=== PATIENT | female | born 1955 | race Caucasian/White ===

== ENCOUNTER 2019-12-23 07:42 | Emergency (ER) | payer OTHER, SELFPAY ==
[2019-12-23 07:43] VITALS: BP 146/92; PULSE 81; RESP 15; TEMP 36.8; O2SAT 98; BMI 31.2
--- NOTE | 2019-12-23 07:43 | EKG12_ITS ---
Test Reason : SYNCOPE Blood Pressure : / mmHG Vent. Rate : 085 BPM Atrial Rate : 085 BPM P-R Int : 128 ms QRS Dur : 092 ms QT Int : 376 ms P-R-T Axes : 046 054 023 degrees QTc Int : 447 ms Normal sinus rhythm Nonspecific ST abnormality Abnormal ECG Confirmed by IBAN QUACH, LOVE ([id number]), science editor RICK MATOS ([id number]) on 12/28/2019 11:57:35 AM Referred By: ELYSSA Confirmed By:LOVE FERRERA MD
[2019-12-23 08:02] LABS: Absolute Lymphocyte Count 1.47 X10^3/uL (0.83-4.51); Absolute Neutrophil Count 1.3 X10^3/uL (2.0-7.7); Basophil# 0.01 X10^3/uL; Basophil% 0.3 % (0-1); Hematocrit 41.7 % (37-47); Hemoglobin 13.5 g/dL (12.0-15.0); Lymphocyte # 1.47 X10^3/ul (4.0); Lymphocyte % 45.4 % (19-41); Mean Corp Hgb Conc 32.4 g/dL (32-36); Mean Corpuscular Hgb 30.7 pg (27.0-32.0); Mean Corpuscular Volume 94.8 fL (81-99); Monocyte# 0.42 X10^3/uL; NRBC Flagged by Analyzer 0 % (0-5); Neutrophil # 1.33 X10^3/uL (2.7-7.7); Platelet Count 176 K/mm3 (150-450); RBC Distribution Width CV 12.4 % (11.6-14.6); RBC Distribution Width SD 43.3 fl (35.1-43.9); White Blood Count 3.2 K/mm3 (4.4-11.0)
--- NOTE | 2019-12-23 08:02 | ED.VISSUMM ---
- ER Visit Summary Date of Service: 12/23/19 Chief Complaint: Syncopal event History of Present Illness: The patient is a 64 F history of reflux, thyroid disease, hypercholesterolemia and prior dysrhythmia. Patient now states she is prediabetic. States this morning she felt lightheaded felt like she might pass out sat down and had a brief syncopal event. Said she was unconscious but only lasted seconds. Other than feeling lightheaded and feeling it coming on she had no other symptoms. She denies any nausea, vomiting or diarrhea. No melena. No fever no chills. No chest pain or shortness of breath. No cough. No abdominal pain. No dysuria. States when she was younger she had episodes where she passed out before. No known cardiac history. No recent exertional chest pain or exertional shortness of breath. She denies any falls or injuries that when she felt it was coming on she sat down on the step. Physical Examination: Older female no acute distress vital signs stable and afebrile. Initial blood pressure 146/92. Pulse ox 90% on room air no signs of hypoxia. H EENT exam normal. Pupils round reactive light. No facial droop. Normal speech. Moist mucous membranes. No signs of trauma. Neck nontender. No lymphadenopathy. Lungs with auscultation bilaterally. Heart regular rate and rhythm no murmur rate about 85. Chest were nontender. Abdomen soft nontender normal bowel sounds no peritoneal signs. Extremities moves all 4. Calves are nontender without edema or cords. 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 Dorsi plantarflexion intact. Equal symmetrical radial pulses. Back nontender. Skin no rashes. Neurologically she is awake and alert. Answers questions and follows commands. Has normal motor strength, sensation and movement of both upper and lower extremities. There is no ataxia. NIH score is 0. Fingertip to nose is within normal limits. Test Results: EKG shows a normal sinus rhythm rate of 85 with no acute signs of NE or ischemia. No change from July 2012. Chest x-ray portable 1 view read both by the radiologist and myself shows no acute abnormality. Normal cardiac silhouette and normal lung johnson. CBC shows a white count 3.2 hemoglobin 13 no bands. Chemistries normal glucose 123 normal gap and creatinine. Troponin normal. Orthostatic vital signs were negative. Covid was sent out and will be reported next several days per the state. Patient was ambulated and did well. No signs of ataxia. Orthostatic vital signs were negative. Multiple repeat exams patient is doing well. I just spoke to her and her daughter at 9:33 AM. They are both comfortable with her being discharged home. Repeat exam is normal. 3 different neurologic exams were all normal with NIH scores of 0 each time. Emergency Department Course and Treatment: Patient had a brief syncopal event with no presyncope symptoms other than being lightheaded. She is completely normal exam currently. Along with a normal neurologic exam. She will undergo cardiac work-up and orthostatic vital signs. Treatment Plan: Follow-up with your doctor. Return if feeling worse. Disposition: Discharge Impression: Acute syncope uncertain etiology History of reflux, thyroid disease and dysrhythmia. This note was generated with [employer] dictation software. It may contain incorrect words, spelling, and punctuation that were not noted in review of the chart prior to signing ED Disposition - Plan for ED Patient: Referrals: Freddie Corley MD [STAFF PHYSICIAN] -
[2019-12-23 08:07] VITALS: BP 130/85; BP 136/66; BP 146/74; PULSE 85; PULSE 86; PULSE 95
[2019-12-23 08:19] LABS: Anion Gap 6 (5-15); BUN 11 mg/dL (7-18); BUN/Creat Ratio 12.9 RATIO (10-20); Calcium,Total 9.1 mg/dL (8.5-10.1); Chloride 103 mmol/L (98-107); Creatinine, Serum 0.85 mg/dL (0.55-1.02); EST Glomerular Filtration Rate 71 mL/min (>60); Est Glom Filt Rate - Afr Amer 86 mL/min (>60); Estimated Creatinine Clearance 56.98 ml/min; Glucose 123 mg/dL (74-106); Potassium 3.8 mmol/L (3.5-5.1); Sodium Level 138 mmol/L (136-145)
--- NOTE | 2019-12-23 08:45 | RAD_ITS ---
STUDY: X-RAY CHEST REASON FOR EXAM: Female, 64 years old. SYNCOPE, SINUS MADRIGAL, CONGESTION, LOSS OF TASTE/SMELL TECHNIQUE: Single AP portable view of the chest. COMPARISON: None. FINDINGS: EKG electrodes are seen. The lungs are clear and expanded. There is no demonstrated pleural abnormality. Normal size heart. Normal mediastinum and go. Normal visualized pulmonary arteries. There is atherosclerotic tortuosity of the aortic arch and descending thoracic aorta. Normal visualized thoracic spine. Normal visualized ribs, clavicles, and shoulders. There is no demonstrated abnormality of the visualized soft tissue structures of the upper abdomen. RAD/Chest 1 View (Portable) IMPRESSION: Unremarkable examination. Electronically Signed: Migel Casper, at 9:09 EDT , Service support ,
--- NOTE | 2019-12-23 09:35 | ED.DEP ---
ED Disposition - Plan for ED Patient: Disposition: Home or Assisted Living Instructions: ED Fainting Uncertain Cause Referrals: Artis Jacobson MD [Primary Care Provider] - 3-5 Days Additional Instructions: Plenty of fluids and rest. Continue your current medications. All your labs and exams today were normal. Your EKG and chest x-ray were both unremarkable also. Follow-up with your primary care physician. Return to the emergency department if you are feeling worse or if you pass out again.
[2019-12-23 10:20] VITALS: BP 130/87; PULSE 78; RESP 14; O2SAT 98
== END 2019-12-23 10:33 | disposition home or self-care (01) ==
PROVIDERS: Emergency Provider Emergency Medicine; PCP Family Medicine
DX: U07.1 COVID-19 (principal); R55 Syncope and collapse; K21.9 Gastro-esophageal reflux disease without esophagitis; E07.9 Disorder of thyroid, unspecified; E78.00 Pure hypercholesterolemia, unspecified; I49.9 Cardiac arrhythmia, unspecified
CPT/HCPCS: 71045; 80048; 84484; 85025; 87635; 93005; 99285; A4216; U0003

== ENCOUNTER 2023-01-13 09:41 | Emergency (ER) | payer OTHER, SELFPAY ==
[2023-01-13 09:41] VITALS: BP 160/77; PULSE 69; RESP 16; TEMP 36.3; O2SAT 99; BMI 30.6
--- NOTE | 2023-01-13 10:11 | EX.ED.DYSGE1 ---
HPI History of Present Illness Chief Complaint: Abd Pain Informant: patient Onset/Context/Timing Onset: Days (5 days) Narrative Narrative: Patient presents secondary to epigastric abdominal pain over the past 5 days. She states on the day of onset she was dragging some leaves with her granddaughter laying on the pile into the singh several times. She noted a pulling sensation in her epigastric region. She continues to have pain in this area with tightening of her muscles or movement. She denies nausea, vomiting, food sensitivity. She had no fever or chills. She states she had a problem with this years ago and was told that she had a hiatal hernia. She has no reflux or early satiety. [facility] Medical History (Updated 01/13/23 @ 10:[address] Ramandeep Brandon MD) HTN (hypertension) Hyperthyroidism Home Medications Folic Acid 1 mg BID 01/04/13 [History Last Taken Unknown] Levothyroxine 100 mg DAILY 01/04/13 [History Last Taken Unknown] Prevacid 40 mg DAILY 01/04/13 [History Last Taken Unknown] Tenormin 25 mg BID 01/04/13 [History Last Taken Unknown] dicyclomine 20 mg tablet (Bentyl) 20 mg PO 4X/DAY PRN Cramp #20 tabs 01/04/13 [Rx Last Taken Unknown] tramadol 50 mg tablet 50 mg PO Q6H PRN pain #20 tabs 01/13/23 [Rx Last Taken Unknown] Allergy/AdvReac Type Severity Reaction Status Date / Time atorvastatin calcium AdvReac Other Verified 01/13/23 09:41 [From Lipitor] Surgical History (Updated 01/13/23 @ 10:[address] Ramandeep Brandon MD) History of Social History Smoking Status: Never smoker ROS ROS ED Constitutional Constitutional ED: Denies chills or fever(s) ENT ENT ED: Denies rhinorrhea or sore throat Cardiovascular Cardiovascular: Denies chest pain or palpitations Respiratory/Chest Respiratory/Chest: Denies cough or dyspnea Gastrointestinal Gastrointestinal: Reports abdominal pain; Denies diarrhea, nausea or vomiting Genitourinary Genitourinary ED: Denies dysuria Musculoskeletal Musculoskeletal: Denies back pain or extremity pain Integumentary Denies Abrasions or rash Neurologic Neurologic: Denies headache(s) or weakness Psychiatric Psychiatric: Denies anxiety or depression Allergic/Immunologic Allergic/Immunologic ED: Denies lip swelling or urticaria EXAM Physical Exam Const Vital Signs: 01/13/23 09:41 Temperature 97.4 F L Temperature Source Temporal Pulse Rate 69 Respiratory Rate 16 Blood Pressure 160/77 H Blood Pressure Mean 104 Pulse Ox 99 Oxygen Delivery Method Room Air Positive well nourished and well developed General Appearance ED: well developed HEENT Reports moist mucous membranes Eyes EOMs intact bilaterally Chest Wall inspection of chest normal and palpation of chest normal Resp normal respiratory effort and clear to auscultation bilaterally Cardio regular rate and regular rhythm GI GI Narrative: Abdomen soft with focal reproducible tenderness in the epigastrium. No palpable masses are noted. Extremity normal to inspection Neuro oriented x3 and no sensory deficits noted Motor Exam: strength 5/5 throughout Skin no rashes or lesions noted MDM MDM MDM Narrative Medical decision making narrative: Patient was advised that her story and physical exam findings are consistent with a muscle wall injury. I do not feel any masses protruding through the hernia site at this time. We discussed obtaining a CT scan to ensure no other acute abnormalities, however patient is comfortable with analgesics at this time and will follow-up. She is given return instructions and is comfortable with this plan. Discharge Plan Triage Chief Complaint: Abd Pain ED Provider: Ramandeep Brandon Dx/Rx/DC Orders Clinical Impression: Abdominal wall strain Instructions: ED Muscle Strain, Abdomen Prescriptions: New tramadol 50 mg tablet 50 mg PO Q6H PRN (Reason: pain) Qty: 20 0RF No Action Folic Acid 1 mg BID Levothyroxine 100 mg DAILY Prevacid 40 mg DAILY Tenormin 25 mg BID dicyclomine [Bentyl] 20 MG tablet 20 mg PO 4X/DAY PRN (Reason: Cramp) Qty: 20 0RF Primary Care Provider: Artis Jacobson Referrals: Artis Jacobson MD [Primary Care Provider] - 1-2 Weeks Disposition Disposition: Home, Self Care
== END 2023-01-13 10:51 | disposition home or self-care (01) ==
LOC: ED 10:31
PROVIDERS: Emergency Provider Emergency Medicine; PCP Family Medicine; Visit Provider Emergency Medicine
DX: S39.011A Strain of muscle, fascia and tendon of abdomen, initial encounter (principal); X58.XXXA Exposure to other specified factors, initial encounter
CPT/HCPCS: 99282

== ENCOUNTER → 2024-11-10 | Outpatient (CLI) | payer OTHER, SELFPAY ==
--- OUTSIDE RECORDS SUMMARY | 2024-11-10 05:59 | XMS RPT_ITS | CCD ---
Author Organization [facility] Care Team Providers Care Glaciologist Name Role Phone Sharri Jacobson MD Primary Care Provider Sharri Jacobson MD Primary Care Provider Marcio Vincent Unavailable Sharri Jacobson MD Primary Care Provider Marcio Vincent Unavailable Artis Jacobson Primary Care Unavailable Ramandeep Brandon Attending Unavailable Sharri Jacobson MD Primary Care Provider Podlogar WINK CUTTER OPERATOR.Yarelis VORA Unavailable Knoble WINK CUTTER OPERATOR.Kathy VORA Unavailable Knoble WINK CUTTER OPERATOR.Kathy VORA Unavailable [place]le WINK CUTTER OPERATOR.BUCKLE ATTACHERKathy Unavailable [place]le WINK CUTTER OPERATOR.Kathy VORA Unavailable YARELIS CARLOS Referring Unavailable SHARRI JACOBSON Primary Care Unavailab le PODLOGYARELIS RODRIGUEZ Attending Unavailable SHARRI JACOBSON Primary Care Unavailab le SHARRI JACOBSON Referring Unavailab le SHARRI JACOBSON Primary Care Unavailab le SHARRI JACOBSON Primary Care Unavailab le MALACIH POOL Referring Unavailable MALACHI POOL Attending Unavailable SHARRI JACOBSON Referring Unavailab le SHARRI JACOBSON Primary Care Unavailab le SHARRI JACOBSON Attending Unavailab SHARRI Bradford Primary Care Unavailab le SHARRI JACOBSON Primary Care Unavailab le PODLOGYARELIS RODRIGUEZ Referring Unavailable SHARRI JACOBSON Primary Care Unavailab le PODLOGARYARELIS Referring Unavailable Allergies Allergy Classification Reported Allergen(s) Allergy Type Date of Onset Reaction(s) Facility HMG-CoA Reductase Inhibitors (statins) (1 source) atorvastatin Drug Allergy 02-02-2005 [facility] Work Phone: (20 sources) atorvastatin; Translations: [ATORVASTATIN CALCIUM] Drug Allergy 02-02-2005 [facility] Work Phone: (1 source) atorvastatin Drug Allergy 01-13-2023 [facility] Medications Current Medications Medication Drug Class(es) Dates Sig (Normalized) Sig (Original) atenolol 100 mg oral tablet (20 sources) beta-Adrenergic Sandie Start: 02-20-2023 End: 01-30-2025 take 1 tablet by mouth once daily atenolol (TENORMIN) 100 mg tablet Indications: Paroxysmal supraventricular tachycardia (HCC) , Essential hypertension Take 1 tablet by mouth once daily. 90 tablet 1 08/03/2024 01/30/2025 Active Start: 02-22-2022 End: 02-09-2023 take 1 tablet by mouth once daily atenolol (TENORMIN) 100 mg tablet Indications: Essential hypertension Take 1 tablet by mouth once daily. 90 tablet 1 08/13/2022 02/09/2023 Active Start: 02-14-2021 End: 02-03-2022 take 1 tablet by mouth once daily atenolol (TENORMIN) 100 mg tablet Indications: Essential hypertension Take 1 tablet by mouth once daily. 90 tablet 1 08/07/2021 02/03/2022 Active Start: 01-04-2013 Tenormin Activ e 25 MG TWICE A DAY January 03, 2013 11:00pm Comment on above: Take 1 tablet by michael once daily. benzonatate 100 mg oral capsule (1 source) Non-narcotic Antitussive Start: 4 End: 4 take 1 capsule by mouth three times daily as needed benzonatate (TESSALON PERLES) 100 mg capsule Indications: Respiratory infection Take 1 capsule by mouth three times a day as needed for up to 7 days. 21 capsule 0 10/04/2023 10/11/2023 Active Blood Pressure Monitor (BLOOD PRESSURE KIT) (20 sources) Start: 1 Blood Pressure Monitor (BLOOD PRESSURE KIT) 1 Each once daily as needed. 1 Kit 12/14/2020 Active Start: 12-14-2020 Blood Pressure Monitor (BLOOD PRESSURE KIT) 1 Each once daily as needed. 1 Kit 0 12/14/2020 Active Comment on above: 1 Each once daily as needed. cholecalciferol 0.025 mg oral capsule (20 sources) Vitamin D Start: take 1 capsule by mouth once daily Cholecalciferol, Vitamin D3, 1,000 unit Cap Take 1 capsule by mouth once daily. 1 capsule 0 2011 Active Comment on above: Take 1 capsule by [facility] once daily. dicyclomine hydrochloride 20 mg oral tablet (1 source) Anticholinergic Start: take 1 tablet by mouth four times daily Dicyclomine (Bentyl) 20 MG tablet Active 20 MG PO 4 TIMES DAILY January 04, 2013 11:18am doxycycline hyclate 100 mg oral tablet (1 source) Tetracycline-class Drug Start: End: take 1 tablet by mouth twice daily doxycycline (VIBRA-TABS) 100 mg tablet Indications: Respiratory infection Take 1 tablet by mouth two times a day for 10 days. 20 tablet 0 10/04/2023 10/14/2023 Active Folic Acid (1 source) Start: Folic Acid Active 1 MG TWICE A DAY January 03, 2013 11:00pm SARAH MI ORAL (20 sources) take 1 tablet by mouth once daily SARAH MI ORAL Take 1 tablet by mouth once daily. Active take 1 tablet by mouth once apolonia y SARAH MI ORAL Take 1 tablet by mouth once daily. 0 Active SARAH MI ORAL Take by mouth three times daily. 0 Active Comment on above: Take by mouth three times daily. Take 1 tablet by [facility] once daily. lansoprazole (1 source) Proton Pump Inhibitor Start: 01-05-20 Prevacid Active 40 MG DAILY January 03, 2013 11:00pm levothyroxine sodium 0.112 mg oral tablet (20 sources) l-Thyroxine Start: 10-21-19 End: 01-31-20 take 1 tablet by mouth once daily before breakfast levothyroxine (SYNTHROID) 112 mcg tablet Indications: Paroxysmal supraventricular tachycardia (HCC) , Prediabetes , Mixed hyperlipidemia , Acquired hypothyroidism , Obesity (BMI 30-39.9) Take 1 tablet by mouth daily before breakfast. Take on empty stomach. 90 tablet 1 08/03/2024 01/30/2025 Active Start: 01-14-2023 End: 10-21-2023 levothyroxine (SYNTHROID) 11 2 mcg tablet Indications: Prediabetes , Mixed hyperlipidemia , Acquired hypothyroidism , Obesity (BMI 30-39.9) , Paroxysmal supraventricular tachycardia (HCC) Take 1/2 tab on Saturday, and 1 tab other days. Take on empty stomach. 180 tablet 1 01/14/2023 10/21/2023 Discontinued Start: 01-03-2022 levothyroxine (SYNTHROID) 112 mcg tablet Indications: Prediabetes , Mixed hyperlipidemia , Acquired hypothyroidism , Obesity (BMI 30-39.9) , Paroxysmal supraventricular tachycardia Take 1/2 tab on Saturday, and 1 tab other days. Take on empty stomach. 60 tablet 5 01/03/2022 Active Start: 10-10-2021 levothyroxine (SYNTHROID) 112 mcg tablet Indications: Prediabetes , Mixed hyperlipidemia , Acquired hypothyroidism , Obesity (BMI 30-39.9) , Paroxysmal supraventricular tachycardia (HCC) Take 1/2 tab on Saturday, and 1 tab other days. Take on empty stomach. 30 tablet 2 10/10/2021 Active Start: 02-14-2021 End: 10-10-2021 levothyroxine (SYNTHROID) 10 0 mcg tablet Indications: Mixed hyperlipidemia , Acquired hypothyroidism , Prediabetes , Obesity (BMI 30-39.9) , Paroxysmal supraventricular tachycardia (HCC) Take 1/2 tab on Saturday, and 1 tab other days. Take on empty stomach. 85 tablet 1 08/07/2021 10/10/2021 Discontinued Start: 01-04-2013 Levothyroxine Active 100 MG DAILY January 03, 2013 11:00pm Comment on above: Take 1/2 tab on , and 1 tab other days. Take on empty stomach. metFORMIN hydrochloride 500 mg oral tablet (20 sources) Biguanide Start: 4 End: 5 take 2 tablets by mouth once daily at breakfast metFORMIN (GLUCOPHAGE) 500 mg tablet Indications: Prediabetes Take 2 tablets by mouth daily with breakfast. . 180 tablet 1 08/03/2024 01/30/2025 Active Start: 02-22-2022 End: 08-13-2022 take 1 tablet by mouth twice daily at mealtime metFORMIN (GLUCOPHAGE) 500 mg tablet Indications: Mixed hyperlipidemia , Acquired hypothyroidism , Prediabetes , Obesity (BMI 30-39.9) , Paroxysmal supraventricular tachycardia Take 1 tablet by mouth twice daily with meals. . 180 tablet 1 08/13/2022 Active Start: 02-14-2021 End: 08-07-2021 take 1 tablet by mouth twice daily at mealtime metFORMIN (GLUCOPHAGE) 500 mg tablet Indications: Mixed hyperlipidemia , Acquired hypothyroidism , Prediabetes , Obesity (BMI 30-39.9) , Paroxysmal supraventricular tachycardia (HCC) Take 1 tablet by mouth twice daily with meals. . 180 tablet 1 08/07/2021 Active Comment on above: Take 1 tablet by michael twice daily with meals. . Take 2 tablets by mo ut daily with breakfast. . MULTIVITAMIN TAB (20 sources) Start: 6 MULTIVITAMIN TAB Take one(1) tablet daily. 0 09/14/2005 Active Comment on above: Take one(1) tablet d aily. Murray-3 Fatty Acids 500 mg cap (20 sources) Start: 6 take 1 capsule by mouth once daily Murray-3 Fatty Acids 500 mg cap Take 1 capsule by mouth once daily. 0 09/08/2015 Active Comment on above: Take 1 capsule by mo ut once daily. potassium gluconate 2.5 meq oral tablet (20 sources) Potassium 99 mg tab Take by mouth once daily. Active Comment on above: Take by mouth once d aily. pravastatin sodium 40 mg oral tablet (20 sources) HMG-CoA Reductase Inhibitor Start: End: take 1 tablet by mouth once daily pravastatin (PRAVACHOL) 40 mg tablet Indications: Mixed hyperlipidemia Take 1 tablet by mouth once daily. 90 tablet 1 08/03/2024 01/30/2025 Active Start: 02-22-2022 End: 09-28-2022 take 1 tablet by mouth once daily pravastatin (PRAVACHOL) 40 mg tablet Indications: Mixed hyperlipidemia , Acquired hypothyroidism , Prediabetes , Obesity (BMI 30-39.9) , Paroxysmal supraventricular tachycardia Take 1 tablet by mouth once daily. 90 tablet 1 09/28/2022 Active Start: 02-14-2021 End: 08-07-2021 take 1 tablet by mouth once daily pravastatin (PRAVACHOL) 40 mg tablet Indications: Mixed hyperlipidemia , Acquired hypothyroidism , Prediabetes , Obesity (BMI 30-39.9) , Paroxysmal supraventricular tachycardia (HCC) Take 1 tablet by mouth once daily. 90 tablet 1 08/07/2021 Active Comment on above: Take 1 tablet by michael th once daily. traMADol hydrochloride 50 mg oral tablet (1 source) Opioid Agonist Start: 01-14-20 take 50 mg by mouth every six hours Tramadol Active 50 MG PO EVERY 6 HOURS January 13, 2023 12:00am triamcinolone acetonide 1 mg/ml topical cream (1 source) Corticosteroid Start: 08-08-19 End: 08-22-19 triamcinolone acetonide (KENALOG) 0.1 % cream Indications: Dermatitis Apply 1 application to affected area twice daily for 14 days. Apply sparingly to area for rash/itching. 45 g 0 08/07/2021 08/21/2021 Active Comment on above: Apply 1 application to affected area twice daily for 14 days. Apply sparingly to area for rash/itching. vitamin b12 0.5 mg oral tablet (20 sources) Vitamin B12 Start: 06-14-19 07 CYANOCOBALAMIN 500 MCG TAB Take one(1) tablet daily. 0 06/13/2006 Active Comment on above: Take one(1) tablet d aily. vitamin b6 100 mg oral tablet (20 sources) Start: 06-14-19 07 VITAMIN B-6 100 MG TAB Take one(1) tablet daily. 0 06/13/2006 Active Comment on above: Take one(1) tablet d aily. Completed/Discontinued Medications Medication Drug Class(es) Dates Sig (Normalized) Sig (Original) aspirin 81 mg delayed release oral tablet (18 sources) Platelet Aggregation Inhibitor, Nonsteroidal Anti-inflammatory Drug Start: 09-08-2015 take 1 tablet by mouth once daily aspirin, enteric coated (ASPIRIN, ENTERIC COATED) 81 mg EC tablet Take 1 tablet by mouth once daily. 0 09/08/2015 Active Comment on above: Take 1 tablet by michael th once daily. lisinopril 5 mg oral tablet (20 sources) Angiotensin Converting Enzyme Inhibitor Start: 03-25-2023 End: 08-13-2024 take 1 tablet by mouth once daily lisinopril (ZESTRIL) 5 mg tablet Indications: Essential hypertension Take 1 tablet by mouth once daily. 90 tablet 1 02/15/2024 04/20/2024 Discontinued (Discontinued by Patient) Comment on above: Take 1 tablet by michael once daily. loratadine 10 mg oral tablet (19 sources) End: 10-19-2024 take 1 tablet by mouth once daily loratadine (CLARITIN) 10 mg tablet Take 10 mg by mouth once daily. 10/19/2024 Discontinued (Course of therapy completed) meloxicam 15 mg oral tablet (5 sources) Nonsteroidal Anti-inflammatory Drug Start: 08-09-2023 End: 10-08-2023 take 1 tablet by mouth once daily meloxicam (MOBIC) 15 mg tablet Take 1 tablet by mouth once daily. 30 tablet 1 08/09/2023 10/08/2023 montelukast 10 mg oral tablet (16 sources) Leukotriene Receptor Antagonist Start: 10-18-2023 End: 01-30-2025 take 1 tablet by mouth once daily at bedtime montelukast (SINGULAIR) 10 mg tablet Take 1 tablet by mouth daily at bedtime. 90 tablet 1 08/03/2024 10/19/2024 Discontinued (Course of therapy completed) Murray-3 Fatty Acids (FISH OIL) 500 mg cap (1 source) Start: 09-08-2015 take 1 capsule by mouth once daily Murray-3 Fatty Acids (FISH OIL) 500 mg cap Take 1 capsule by mouth once daily. 0 09/08/2015 Active Comment on above: Take 1 capsule by mo [facility] once daily. Problems Active Problems Problem Classification Problem Date Documented Da te Episodic/Chronic Allergic reactions (2 sources) Inflammatory dermatosis; Translations: [Dermatitis, unspecified] Episodic Cardiac dysrhythmias (20 sources) Paroxysmal supraventricular tachycardia; Translations: [Supraventricular tachycardia] Onset: 3 Chronic Complications of surgical procedures or medical care (20 sources) Postablative hypothyroidism; Translations: [Postprocedural hypothyroidism] Onset: 6 12-25-2005 Chronic Disorders of lipid metabolism (20 sources) Mixed hyperlipidemia; Translations: [Mixed hyperlipidemia] Onset: 1 Chronic Esophageal disorders (20 sources) Gastroesophageal reflux disease without esophagitis; Translations: [Gastro-esophageal reflux disease without esophagitis] 04-19-2023 Chronic Essential hypertension (20 sources) Essential hypertension; Translations: [Essential (primary) hypertension] Onset: Chronic Gastrointestinal hemorrhage (1 source) Hematochezia; Translations: [Melena] 01-04-2013 Episodic Immunizations and screening for infectious disease (2 sources) Encounter for immunization; Translations: [Other specified vaccinations against streptococcus pneumoniae [pneumococcus]] Episodic Joint disorders and dislocations; trauma-related (1 source) Loose body in left knee joint; Translations: [Loose body in knee, left knee] 08-09-2023 Chronic Osteoarthritis (3 sources) Osteoarthritis of left knee joint; Translations: [Unilateral primary osteoarthritis, left knee] Onset: 5 08-09-2023 Chronic Other ear and sense organ disorders (1 source) Impacted cerumen of bilateral ears; Translations: [Impacted cerumen, bilateral] 10-18-2023 Episodic Other eye disorders (10 sources) Keratoconus, stable, bilateral; Translations: [Keratoconus, stable condition] Episodic Other eye disorders (6 sources) Disorder of lacrimal gland; Translations: [Dry eye syndrome of bilateral lacrimal glands] Episodic Other gastrointestinal disorders (1 source) Diarrhea; Translations: [Diarrhea, unspecified] 01-04-2013 Episodic Other lower respiratory disease (1 source) Dry cough; Translations: [Dry cough] 04-19-2023 Episodic Other lower respiratory disease (2 sources) Cough; Translations: [Acute cough] 10-04-2023 Episodic Other lower respiratory disease (1 source) Respiratory tract infection; Translations: [Other specified respiratory disorders] 10-04-2023 Episodic Other lower respiratory disease (1 source) Persistent cough; Translations: [Persistent cough for 3 weeks or longer] 10-18-2023 Episodic Other non-traumatic joint disorders (3 sources) Pain in left knee; Translations: [Pain in joint, lower leg] 06-21-2023 Episodic Other nutritional; endocrine; and metabolic disorders (20 sources) Body mass index 30+ - obesity; Translations: [Obesity, unspecified] Chronic Other nutritional; endocrine; and metabolic disorders (20 sources) Obese class I; Translations: [Obesity, unspecified] Onset: 4 10-18-2023 Chronic Other upper respiratory disease (1 source) Allergic rhinitis; Translations: [Allergic rhinitis, unspecified] 04-19-2023 Chronic Other upper respiratory disease (1 source) Nasal congestion; Translations: [Nasal congestion] 10-18-2023 Episodic Otitis media and related conditions (1 source) Disorder of left Eustachian tube; Translations: [Unspecified Eustachian tube disorder, left ear] 04-20-2024 Episodic Sprains and strains (1 source) Injury of abdominal wall; Translations: [Strain of muscle, fascia and tendon of abdomen, initial encounter] 01-13-2023 Episodic Thyroid disorders (20 sources) Acquired hypothyroidism; Translations: [Hypothyroidism, unspecified] Onset: 0 Resolved: 7 Chronic Unclassified (20 sources) Reflux; Translations: [Reflux] 03-10-2013 Unclassified (1 source) Obesity, Class I, BMI 30-34.9; Translations: [Obesity, Class I, BMI 30-34.9] Onset: 4 Varicose veins of lower extremity (8 sources) Venous varices; Translations: [Asymptomatic varicose veins of unspecified lower extremity] Onset: 5 10-19-2024 Episodic Past or Other Problems Problem Classification Problem Date Documented Da te Episodic/Chronic Abdominal pain (20 sources) Epigastric pain; Translations: [Epigastric pain] Onset: 06-14-2006 Resolved: 12-14-2016 01-13-2023 Episodic Cardiac dysrhythmias (20 sources) Palpitations; Translations: [Palpitations] Onset: 07-07-2012 07-07-2012 Episodic Diabetes mellitus without complication (20 sources) Prediabetes; Translations: [Prediabetes] Onset: 12-14-2016 Resolved: 12-14-2016 Episodic Menstrual disorders (20 sources) Excessive and frequent menstruation; Translations: [Excessive and frequent menstruation with regular cycle] Onset: 07-11-2005 Resolved: 12-14-2016 12-14-2016 Chronic Other eye disorders (20 sources) Keratoconus; Translations: [Keratoconus, unspecified, unspecified eye] Onset: 02-07-2015 02-07-2015 Episodic Other female genital disorders (20 sources) Hypertrophy of uterus; Translations: [Hypertrophy of uterus] Onset: 07-11-2005 07-11-2005 Episodic Other screening for suspected conditions (not mental disorders or infectious disease) (9 sources) Other specified abnormal findings of blood chemistry; Translations: [Other abnormal blood chemistry] Onset: 07-13-2024 Episodic Unclassified (1 source) Patient encounter status 04-20-2024 Results Test Name Value Interpretation Reference Range Facility CBC W Auto Differential pane l (Bld)on 10-19-2024 Basophils (Bld) [#/Vol] 0.04 10*3/uL [facility] Basophils/100 WBC (Bld) 0.6 % [facility] Differential cell count method Nom (Bld) Auto [facility] Eosinophils (Bld) [#/Vol] 0.16 10*3/uL [facility] Eosinophils/100 WBC (Bld) 2.6 % [facility] Erythrocyte distribution width (RBC) [Ratio] 12.7 % 11.5 - 15.0 % [facility] Hematocrit (Bld) [Volume fraction] 42.0 % 36.0 - 46.0 % [facility] Hemoglobin (Bld) [Mass/Vol] 13.8 g/dL 11.5 - 15.5 g/dL [facility] Immature granulocytes (Bld) [#/Vol] [facility] Immature granulocytes/100 WBC (Bld) 0.2 % [facility] Lymphocytes (Bld) [#/Vol] 2.30 10*3/uL [facility] Lymphocytes/100 WBC (Bld) 36.9 % [facility] MCH (RBC) [Entitic mass] 31.3 pg 26.0 - 34.0 pg [facility] MCHC (RBC) [Mass/Vol] 32.9 g/dL 30.5 - 36.0 g/dL [facility] MCV (RBC) [Entitic vol] 95.2 fL 80.0 - 100.0 fL [facility] Monocytes (Bld) [#/Vol] 0.53 10*3/uL [facility] Monocytes/100 WBC (Bld) 8.5 % [facility] Neutrophils (Bld) [#/Vol] 3.19 10*3/uL [facility] Neutrophils/100 WBC (Bld) 51.2 % [facility] Nucleated RBC (Bld) [#/Vol] [facility] Nucleated RBC/100 WBC (Bld) [Ratio] 0.0 % /100 WBC [facility] Platelet mean volume (Bld) [Entitic vol] 11.0 fL 9.0 - 12.7 fL [facility] Platelets (Bld) [#/Vol] 264 10*3/uL [facility] RBC (Bld) [#/Vol] 4.41 10*6/uL 3.90 - 5.2 0 m/uL [facility] WBC (Bld) [#/Vol] 6.23 10*3/uL [facility] Basophils (Bld) [#/Vol] 0.04 10*3/uL Normal <0.11 [facility] Comment on above: Order Comment: Speci men Type: BLOOD SPECIMENOrdering Facility: [facility] Address: [address] [place] [address] Performed By: #### 5 7021-8 ####[facility] [id number] [place] [address] [place] Basophils/100 WBC (Bld) 0.6 % Normal [facility] Comment on above: Order Comment: Speci men Type: BLOOD SPECIMENOrdering Facility: [facility] Address: [address] [place] [address] Performed By: #### 5 7021-8 ####[facility] [id number] [place] [address] [place] Differential cell count method Nom (Bld) Auto Normal [facility] Comment on above: Order Comment: Speci men Type: BLOOD SPECIMENOrdering Facility: [facility] Address: [address] [place] [address] Performed By: #### 5 7021-8 ####[facility] [id number] [place] [address] [place] Eosinophils (Bld) [#/Vol] 0.16 10*3/uL Normal <0.46 [facility] Comment on above: Order Comment: Speci men Type: BLOOD SPECIMENOrdering Facility: [facility] Address: [address] [place] [address] Performed By: #### 5 7021-8 ####[facility] [id number] [address], [place] [address] [place] Eosinophils/100 WBC (Bld) 2.6 % Normal [facility] Comment on above: Order Comment: Speci men Type: BLOOD SPECIMENOrdering Facility: [facility] Address: [address] [place] [address] Performed By: #### 5 7021-8 ####[facility] [id number] [address], [place] [address] [place] Erythrocyte distribution width (RBC) [Ratio] 12.7 % Normal 11.5-15.0 [facility] Comment on above: Order Comment: Speci men Type: BLOOD SPECIMENOrdering Facility: [facility] Address: [address] [place] [address] Performed By: #### 5 7021-8 ####[facility] [id number] [address], [place] [address] [place] Hematocrit (Bld) [Volume fraction] 42.0 % Normal 36.0-46.0 [facility] Comment on above: Order Comment: Speci men Type: BLOOD SPECIMENOrdering Facility: [facility] Address: [address] [place] [address] Performed By: #### 5 7021-8 ####[facility] [id number] [address], [facility] [place] Hemoglobin (Bld) [Mass/Vol] 13.8 g/dL Normal 11.5-15.5 [facility] Comment on above: Order Comment: Speci men Type: BLOOD SPECIMENOrdering Facility: [facility] Address: [address] [place] [address] Performed By: #### 5 7021-8 ####[facility] [id number] [address], [facility] [place] Immature granulocytes (Bld) [#/Vol] 10*3/uL Normal <0.10 [facility] Comment on above: Order Comment: Speci men Type: BLOOD SPECIMENOrdering Facility: [facility] Address: [address] [place] [address] Performed By: #### 5 7021-8 ####[facility] [id number] [place] [address] [place] Immature granulocytes/100 WBC (Bld) 0.2 % Normal [facility] Comment on above: Order Comment: Speci men Type: BLOOD SPECIMENOrdering Facility: [facility] Address: [address] [place] [address] Performed By: #### 5 7021-8 ####[facility] [id number] [place] [address] [place] Lymphocytes (Bld) [#/Vol] 2.30 10*3/uL Normal 1.00-4.00 [facility] Comment on above: Order Comment: Speci men Type: BLOOD SPECIMENOrdering Facility: [facility] Address: [address] [place] [address] Performed By: #### 5 7021-8 ####[facility] [id number] [place] [address] [place] Lymphocytes/100 WBC (Bld) 36.9 % Normal [facility] Comment on above: Order Comment: Speci men Type: BLOOD SPECIMENOrdering Facility: [facility] Address: [address] [place] [address] Performed By: #### 5 7021-8 ####[facility] [id number] [place] [id number] [place] MCH (RBC) [Entitic mass] 31.3 pg Normal 26.0-34.0 [facility] Comment on above: Order Comment: Speci men Type: BLOOD SPECIMENOrdering Facility: [facility] Address: [address] [place] [address] Performed By: #### 5 7021-8 ####[facility] [id number] [place] [address] [place] MCHC (RBC) [Mass/Vol] 32.9 g/dL Normal 30.5-36.0 [facility] Comment on above: Order Comment: Speci men Type: BLOOD SPECIMENOrdering Facility: [facility] Address: [address] [place] [address] Performed By: #### 5 7021-8 ####[facility] [id number] [place] [address] [place] MCV (RBC) [Entitic vol] 95.2 fL Normal 80.0-100.0 [facility] Comment on above: Order Comment: Speci men Type: BLOOD SPECIMENOrdering Facility: [facility] Address: [address] [place] [address] Performed By: #### 5 7021-8 ####[facility] [id number] [place] [address] [place] Monocytes (Bld) [#/Vol] 0.53 10*3/uL Normal <0.87 [facility] Comment on above: Order Comment: Speci men Type: BLOOD SPECIMENOrdering Facility: [facility] Address: [address] [place] [address] Performed By: #### 5 7021-8 ####[facility] [id number] [place] [address] [place] Monocytes/100 WBC (Bld) 8.5 % Normal [facility] Comment on above: Order Comment: Speci men Type: BLOOD SPECIMENOrdering Facility: [facility] Address: [address] [place] [address] Performed By: #### 5 7021-8 ####[facility] [id number] [place] [address] [place] Neutrophils (Bld) [#/Vol] 3.19 10*3/uL Normal 1.45-7.50 [facility] Comment on above: Order Comment: Speci men Type: BLOOD SPECIMENOrdering Facility: [facility] Address: [address] [address] Performed By: #### 5 7021-8 ####[facility] [id number] [place] [address] [place] Neutrophils/100 WBC (Bld) 51.2 % Normal [facility] Comment on above: Order Comment: Speci men Type: BLOOD SPECIMENOrdering Facility: [facility] Address: [address] [place] [address] Performed By: #### 5 7021-8 ####[facility] [id number] [place] [address] [place] Nucleated RBC (Bld) [#/Vol] 10*3/uL Normal <0.01 [facility] Comment on above: Order Comment: Speci men Type: BLOOD SPECIMENOrdering Facility: [facility] Address: [address] [place] [address] Performed By: #### 5 7021-8 ####[facility] [id number] [place] [address] [place] Nucleated RBC/100 WBC (Bld) [Ratio] 0.0 /100 WBC Normal [facility] Comment on above: Order Comment: Speci men Type: BLOOD SPECIMENOrdering Facility: [facility] Address: [address] [address] Performed By: #### 5 7021-8 ####[facility] [id number] [place] [address] [place] Platelet mean volume (Bld) [Entitic vol] 11.0 fL Normal 9.0-12.7 [facility] Comment on above: Order Comment: Speci men Type: BLOOD SPECIMENOrdering Facility: [facility] Address: [address] [address] Performed By: #### 5 7021-8 ####[facility] [id number] [place] [address] [place] Platelets (Bld) [#/Vol] 264 10*3/uL Normal 150-400 [facility] Comment on above: Order Comment: Speci men Type: BLOOD SPECIMENOrdering Facility: [facility] Address: [address] [address] Performed By: #### 5 7021-8 ####[facility] [id number] [place] [address] [place] RBC (Bld) [#/Vol] 4.41 10*6/uL Normal 3.90-5.20 [facility] Comment on above: Order Comment: Speci men Type: BLOOD SPECIMENOrdering Facility: [facility] Address: [address] [address] Performed By: #### 5 7021-8 ####[facility] [id number] [place] [address] [place] WBC (Bld) [#/Vol] 6.23 10*3/uL Normal 3.70-11.00 [facility] Comment on above: Order Comment: Speci men Type: BLOOD SPECIMENOrdering Facility: [facility] Address: [address] [address] Performed By: #### 5 7021-8 ####[facility] [id number] [address] [place] CNOVon 10-19-2024 CNOV Office Visit (FAMPWS ) ELINA GRACE ([id number]) 1955 F Date Time Provider Department 10/19/24 8:40 AM SHARRI JACOBSON During your visit today, we recorded the following information about you: Pulse Blood pressure Weight Height 63/minute 128/76 81.6 kg 1.605 m Sharri Jacobson MD 10/19/2024 9:31 AM Signed Chief Complaint Patient presents with: 6 Month Exam Recording using [email or web address] software for draft documentation of the visit was discussed with the patient/authorized call center support representative; all questions welcomed and answered. Patient/authorized call center support representative agreed to proceed HPI Elina Grace is a 69 year old female who presents here today for annual physical. Has forms to be completed today. Left Knee Pain: - Severe arthritis and bone on bone changes in the left knee. - Under care of Dr. Mims at [facility]. - Received two cortisone injections with adverse reactions: facial erythema, sensation of heat, and palpitations. - Considering surgical intervention. Varicose Vein Pain: - Reports pain in varicose veins, particularly in the lower legs. - Pain described as going way down in the legs. - Has had visible veins in the legs since youth. Hypothyroidism: - Managed with Synthroid. - Occasional hot flashes relieved by drinking water. - Denies constipation, diarrhea, or other skin changes. HTN: - Managed with atenolol. - Denies chest pain, dyspnea, or palpitations. Hyperlipidemia: - Managed with pravastatin. - Previous intolerance to Lipitor. Diet: - Consumes a diet high in vegetables, including green beans. - Avoids starchy beans. Recent Procedures: - Cyst removed from the left cheek in August; benign. - Recent cryotherapy for a skin lesion, resulting in a blister. Immunizations: - Up to date on shingles and pneumonia vaccines. - Missed flu and COVID vaccines last year due to illness. Past medical history, appointments, medications, allergies reviewed. Previous Medical History PAST MEDICAL HISTORY Diagnosis Date Arthritis of left knee severe, Dr. Chin Asymptomatic varicose veins Essential hypertension Obesity (BMI 30-39.9) Other and unspecified hyperlipidemia 2002 Paroxysmal supraventricular tachycardia (HCC) 2002 Supraventricular tachycardia Postablative hypothyroidism Prediabetes Reflux Spider veins of both lower extremities 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 thyrotoxic crisis or storm Previous Surgical History PAST SURGICAL HISTORY Procedure Laterality Date DELIVERY ONLY 03/04/1984 , low cervical DELIVERY ONLY 03/04/1987 , low cervical DELIVERY ONLY 03/04/1991 , low cervical COLONOSCOPY FLX DX W/COLLJ SPEC WHEN PFRMD 01/15/2013 Colonoscopy ESOPHAGOGASTRODUODENOS COPY TRANSORAL DIAGNOSTIC 03/30/2013 EGD LIG/TRNSXJ FLP TUBE ABDL/VAG APPR UNI/BI 03/04/1991 Tubal ligation with last c section PAST SURGICAL HISTORY OF 08/2022 Ingrown toenail removal-Dr. Tolbert in [place] PAST SURGICAL HISTORY OF 08/2024 cyst removal from left cheek-[facility] [place] Family History FAMILY HISTORY Problem Relation Age of Onset Heart Mother bypass surgery x 4 with valve replacement other (renal failure) Father Diabetes Sister on insulin Patient Allergies ALLERGIES Allergen Reactions Lipitor [Atorvastat* vertigo Current Medications Current Outpatient Medications on File Prior to Visit Medication Sig levothyroxine (SYNTHROID) 112 mcg tablet Take 1 tablet by mouth daily before breakfast. Take on empty stomach. atenolol (TENORMIN) 100 mg tablet Take 1 tablet by mouth once daily. pravastatin (PRAVACHOL) 40 mg tablet Take 1 tablet by mouth once daily. metFORMIN (GLUCOPHAGE) 500 mg tablet Take 2 tablets by mouth daily with breakfast. . Blood Pressure Monitor (BLOOD PRESSURE KIT) 1 Each once daily as needed. Murray-3 Fatty Acids 500 mg cap Take 1 capsule by mouth once daily. SARAH MI ORAL Take 1 tablet by mouth once daily. Potassium 99 mg tab Take by mouth once daily. Cholecalciferol, Vitamin D3, 1,000 unit Cap Take 1 capsule by mouth once daily. VITAMIN B-6 100 MG TAB Take one(1) tablet daily. CYANOCOBALAMIN 500 MCG TAB Take one(1) tablet daily. MULTIVITAMIN TAB Take one(1) tablet daily. montelukast (SINGULAIR) 10 mg tablet Take 1 tablet by mouth daily at bedtime. (Patient not taking: Reported on 10/19/2024) loratadine (CLARITIN) 10 mg tablet Take 10 mg by mouth once daily. (Patient not taking: Reported on 10/19/2024) No current facility-administered medications on file prior to visit. Social History SOCIAL HISTORY[1] Review of Symptoms REVIEW OF SYSTEMS GENERAL: No weight loss, malaise or fevers HEENT: Negative for frequent or significant headaches, No changes in hearing or vision, no nose bleeds or other nasal problem (more content not included)... Normal [facility] Comprehensive metabolic 2000 panelon 10-19-2024 Albumin [Mass/Vol] 4.6 g/dL Normal 3.9-4.9 [facility] Comment on above: Order Comment: Speci men Type: BLOOD SPECIMENOrdering Facility: [facility] Address: [address] [address] Performed By: #### 3 016-3, 38071-4, LIPNF ####[facility] [id number] [place] [address] [place] ALP [Catalytic activity/Vol] 60 U/L Normal 34-123 [facility] Comment on above: Order Comment: Speci men Type: BLOOD SPECIMENOrdering Facility: [facility] Address: [address] [place] [address] Performed By: #### 3 016-3, 39812-6, LIPNF ####[facility] [id number] [place] [address] [place] ALT [Catalytic activity/Vol] 21 U/L Normal 7-38 [facility] Comment on above: Order Comment: Speci men Type: BLOOD SPECIMENOrdering Facility: [facility] Address: [address] [address] Performed By: #### 3 016-3, 94129-3, LIPNF ####[facility] [id number] [place] [address] [place] Anion gap [Moles/Vol] 13 mmol/L Normal 8-15 [facility] Comment on above: Order Comment: Speci men Type: BLOOD SPECIMENOrdering Facility: [facility] Address: [address] [address] Performed By: #### 3 016-3, , LIPNF ####[facility] [id number] [place] [address] [place] AST [Catalytic activity/Vol] 24 U/L Normal 13-35 [facility] Comment on above: Order Comment: Speci men Type: BLOOD SPECIMENOrdering Facility: [facility] Address: [address] [address] Performed By: #### 3 016-3, , LIPNF ####[facility] [id number] [place] [address] [place] Bilirubin [Mass/Vol] 0.4 mg/dL Normal 0.2-1.3 [facility] Comment on above: Order Comment: Speci men Type: BLOOD SPECIMENOrdering Facility: [facility] Address: [address] [address] Performed By: #### 3 016-3, , LIPNF ####[facility] [id number] [place] [address] [place] Calcium [Mass/Vol] 10.1 mg/dL Normal 8.5-10.2 [facility] Comment on above: Order Comment: Speci men Type: BLOOD SPECIMENOrdering Facility: [facility] Address: [address] [address] Performed By: #### 3 016-3, , LIPNF ####[facility] [id number] [place] [id number] [place] Chloride [Moles/Vol] 101 mmol/L Normal 98-107 [facility] Comment on above: Order Comment: Speci men Type: BLOOD SPECIMENOrdering Facility: [facility] Address: [address] [address] Performed By: #### 3 016-3, , LIPNF ####[facility] [id number] [place] [address] [place] CO2 [Moles/Vol] 26 mmol/L Normal 22-30 [facility] Comment on above: Order Comment: Speci men Type: BLOOD SPECIMENOrdering Facility: [facility] Address: [address] [place] [address] Performed By: #### 3 016-3, 24748-9, LIPNF ####[facility] [id number] [place] [address] [place] Creatinine [Mass/Vol] 0.71 mg/dL Normal 0.58-0.96 [facility] Comment on above: Order Comment: Speci men Type: BLOOD SPECIMENOrdering Facility: [facility] Address: [address] [place] [address] Performed By: #### 3 016-3, 58759-5, LIPNF ####[facility] [id number] [place] [address] [place] eGFRcr SerPlBld CKD-EPI 2020 92 mL/min/1.73m??? Normal >=60 [facility] Comment on above: Order Comment: Speci men Type: BLOOD SPECIMENOrdering Facility: [facility] Address: [address] [place] [address] Result Comment: Leticia mated Glomerular Filtration Rate (eGFR) is calculated using the 2020 CKD-EPI creatinine equation. This equation utilizes serum creatinine, sex, and age as parameters. The creatinine assay has traceable calibration to isotope dilution-mass spectrometry. Refer to KDIGO guidelines for clinical interpretation. In patients with unstable renal function, e.g. those with acute kidney injury, the eGFR may not accurately reflect actual GFR. Performed By: #### 3 016-3, 99005-1, LIPNF ####[facility] [id number] [place] [id number] [place] Glucose [Mass/Vol] 103 mg/dL High 74-99 [facility] Comment on above: Order Comment: Speci men Type: BLOOD SPECIMENOrdering Facility: [facility] Address: [address] [place] [address] Result Comment: The [place] Diabetes Association (ADA) provides guidance for cutoff values for fasting glucose and random glucose. The ADA defines fasting as no caloric intake for at least 8 hours. Fasting plasma glucose results between 100 to 125 mg/dL indicate increased risk for diabetes (prediabetes). Fasting plasma glucose results greater than or equal to 126 mg/dL meet the criteria for diagnosis of diabetes. In the absence of unequivocal hyperglycemia, results should be confirmed by repeat testing. In a patient with classic symptoms of hyperglycemia or hyperglycemic crisis, random plasma glucose results greater than or equal to 200 mg/dL meet the criteria for diagnosis of diabetes. Reference: Standards of Medical Care in Diabetes 2016, [place] Diabetes Association. Diabetes Care. 2016.39(Suppl 1). Performed By: #### 3 016-3, 71116-3, LIPNF ####[facility] [id number] [place] [address] [place] Potassium [Moles/Vol] 4.6 mmol/L Normal 3.7-5.1 [facility] Comment on above: Order Comment: Liliana almodovar Type: BLOOD SPECIMENOrdering Facility: [facility] Address: [address] [place] [address] Performed By: #### 3 016-3, 02945-6, LIPNF ####[facility] [id number] [place] [address] [place] Protein [Mass/Vol] 7.5 g/dL Normal 6.3-8.0 [facility] Comment on above: Order Comment: Liliana almodovar Type: BLOOD SPECIMENOrdering Facility: [facility] Address: [address] [place], [place] [address] Performed By: #### 3 016-3, 63879-6, LIPNF ####[facility] [id number] [place] [id number] [place] Sodium [Moles/Vol] 140 mmol/L Normal 136-144 [facility] Comment on above: Order Comment: Liliana almodovar Type: BLOOD SPECIMENOrdering Facility: [facility] Address: [address] [place] [address] Performed By: #### 3 016-3, 63095-5, LIPNF ####[facility] [id number] [place] [address] [place] Urea nitrogen [Mass/Vol] 14 mg/dL Normal 7-21 [facility] Comment on above: Order Comment: Liliana men Type: BLOOD SPECIMENOrdering Facility: [facility] Address: [address] [place] [address] Performed By: #### 3 016-3, 36991-0, LIPNF ####[facility] [id number] [address] [place] HbA1c (Bld)on 10-19-2024 Average glucose Estimated from glycated hemoglobin (Bld) [Mass/Vol] 123 mg/dL [facility] Comment on above: eAG: (Estimated aver age glucose) is a calculated value from HgbA1c and is call center support representative of the average blood glucose level in the last 2-3 month period. HbA1c (Bld) [Mass fraction] 5.9 % High 4.3 - 5.6 % [facility] Comment on above: [place] Diabetes As sociation guidelines indicate that patients with HgbA1c in the range 5.7-6.4% are at increased risk for development of diabetes, and intervention by lifestyle modification may be beneficial. HgbA1c greater or equal to 6.5% is considered diagnostic of diabetes. Interpretation and review of laboratory results Abnormal [facility] Average glucose Estimated from glycated hemoglobin (Bld) [Mass/Vol] 123 mg/dL Normal [facility] Comment on above: Order Comment: Liliana almodovar Type: BLOOD SPECIMENOrdering Facility: [facility] Address: [address] [place] [address] Result Comment: eAG: (Estimated average glucose) is a calculated value from HgbA1c and is call center support representative of the average blood glucose level in the last 2-3 month period. Performed By: #### 5 5454-3 ####[facility] [id number] [place] [id number] [place] HbA1c (Bld) [Mass fraction] 5.9 % High 4.3-5.6 [facility] Comment on above: Order Comment: Liliana scooby Type: BLOOD SPECIMENOrdering Facility: [facility] Address: [address] [place] [address] Result Comment: [place] Diabetes Association guidelines indicate that patients with HgbA1c in the range 5.7-6.4% are at increased risk for development of diabetes, and intervention by lifestyle modification may be beneficial. HgbA1c greater or equal to 6.5% is considered diagnostic of diabetes. Performed By: #### 5 5454-3 ####[facility] [id number] [address] [place] LIPID PANEL, NONFASTINGon Cholesterol [Mass/Vol] 186 mg/dL Normal <200 [facility] Comment on above: Order Comment: Liliana almodovar Type: BLOOD SPECIMENOrdering Facility: [facility] Address: [address] [place] [address] Result Comment: <200 mg/dL, Desirable 200-239 mg/dL, Borderline high >239 mg/dL, High Performed By: #### 3 016-3, 06050-5, LIPNF ####[facility] [id number] [place] [id number] [facility] [place] HDL CHOLESTEROL, NF 67 mg/dL Normal >39 [facility] Comment on above: Order Comment: Liliana scooby Type: BLOOD SPECIMENOrdering Facility: [facility] Address: [address] [place] [address] Result Comment: 40-5 9 mg/dL, Acceptable >59 mg/dL, High: Negative risk factor for coronary heart disease <40 mg/dL, Low: Positive risk factor for coronary heart disease Performed By: #### 3 016-3, 93621-2, LIPNF ####[facility] [id number] [place] [address] [address] LDL CHOLESTEROL CALCULATED, NF 101 mg/dL High <100 [facility] Comment on above: Order Comment: Liliana scooby Type: BLOOD SPECIMENOrdering Facility: [facility] Address: [address] [address] Result Comment: <100 mg/dL, Optimal 100-129 mg/dL, Near optimal/above optimal 130-159 mg/dL, Borderline high 160-189 mg/dL, High >189 mg/dL, Very high Secondary prevention optimal LDL Cholesterol levels are recommended to be <70 mg/dL LDL cholesterol is calculated using the Castrejon-NIH equation. Performed By: #### 3 016-3, 10797-0, LIPNF ####[facility] [id number] [address] LDL/HDL RATIO, NF 1.51 mg/dL Normal <2.54 [facility] Comment on above: Order Comment: Liliana almodovar Type: BLOOD SPECIMENOrdering Facility: [facility] Address: [address] [place] [address] Result Comment: Refe halima: 1. National Cholesterol Education Program ATP III Guideline At-A-Glance Quick Desk Reference: National Heart, Lung, and Blood [place]. National Institutes of Health. 2001: NIH Publication No. 01-3305. 2. An International Atherosclerosis Society position paper: global recommendations for the management of dyslipidemia: executive summary, Atherosclerosis. 2014: 232(2):410-413. Performed By: #### 3 016-3, 43884-4, LIPNF ####[facility] [id number] [address] OF [facility] NON HDL CHOL, NF 119 mg/dL Normal <130 [facility] Comment on above: Order Comment: Jossiedeng almodovar Type: BLOOD SPECIMENOrdering Facility: [facility] Address: [address] [address] Result Comment: <130 mg/dL, Optimal 130-159 mg/dL, Near optimal/above optimal 160-189 mg/dL, Borderline high 190-219 mg/dL, High >219 mg/dL, Very high Secondary prevention optimal non HDL Cholesterol levels are recommended to be <100 mg/dL Performed By: #### 3 016-3, 60262-1, LIPNF ####[facility] [id number] [place] [address] [place] T CHOL/HDL RATIO NF 2.78 mg/dL Normal <5.10 [facility] Comment on above: Order Comment: Speci men Type: BLOOD SPECIMENOrdering Facility: [facility] Address: [address] [address] Performed By: #### 3 016-3, 99824-0, LIPNF ####[facility] [id number] [place] [address] [place] TRIGLYCERIDES, NF 101 mg/dL Normal <150 [facility] Comment on above: Order Comment: Speci men Type: BLOOD SPECIMENOrdering Facility: [facility] Address: [address] [place] [address] Result Comment: <150 mg/dL, Normal 150-199 mg/dL, Borderline high 200-499 mg/dL, High >499 mg/dL, Very high Performed By: #### 3 016-3, 40510-0, LIPNF ####[facility] [id number] [place] [address] [place] VLDL CHOLESTEROL, NF 16 mg/dL Normal <30 [facility] Comment on above: Order Comment: Speci men Type: BLOOD SPECIMENOrdering Facility: [facility] Address: [address] [address] Performed By: #### 3 016-3, 69179-8, LIPNF ####[facility] [id number] [place] [address] [place] TSH SerPl-aCncon 10-19-2024 TSH Qn 1.540 m[IU]/L Normal 0.270-4.200 [facility] Comment on above: Order Comment: Speci men Type: BLOOD SPECIMENOrdering Facility: [facility] Address: [address] [place] [address] [place] [address] Performed By: #### 3 016-3, 16107-5, LIPNF ####[facility] [id number] [facility] CENTERNegrito CABALLERO [id number] [place] [address] [place] CNCOon 07-14-2024 CNCO Letter Text Normal [facility] PARISH SCREENING W TOMOon 07-13 PARISH SCREENING W LALY * * *Final Report* * * DATE OF EXAM: Jul 13 2024 10:04AM WRW [id number] - PARISH SCREENING W LALY / PROCEDURE REASON: Encounter for screening mammogram for breast cancer * * * * Physician Interpretation * * * * RESULT: [facility] [facility] [address] [place] [address] #[id number] - [facility] [place] HISTORY: 68 year-old patient seen for screening. Patient is asymptomatic in both breasts. Patient states no personal history of breast cancer. The patient has a family history of breast cancer. COMPARISON STUDIES: The present examination has been compared to prior imaging studies dated 11/25/2019 (mammogram), 11/16/2020 (mammogram), 11/21/2021 (mammogram), 12/27/2021 (mammogram) and 07/10/2023 (mammogram). MAMMOGRAM TECHNIQUE: The study was acquired using full field digital technology and interpreted from soft copy. Digital Breast Tomosynthesis (DBT) images were obtained and used to assist in the interpretation of this examination. MAMMOGRAM FINDINGS: There are scattered areas of fibroglandular density. No suspicious masses, calcifications or other abnormalities are seen in either breast. There are no significant interval changes. IMPRESSION: There is no mammographic evidence of malignancy in either breast. Routine screening mammogram is recommended. Annual mammogram will be due in 1 year. BI-RADS Category 1: Negative RISK: Based on the Tyrer-Cuzick (TC) risk assessment model, this patient has a 5.4% lifetime risk of developing breast cancer, meaning they are at average risk for developing breast cancer. However, this is only an estimate based on available history provided on the patient's questionnaire. We encourage all patients to talk with their providers about these results, further recommendations for managing breast health, and appropriate supplemental screening options if the patient has dense breast tissue. Interpreting Radiologist: Angelito Kat M.D. Electronically signed on: 07/14/2024 Cops: TRIP Transcribe Date/Time: Jul 13 2024 9:37A Dictated by: ANGELITO KAT MD This examination was interpreted and the report reviewed and electronically signed by: ANGELITO KAT MD on Jul 14 2024 1:44PM EST [id number] Normal [facility] metabolic 2000 panelon 04-23-2024 Albumin [Mass/Vol] 4.4 g/dL 3.9 - 4.9 g/dL [facility] ALP [Catalytic activity/Vol] 59 U/L 34 - 123 U/L [facility] ALT [Catalytic activity/Vol] 22 U/L 7 - 38 U/L [facility] Anion gap [Moles/Vol] 10 mmol/L 8 - 15 mmol/L [facility] AST [Catalytic activity/Vol] 22 U/L 13 - 35 U/L [facility] Bilirubin [Mass/Vol] 0.3 mg/dL 0.2 - 1 .3 mg/dL [facility] Calcium [Mass/Vol] 9.9 mg/dL 8.5 - 10. 2 mg/dL [facility] Chloride [Moles/Vol] 102 mmol/L 98 - 10 7 mmol/L [facility] CO2 [Moles/Vol] 28 mmol/L 22 - 30 mmol/L [facility] Creatinine [Mass/Vol] 0.73 mg/dL 0.58 - 0.96 mg/dL [facility] GFR/1.73 sq M.predicted among non-blacks MDRD (S/P/Bld) [Vol rate/Area] 89 mL/min/{1.73_m2} - PINF [facility] Comment on above: Estimated Glomerular Filtration Rate (eGFR) is calculated using the 2020 CKD-EPI creatinine equation. This equation utilizes serum creatinine, sex, and age as parameters. The creatinine assay has traceable calibration to isotope dilution-mass spectrometry. Refer to KDIGO guidelines for clinical interpretation. In patients with unstable renal function, e.g. those with acute kidney injury, the eGFR may not accurately reflect actual GFR. Glucose [Mass/Vol] 105 mg/dL High 74 - 99 mg/dL [facility] Comment on above: The Citizen [place] Diabete s Association (ADA) provides guidance for cutoff values for fasting glucose and random glucose. The ADA defines fasting as no caloric intake for at least 8 hours. Fasting plasma glucose results between 100 to 125 mg/dL indicate increased risk for diabetes (prediabetes). Fasting plasma glucose results greater than or equal to 126 mg/dL meet the criteria for diagnosis of diabetes. In the absence of unequivocal hyperglycemia, results should be confirmed by repeat testing. In a patient with classic symptoms of hyperglycemia or hyperglycemic crisis, random plasma glucose results greater than or equal to 200 mg/dL meet the criteria for diagnosis of diabetes. Reference: Standards of Medical Care in Diabetes 2016, [place] Diabetes Association. Diabetes Care. 2016.39(Suppl 1). Interpretation and review of laboratory results Abnormal [facility] Potassium [Moles/Vol] 4.3 mmol/L 3.7 - 5.1 mmol/L [facility] Protein [Mass/Vol] 7.2 g/dL 6.3 - 8.0 g/dL [facility] Sodium [Moles/Vol] 140 mmol/L 136 - 144 mmol/L [facility] Urea nitrogen [Mass/Vol] 22 mg/dL High 7 - 21 mg/dL [facility] CNPJeni 04-22-2024 DIONYN Telephone (JOSÉ MIGUEL) ELINA GRACE ([id number]) 1955 F Date Time Provider Department 04/22/24 PODLOGARYARELIS During your visit today, we recorded the following information about you: Jeannette Vo RN 04/22/2024 9:53 AM Signed Patient calls and is asking about lab results. Please review and advise, DAMIEN Leary Stephanie, RN 04/28/2024 3:43 PM Signed See other telephone encounter. Allergies As of Date: 04/22/2024 Noted Allergy Reaction LIPITOR (ATORVASTATIN CALCIUM) 02/02/2005 Comments: vertigo Date Reviewed: 04/20/2024 Reviewed by: Eliot Godoy LPN - Fully Assessed Reason for Visit: Results [95] Prescriptions as of 04/28/2024 - atenolol (TENORMIN) 100 mg tablet Take 1 tablet by mouth once daily. - levothyroxine (SYNTHROID) 112 mcg tablet Take 1 tablet by mouth daily before breakfast. Take on empty stomach. - metFORMIN (GLUCOPHAGE) 500 mg tablet Take 2 tablets by mouth daily with breakfast. . - pravastatin (PRAVACHOL) 40 mg tablet Take 1 tablet by mouth once daily. - montelukast (SINGULAIR) 10 mg tablet Take 1 tablet by mouth daily at bedtime. - loratadine (CLARITIN) 10 mg tablet Take 10 mg by mouth once daily. - Blood Pressure Monitor (BLOOD PRESSURE KIT) 1 Each once daily as needed. - Murray-3 Fatty Acids 500 mg cap Take 1 capsule by mouth once daily. - SARAH MI ORAL Take 1 tablet by mouth once daily. - Potassium 99 mg tab Take by mouth once daily. - Cholecalciferol, Vitamin D3, 1,000 unit Cap Take 1 capsule by mouth once daily. - VITAMIN B-6 100 MG TAB Take one(1) tablet daily. - CYANOCOBALAMIN 500 MCG TAB Take one(1) tablet daily. - MULTIVITAMIN TAB Take one(1) tablet daily. Meds Comments as of 01/12/2013: ASA held per MD Problem List As Of Date 04/22/2024 Noted Resolved TOX DIF GOITER NO CRISIS [E05.00] 11/16/2005 Excessive or frequent menstruation [N92.0] 07/11/2005 12/14/2016 HYPERTROPHY OF UTERUS [N85.2] 07/11/2005 Impaired fasting glucose [R73.01] 12/14/2016 POSTABLAT HYPOTHYR NEC [E89.0] 12/25/2005 Abdominal pain, right lower quadrant [R10.31] 06/14/2006 12/14/2016 Graves' disease [E05.00] 01/18/2010 12/14/2016 Hyperlipidemia [E78.5] 08/04/2010 Hypothyroidism [E03.9] 08/14/2010 Atrial arrhythmia [I49.8] 09/26/2010 Palpitations [R00.2] 07/07/2012 Gastroesophageal reflux disease without esophag* Graves disease [E05.00] 02/28/2014 Keratoconus [H18.609] 02/07/2015 Prediabetes [R73.03] Obesity (BMI 30-39.9) [E66.9] Paroxysmal supraventricular tachycardia (HCC) [*03/04/2002 Essential hypertension [I10] Obesity, Class I, BMI 30-34.9 [E66.811] 10/18/2023 Encounter Status:Closed by JEANNETTE VO on 04/28/24 Normal [facility] Comprehensive metabolic 2000 panelon 04-22-2024 Albumin [Mass/Vol] 4.4 g/dL Normal 3.9-4.9 [facility] Comment on above: Order Comment: Speci men Type: BLOOD SPECIMENOrdering Facility: [facility] Address: [address] [place] [address] Performed By: #### 2 4323-8 ####[facility] [id number] [place] [address] [place] ALP [Catalytic activity/Vol] 59 U/L Normal 34-123 [facility] Comment on above: Order Comment: Speci men Type: BLOOD SPECIMENOrdering Facility: [facility] Address: [address] [place] [address] Performed By: #### 2 4323-8 ####[facility] [id number] [place] [address] [place] ALT [Catalytic activity/Vol] 22 U/L Normal 7-38 [facility] Comment on above: Order Comment: Speci men Type: BLOOD SPECIMENOrdering Facility: [facility] Address: [address] [place] [address] Performed By: #### 2 4323-8 ####[facility] [id number] [place] [address] [place] Anion gap [Moles/Vol] 10 mmol/L Normal 8-15 [facility] Comment on above: Order Comment: Speci men Type: BLOOD SPECIMENOrdering Facility: [facility] Address: [address] [place] [address] Performed By: #### 2 4323-8 ####[facility] [id number] [place] [address] [place] AST [Catalytic activity/Vol] 22 U/L Normal 13-35 [facility] Comment on above: Order Comment: Speci men Type: BLOOD SPECIMENOrdering Facility: [facility] Address: [address] [place] [address] Performed By: #### 2 4323-8 ####[facility] [id number] [place] [address] [place] Bilirubin [Mass/Vol] 0.3 mg/dL Normal 0.2-1.3 [facility] Comment on above: Order Comment: Speci men Type: BLOOD SPECIMENOrdering Facility: [facility] Address: [address] [place] [address] Performed By: #### 2 4323-8 ####[facility] [id number] [place] [address] [place] Calcium [Mass/Vol] 9.9 mg/dL Normal 8.5-10.2 [facility] Comment on above: Order Comment: Speci men Type: BLOOD SPECIMENOrdering Facility: [facility] Address: [address] [place] [address] Performed By: #### 2 4323-8 ####[facility] [id number] [place] [address] [place] Chloride [Moles/Vol] 102 mmol/L Normal 98-107 [facility] Comment on above: Order Comment: Speci men Type: BLOOD SPECIMENOrdering Facility: [facility] Address: [address] [place] [address] Performed By: #### 2 4323-8 ####[facility] [id number] [place] [address] [place] CO2 [Moles/Vol] 28 mmol/L Normal 22-30 [facility] Comment on above: Order Comment: Speci men Type: BLOOD SPECIMENOrdering Facility: [facility] Address: [address] [place] [address] Performed By: #### 2 4323-8 ####[facility] [id number] [place] [address] [place] Creatinine [Mass/Vol] 0.73 mg/dL Normal 0.58-0.96 [facility] Comment on above: Order Comment: Speci men Type: BLOOD SPECIMENOrdering Facility: [facility] Address: [address] [place] [address] Performed By: #### 2 4323-8 ####[facility] [id number] [place] [address] [place] Creatinine and Glomerular filtration rate.predicted panel (S/P/Bld) 89 mL/min/1.73m??? Normal >=60 [facility] Comment on above: Order Comment: Speci men Type: BLOOD SPECIMENOrdering Facility: [facility] Address: [address] [place] [address] Result Comment: Leticia mated Glomerular Filtration Rate (eGFR) is calculated using the 2020 CKD-EPI creatinine equation. This equation utilizes serum creatinine, sex, and age as parameters. The creatinine assay has traceable calibration to isotope dilution-mass spectrometry. Refer to KDIGO guidelines for clinical interpretation. In patients with unstable renal function, e.g. those with acute kidney injury, the eGFR may not accurately reflect actual GFR. Performed By: #### 2 4323-8 ####[facility] [id number] [place] [address] [place] Glucose [Mass/Vol] 105 mg/dL High 74-99 [facility] Comment on above: Order Comment: Speci men Type: BLOOD SPECIMENOrdering Facility: [facility] Address: [address] [place] [address] Result Comment: The Citizen [place] Diabetes Association (ADA) provides guidance for cutoff values for fasting glucose and random glucose. The ADA defines fasting as no caloric intake for at least 8 hours. Fasting plasma glucose results between 100 to 125 mg/dL indicate increased risk for diabetes (prediabetes). Fasting plasma glucose results greater than or equal to 126 mg/dL meet the criteria for diagnosis of diabetes. In the absence of unequivocal hyperglycemia, results should be confirmed by repeat testing. In a patient with classic symptoms of hyperglycemia or hyperglycemic crisis, random plasma glucose results greater than or equal to 200 mg/dL meet the criteria for diagnosis of diabetes. Reference: Standards of Medical Care in Diabetes 2016, [place] Diabetes Association. Diabetes Care. 2016.39(Suppl 1). Performed By: #### 2 4323-8 ####[facility] [id number] [place] [address] [place] Potassium [Moles/Vol] 4.3 mmol/L Normal 3.7-5.1 [facility] Comment on above: Order Comment: Speci men Type: BLOOD SPECIMENOrdering Facility: [facility] Address: [address] [place] [address] Performed By: #### 2 4323-8 ####[facility] [id number] [place] [address] [place] Protein [Mass/Vol] 7.2 g/dL Normal 6.3-8.0 [facility] Comment on above: Order Comment: Speci men Type: BLOOD SPECIMENOrdering Facility: [facility] Address: [address] [id number] Performed By: #### 2 4323-8 ####[facility] [id number] [place] [address] [place] Sodium [Moles/Vol] 140 mmol/L Normal 136-144 [facility] Comment on above: Order Comment: Speci men Type: BLOOD SPECIMENOrdering Facility: [facility] Address: [address] [place] [id number] Performed By: #### 2 4323-8 ####[facility] [id number] [place] [address] [place] Urea nitrogen [Mass/Vol] 22 mg/dL High 7-21 [facility] Comment on above: Order Comment: Speci men Type: BLOOD SPECIMENOrdering Facility: [facility] Address: [address] [place] [address] Performed By: #### 2 4323-8 ####[facility] [id number] [address] OF [facility] CNOVon 04-20-2024 CNOV Office Visit (MANOJWS ) ELINA GRACE ([id number]) 1955 F Date Time Provider Department 04/20/24 9:20 AM YARELIS CARLOS During your visit today, we recorded the following information about you: Pulse Respiration Blood pressure Weight 80/minute 16/minute 138/82 78.8 kg Yarelis Carlos APRN.BUCKLE ATTACHER 04/20/2024 10:00 AM Signed 04/14/2024 Patient presents with: F/U 6 months SUBJECTIVE: This is a 68 year old that is here today for Above Complaints. HTN: Patient is compliant with meds No- stopped Lisinopril in January- patient reports low BP readings at home 98/62 at times Monitors bp at home: Yes. Denies side effects: No. Chest pain: No. Dyspnea: No. Edema: No. Palpitations: Yes at times Syncope: No. Headache: Yes- yesterday Dizziness: No. Cortisone injection last week left knee HYPOTHYROIDISM: taking synthroid as prescribed without side effects. Would like her thyroid checked as she feels it is off. Has lost a little weight due to decreased appetite.Hair thinner she thinks. Has some palpitations at times. Denies cold/heat intolerance. Prediabetes:Checking blood sugar in the morning and it is in the 90 and the 1 teens.Denies visual changes, polyuria or polydipsia HYPERLIPIDEMIA: Patient is taking medications: Yes. Patient is watching diet: Yes. Patient denies myalgias: Yes. Patient denies gi upset: Yes Had flu in March and left ear has had some muffled hearing. Not using any OTC medications PAST MEDICAL HISTORY Diagnosis Date Essential hypertension Obesity (BMI 30-39.9) Other and unspecified hyperlipidemia 2002 Paroxysmal supraventricular tachycardia (HCC) 2002 Supraventricular tachycardia Postablative hypothyroidism Prediabetes Reflux 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 thyrotoxic crisis or storm ALLERGIES Lipitor [Atorvastatin Calcium] MEDICATIONS Current Outpatient Medications Medication Sig atenolol (TENORMIN) 100 mg tablet Take 1 tablet by mouth once daily. levothyroxine (SYNTHROID) 112 mcg tablet Take 1 tablet by mouth daily before breakfast. Take on empty stomach. metFORMIN (GLUCOPHAGE) 500 mg tablet Take 2 tablets by mouth daily with breakfast. . lisinopril (ZESTRIL) 5 mg tablet Take 1 tablet by mouth once daily. pravastatin (PRAVACHOL) 40 mg tablet Take 1 tablet by mouth once daily. montelukast (SINGULAIR) 10 mg tablet Take 1 tablet by mouth daily at bedtime. loratadine (CLARITIN) 10 mg tablet Take 10 mg by mouth once daily. Blood Pressure Monitor (BLOOD PRESSURE KIT) 1 Each once daily as needed. Murray-3 Fatty Acids 500 mg cap Take 1 capsule by mouth once daily. SARAH MI ORAL Take 1 tablet by mouth once daily. Potassium 99 mg tab Take by mouth once daily. Cholecalciferol, Vitamin D3, 1,000 unit Cap Take 1 capsule by mouth once daily. VITAMIN B-6 100 MG TAB Take one(1) tablet daily. CYANOCOBALAMIN 500 MCG TAB Take one(1) tablet daily. MULTIVITAMIN TAB Take one(1) tablet daily. No current facility-administered medications for this visit. Medications and allergies reviewed by this provider. SOCIAL HISTORY Social History Tobacco Use Smoking status: Never Smokeless tobacco: Never Vaping Use Vaping status: Never Used Substance Use Topics Alcohol use: No Drug use: No REVIEW OF SYSTEMS All other reviewed and negative other than HPI. OBJECTIVE: BP 138/82 Pulse 80 Resp 16 Wt 78.8 kg (173 lb 11.6 oz) LMP 05/27/2006 SpO2 95% BMI 30.59 kg/m? . Vital signs reviewed by this provider. APPEARANCE Well appearing, alert, in no acute distress, well-hydrated, well nourished. EYES conjunctiva and sclera normal. Ears: R TM - clear with good landmarks, nl light reflex, L TM - clear with good landmarks, nl light reflex HEART RRR with normal S1 and S2, no murmurs, no gallops, no JVD appreciated LUNG clear to auscultation. No wheezes, rhonchi or rales SKIN Skin color, texture, turgor normal, no suspicious rashes or lesions to exposed skin Latest Ref Rng 12/17/2023 TSH 0.270 - 4.200 mIU/L 1.290 Latest Ref Rng 10/18/2023 10/24/2023 WBC 3.70 - 11.00 k/uL 4.44 RBC 3.90 - 5.20 m/uL 4.10 Hemoglobin 11.5 - 15.5 g/dL 12.8 Hematocrit 36.0 - 46.0 % 40.3 MCV 80.0 - 100.0 fL 98.3 MCH 26.0 - 34.0 pg 31.2 MCHC 30.5 - 36.0 g/dL 31.8 RDW-CV 11.5 - 15.0 % 12.4 Platelet Count 150 - 400 k/uL 219 MPV 9.0 - 12.7 fL 11.3 Neut% % 41.4 Abs Neut (ANC) 1.45 - 7.50 k/uL 1.84 Lymph% % 43.5 Abs Lymph 1.00 - 4.00 k/uL 1.93 Sumner% % 10.4 Abs Sumner <0.87 k/uL 0.46 Eosin% % 3.6 Abs Eosin <0.46 k/uL 0.16 Baso% % 1.1 Abs Baso <0.11 k/uL 0.05 Immature Gran % % 0.0 IMMATURE GRANS (ABS) <0.10 k/uL <0.03 NRBC /100 WBC 0.0 Absolute nRBC <0.01 k/uL <0.01 [employer] Protein, Total 6.3 - 8.0 g/dL 7.0 Albumin 3.9 - 4.9 g/dL 4.4 Calcium 8.5 - 10.2 mg/dL 9.5 Bilirubin, Total 0.2 - 1.3 mg/dL 0.4 Alkaline Phosphatase 34 (more content not included)... Normal [facility] metabolic 2000 panelon 04-20-2024 Albumin [Mass/Vol] 4.6 g/dL Normal 3.9-4.9 [facility] Comment on above: Order Comment: Speci men Type: BLOOD SPECIMENOrdering Facility: [facility] Address: [address] [place] [address] Performed By: #### 2 4323-8, 3015-3 ####[employer] LABORATORYCLIA [id number] [address] STATES OF [facility] ALP [Catalytic activity/Vol] 62 U/L Normal 34-123 [facility] Comment on above: Order Comment: Speci men Type: BLOOD SPECIMENOrdering Facility: [facility] Address: [address] [place] [address] Performed By: #### 2 4323-8, 3015-3 ####[employer] LABORATORYCLIA [id number] [address] [place] ALT With P-5'-P [Catalytic activity/Vol] Normal [facility] Comment on above: Order Comment: Speci men Type: BLOOD SPECIMENOrdering Facility: [facility] Address: [address] [place] [address] Result Comment: Unab le to assay due to interference from hemolysis. Suggest reorder as clinically indicated. Performed By: #### 2 4323-8, 6-3 ####[employer] LABORATORYCLIA [id number] [address] [facility] Anion gap [Moles/Vol] 15 mmol/L Normal 8-15 [facility] Comment on above: Order Comment: Speci men Type: BLOOD SPECIMENOrdering Facility: [facility] Address: [address] [place] [address] Performed By: #### 2 4323-8, 6-3 ####[employer] LABORATORYCLIA [id number] [place] [address] [place] AST With P-5'-P [Catalytic activity/Vol] Normal [facility] Comment on above: Order Comment: Speci men Type: BLOOD SPECIMENOrdering Facility: [facility] Address: [address] [place] [address] Result Comment: Unab le to assay due to interference from hemolysis. Suggest reorder as clinically indicated. Performed By: #### 2 4323-8, 6-3 ####[facility] LABORATORYCLIA [id number] [place] [address] [place] Bilirubin [Mass/Vol] 0.4 mg/dL Normal 0.2-1.3 [facility] Comment on above: Order Comment: Speci men Type: BLOOD SPECIMENOrdering Facility: [facility] Address: [address] [address] Performed By: #### 2 4323-8, 3015-3 ####[facility] LABORATORYCLIA [id number] [place] [address] [place] Calcium [Mass/Vol] 10.4 mg/dL High 8.5-10.2 [facility] Comment on above: Order Comment: Speci men Type: BLOOD SPECIMENOrdering Facility: [facility] Address: [address] [address] Performed By: #### 2 4323-8, 3015-3 ####[facility] LABORATORYCLIA [id number] [place] [address] [place] Chloride [Moles/Vol] 101 mmol/L Normal 98-107 [facility] Comment on above: Order Comment: Speci men Type: BLOOD SPECIMENOrdering Facility: [facility] Address: [address] [address] Performed By: #### 2 4323-8, 6-3 ####[facility] LABORATORYCLIA [id number] [place] [address] [place] CO2 [Moles/Vol] 23 mmol/L Normal 22-30 [facility] Comment on above: Order Comment: Speci men Type: BLOOD SPECIMENOrdering Facility: [facility] Address: [address] [place] [address] Performed By: #### 2 4323-8, 6-3 ####[facility] LABORATORYCLIA [id number] [place] [address] [place] Creatinine [Mass/Vol] 0.69 mg/dL Normal 0.58-0.96 [facility] Comment on above: Order Comment: Speci men Type: BLOOD SPECIMENOrdering Facility: [facility] Address: [address] [place] [address] Performed By: #### 2 4323-8, 3 ####[facility] LABORATORYCLIA [id number] [place] [id number] [place] Creatinine and Glomerular filtration rate.predicted panel (S/P/Bld) 94 mL/min/1.73m??? Normal >=60 [facility] Comment on above: Order Comment: Speci men Type: BLOOD SPECIMENOrdering Facility: [facility] Address: [address] [place] [address] Result Comment: Leticia mated Glomerular Filtration Rate (eGFR) is calculated using the 2020 CKD-EPI creatinine equation. This equation utilizes serum creatinine, sex, and age as parameters. The creatinine assay has traceable calibration to isotope dilution-mass spectrometry. Refer to KDIGO guidelines for clinical interpretation. In patients with unstable renal function, e.g. those with acute kidney injury, the eGFR may not accurately reflect actual GFR. Performed By: #### 2 4323-8, 3015-3 ####[facility] LABORATORYCLIA [id number] [place] [address] [place] Glucose [Mass/Vol] 109 mg/dL High 74-99 [facility] Comment on above: Order Comment: Speci men Type: BLOOD SPECIMENOrdering Facility: [facility] Address: [address] [place] [address] Result Comment: The Citizen [place] Diabetes Association (ADA) provides guidance for cutoff values for fasting glucose and random glucose. The ADA defines fasting as no caloric intake for at least 8 hours. Fasting plasma glucose results between 100 to 125 mg/dL indicate increased risk for diabetes (prediabetes). Fasting plasma glucose results greater than or equal to 126 mg/dL meet the criteria for diagnosis of diabetes. In the absence of unequivocal hyperglycemia, results should be confirmed by repeat testing. In a patient with classic symptoms of hyperglycemia or hyperglycemic crisis, random plasma glucose results greater than or equal to 200 mg/dL meet the criteria for diagnosis of diabetes. Reference: Standards of Medical Care in Diabetes 2016, [place] Diabetes Association. Diabetes Care. 2016.39(Suppl 1). Performed By: #### 2 4323-8, 6-3 ####[facility] LABORATORYCLIA [id number] [place] [address] [place] Potassium [Moles/Vol] Normal [facility] Comment on above: Order Comment: Liliana almodovar Type: BLOOD SPECIMENOrdering Facility: [facility] Address: [address] [place] [address] Result Comment: Unab le to assay due to interference from hemolysis. Suggest reorder as clinically indicated. Performed By: #### 2 4323-8, 3015-3 ####[facility] LABORATORYCLIA [id number] [place] [address] [place] Protein [Mass/Vol] 8.0 g/dL Normal 6.3-8.0 [facility] Comment on above: Order Comment: Liliana almodovar Type: BLOOD SPECIMENOrdering Facility: [facility] Address: [address] [place] [address] Performed By: #### 2 4323-8, 3015-3 ####[facility] LABORATORYCLIA [id number] [place] [address] [place] Sodium [Moles/Vol] 139 mmol/L Normal 136-144 [facility] Comment on above: Order Comment: Liliana almodovar Type: BLOOD SPECIMENOrdering Facility: [facility] Address: [address] [place] [address] Performed By: #### 2 4323-8, 6-3 ####[facility] LABORATORYCLIA [id number] [place] [address] [place] Urea nitrogen [Mass/Vol] 14 mg/dL Normal 7-21 [facility] Comment on above: Order Comment: Liliana almodovar Type: BLOOD SPECIMENOrdering Facility: [facility] Address: [address] [place] [address] Performed By: #### 2 4323-8, 3016-3 ####[facility] LABORATORYCLIA [id number] [address] STATES OF [facility] HbA1c (Bld)on 04-20-2024 Average glucose Estimated from glycated hemoglobin (Bld) [Mass/Vol] 117 mg/dL Normal [facility] Comment on above: Order Comment: Liliana almodovar Type: BLOOD SPECIMENOrdering Facility: [facility] Address: [address] [place] [address] Result Comment: eAG: (Estimated average glucose) is a calculated value from HgbA1c and is call center support representative of the average blood glucose level in the last 2-3 month period. Performed By: #### 5 5454-3 ####[facility] LABCLIA [id number] [address] STATES OF [facility] HbA1c (Bld) [Mass fraction] 5.7 % High 4.3-5.6 [facility] Comment on above: Order Comment: Liliana almodovar Type: BLOOD SPECIMENOrdering Facility: [facility] Address: [address] [place] [place] [address] Result Comment: [place] Diabetes Association guidelines indicate that patients with HgbA1c in the range 5.7-6.4% are at increased risk for development of diabetes, and intervention by lifestyle modification may be beneficial. HgbA1c greater or equal to 6.5% is considered diagnostic of diabetes. Performed By: #### 5 5454-3 ####[facility] LABCLIA [id number] [place] [address] [place] TSH SerPl-aCncon 04-20-2024 TSH Qn 2.020 m[IU]/L Normal 0.270-4.200 [facility] Comment on above: Order Comment: Liliana almodovar Type: BLOOD SPECIMENOrdering Facility: [facility] Address: [address], [place] [address] Performed By: #### 2 4323-8, 3016-3 ####[facility] HOSPITALIA [id number] [place] [id number] [facility] Jama 12-23-2023 CNPN Telephone (FAMPWS) ELINA GRACE ([id number]) 1955 F Date Time Provider Department 12/23/23 [facility] During your visit today, we recorded the following information about you: Iman Ritter LPN 12/23/2023 1:23 PM Signed Patient calling she has appt on Tuesday 12/26 with [facility] for her left knee pain. She is asking for knee xray that was done on 06/21/2023 to be put on disc please. She can strip picker the disc Saturday afternoon. Told her strip picker [facility]. 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 Take on empty stomach. - montelukast (SINGULAIR) 10 mg tablet Take 1 tablet by mouth daily at bedtime. - loratadine (CLARITIN) 10 mg tablet Take 10 mg by mouth once daily. - atenolol (TENORMIN) 100 mg tablet Take 1 tablet by mouth once daily. - lisinopril (ZESTRIL) 5 mg tablet Take 1 tablet by mouth once daily. - metFORMIN (GLUCOPHAGE) 500 mg tablet Take 2 tablets by mouth daily with breakfast. . - pravastatin (PRAVACHOL) 40 mg tablet Take 1 tablet by mouth once daily. - Blood Pressure Monitor (BLOOD PRESSURE KIT) 1 Each once daily as needed. - Murray-3 Fatty Acids 500 mg cap Take 1 capsule by mouth once daily. - SARAH MI ORAL Take 1 tablet by mouth once daily. - Potassium 99 mg tab Take by mouth once daily. - Cholecalciferol, Vitamin D3, 1,000 unit Cap Take 1 capsule by mouth once daily. - VITAMIN B-6 100 MG TAB Take one(1) tablet daily. - CYANOCOBALAMIN 500 MCG TAB Take one(1) tablet daily. - MULTIVITAMIN TAB Take one(1) tablet daily. Meds Comments as of 01/12/2013: ASA held per MD Problem List As Of Date 12/23/2023 Noted Resolved TOX DIF GOITER NO CRISIS [E05.00] 11/16/2005 Excessive or frequent menstruation [N92.0] 07/11/2005 12/14/2016 HYPERTROPHY OF UTERUS [N85.2] 07/11/2005 Impaired fasting glucose [R73.01] 12/14/2016 POSTABLAT HYPOTHYR NEC [E89.0] 12/25/2005 Abdominal pain, right lower quadrant [R10.31] 06/14/2006 12/14/2016 Graves' disease [E05.00] 01/18/2010 12/14/2016 Hyperlipidemia [E78.5] 08/04/2010 Hypothyroidism [E03.9] 08/14/2010 Atrial arrhythmia [I49.8] 09/26/2010 Palpitations [R00.2] 07/07/2012 Gastroesophageal reflux disease without esophag* Graves disease [E05.00] 02/28/2014 Keratoconus [H18.609] 02/07/2015 Prediabetes [R73.03] Obesity (BMI 30-39.9) [E66.9] Paroxysmal supraventricular tachycardia (HCC) [*03/04/2002 Essential hypertension [I10] Obesity, Class I, BMI 30-34.9 [E66.811] 10/18/2023 Encounter Status:Closed by IMAN RITTER on 12/26/23 Normal [facility] TSH SerPl-aCncon 12-17-2023 TSH Qn 1.290 m[IU]/L Normal 0.270-4.200 [facility] Comment on above: Order Comment: Speci men Type: BLOOD SPECIMEN Ordering Facility: [facility] Address: [address] [place] [address] Performed By: #### 3 016-3 #### [facility] CLIA [id number] [address] [place] [address] [id number] [place] [address] Jama 10-30-2023 YRIS Telephone (JOSÉ MIGUEL) ELINA GRACE ([id number]) 1955 F Date Time Provider Department 10/30/23 YARELIS CARLOS During your visit today, we recorded the following information about you: Yarelis Carlos APRN.DIONY 10/30/2023 1:03 PM Signed Cologuard negative. Yarelis Carlos APRN.Eliot Weinstein LPN 10/30/2023 2:03 PM Signed Patient notified. Eliot Godoy LPN Allergies As of Date: 10/30/2023 Noted Allergy Reaction LIPITOR (ATORVASTATIN CALCIUM) 02/02/2005 Comments: vertigo Date Reviewed: 10/21/2023 Reviewed by: Malachi Pool OD - Fully Assessed Reason for Visit: Results [95] Prescriptions as of 10/30/2023 - levothyroxine (SYNTHROID) 112 mcg tablet Take 1 tablet by mouth daily before breakfast. Take on empty stomach. - montelukast (SINGULAIR) 10 mg tablet Take 1 tablet by mouth daily at bedtime. - loratadine (CLARITIN) 10 mg tablet Take 10 mg by mouth once daily. - atenolol (TENORMIN) 100 mg tablet Take 1 tablet by mouth once daily. - lisinopril (ZESTRIL) 5 mg tablet Take 1 tablet by mouth once daily. - metFORMIN (GLUCOPHAGE) 500 mg tablet Take 2 tablets by mouth daily with breakfast. . - pravastatin (PRAVACHOL) 40 mg tablet Take 1 tablet by mouth once daily. - Blood Pressure Monitor (BLOOD PRESSURE KIT) 1 Each once daily as needed. - Murray-3 Fatty Acids 500 mg cap Take 1 capsule by mouth once daily. - SARAH MI ORAL Take 1 tablet by mouth once daily. - Potassium 99 mg tab Take by mouth once daily. - Cholecalciferol, Vitamin D3, 1,000 unit Cap Take 1 capsule by mouth once daily. - VITAMIN B-6 100 MG TAB Take one(1) tablet daily. - CYANOCOBALAMIN 500 MCG TAB Take one(1) tablet daily. - MULTIVITAMIN TAB Take one(1) tablet daily. Meds Comments as of 01/12/2013: ASA held per MD Problem List As Of Date 10/30/2023 Noted Resolved TOX DIF GOITER NO CRISIS [E05.00] 11/16/2005 Excessive or frequent menstruation [N92.0] 07/11/2005 12/14/2016 HYPERTROPHY OF UTERUS [N85.2] 07/11/2005 Impaired fasting glucose [R73.01] 12/14/2016 POSTABLAT HYPOTHYR NEC [E89.0] 12/25/2005 Abdominal pain, right lower quadrant [R10.31] 06/14/2006 12/14/2016 Graves' disease [E05.00] 01/18/2010 12/14/2016 Hyperlipidemia [E78.5] 08/04/2010 Hypothyroidism [E03.9] 08/14/2010 Atrial arrhythmia [I49.8] 09/26/2010 Palpitations [R00.2] 07/07/2012 Gastroesophageal reflux disease without esophag* Graves disease [E05.00] 02/28/2014 Keratoconus [H18.609] 02/07/2015 Prediabetes [R73.03] Obesity (BMI 30-39.9) [E66.9] Paroxysmal supraventricular tachycardia (HCC) [*03/04/2002 Essential hypertension [I10] Obesity, Class I, BMI 30-34.9 [E66.9] 10/18/2023 Encounter Status:Closed by GODOYELIOT on 10/30/23 [facility] 10-28-2023 CNPN Telephone (OPHWOO) ELINA GRACE ([id number]) 1955 F Date Time Provider Department 10/28/23 DANIEL MADRID OPHWOO During your visit today, we recorded the following information about you: Daniel Madrid OA 10/28/2023 12:20 PM Signed LVM for the patient informing her that our office has received her right specialty contact lens. I asked that the patient call our office back to get scheduled for a 30 minute contact lens dispensing appointment with Dr. Pool. Please advise PAO Zafar Ashley 10/28/2023 12:27 PM Signed Patient returned call and scheduled an appointment with Dr. Pool on 11/08/23. Allergies As of Date: 10/28/2023 Noted Allergy Reaction LIPITOR (ATORVASTATIN CALCIUM) 02/02/2005 Comments: vertigo Date Reviewed: 10/21/2023 Reviewed by: Malachi Pool OD - Fully Assessed Prescriptions as of 10/28/2023 - levothyroxine (SYNTHROID) 112 mcg tablet Take 1 tablet by mouth daily before breakfast. Take on empty stomach. - montelukast (SINGULAIR) 10 mg tablet Take 1 tablet by mouth daily at bedtime. - loratadine (CLARITIN) 10 mg tablet Take 10 mg by mouth once daily. - atenolol (TENORMIN) 100 mg tablet Take 1 tablet by mouth once daily. - lisinopril (ZESTRIL) 5 mg tablet Take 1 tablet by mouth once daily. - metFORMIN (GLUCOPHAGE) 500 mg tablet Take 2 tablets by mouth daily with breakfast. . - pravastatin (PRAVACHOL) 40 mg tablet Take 1 tablet by mouth once daily. - Blood Pressure Monitor (BLOOD PRESSURE KIT) 1 Each once daily as needed. - Murray-3 Fatty Acids 500 mg cap Take 1 capsule by mouth once daily. - SARAH MI ORAL Take 1 tablet by mouth once daily. - Potassium 99 mg tab Take by mouth once daily. - Cholecalciferol, Vitamin D3, 1,000 unit Cap Take 1 capsule by mouth once daily. - VITAMIN B-6 100 MG TAB Take one(1) tablet daily. - CYANOCOBALAMIN 500 MCG TAB Take one(1) tablet daily. - MULTIVITAMIN TAB Take one(1) tablet daily. Meds Comments as of 01/12/2013: ASA held per MD Problem List As Of Date 10/28/2023 Noted Resolved TOX DIF GOITER NO CRISIS [E05.00] 11/16/2005 Excessive or frequent menstruation [N92.0] 07/11/2005 12/14/2016 HYPERTROPHY OF UTERUS [N85.2] 07/11/2005 Impaired fasting glucose [R73.01] 12/14/2016 POSTABLAT HYPOTHYR NEC [E89.0] 12/25/2005 Abdominal pain, right lower quadrant [R10.31] 06/14/2006 12/14/2016 Graves' disease [E05.00] 01/18/2010 12/14/2016 Hyperlipidemia [E78.5] 08/04/2010 Hypothyroidism [E03.9] 08/14/2010 Atrial arrhythmia [I49.8] 09/26/2010 Palpitations [R00.2] 07/07/2012 Gastroesophageal reflux disease without esophag* Graves disease [E05.00] 02/28/2014 Keratoconus [H18.609] 02/07/2015 Prediabetes [R73.03] Obesity (BMI 30-39.9) [E66.9] Paroxysmal supraventricular tachycardia (HCC) [*03/04/2002 Essential hypertension [I10] Obesity, Class I, BMI 30-34.9 [E66.9] 10/18/2023 Encounter Status:Closed by DANIEL MADRID on 10/28/23 Normal [facility] CBC W Auto Differential pane l (Bld)on 10-18-2023 Basophils (Bld) [#/Vol] 0.05 10*3/uL NINF [facility] Basophils/100 WBC (Bld) 1.1 % [facility] Differential cell count method Nom (Bld) Auto [facility] Eosinophils (Bld) [#/Vol] 0.16 10*3/uL [facility] Eosinophils/100 WBC (Bld) 3.6 % [facility] Erythrocyte distribution width (RBC) [Ratio] 12.4 % 11.5 - 15.0 % [facility] Hematocrit (Bld) [Volume fraction] 40.3 % 36.0 - 46.0 % [facility] Hemoglobin (Bld) [Mass/Vol] 12.8 g/dL 11.5 - 15.5 g/dL [facility] Immature granulocytes (Bld) [#/Vol] [facility] Immature granulocytes/100 WBC (Bld) 0.0 % [facility] Lymphocytes (Bld) [#/Vol] 1.93 10*3/uL [facility] Lymphocytes/100 WBC (Bld) 43.5 % [facility] MCH (RBC) [Entitic mass] 31.2 pg 26.0 - 34.0 pg [facility] MCHC (RBC) [Mass/Vol] 31.8 g/dL 30.5 - 36.0 g/dL [facility] MCV (RBC) [Entitic vol] 98.3 fL 80.0 - 100.0 fL [facility] Monocytes (Bld) [#/Vol] 0.46 10*3/uL [facility] Monocytes/100 WBC (Bld) 10.4 % [facility] Neutrophils (Bld) [#/Vol] 1.84 10*3/uL [facility] Neutrophils/100 WBC (Bld) 41.4 % [facility] Nucleated RBC (Bld) [#/Vol] [facility] Nucleated RBC/100 WBC (Bld) [Ratio] 0.0 % /100 WBC [facility] Platelet mean volume (Bld) [Entitic vol] 11.3 fL 9.0 - 12.7 fL [facility] Platelets (Bld) [#/Vol] 219 10*3/uL [facility] RBC (Bld) [#/Vol] 4.10 10*6/uL 3.90 - 5.2 0 m/uL [facility] WBC (Bld) [#/Vol] 4.44 10*3/uL [facility] Comprehensive metabolic 2000 panelon 10-18-2023 Albumin [Mass/Vol] 4.4 g/dL 3.9 - 4.9 g/dL Cl [facility] ALP [Catalytic activity/Vol] 61 U/L 34 - 123 U/L [facility] ALT [Catalytic activity/Vol] 23 U/L 7 - 38 U/L [facility] Anion gap [Moles/Vol] 13 mmol/L 8 - 15 mmol/L [facility] AST [Catalytic activity/Vol] 29 U/L 13 - 35 U/L [facility] Bilirubin [Mass/Vol] 0.4 mg/dL 0.2 - 1 .3 mg/dL [facility] Calcium [Mass/Vol] 9.5 mg/dL 8.5 - 10. 2 mg/dL [facility] Chloride [Moles/Vol] 99 mmol/L 98 - 10 7 mmol/L [facility] CO2 [Moles/Vol] 25 mmol/L 22 - 30 mmol/L [facility] Creatinine [Mass/Vol] 0.76 mg/dL 0.58 - 0.96 mg/dL [facility] GFR/1.73 sq M.predicted among non-blacks MDRD (S/P/Bld) [Vol rate/Area] 85 mL/min/{1.73_m2} - PINF [facility] Comment on above: Estimated Glomerular Filtration Rate (eGFR) is calculated using the 2020 CKD-EPI creatinine equation. This equation utilizes serum creatinine, sex, and age as parameters. The creatinine assay has traceable calibration to isotope dilution-mass spectrometry. Refer to KDIGO guidelines for clinical interpretation. In patients with unstable renal function, e.g. those with acute kidney injury, the eGFR may not accurately reflect actual GFR. Glucose [Mass/Vol] 99 mg/dL 74 - 99 mg/dL [facility] Comment on above: The Citizen Of The [place] Diabete s Association (ADA) provides guidance for cutoff values for fasting glucose and random glucose. The ADA defines fasting as no caloric intake for at least 8 hours. Fasting plasma glucose results between 100 to 125 mg/dL indicate increased risk for diabetes (prediabetes). Fasting plasma glucose results greater than or equal to 126 mg/dL meet the criteria for diagnosis of diabetes. In the absence of unequivocal hyperglycemia, results should be confirmed by repeat testing. In a patient with classic symptoms of hyperglycemia or hyperglycemic crisis, random plasma glucose results greater than or equal to 200 mg/dL meet the criteria for diagnosis of diabetes. Reference: Standards of Medical Care in Diabetes 2016, Citizen Of [place] Diabetes Association. Diabetes Care. 2016.39(Suppl 1). Interpretation and review of laboratory results Normal [facility] Potassium [Moles/Vol] 4.8 mmol/L 3.7 - 5.1 mmol/L [facility] Protein [Mass/Vol] 7.0 g/dL 6.3 - 8.0 g/dL Cl [facility] Sodium [Moles/Vol] 137 mmol/L 136 - 144 mmol/L [facility] Urea nitrogen [Mass/Vol] 14 mg/dL 7 - 21 mg/dL [facility] HbA1c (Bld)on 10-18-2023 Average glucose Estimated from glycated hemoglobin (Bld) [Mass/Vol] 123 mg/dL [facility] Comment on above: eAG: (Estimated aver age glucose) is a calculated value from HgbA1c and is call center support representative of the average blood glucose level in the last 2-3 month period. HbA1c (Bld) [Mass fraction] 5.9 % High 4.3 - 5.6 % [facility] Comment on above: Citizen Of [place] Diabetes As sociation guidelines indicate that patients with HgbA1c in the range 5.7-6.4% are at increased risk for development of diabetes, and intervention by lifestyle modification may be beneficial. HgbA1c greater or equal to 6.5% is considered diagnostic of diabetes. Interpretation and review of laboratory results Abnormal [facility] Lipid 1996 panelon 4 Cholesterol [Mass/Vol] 158 mg/dL NINF - 200 mg/dL [facility] Comment on above: <200 mg/dL, Desirabl e 200-239 mg/dL, Borderline high >239 mg/dL, High Cholesterol in HDL [Mass/Vol] 57 mg/dL 39 - PINF mg/dL [facility] Comment on above: 40-59 mg/dL, Accepta ble >59 mg/dL, High: Negative risk factor for coronary heart disease <40 mg/dL, Low: Positive risk factor for coronary heart disease Cholesterol in LDL [Mass/Vol] 82 mg/dL NINF - 100 mg/dL [facility] Comment on above: <100 mg/dL, Optimal 100-129 mg/dL, Near optimal/above optimal 130-159 mg/dL, Borderline high 160-189 mg/dL, High >189 mg/dL, Very high Secondary prevention optimal LDL Cholesterol levels are recommended to be < 70 mg/dL Cholesterol in LDL/Cholesterol in HDL [Mass ratio] 1.44 {ratio} NINF - 2.54 [facility] Comment on above: Reference: 1. National Cholesterol Education Program ATP III Guideline At-A-Glance Quick Desk Reference: National Heart, Lung, and Blood [place]. National Institutes of Health. 2001: NIH Publication No. 01-3305. 2. An International Atherosclerosis Society position paper: global recommendations for the management of dyslipidemia: executive summary, Atherosclerosis. 2014: 232(2):410-413. Cholesterol in VLDL [Mass/Vol] 19 mg/dL NINF - 30 mg/dL [facility] Cholesterol non HDL [Mass/Vol] 101 mg/dL NINF - 130 mg/dL [facility] Comment on above: <130 mg/dL, Optimal 130-159 mg/dL, Near optimal/above optimal 160-189 mg/dL, Borderline high 190-219 mg/dL, High >219 mg/dL, Very high Secondary prevention optimal non HDL Cholesterol levels are recommended to be <100 mg/dL Cholesterol.total/Cho lesterol in HDL [Mass ratio] 2.77 {ratio} NINF - 5.10 [facility] Fasting Time 12 hrs [facility] Triglyceride [Mass/Vol] 96 mg/dL NINF - 150 mg/dL [facility] Comment on above: <150 mg/dL, Normal 150-199 mg/dL, Borderline high 200-499 mg/dL, High >499 mg/dL, Very high No Panel Informationon 10-17 [facility] THYROID STIMULATING HORMONEo n 10-18-2023 TSH Qn 4.300 m[IU]/L High [facility] TSH Qnon 10-18-2023 Interpretation and review of laboratory results Abnormal [facility] XR Chest PA and Lateralon IMPRESSION: No acute radiographic abnormality. Cops: [facility] Transcribe Date/Time: Oct 04 2023 12:16P Dictated by : TRACEY HICKS MD This examination was interpreted and the report reviewed and electronically signed by: TRACEY HICKS MD on Oct 04 2023 12:17PM [facility] DIVISION OF RADIOLOGY * * *Final Report* * * DATE OF EXAM: Oct 04 2023 11:57AM WOX [id number] - XR CHEST 2V FRONTAL/LAT / PROCEDURE REASON: Acute cough * * * * Physician Interpretation * * * * EXAMINATION: CHEST RADIOGRAPH (2 VIEW FRONTAL & LATERAL) CLINICAL HISTORY: Acute cough MQ: XC2_6 EXAM DATE/TIME: 10/04/2023 11:57 AM COMPARISON: No relevant prior studies available. RESULT: Lines, tubes, and devices: None. Lungs and pleura: No consolidation. No lung mass. No pleural effusion. No pneumothorax. Cardiomediastinal silhouette: Normal cardiomediastinal silhouette. Bones and soft tissues: The spine shows degenerative changes. Sclerotic focus seen along the right glenoid. DIVISION OF RADIOLOGY Provider, [facility] - 10/04/2023 * * *Final Report* * * DATE OF EXAM: Oct 04 2023 11:57AM WOX [id number] - XR CHEST 2V FRONTAL/LAT / PROCEDURE REASON: Acute cough * * * * Physician Interpretation * * * * EXAMINATION: CHEST RADIOGRAPH (2 VIEW FRONTAL & LATERAL) CLINICAL HISTORY: Acute cough MQ: XC2_6 EXAM DATE/TIME: 10/04/2023 11:57 AM COMPARISON: No relevant prior studies available. RESULT: Lines, tubes, and devices: None. Lungs and pleura: No consolidation. No lung mass. No pleural effusion. No pneumothorax. Cardiomediastinal silhouette: Normal cardiomediastinal silhouette. Bones and soft tissues: The spine shows degenerative changes. Sclerotic focus seen along the right glenoid. IMPRESSION IMPRESSION: No acute radiographic abnormality. [facility] Transcribe Date/Time: Oct 04 2023 12:16P Dictated by : TRACEY HICKS MD This examination was interpreted and the report reviewed and electronically signed by: TRACEY HICKS MD on Oct 04 2023 12:17PM EST [facility] Radiology Study observation (narrative) [facility] XR Chest PA and LateralOrder ed By: Cc Provider on 10-04-2023 [facility] MG Breast Screeningon 2023 IMPRESSION: NEGATIVE There is no mammographic evidence of malignancy. A 1 year screening mammogram is recommended. Tanya Olivares M.D. pt/penrad:07/10/2023 13:02:29 Gate Clerk(s): RT Jt(R)(M), [facility] letter sent: Normal over 40 Mammogram BI-RADS: 1 Negative Multiple national specialty organizations have released breast cancer screening guidelines for women at average risk for developing breast cancer - guidelines that are based on both evidence and opinion, yet differ on when to start and how often to screen for breast cancer. With representation from Breast Imaging, Internal Medicine, Women's Health, Family Medicine, and Medical/Surgical Oncology, the [facility] has carefully reviewed the data and reached the following consensus: 1) All women should engage in shared decision-making with their providers to decide when to start and how often to screen; 2) All women should have the opportunity to start screening mammography at age 40; 3) For women ages 45-55, we recommend annual screening mammograms; 4) For women ages 55 and over, we support both the transition from an annual to a biennial interval if this aligns more with patient's values and preferences, or continuation with annual screening; 5) All women should discuss with their providers when to stop screening mammograms. Cops: Cecelia Transcribe Date/Time: Jul 10 2023 9:36A Dictated by: TANYA OLIVARES MD This examination was interpreted and the report reviewed and electronically signed by: TANYA OLIVARES MD on Jul 10 2023 1:02PM [facility] DIVISION OF RADIOLOGY * * *Final Report* * * DATE OF EXAM: Jul 10 2023 10:05AM [facility] [id number] - [facility] SCREENING / PROCEDURE REASON: Screening mammogram, encounter for * * * * Physician Interpretation * * * * RESULT: #[id number] - PARISH SCREENING BILATERAL DIGITAL SCREENING MAMMOGRAM WITH CAD: 07/10/2023 HISTORY: Screening Mammogram, Encounter For / Screening Mammogram-Patient reports NO symptoms. /priors available for comparison. RESULT: TECHNIQUE: The study was acquired using full field digital technology and interpreted from soft copy. Current study was also evaluated with a Computer Aided Detection (CAD). Comparison is made to exams dated: 12/27/2021 mammogram, 11/21/2021 mammogram, 11/16/2020 mammogram, 11/13/2019 mammogram - [facility], and 02/20/2018 mammogram - [facility]. There are scattered areas of fibroglandular density. No significant masses, calcifications, or other findings are seen in either breast. There has been no significant interval change. DIVISION OF RADIOLOGY Provider, [facility] - 07/10/2023 * * *Final Report* * * DATE OF EXAM: Jul 10 2023 10:05AM [facility] 0581 - PARISH SCREENING / PROCEDURE REASON: Screening mammogram, encounter for * * * * Physician Interpretation * * * * RESULT: #[id number] - PARISH SCREENING BILATERAL DIGITAL SCREENING MAMMOGRAM WITH CAD: 07/10/2023 HISTORY: Screening Mammogram, Encounter For / Screening Mammogram-Patient reports NO symptoms. /priors available for comparison. RESULT: TECHNIQUE: The study was acquired using full field digital technology and interpreted from soft copy. Current study was also evaluated with a Computer Aided Detection (CAD). Comparison is made to exams dated: 12/27/2021 mammogram, 11/21/2021 mammogram, 11/16/2020 mammogram, 11/13/2019 mammogram - [facility], and 02/20/2018 mammogram - [facility]. There are scattered areas of fibroglandular density. No significant masses, calcifications, or other findings are seen in either breast. There has been no significant interval change. IMPRESSION IMPRESSION: NEGATIVE There is no mammographic evidence of malignancy. A 1 year screening mammogram is recommended. Tanya Olivares M.D. pt/penrad:07/10/2023 13:02:29 Gate Clerk(s): RT Jt(R)(M), [facility] letter sent: Normal over 40 Mammogram BI-RADS: 1 Negative Multiple national specialty organizations have released breast cancer screening guidelines for women at average risk for developing breast cancer - guidelines that are based on both evidence and opinion, yet differ on when to start and how often to screen for breast cancer. With representation from Breast Imaging, Internal Medicine, Women's Health, Family Medicine, and Medical/Surgical Oncology, the [facility] has carefully reviewed the data and reached the following consensus: 1) All women should engage in shared decision-making with their providers to decide when to start and how often to screen; 2) All women should have the opportunity to start screening mammography at age 40; 3) For women ages 45-55, we recommend annual screening mammograms; 4) For women ages 55 and over, we support both the transition from an annual to a biennial interval if this aligns more with patient's values and preferences, or continuation with annual screening; 5) All women should discuss with their providers when to stop screening mammograms. Cops: Cecelia Transcribe Date/Time: Jul 10 2023 9:36A Dictated by: TANYA OLIVARES MD This examination was interpreted and the report reviewed and electronically signed by: TANYA OLIVARES MD on Jul 10 2023 1:02PM EST [facility] Radiology Study observation (narrative) [facility] MG Breast ScreeningOrdered B y: Ccf Provider on 07-10-2023 [facility] XR Knee - left 4 Viewson IMPRESSION: 1. No acute radiographic abnormality of the left knee with osteoarthritis and loose body Cops: AARON Transcribe Date/Time: Jun 25 2023 4:58P Dictated by : GINYN HARMON MD This examination was interpreted and the report reviewed and electronically signed by: GINNY HARMON MD on Jun 25 2023 5:26PM EST DIVISION OF RADIOLOGY * * *Final Report* * * DATE OF EXAM: Jun 21 2023 11:21AM [facility] [id number] - XR KNEE 4V AP/PA BOTH+LAT/SAMINA LT / PROCEDURE REASON: Acute pain of left knee * * * * Physician Interpretation * * * * KNEE RADIOGRAPHS - LEFT HISTORY: Acute pain of left knee TECHNOLOGIST PROVIDED HISTORY (if applicable): Left anterior knee pain with bending x several weeks without injury TECHNIQUE: XR KNEE 4V AP/PA BOTH+LAT/SAMINA LT COMPARISON: None available RESULT: Left knee: There is no acute osseous, articular, or soft tissue abnormality. There is trace joint effusion without soft tissue swelling. Moderate medial and patellofemoral compartment joint space narrowing with tricompartmental marginal osteophytes. Suprapatellar recess loose body DIVISION OF RADIOLOGY Provider, Dee Farnsworth [facility] - 06/25/2023 * * *Final Report* * * DATE OF EXAM: Jun 21 2023 11:21AM [facility] 5202 - XR KNEE 4V AP/PA BOTH+LAT/SAMINA LT / PROCEDURE REASON: Acute pain of left knee * * * * Physician Interpretation * * * * KNEE RADIOGRAPHS - LEFT HISTORY: Acute pain of left knee TECHNOLOGIST PROVIDED HISTORY (if applicable): Left anterior knee pain with bending x several weeks without injury TECHNIQUE: XR KNEE 4V AP/PA BOTH+LAT/SAMINA LT COMPARISON: None available RESULT: Left knee: There is no acute osseous, articular, or soft tissue abnormality. There is trace joint effusion without soft tissue swelling. Moderate medial and patellofemoral compartment joint space narrowing with tricompartmental marginal osteophytes. Suprapatellar recess loose body IMPRESSION IMPRESSION: 1. No acute radiographic abnormality of the left knee with osteoarthritis and loose body Cops: PSCAnny Transcribe Date/Time: Jun 25 2023 4:58P Dictated by : GINNY HARMON MD This examination was interpreted and the report reviewed and electronically signed by: GINNY HARMON MD on Jun 25 2023 5:26PM EST [facility] XR Knee - left 4 ViewsOrdere d By: Ccf Provider on 06-25-2023 [facility] XR Knee - left 4 Viewson Radiology Study observation (narrative) [facility] Emergency Department Summary on 01-13-2023 Emergency Department Summary [facility] Medical Records Department [address] [place] [address] Emergency Department Summary 01/13/23 MR#: [id number] Acct: [id number] Name: ELINA GRACE Rep #: [id number] : [id number] 67 From: Ramandeep Brandon MD PCP: Dr. Artis Jacobsno MD Status:DEP ER Location: ED HPI History of Present Illness Chief Complaint: Abd Pain Informant: patient Onset/Context/Timing Onset: Days (5 days) Narrative Narrative: Patient presents secondary to epigastric abdominal pain over the past 5 days. She states on the day of onset she was dragging some leaves with her granddaughter laying on the pile into the singh several times. She noted a pulling sensation in her epigastric region. She continues to have pain in this area with tightening of her muscles or movement. She denies nausea, vomiting, food sensitivity. She had no fever or chills. She states she had a problem with this years ago and was told that she had a hiatal hernia. She has no reflux or early satiety. [facility] Medical History (Updated 01/13/23 @ 10:[address] Ramandeep Brandon MD) HTN (hypertension) Hyperthyroidism Home Medications Folic Acid 1 mg BID 01/04/13 [History Last Taken Unknown] Levothyroxine 100 mg DAILY 01/04/13 [History Last Taken Unknown] Prevacid 40 mg DAILY 01/04/13 [History Last Taken Unknown] Tenormin 25 mg BID 01/04/13 [History Last Taken Unknown] dicyclomine 20 mg tablet (Bentyl) 20 mg PO 4X/DAY PRN Cramp #20 tabs 01/04/13 [Rx Last Taken Unknown] tramadol 50 mg tablet 50 mg PO Q6H PRN pain #20 tabs 01/13/23 [Rx Last Taken Unknown] Allergy/AdvReac Type Severity Reaction Status Date / Time atorvastatin calcium AdvReac Other Verified 01/13/23 09:41 [From Lipitor] Surgical History (Updated 01/13/23 @ 10:[address] Ramandeep Brandon MD) History of Social History Smoking Status: Never smoker ROS ROS ED Constitutional Constitutional ED: Denies chills or fever(s) ENT ENT ED: Denies rhinorrhea or sore throat Cardiovascular Cardiovascular: Denies chest pain or palpitations Respiratory/Chest Respiratory/Chest: Denies cough or dyspnea Gastrointestinal Gastrointestinal: Reports abdominal pain; Denies diarrhea, nausea or vomiting Genitourinary Genitourinary ED: Denies dysuria Musculoskeletal Musculoskeletal: Denies back pain or extremity pain Integumentary Denies Abrasions or rash Neurologic Neurologic: Denies headache(s) or weakness Psychiatric Psychiatric: Denies anxiety or depression Allergic/Immunologic Allergic/Immunologic ED: Denies lip swelling or urticaria EXAM Physical Exam Const Vital Signs: 01/13/23 09:41 Temperature 97.4 F L Temperature Source Temporal Pulse Rate 69 Respiratory Rate 16 Blood Pressure 160/77 H Blood Pressure Mean 104 Pulse Ox 99 Oxygen Delivery Method Room Air Positive well nourished and well developed General Appearance ED: well developed HEENT Reports moist mucous membranes Eyes EOMs intact bilaterally Chest Wall inspection of chest normal and palpation of chest normal Resp normal respiratory effort and clear to auscultation bilaterally Cardio regular rate and regular rhythm GI GI Narrative: Abdomen soft with focal reproducible tenderness in the epigastrium. No palpable masses are noted. Extremity normal to inspection Neuro oriented x3 and no sensory deficits noted Motor Exam: strength 5/5 throughout Skin no rashes or lesions noted MDM MDM MDM Narrative Medical decision making narrative: Patient was advised that her story and physical exam findings are consistent with a muscle wall injury. I do not feel any masses protruding through the hernia site at this time. We discussed obtaining a CT scan to ensure no other acute abnormalities, however patient is comfortable with analgesics at this time and will follow-up. She is given return instructions and is comfortable with this plan. Discharge Plan Triage Chief Complaint: Abd Pain ED Provider: Ramandeep Brandon Dx/Rx/DC Orders Clinical Impression: Abdominal wall strain Instructions: ED Muscle Strain, Abdomen Prescriptions: New tramadol 50 mg tablet 50 mg PO Q6H PRN (Reason: pain) Qty: 20 0RF No Action Folic Acid 1 mg BID Levothyroxine 100 mg DAILY Prevacid 40 mg DAILY Tenormin 25 mg BID dicyclomine [Bentyl] 20 MG tablet 20 mg PO 4X/DAY PRN (Reason: Cramp) Qty: 20 0RF Primary Care Provider: Artis Jacobson Referrals: Artis Jacobson MD [Primary Care Provider] - 1-2 Weeks Disposition Disposition: Home, Self Care What to do if you have Problems For any increased pain, shortness of breath, bleeding, nausea or vomiting, chest pain, or any unexpected problems, contact your P (more content not included)... Normal [facility] PARISH SCREENINGon 11-21-2021 [facility] Vital Signs Date Time Vital Sign Value Performing Clinician Faci lity 10-19-2024 08:22-0400 Body height 160.5 cm Sharri Jacobson MD Work Phone: [facility] 10-19-2024 08:22-0400 Body mass index (BMI) [Ratio] 31.69 kg/m2 Sharri Jacobson MD Work Phone: [facility] 10-19-2024 08:22-0400 Body weight 81.65 kg Sharri Jacobson MD Work Phone: [facility] 10-19-2024 08:22-0400 Diastolic blood pressure 76 mm[Hg] Sharri Jacobson MD Work Phone: [facility] 10-19-2024 08:22-0400 Heart rate 63 /min Sharri Jacobson MD Work Phone: [facility] 10-19-2024 08:22-0400 SaO2% (BldA) [Mass fraction] 99 % Sharri Jacobson MD Work Phone: [facility] 10-19-2024 08:22-0400 Systolic blood pressure 128 mm[Hg] Sharri Jacobson MD Work Phone: [facility] 04-20-2024 09:11-0500 Body mass index (BMI) [Ratio] 30.59 kg/m2 Yarelis Podlogar WINK CUTTER OPERATOR.BUCKLE ATTACHER Work Phone: [facility] 04-20-2024 09:11-0500 Body weight 78.8 kg Yarelis Podlogar WINK CUTTER OPERATOR.BUCKLE ATTACHER Work Phone: [facility] 04-20-2024 09:11-0500 Diastolic blood pressure 82 mm[Hg] Yarelis Podlogar WINK CUTTER OPERATOR.BUCKLE ATTACHER Work Phone: [facility] 04-20-2024 09:11-0500 Heart rate 80 /min Yarelis Podlogar WINK CUTTER OPERATOR.BUCKLE ATTACHER Work Phone: [facility] 04-20-2024 09:11-0500 Respiratory rate 16 /min Yarelis Podlogar WINK CUTTER OPERATOR.BUCKLE ATTACHER Work Phone: [facility] 04-20-2024 09:11-0500 SaO2% (BldA) [Mass fraction] 95 % Yarelis Podlogar WINK CUTTER OPERATOR.BUCKLE ATTACHER Work Phone: [facility] 04-20-2024 09:11-0500 Systolic blood pressure 138 mm[Hg] Yarelis Podlogar WINK CUTTER OPERATOR.BUCKLE ATTACHER Work Phone: [facility] 10-18-2023 07:45-0400 Body mass index (BMI) [Ratio] 32.84 kg/m2 Sharri Jacobson MD Work Phone: [facility] 10-18-2023 07:45-0400 Body weight 84.6 kg Sharri Jacobson MD Work Phone: [facility] 10-18-2023 07:45-0400 Diastolic blood pressure 72 mm[Hg] Sharri Jacobson MD Work Phone: [facility] 10-18-2023 07:45-0400 Heart rate 60 /min Sharri Jacobson MD Work Phone: [facility] 10-18-2023 07:45-0400 Respiratory rate 16 /min Sharri Jacobson MD Work Phone: [facility] 10-18-2023 07:45-0400 Systolic blood pressure 108 mm[Hg] Sharri Jacobson MD Work Phone: [facility] 10-04-2023 11:34-0400 Body mass index (BMI) [Ratio] 32.61 kg/m2 Carolina Valadez APRN.BUCKLE ATTACHER Work Phone: [facility] 10-04-2023 11:34-0400 Body temperature 97.81 [degF] Carolina Valadez APRN.BUCKLE ATTACHER Work Phone: [facility] 10-04-2023 11:34-0400 Body weight 84 kg Carolina Valadez APRN.BUCKLE ATTACHER Work Phone: [facility] 10-04-2023 11:34-0400 Diastolic blood pressure 86 mm[Hg] Carolina Valadez APRN.BUCKLE ATTACHER Work Phone: [facility] 10-04-2023 11:34-0400 Heart rate 66 /min Carolina Valadez APRN.BUCKLE ATTACHER Work Phone: [facility] 10-04-2023 11:34-0400 Respiratory rate 18 /min Carolina Valadez APRN.BUCKLE ATTACHER Work Phone: [facility] 10-04-2023 11:34-0400 SaO2% (BldA) [Mass fraction] 97 % Carolina Valadez APRN.BUCKLE ATTACHER Work Phone: [facility] 10-04-2023 11:34-0400 Systolic blood pressure 139 mm[Hg] Carolina James WINK CUTTER OPERATOR.BUCKLE ATTACHER Work Phone: [facility] 06-21-2023 10:49-0400 Body weight 83.73 kg Yarelis Podlogar WINK CUTTER OPERATOR.BUCKLE ATTACHER Work Phone: [facility] 06-21-2023 10:49-0400 Diastolic blood pressure 74 mm[Hg] Yarelis Podlogar WINK CUTTER OPERATOR.BUCKLE ATTACHER Work Phone: [facility] 06-21-2023 10:49-0400 Heart rate 61 /min Yarelis Podlogar WINK CUTTER OPERATOR.BUCKLE ATTACHER Work Phone: [facility] 06-21-2023 10:49-0400 Respiratory rate 16 /min Yarelis Podlogar WINK CUTTER OPERATOR.BUCKLE ATTACHER Work Phone: [facility] 06-21-2023 10:49-0400 SaO2% (BldA) [Mass fraction] 96 % Yarelis Podlogar WINK CUTTER OPERATOR.BUCKLE ATTACHER Work Phone: [facility] 06-21-2023 10:49-0400 Systolic blood pressure 116 mm[Hg] Yarelis Podlogar WINK CUTTER OPERATOR.BUCKLE ATTACHER Work Phone: [facility] 04-19-2023 08:22-0500 Body weight 83.28 kg Sharri Jacobson MD Work Phone: [facility] 04-19-2023 08:22-0500 Diastolic blood pressure 70 mm[Hg] Sharri Jacobson MD Work Phone: [facility] 04-19-2023 08:22-0500 Heart rate 62 /min Sharri Jacobson MD Work Phone: [facility] 04-19-2023 08:22-0500 Respiratory rate 16 /min Sharri Jacobson MD Work Phone: [facility] 04-19-2023 08:22-0500 SaO2% (BldA) [Mass fraction] 96 % Sharri Jacobson MD Work Phone: [facility] 04-19-2023 08:22-0500 Systolic blood pressure 114 mm[Hg] Sharri Jacobson MD Work Phone: [facility] 01-13-2023 09:41-0500 Body height 165.1 cm [facility] 01-13-2023 09:41-0500 Body mass index (BMI) [Ratio] 30.6 kg/m2 [facility] 01-13-2023 09:41-0500 Body temperature 97.4 [degF] [facility] 01-13-2023 09:41-0500 Body weight 83.46 kg [facility] 01-13-2023 09:41-0500 Diastolic blood pressure 77 mm[Hg] [facility] 01-13-2023 09:41-0500 Heart rate 69 /min [facility] 01-13-2023 09:41-0500 Respiratory rate 16 /min [facility] 01-13-2023 09:41-0500 SaO2% (BldA) [Mass fraction] 99 % [facility] 01-13-2023 09:41-0500 Systolic blood pressure 160 mm[Hg] [facility] 01-13-2023 09:23-0500 Diastolic blood pressure 88 mm[Hg] Allen Lopes WINK CUTTER OPERATOR.BUCKLE ATTACHER Work Phone: [facility] 01-13-2023 09:23-0500 Systolic blood pressure 156 mm[Hg] Allen Lopes WINK CUTTER OPERATOR.BUCKLE ATTACHER Work Phone: [facility] 01-13-2023 09:18-0500 Body temperature 97.5 [degF] Allen Lopes WINK CUTTER OPERATOR.BUCKLE ATTACHER Work Phone: [facility] 01-13-2023 09:18-0500 Body weight 83.46 kg Allen Lopes WINK CUTTER OPERATOR.BUCKLE ATTACHER Work Phone: [facility] 01-13-2023 09:18-0500 Heart rate 66 /min Allen Lopes WINK CUTTER OPERATOR.BUCKLE ATTACHER Work Phone: [facility] 01-13-2023 09:18-0500 Respiratory rate 16 /min Allen Lopes WINK CUTTER OPERATOR.BUCKLE ATTACHER Work Phone: [facility] 01-13-2023 09:18-0500 SaO2% (BldA) [Mass fraction] 100 % Allen Lopes WINK CUTTER OPERATOR.BUCKLE ATTACHER Work Phone: [facility] 04-13-2022 08:57-0500 Body weight 83.37 kg Yarelis Podlogar WINK CUTTER OPERATOR.BUCKLE ATTACHER Work Phone: [facility] 04-13-2022 08:57-0500 Diastolic blood pressure 78 mm[Hg] Yarelis Podlogar WINK CUTTER OPERATOR.BUCKLE ATTACHER Work Phone: [facility] 04-13-2022 08:57-0500 Heart rate 72 /min Yarelis Podlogar WINK CUTTER OPERATOR.BUCKLE ATTACHER Work Phone: [facility] 04-13-2022 08:57-0500 Respiratory rate 16 /min Yarelis Podlogar WINK CUTTER OPERATOR.BUCKLE ATTACHER Work Phone: [facility] 04-13-2022 08:57-0500 SaO2% (BldA) [Mass fraction] 96 % Yarelis Podlogar WINK CUTTER OPERATOR.BUCKLE ATTACHER Work Phone: [facility] 04-13-2022 08:57-0500 Systolic blood pressure 132 mm[Hg] Yarelis Podlogar WINK CUTTER OPERATOR.BUCKLE ATTACHER Work Phone: [facility] 10-10-2021 14:02-0400 Body weight 84.01 kg Sharri Jacobson MD Work Phone: [facility] 10-10-2021 14:02-0400 Diastolic blood pressure 76 mm[Hg] Sharri Jacobson MD Work Phone: [facility] 10-10-2021 14:02-0400 Heart rate 72 /min Sharri Jacobson MD Work Phone: [facility] 10-10-2021 14:02-0400 Respiratory rate 16 /min Sharri Jacobson MD Work Phone: [facility] 10-10-2021 14:02-0400 SaO2% (BldA) [Mass fraction] 99 % Sharri Jacobson MD Work Phone: [facility] 10-10-2021 14:02-0400 Systolic blood pressure 116 mm[Hg] Sharri Jacobson MD Work Phone: [facility] 08-07-2021 09:59-0400 Body weight 83.64 kg Sharri Jacobson MD Work Phone: [facility] 08-07-2021 09:59-0400 Diastolic blood pressure 78 mm[Hg] Sharri Jacobson MD Work Phone: [facility] 08-07-2021 09:59-0400 Heart rate 72 /min Sharri Jacobson MD Work Phone: [facility] 08-07-2021 09:59-0400 Respiratory rate 16 /min Sharri Jacobson MD Work Phone: [facility] 08-07-2021 09:59-0400 SaO2% (BldA) [Mass fraction] 95 % Sharri Jacobson MD Work Phone: [facility] 08-07-2021 09:59-0400 Systolic blood pressure 128 mm[Hg] Sharri Jacobson MD Work Phone: [facility] Encounters Encounter Date Encounter Type Care Provider Facility Start: 10-20-2024 End: 10-20-2024 Follow-up encounter Sharri Jacobson MD Work Phone: [facility] Comment on above: Results Start: 10-19-2024 End: 10-19-2024 ambulatory SHARRI JACOBSON Facility:[facility] Start: 10-19-2024 End: 10-19-2024 Patient encounter procedure Sharri Jacobson MD Work Phone: [facility] Comment on above: Annual physical exam (Primary Dx); Essential hypertension; Mixed hyperlipidemia; Paroxysmal supraventricular tachycardia (HCC); Acquired hypothyroidism; Prediabetes; Obesity, Class I, BMI 30-34.9; Asymptomatic varicose veins; Spider veins of both lower extremities; Primary osteoarthritis of left knee Start: 10-19-2024 End: 10-19-2024 ambulatory SHARRI JACOBSON Facility:[facility] Start: 08-03-2024 End: 08-03-2024 Refill Sharri Jacobson MD Work Phone: [facility] [place] Comment on above: Refill Request Start: 07-14-2024 End: 09-13-2024 Follow-up encounter Yarelis Carlos APRN.BUCKLE ATTACHER Work Phone: [facility] [place] Start: 07-13-2024 ambulatory SHARRI JACOBSON Facility:[facility] Start: 07-13-2024 End: 07-13-2024 Subsequent hospital visit by physician Screen Mammo [facility] Comment on above: Encounter for screen ing mammogram for breast cancer [Z12.31] Start: 04-23-2024 End: 04-27-2024 Follow-up encounter Sharri Jacobson MD Work Phone: [facility] Start: 04-22-2024 End: 04-22-2024 ambulatory SHARRI JACOBSON Facility:[facility] Start: 04-22-2024 End: 06-22-2024 Follow-up encounter Yarelis Carlos APRN.BUCKLE ATTACHER Work Phone: [facility] [place] Start: 04-22-2024 End: 04-28-2024 Telephone encounter Yarelis Carlos APRN.BUCKLE ATTACHER Work Phone: [facility] [place] Comment on above: Results Start: 04-20-2024 End: 04-20-2024 ambulatory YARELIS GONZALEZLOGIWNOA Facility:[facility] Start: 04-20-2024 End: 04-20-2024 Patient encounter procedure Yarelis Carlos WINK CUTTER OPERATOR.BUCKLE ATTACHER Work Phone: [facility] Comment on above: Essential hypertensi on (Primary Dx); Acquired hypothyroidism; Encounter for screening mammogram for breast cancer; Prediabetes; Eustachian tube disorder, left Start: 02-14-2024 End: 02-15-2024 Refill Sharri Jacobson MD Work Phone: [facility] [place] Comment on above: Refill Request Start: 02-11-2024 End: 02-11-2024 Refill Sharri Jacobson MD Work Phone: [facility] Comment on above: Refill Request Start: 12-23-2023 End: 12-26-2023 Telephone encounter Sharri Jacobson MD Work Phone: [facility] [place] Comment on above: patient request xray to be put on disc Start: 12-17-2023 End: 12-17-2023 ambulatory SHARRI JACOBSON Facility:[facility] Start: 11-05-2023 End: 11-05-2023 ambulatory SHARRI JACOBSON Facility:[facility] Start: 11-05-2023 End: 11-05-2023 Patient encounter procedure Malachi Pool OD Work Phone: Ophthalmology Comment on above: Keratoconus, stable, bilateral (Primary Dx); Dry eye syndrome of bilateral lacrimal glands Start: 10-30-2023 End: 10-30-2023 Telephone encounter Yarelis Carlos APRN.CNP Work Phone: [facility] Comment on above: Results Start: 10-28-2023 End: 10-28-2023 Telephone encounter Daniel CEDENO Ophthalmology Start: 10-21-2023 End: 10-21-2023 Telephone encounter Sharri Jacobson MD Work Phone: [facility] Comment on above: Results Start: 10-21-2023 End: 10-21-2023 Patient encounter procedure Malachi Pool OD Work Phone: Ophthalmology Comment on above: Keratoconus, stable, bilateral (Primary Dx); Dry eye syndrome of bilateral lacrimal glands Start: 10-18-2023 End: 10-18-2023 Patient encounter procedure Sharri Jacobson MD Work Phone: [facility] Comment on above: Annual physical exam (Primary Dx); Persistent cough for 3 weeks or longer; Nasal congestion; Bilateral impacted cerumen; Essential hypertension; Mixed hyperlipidemia; Gastroesophageal reflux disease without esophagitis; Prediabetes; Paroxysmal supraventricular tachycardia (HCC); Acquired hypothyroidism; Screening for colon cancer; Obesity, Class I, BMI 30-34.9 Start: 10-04-2023 End: 10-04-2023 Subsequent hospital visit by physician Xr [facility] Work Phone: Radiology Comment on above: Acute cough [R05.1] Start: 10-04-2023 End: 10-04-2023 Patient encounter procedure Carolina Valadez APRN.BUCKLE ATTACHER Work Phone: [facility] Comment on above: Acute cough (Primary Dx); Respiratory infection Keratoconus, stable, bilateral (Primary Dx); Dry eye syndrome of bilateral lacrimal glands Start: 08-19-2023 Refill Sharri Jacobson MD Work Phone: [facility] Comment on above: Refill Request Start: 08-09-2023 End: 08-09-2023 Patient encounter procedure Blair De Anda PA-C Work Phone: Orthopaedics Comment on above: Primary osteoarthrit is of left knee (Primary Dx); Acute pain of left knee; Loose body in knee, left knee Start: 07-10-2023 Documentation procedure Mammog cherise Coordinator [facility] Start: 07-10-2023 Letter encounter Mammography Coordinator [facility] Start: 07-10-2023 Telephone encounter Artis Jacobson MD Work Phone: [facility] Comment on above: Results Start: 07-10-2023 End: 07-10-2023 Subsequent hospital visit by physician Screen Mammo [facility] Comment on above: Screening mammogram, encounter for [Z12.31] Start: 06-21-2023 ambulatory Sharri Jacobson MD Work Phone: [facility] Comment on above: Left Leg Pain Start: 06-21-2023 End: 06-21-2023 Subsequent hospital visit by physician Xr [facility] Work Phone: Radiology Comment on above: Acute pain of left k nee [M25.562] Start: 06-21-2023 End: 06-21-2023 Patient encounter procedure Yarelis Carlos APRN.BUCKLE ATTACHER Work Phone: [facility] Comment on above: Acute pain of left k nee (Primary Dx) Start: 04-22-2023 Telephone encounter Yarelis Gonzalezshi dayton PONCE.BUCKLE ATTACHER Work Phone: [facility] Start: 04-19-2023 End: 04-19-2023 Patient encounter procedure Sharri Jacobson MD Work Phone: [facility] Comment on above: Dry cough (Primary D x); Allergic rhinitis, unspecified seasonality, unspecified trigger; Prediabetes; Essential hypertension; Mixed hyperlipidemia; Paroxysmal supraventricular tachycardia; Gastroesophageal reflux disease without esophagitis; Acquired hypothyroidism; Encounter for immunization; Obesity (BMI 30-39.9) Start: 01-13-2023 End: 01-13-2023 Emergency department patient visit Artis Jacobson Facility:[facility] Start: 01-13-2023 End: 01-13-2023 Emergency department patient visit [facility] Work Phone: Start: 01-13-2023 End: 01-13-2023 Patient encounter procedure Allen Lopes APRN.BUCKLE ATTACHER Work Phone: [facility] Comment on above: Epigastric abdominal pain (Primary Dx) Start: 10-15-2022 Telephone encounter Artis Jacobson MD Work Phone: [facility] Comment on above: Results Start: 10-01-2022 End: 10-01-2022 Patient encounter procedure Malachi Pool OD Work Phone: Ophthalmology Comment on above: Keratoconus, stable, bilateral (Primary Dx); Dry eye syndrome of bilateral lacrimal glands Start: 09-28-2022 Refill Sharri Jacobson MD Work Phone: [facility] Comment on above: Refill Request Start: 08-31-2022 End: 08-31-2022 Patient encounter procedure Malachi Pool OD Work Phone: Ophthalmology Comment on above: Keratoconus, stable, bilateral (Primary Dx); Dry eye syndrome of bilateral lacrimal glands Start: 08-20-2022 End: 08-20-2022 Patient encounter procedure Malachi Pool OD Work Phone: Ophthalmology Comment on above: Keratoconus, stable, bilateral (Primary Dx); Dry eye syndrome of bilateral lacrimal glands Start: 08-13-2022 Refill Sharri Jacobson MD Work Phone: [facility] Comment on above: Refill Request Start: 04-23-2022 End: 04-23-2022 Patient encounter procedure Malachi Pool OD Work Phone: Ophthalmology Comment on above: Keratoconus, stable, bilateral (Primary Dx) Start: 04-16-2022 Telephone encounter Yarelis burris APRN.BUCKLE ATTACHER Work Phone: [facility] [place] Comment on above: Results Start: 04-13-2022 End: 04-13-2022 Patient encounter procedure Yarelis Carlos APRN.BUCKLE ATTACHER Work Phone: [facility] [place] Comment on above: Prediabetes (Primary Dx); Essential hypertension; Acquired hypothyroidism; Paroxysmal supraventricular tachycardia (HCC); Mixed hyperlipidemia Start: 04-06-2022 End: 04-06-2022 Patient encounter procedure Malachi Pool OD Work Phone: Ophthalmology Comment on above: Keratoconus, stable, bilateral (Primary Dx) Start: 03-16-2022 End: 03-16-2022 Patient encounter procedure Malachi Pool OD Work Phone: Ophthalmology Comment on above: Keratoconus, stable, bilateral (Primary Dx) Start: 01-18-2022 End: 01-18-2022 Patient encounter procedure Malachi Pool OD Work Phone: Ophthalmology Comment on above: Keratoconus, stable, bilateral (Primary Dx) Start: 12-27-2021 Telephone encounter Yarelis burris APRN.BUCKLE ATTACHER Work Phone: [facility] Comment on above: Results Start: 12-11-2021 Telephone encounter Artis Jacobson MD Work Phone: [facility] Comment on above: Results Start: 11-22-2021 Telephone encounter Yarelis burris APRN.BUCKLE ATTACHER Work Phone: [facility] Comment on above: Results Start: 11-21-2021 Documentation procedure Mammog cherise Coordinator [facility] Start: 11-21-2021 Letter encounter Mammography Coordinator [facility] Start: 11-21-2021 End: 11-21-2021 Subsequent hospital visit by physician Screen Mammo [facility] Comment on above: Screening mammogram for breast cancer [Z12.31] Start: 10-10-2021 End: 10-10-2021 Patient encounter procedure Sharri Jacobson MD Work Phone: [facility] Comment on above: Prediabetes (Primary Dx); Dermatitis; Essential hypertension; Mixed hyperlipidemia; Acquired hypothyroidism; Obesity (BMI 30-39.9); Paroxysmal supraventricular tachycardia (HCC); Elevated LFTs; Screening mammogram for breast cancer; Need for pneumococcal vaccine Start: 08-07-2021 End: 08-07-2021 Patient encounter procedure Sharri Jacobson MD Work Phone: [facility] [place] Comment on above: Dermatitis (Primary Dx); Mixed hyperlipidemia; Acquired hypothyroidism; Prediabetes; Obesity (BMI 30-39.9); Paroxysmal supraventricular tachycardia (HCC); Essential hypertension Procedures Date Procedure Procedure Detail Performing Clinician Start: 10-19-2024 Lipid 1996 panel - S yohana or Plasma Sharri Jacobson MD Work Phone: Start: 10-18-2023 Lipid 1996 panel - S yohana or Plasma Sharri Jacobson MD Work Phone: Start: 10-04-2023 Radiologic exam ches t 2 views Carolina Valadez APRN.BUCKLE ATTACHER Work Phone: Start: 07-10-2023 Screening mammograph y bi 2-view breast inc cad Sharri Jacobson MD Work Phone: Start: 06-21-2023 Radiologic exam knee complete 4/more views Yarelis Carlos APRN.BUCKLE ATTACHER Work Phone: Start: 10-12-2022 Lipid 1996 panel - S yohana or Plasma Allen Lopes APRN.BUCKLE ATTACHER Work Phone: Start: 11-21-2021 End: 11-21-2021 Screening mammography bi 2-view breast inc aga Jacobson MD Work Phone: Start: 10-10-2021 Adult depression screening assessment Sharri Jacobson MD Work Phone: Start: 11-16-2020 Mammography Artis Jacobson MD Work Phone: Start: 10-10-2020 Adult depression screening assessment Sharri Jacobson MD Work Phone: Start: 01-15-2013 Colonoscopy Artis Jacobson MD Work Phone: Plan of Treatment Date Care Activity Detail Author Start: 10-19-2029 Lipid panel Lipid Screening [facility] Start: 2029 RSV Vaccine (1 - 1-d ose 75+ series) RSV Vaccine (1 - 1-dose 75+ series) [facility] Start: 10-17-2028 Lipid panel Lipid Screening [facility] Start: 10-20-2027 Diabetes Screening Diabetes [facility] Start: 10-13-2027 Lipid 1996 panel - Serum or Plasma Lipid Screening [facility] Start: 10-13-2027 Lipid panel Lipid Screening [facility] Start: 10-13-2027 LIPID SCREEN LIPID SCREEN [facility] Start: 04-22-2027 Diabetes Screening Diabetes [facility] Start: 10-23-2026 Screening for malign ant neoplasm of colon Cologuard (FIT-DNA) [facility] Start: 10-17-2026 Diabetes Screening Diabetes [facility] Start: 09-30-2026 LIPID SCREEN LIPID SCREEN [facility] Start: 04-19-2026 Diabetes Screening Diabetes [facility] Start: 10-19-2025 Annual PCP Team Transmissions Systems Operator daina Disease Visit Annual PCP Team Chronic Disease Visit [facility] Start: 10-19-2025 Screening for osteoporosis Bone Density Screening [facility] Comment on above: Postponed from 08/06 (Declined at this time) Start: 10-19-2025 Urine microalbumin profile DTaP,Tdap,Td Vaccine (2 - Td or Tdap) [facility] Comment on above: Postponed from 08/10 (Declined at this time) Start: 10-12-2025 DIABETES SCREEN DIABETES SCREEN [facility] Start: 10-12-2025 Diabetes Screening Diabetes Screenin g [facility] Start: 10-01-2025 LIPID SCREEN LIPID SCREEN [facility] Start: 07-13-2025 Screening for malign ant neoplasm of breast Mammogram Screening [facility] Start: 04-21-2025 End: 04-21-2025 Patient encounter procedure 04/21/2025 9:40 AM EST Office Visit [facility] [address] [place] [address] Yarelis Calros APRN.BUCKLE ATTACHER [address] [place] [address] 6 month follow up [facility] Comment on above: 6 month follow up Start: 04-20-2025 Annual PCP Team Transmissions Systems Operator daina Disease Visit Annual PCP Team Chronic Disease Visit [facility] Start: 04-13-2025 DIABETES SCREEN DIABETES SCREEN [facility] Start: 11-06-2024 End: 11-06-2024 Patient encounter procedure 11/06/2024 10:30 AM EDT Office Visit [facility] [address] [place] [address] Malachi Pool, OD [address] [place] [address] contact lens eval Ophthalmology Comment on above: contact lens eval Start: 11-02-2024 Influenza vaccination [facility] Start: 10-19-2024 End: 01-18-2025 Comprehensive metabolic 2000 panel - Serum or Plasma [facility] Work Phone: Comment on above: Expected: 10/19/2024 , Expires: 01/18/2025 Start: 10-19-2024 End: 01-18-2025 LIPID PANEL, NONFASTING [facility] Comment on above: Expected: 10/19/2024 , Expires: 01/18/2025 Start: 10-19-2024 End: 01-18-2025 Thyrotropin [Units/volume] in Serum or Plasma [facility] Comment on above: Expected: 10/19/2024 , Expires: 01/18/2025 Start: 10-19-2024 End: 10-19-2024 Patient encounter procedure 10/19/2024 8:40 AM EDT Office Visit [facility] [address] [place] [address] Sharri Jacobson MD [address] [place] [address] 6 month follow up [facility] Comment on above: 6 month follow up Start: 10-17-2024 Annual PCP Team Transmissions Systems Operator daina Disease Visit Annual PCP Team Chronic Disease Visit [facility] Start: 10-17-2024 Anxiety Screening Anxiety Screening [facility] Comment on above: Postponed from 08/06 (Declined at this time) Start: 10-17-2024 BP Controlled (<130/80) BP Controlle d (<130/80) [facility] Start: 10-17-2024 Covid-19 Vaccine () Covid-19 Vaccine () [facility] Comment on above: Postponed from 11/02 (Declined at this time) Start: 10-17-2024 Screening for osteoporosis Bone Density Screening [facility] Comment on above: Postponed from 08/06 (Declined at this time) Start: 10-17-2024 Urine microalbumin profile DTaP,Tdap,Td Vaccine (2 - Td or Tdap) [facility] Comment on above: Postponed from 08/10 (Declined at this time) Start: 09-30-2024 DIABETES SCREEN DIABETES SCREEN [facility] Start: 08-31-2024 Influenza vaccination Influenza Vacc ine (#1) [facility] Comment on above: Postponed from 11/02 (Declined at this time) Start: 07-13-2024 End: 07-13-2024 Patient encounter procedure 07/13/2024 10:10 AM EDT Appointment Mammogram [address] [place] [address] Encounter for screening mammogram for breast cancer [Z12.31] Mammogram Comment on above: Encounter for screen ing mammogram for breast cancer [Z12.31] Start: 07-09-2024 Screening for malign ant neoplasm of breast Mammogram Screening [facility] Start: 06-20-2024 Annual PCP Team Transmissions Systems Operator daina Disease Visit Annual PCP Team Chronic Disease Visit [facility] Start: 06-20-2024 BP Controlled (<130/80) BP Controlle d (<130/80) [facility] Start: 04-22-2024 End: 07-22-2024 Comprehensive metabolic 2000 panel - Serum or Plasma COMPREHENSIVE METABOLIC PANEL Lab Routine Essential hypertension Expected: 04/22/2024, Expires: 07/22/2024 [facility] Work Phone: Comment on above: Expected: 04/22/2024 , Expires: 07/22/2024 Start: 04-20-2024 End: 07-20-2024 Comprehensive metabolic 2000 panel - Serum or Plasma [facility] Comment on above: Expected: 04/20/2024 , Expires: 07/20/2024 Start: 04-20-2024 End: 07-20-2024 Hemoglobin A1c in Blood [facility] Comment on above: Expected: 04/20/2024 , Expires: 07/20/2024 Start: 04-20-2024 End: 07-20-2024 Thyrotropin [Units/volume] in Serum or Plasma [facility] Work Phone: Comment on above: Expected: 04/20/2024 , Expires: 07/20/2024 Start: 04-20-2024 End: 04-20-2024 Patient encounter procedure 04/20/2024 9:20 AM EST Office Visit [facility] [place] [address] [place] [id number] PodlogarYarelis APRN.BUCKLE ATTACHER [address] [place] [address] 6 month follow up Family [facility] Comment on above: 6 month follow up Start: 04-19-2024 Annual PCP Team Transmissions Systems Operator daina Disease Visit Annual PCP Team Chronic Disease Visit [facility] Start: 04-19-2024 BP Controlled (<130/80) BP Controlle d (<130/80) [facility] Start: 04-19-2024 RSV Vaccine (1 - 1-d ose 60+ series) RSV Vaccine (1 - 1-dose 60+ series) [facility] Comment on above: Postponed from 08/06 (Declined at this time) Start: 04-03-2024 End: 04-03-2024 Patient encounter procedure 04/03/2024 9:30 AM EST Office Visit Orthopaedics [address] [place] [address] Blair De Anda PA-C [address] [address] 6 mo follow up left knee pain Orthopaedics Comment on above: 6 mo follow up left knee pain Start: 04-01-2024 DIABETES SCREEN DIABETES SCREEN [facility] Start: 03-04-2024 Advance Directive Discussion Advance Directive Discussion [facility] Start: 12-21-2023 End: 03-21-2024 Thyrotropin [Units/volume] in Serum or Plasma THYROID STIMULATING HORMONE Lab Routine Acquired hypothyroidism Expected: 12/21/2023, Expires: 03/21/2024 [facility] Work Phone: Comment on above: Expected: 12/21/2023 , Expires: 03/21/2024 Start: 11-05-2023 End: 11-05-2023 Patient encounter procedure 11/05/2023 12:30 PM EDT Office Visit [facility] [address] [place] [id number] Malachi Pool, OD [address] [place] [address] 30 minute contact lens dispensing appointment Ophthalmology Comment on above: 30 minute contact le ns dispensing appointment Start: 11-03-2023 Covid-19 Vaccine ( season) Covid-19 Vaccine ( season) [facility] Start: 11-03-2023 Covid-19 Vaccine ( season) Covid-19 Vaccine ( season) [facility] Start: 11-03-2023 Influenza vaccination [facility] Start: 10-25-2023 Screening for malign ant neoplasm of colon Colorectal Cancer Screening [facility] Start: 10-18-2023 End: 10-18-2023 Patient encounter procedure 10/18/2023 8:00 AM EDT Office Visit [facility] [address] [place] [address] Sharri Jacobson MD [address] [place] [address] annual physical [facility] Comment on above: annual physical Start: 10-13-2023 ANNUAL PCP TEAM CURTAIN ROLLER ASSEMBLER DAINA DISEASE VISIT ANNUAL PCP TEAM CHRONIC DISEASE VISIT [facility] Start: 10-13-2023 BONE DENSITY BONE DENSITY [facility] Comment on above: Postponed from 08/06 (Declined at this time) Start: 10-13-2023 Bone Density Screening Bone Density Screening [facility] Comment on above: Postponed from 08/06 (Declined at this time) Start: 10-13-2023 BP CONTROLLED (<130/80) BP CONTROLLE D (<130/80) [facility] Start: 10-13-2023 COVID-19 VACCINE (#1) COVID-19 VACCI NE (#1) [facility] Comment on above: Postponed from 02/05 (Declined at this time) Start: 10-13-2023 Screening for osteoporosis Bone Density Screening [facility] Comment on above: Postponed from 08/06 (Declined at this time) Start: 10-04-2023 End: 10-04-2023 Patient encounter procedure Ophthalmology Comment on above: 1 year follow up for contact lens eval Start: 09-01-2023 Influenza vaccination Influenza Vacc ine (#1) [facility] Comment on above: Postponed from 11/02 (Declined at this time) Start: 08-11-2023 Urine microalbumin profile [facility] Start: 08-09-2023 End: 08-09-2023 Patient encounter procedure 08/09/2023 10:00 AM EDT Office Visit Orthopaedics [address] [place] [address] Blair De Anda PA-C [address] [address] Acute pain of left knee [M25.562] Orthopaedics Comment on above: Acute pain of left k nee [M25.562] Start: 05-18-2023 Screening for malign ant neoplasm of colon Colorectal Cancer Screening [facility] Comment on above: Postponed from 08/06 (Declined at this time) Start: 04-19-2023 End: 07-19-2023 Comprehensive metabolic 2000 panel - Serum or Plasma [facility] Work Phone: Comment on above: Expected: 04/19/2023 , Expires: 07/19/2023 Start: 04-19-2023 End: 07-19-2023 Hemoglobin A1c in Blood [facility] Work Phone: Comment on above: Expected: 04/19/2023 , Expires: 07/19/2023 Start: 04-13-2023 ANNUAL PCP TEAM CURTAIN ROLLER ASSEMBLER DAINA DISEASE VISIT ANNUAL PCP TEAM CHRONIC DISEASE VISIT [facility] Start: 03-04-2023 Advance Directive Discussion Advance Directive Discussion [facility] Start: 03-04-2023 Behavioral Health Screening Behavioral Health Screening [facility] Start: 03-04-2023 Depression Assessment Depression Ass essment [facility] Start: 01-15-2023 Colonoscopy COLONOSCOPY [facility] Start: 01-15-2023 COLORECTAL CANCER SCREENING COLORECTAL CANCER SCREENING [facility] Start: 01-15-2023 Screening for malign ant neoplasm of colon [facility] Start: 01-13-2023 [facility] Start: 12-07-2022 SHINGRIX VACCINE (2 of 2) SHINGRIX VACCINE (2 of 2) [facility] Start: 11-21-2022 Mammography [facility] Start: 11-21-2022 Screening for malign ant neoplasm of breast Mammogram Screening [facility] Start: 11-02-2022 Covid-19 Vaccine ( season) Covid-19 Vaccine () [facility] Start: 11-02-2022 Influenza vaccination C [facility] Start: 10-10-2022 Adult depression screening assessment DEPRESSION SCREENING [facility] Start: 10-10-2022 ANNUAL PCP TEAM CURTAIN ROLLER ASSEMBLER DAINA DISEASE VISIT ANNUAL PCP TEAM CHRONIC DISEASE VISIT [facility] Start: 10-10-2022 BONE DENSITY BONE DENSITY [facility] Comment on above: Postponed from 08/06 (Declined at this time) Start: 10-10-2022 BP CONTROLLED (<130/80) BP CONTROLLE D (<130/80) [facility] Start: 08-07-2022 ANNUAL PCP TEAM CURTAIN ROLLER ASSEMBLER DAINA DISEASE VISIT ANNUAL PCP TEAM CHRONIC DISEASE VISIT [facility] Start: 08-07-2022 BP CONTROLLED (<130/80) BP CONTROLLE D (<130/80) [facility] Start: 07-14-2022 End: 09-13-2022 Thyrotropin [Units/volume] in Serum or Plasma TSH BLD Lab Routine Acquired hypothyroidism Expected: 07/14/2022, Expires: 09/13/2022 [facility] Work Phone: Comment on above: Expected: 07/14/2022 , Expires: 09/13/2022 Start: 04-13-2022 End: 06-13-2022 Comprehensive metabolic 2000 panel - Serum or Plasma [facility] Work Phone: Comment on above: Expected: 04/13/2022 , Expires: 06/13/2022 Start: 04-13-2022 End: 06-13-2022 Hemoglobin A1c in Blood [facility] Work Phone: Comment on above: Expected: 04/13/2022 , Expires: 06/13/2022 Start: 04-13-2022 End: 06-13-2022 Thyrotropin [Units/volume] in Serum or Plasma [facility] Work Phone: Comment on above: Expected: 04/13/2022 , Expires: 06/13/2022 Start: 03-04-2022 ADVANCE DIRECTIVE DISCUSSION ADVANCE DIRECTIVE DISCUSSION [facility] Start: 03-04-2022 DEPRESSION ASSESSMENT DEPRESSION ASS ESSMENT [facility] Start: 12-10-2021 End: 02-09-2022 Hepatic function 2000 panel - Serum or Plasma HEPATIC FUNCTION PNL Lab Routine Elevated LFTs Expected: 12/10/2021, Expires: 02/09/2022 [facility] Work Phone: Comment on above: Expected: 12/10/2021 , Expires: 02/09/2022 Start: 12-10-2021 End: 02-09-2022 Thyrotropin [Units/volume] in Serum or Plasma TSH BLD Lab Routine Acquired hypothyroidism Expected: 12/10/2021, Expires: 02/09/2022 [facility] Work Phone: Comment on above: Expected: 12/10/2021 , Expires: 02/09/2022 Start: 11-16-2021 Mammography MAMMOGRAM [facility] Start: 11-10-2021 End: 11-09-2022 Screening mammography bi 2-view breast inc cad [facility] Radiology Routine Screening mammogram for breast cancer Expected: 11/10/2021, Expires: 11/09/2022 [facility] Work Phone: Comment on above: Expected: 11/10/2021 , Expires: 11/09/2022 Start: 11-02-2021 Influenza vaccination INFLUENZA (#1) [facility] Start: 10-10-2021 Adult depression screening assessment DEPRESSION SCREENING [facility] Start: 10-10-2021 COVID-19 VACCINE (#1) COVID-19 VACCI NE (#1) [facility] Comment on above: Postponed from 08/06 (Declined at this time) Postponed from 02/05 (Declined at this time) Start: 10-10-2021 SHINGRIX VACCINE (1 of 2) SHINGRIX VACCINE (1 of 2) [facility] Comment on above: Postponed from 08/06 (Declined at this time) Start: 03-04-2021 ADVANCE DIRECTIVE DISCUSSION ADVANCE DIRECTIVE DISCUSSION [facility] Start: 03-04-2021 DEPRESSION ASSESSMENT DEPRESSION ASS ESSMENT [facility] Start: 09-29-2020 PNEUMOCOCCAL: 65+ (2 - PCV) PNEUMOCOCCAL: 65+ (2 - PCV) [facility] Start: 08-07-2019 BONE DENSITY BONE DENSITY [facility] Start: 2014 RSV Vaccine (1 - 1-d ose 60+ series) RSV Vaccine (1 - 1-dose 60+ series) [facility] Start: 2004 SHINGRIX VACCINE (1 of 2) SHINGRIX VACCINE (1 of 2) [facility] Start: 08-07-1999 COLOGUARD (FIT-DNA) COLOGUARD (FIT-D NA) [facility] Start: 08-07-[address] COLONOGRAPHY [facility] Start: 08-07-1999 FECAL OCCULT BLOOD FECAL OCCULT BLOO D [facility] Start: 08-07-1999 Screening for malign ant neoplasm of colon [facility] Start: 08-07-1999 SIGMOIDOSCOPY SIGMOIDOSCOPY [facility] Start: 1972 Anxiety Screening Anxiety Screening [facility] Start: 1972 BP CONTROLLED (<130/80) BP CONTROLLE D (<130/80) [facility] Start: 1972 Depression Screening Depression Scre ening [facility] Start: 02-05-1956 COVID-19 VACCINE (#1) COVID-19 VACCI NE (#1) [facility] COLOGUARD COLOGUARD Lab Ro utine Screening for colon cancer Ordered: 10/18/2023 [facility] Work Phone: Comment on above: Ordered: 10/18/2023 End: 05-20-2025 DBT Breast - bilateral screening [facility] Radiology Routine Encounter for screening mammogram for breast cancer 1 Occurrences starting 04/20/2024 until 05/20/2025 [facility] Comment on above: 1 Occurrences starti ng 04/20/2024 until 05/20/2025 DBT Breast - bilater al screening [facility]CRE[facility] Radiology Routine Encounter for screening mammogram for breast cancer 07/13/2024 10:04 AM EDT [facility] Work Phone: End: 12-22-2022 Diagnostic mammography computer-aided detcj uni [facility] DIAGNOSTIC LT Radiology Routine Abnormal mammogram 1 Occurrences starting 11/22/2021 until 12/22/2022 [facility] Work Phone: Comment on above: 1 Occurrences starti ng 11/22/2021 until 12/22/2022 Patient Education ED Muscle Stra in, Abdomen [facility] Work Phone: Patient referral [facility] Work Phone: End: 12-22-2022 Us breast uni real time with image limited US BREAST LTD LT Radiology Routine Abnormal mammogram 1 Occurrences starting 11/22/2021 until 12/22/2022 [facility] Work Phone: Comment on above: 1 Occurrences starti ng 11/22/2021 until 12/22/2022 End: 07-20-2024 XR Knee - left 4 Views XR KNEE GENERAL 4V AP BOTH/PA BOTH/LAT/MERC LEFT Radiology Routine Acute pain of left knee 1 Occurrences starting 06/21/2023 until 07/20/2024 [facility] Work Phone: Comment on above: 1 Occurrences starti ng 06/21/2023 until 07/20/2024 XR Knee - left 4 Views XR KNEE G ENERAL 4V AP BOTH/PA BOTH/LAT/MERC LEFT Radiology Routine Acute pain of left knee 06/21/2023 11:21 AM EDT [facility] Work Phone: [facility] Immunizations Immunization Date Immunization Notes Care Provider Fa [facility] 04-19-2023 zoster vaccine recombinant Sharri Jacobson MD Work Phone: [facility] 10-12-2022 zoster vaccine recombinant Sharri Jacobson MD Work Phone: [facility] 10-10-2021 pneumococcal Conjuga te, unspecified formulation Sharri Jacobson MD Work Phone: [facility] Work Phone: 10-10-2021 pneumococcal (PCV20) vaccine, 20 valent (PREVNAR 20) Sharri Jacobson MD Work Phone: [facility] 12-14-2020 influenza, high-dose , quadrivalent vaccine (FLUZONE HIGH DOSE QUADRIVALENT) Sharri Jacobson MD Work Phone: [facility] 12-14-2020 influenza virus vaccine, unspecified formulation Allen Lopes APRN.BUCKLE ATTACHER Work Phone: [facility] 09-30-2019 pneumococcal polysaccharide vaccine, 23 valent Sharri Jacobson MD Work Phone: [facility] 08-10-2013 tetanus toxoid, redu sheryl diphtheria toxoid, and acellular pertussis vaccine, adsorbed Sharri Jacobson MD Work Phone: [facility] Payers Date Payer Category Payer Self-pay [id number] 2021 Private Health Insurance [employer] [id number] 2021 Unknown [employer] PPO [id number] 2021-Present [phone] [place] [id number] PPO [id number] 2021 Unknown [id number] 2021 Unknown [id number] Unknown [employer] [id number] Unknown [id number] Social History Date Type Detail Facility Start: [facility]10[facility] Start: 04-12-2021 End: 11-05-2023 Alcohol intake Current non-drinker of alcohol (finding) [facility] Start: 1955 Sex Assigned At Not on file [facility] Start: 07-28-2021 End: 11-21-2021 Exposure to SARS-CoV-2 (event) Not sure [facility] Start: 10-10-2021 Tobacco use and exposure Smokeless tobacco non-user [facility] Start: 07-20-2022 End: 09-13-2022 History of Social function [facility] Work Phone: Start: 07-20-2022 End: 09-13-2022 Tobacco use panel [facility] Work Phone: Start: 02-03-2012 Adult Depression Screening Assessment 0 [facility] Work Phone: Start: 01-13-2023 Tobacco smoking stat [facility] Unknown if ever smoked [facility] Start: 1955 Sex Assigned At Female W [facility] Start: 10-19-2024 Alcoholic beverage intake Lifetime non-drinker (finding) [facility] How often to you hav e a drink containing alcohol? Never [facility] Functional Status Date Assessment Result Facility 10-19-2024 Total score [AUDIT-C] 0 10/20/19 25 9:09 AM Sharri Otero MD [facility] 08-03-2014 Are you deaf, or do you have serious difficulty hearing No 08/03/2014 9:37 AM Nelli Perkins RN No [facility] 08-03-2014 Are you blind, or do you have serious difficulty seeing, even when wearing glasses No 08/03/2014 9:37 AM Nelli Perkins RN No [facility] 08-03-2014 Do you have serious difficulty walking or climbing stairs No 08/03/2014 9:37 AM Nelli Perkins RN No [facility] 08-03-2014 Do you have difficul ty dressing or bathing No 08/03/2014 9:37 AM Nelli Perkins RN No [facility] 08-03-2014 Because of a physica l, mental, or emotional condition, do you have difficulty doing errands alone such as visiting a physician's office or shopping No 08/03/2014 9:37 AM EDT Nelli Logan RN No [facility] Mental Status Date Assessment Result Facility 08-03-2014 Because of a physica l, mental, or emotional condition, do you have serious difficulty concentrating, remembering, or making decisions No 08/03/2014 9:37 AM EDT Nelli Logan RN No [facility] Clinical Notes 01-18-2010 to 10-20-2024 Telephone Encounter - Shanice Blackmon RN - 10/20/2024 3:29 PM EDTTelephone Encounter - Shanice Blackmon RN - 10/20/2024 3:29 PM EDTPatient InstructionsPatient InstructionsPatient Instructions Note Date & Type Note Facility 10-20-2024 Telephone encounter Note Patient calls and notified of results and providers instructions. Patient verbalizes understanding. Shanice Blackmon RN [facility] 10-20-2024 Miscellaneous Notes Patient calls and notified of results and providers instructions. Patient verbalizes understanding. Shanice Blackmon RN Message left for return call. See 's chart for his results as well. Stacy Siegle MA ----- Message from Sharri Jacobson MD sent at 10/20/2024 7:08 AM EDT ----- Normal labs aside from A1c in prediabetic range at 5.9. recommend low carb/cholesterol diet and regular exercise. No changes to regimen otherwise. ----- Message ----- From: Lab, Background User Sent: 10/19/2024 4:48 PM EDT To: Sharri Jacobson MD documented in this encounter [facility] 10-20-2024 Telephone encounter Note Message left for return call. See 's chart for his results as well. Stacy Siegel MA [facility] 10-20-2024 Telephone encounter Note ----- Message from Sharri Jacobson MD sent at 10/20/2024 7:08 AM EDT ----- Normal labs aside from A1c in prediabetic range at 5.9. recommend low carb/cholesterol diet and regular exercise. No changes to regimen otherwise. ----- Message ----- From: Lab, Background User Sent: 10/19/2024 4:48 PM EDT To: Sharri Jacobson MD [facility] 10-19-2024 Instructions Sharri Jacobson MD - 10/19/2024 9:27 AM EDT - Continue your current medications as prescribed: atenolol; vitamin D; vitamin B12; hawthorn mi; levothyroxine (Synthroid); metformin 500 mg (two tablets daily); multivitamin; omega-3; potassium; pravastatin; and vitamin B6. - Discontinue Claritin and Singulair; no further action needed on these. - Complete blood work today, including: Complete blood count Kidney and liver function tests Cholesterol panel A1c (average blood sugar) Thyroid function test - Contact your insurance to verify coverage for a Tdap (tetanus, diphtheria, pertussis) booster. Once you know where it s covered, schedule the shot here or at the pharmacy. - Plan to get your annual flu and COVID-19 vaccines around early to mid-December when they become available. - If you notice any leg swelling: Wear compression stockings Elevate your legs when resting - Continue following a balanced diet with lean proteins, non-starchy vegetables, and controlled carbohydrates. - Aim for regular physical activity to help manage your weight and improve circulation. documented in this encounter [facility] 10-19-2024 Note HNO ID: [id number] Author: SHARRI JACOBSON MD Service: ? Author Type: Physician Type: Progress Notes Filed: 10/19/2024 09:31 Note Text: Chief Complaint Patient presents with: 6 Month Exam Recording using [email or web address] software for draft documentation of the visit was discussed with the patient/authorized call center support representative; all questions welcomed and answered. Patient/authorized call center support representative agreed to proceed HPI Elina Grace is a 69 year old female who presents here today for annual physical. Has forms to be completed today. Left Knee Pain: - Severe arthritis and bone on bone changes in the left knee. - Under care of Dr. Mims at [facility]. - Received two cortisone injections with adverse reactions: facial erythema, sensation of heat, and palpitations. - Considering surgical intervention. Varicose Vein Pain: - Reports pain in varicose veins, particularly in the lower legs. - Pain described as going way down in the legs. - Has had visible veins in the legs since youth. Hypothyroidism: - Managed with Synthroid. - Occasional hot flashes relieved by drinking water. - Denies constipation, diarrhea, or other skin changes. HTN: - Managed with atenolol. - Denies chest pain, dyspnea, or palpitations. Hyperlipidemia: - Managed with pravastatin. - Previous intolerance to Lipitor. Diet: - Consumes a diet high in vegetables, including green beans. - Avoids starchy beans. Recent Procedures: - Cyst removed from the left cheek in August; benign. - Recent cryotherapy for a skin lesion, resulting in a blister. Immunizations: - Up to date on shingles and pneumonia vaccines. - Missed flu and COVID vaccines last year due to illness. Past medical history, appointments, medications, allergies reviewed. Previous Medical History PAST MEDICAL HISTORY Diagnosis Date Arthritis of left knee severe, Dr. Chin Asymptomatic varicose veins Essential hypertension Obesity (BMI 30-39.9) Other and unspecified hyperlipidemia 2002 Paroxysmal supraventricular tachycardia (HCC) 2002 Supraventricular tachycardia Postablative hypothyroidism Prediabetes Reflux Spider veins of both lower extremities 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 thyrotoxic crisis or storm Previous Surgical History PAST SURGICAL HISTORY Procedure Laterality Date DELIVERY ONLY 03/04/1984 , low cervical DELIVERY ONLY 03/04/1987 , low cervical DELIVERY ONLY 03/04/1991 , low cervical COLONOSCOPY FLX DX W/COLLJ SPEC WHEN PFRMD 01/15/2013 Colonoscopy ESOPHAGOGASTRODUODENOSCOPY TRANSORAL DIAGNOSTIC 03/30/2013 EGD LIG/TRNSXJ FLP TUBE ABDL/VAG APPR UNI/BI 03/04/1991 Tubal ligation with last c section PAST SURGICAL HISTORY OF 08/2022 Ingrown toenail removal-Dr. Tolbert in [place] PAST SURGICAL HISTORY OF 08/2024 cyst removal from left cheek-[facility] Family History FAMILY HISTORY Problem Relation Age of Onset Heart Mother bypass surgery x 4 with valve replacement other (renal failure) Father Diabetes Sister on insulin Patient Allergies ALLERGIES Allergen Reactions Lipitor [Atorvastat* vertigo Current Medications Current Outpatient Medications on File Prior to Visit Medication Sig levothyroxine (SYNTHROID) 112 mcg tablet Take 1 tablet by mouth daily before breakfast. Take on empty stomach. atenolol (TENORMIN) 100 mg tablet Take 1 tablet by mouth once daily. pravastatin (PRAVACHOL) 40 mg tablet Take 1 tablet by mouth once daily. metFORMIN (GLUCOPHAGE) 500 mg tablet Take 2 tablets by mouth daily with breakfast. . Blood Pressure Monitor (BLOOD PRESSURE KIT) 1 Each once daily as needed. Murray-3 Fatty Acids 500 mg cap Take 1 capsule by mouth once daily. SARAH MI ORAL Take 1 tablet by mouth once daily. Potassium 99 mg tab Take by mouth once daily. Cholecalciferol, Vitamin D3, 1,000 unit Cap Take 1 capsule by mouth once daily. VITAMIN B-6 100 MG TAB Take one(1) tablet daily. CYANOCOBALAMIN 500 MCG TAB Take one(1) tablet daily. MULTIVITAMIN TAB Take one(1) tablet daily. montelukast (SINGULAIR) 10 mg tablet Take 1 tablet by mouth daily at bedtime. (Patient not taking: Reported on 10/19/2024) loratadine (CLARITIN) 10 mg tablet Take 10 mg by mouth once daily. (Patient not taking: Reported on 10/19/2024) No current facility-administered medications on file prior to visit. Social History SOCIAL HISTORY[1] Review of Symptoms REVIEW OF SYSTEMS GENERAL: No weight loss, malaise or fevers HEENT: Negative for frequent or significant headaches, No changes in hearing or vision, no nose bleeds or other nasal problems NECK: Negative for lumps, goiter, pain and significant neck swelling RESPIRATORY: Negative for cough, hemoptysis, wheezing, COPD, dyspnea or shortness of breath CARDIOVASCULAR: Negative for chest pain, leg swelling, hypertension, CHF or palpitations GI: No na (more content not included)... [facility] 10-19-2024 History of Present illness Narrative Chief Complaint Patient presents with: 6 Month Exam Recording using [email or web address] software for draft documentation of the visit was discussed with the patient/authorized call center support representative; all questions welcomed and answered. Patient/authorized call center support representative agreed to proceed HPI Elina Grace is a 69 year old female who presents here today for annual physical. Has forms to be completed today. Left Knee Pain: - Severe arthritis and bone on bone changes in the left knee. - Under care of Dr. Mims at [facility]. - Received two cortisone injections with adverse reactions: facial erythema, sensation of heat, and palpitations. - Considering surgical intervention. Varicose Vein Pain: - Reports pain in varicose veins, particularly in the lower legs. - Pain described as going way down in the legs. - Has had visible veins in the legs since youth. Hypothyroidism: - Managed with Synthroid. - Occasional hot flashes relieved by drinking water. - Denies constipation, diarrhea, or other skin changes. HTN: - Managed with atenolol. - Denies chest pain, dyspnea, or palpitations. Hyperlipidemia: - Managed with pravastatin. - Previous intolerance to Lipitor. Diet: - Consumes a diet high in vegetables, including green beans. - Avoids starchy beans. Recent Procedures: - Cyst removed from the left cheek in August; benign. - Recent cryotherapy for a skin lesion, resulting in a blister. Immunizations: - Up to date on shingles and pneumonia vaccines. - Missed flu and COVID vaccines last year due to illness. Past medical history, appointments, medications, allergies reviewed. Previous Medical History PAST MEDICAL HISTORY Diagnosis Date Arthritis of left knee severe, Dr. Chin Asymptomatic varicose veins Essential hypertension Obesity (BMI 30-39.9) Other and unspecified hyperlipidemia 2002 Paroxysmal supraventricular tachycardia (HCC) 2003 Supraventricular tachycardia Postablative hypothyroidism Prediabetes Reflux Spider veins of both lower extremities 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 thyrotoxic crisis or storm Previous Surgical History PAST SURGICAL HISTORY Procedure Laterality Date DELIVERY ONLY 03/04/1984 , low cervical DELIVERY ONLY 03/04/1987 , low cervical DELIVERY ONLY 03/04/1991 , low cervical COLONOSCOPY FLX DX W/COLLJ SPEC WHEN PFRMD 01/15/2013 Colonoscopy ESOPHAGOGASTRODUODENOSCOPY TRANSORAL DIAGNOSTIC 03/30/2013 EGD LIG/TRNSXJ FLP TUBE ABDL/VAG APPR UNI/BI 03/04/1991 Tubal ligation with last c section PAST SURGICAL HISTORY OF 08/2022 Ingrown toenail removal-Dr. Tolbert in [place] PAST SURGICAL HISTORY OF 08/2024 cyst removal from left cheek-[facility] [place] Family History FAMILY HISTORY Problem Relation Age of Onset Heart Mother bypass surgery x 4 with valve replacement other (renal failure) Father Diabetes Sister on insulin Patient Allergies ALLERGIES Allergen Reactions Lipitor [Atorvastat* vertigo Current Medications Current Outpatient Medications on File Prior to Visit Medication Sig levothyroxine (SYNTHROID) 112 mcg tablet Take 1 tablet by mouth daily before breakfast. Take on empty stomach. atenolol (TENORMIN) 100 mg tablet Take 1 tablet by mouth once daily. pravastatin (PRAVACHOL) 40 mg tablet Take 1 tablet by mouth once daily. metFORMIN (GLUCOPHAGE) 500 mg tablet Take 2 tablets by mouth daily with breakfast. . Blood Pressure Monitor (BLOOD PRESSURE KIT) 1 Each once daily as needed. Murray-3 Fatty Acids 500 mg cap Take 1 capsule by mouth once daily. SARAH MI ORAL Take 1 tablet by mouth once daily. Potassium 99 mg tab Take by mouth once daily. Cholecalciferol, Vitamin D3, 1,000 unit Cap Take 1 capsule by mouth once daily. VITAMIN B-6 100 MG TAB Take one(1) tablet daily. CYANOCOBALAMIN 500 MCG TAB Take one(1) tablet daily. MULTIVITAMIN TAB Take one(1) tablet daily. montelukast (SINGULAIR) 10 mg tablet Take 1 tablet by mouth daily at bedtime. (Patient not taking: Reported on 10/19/2024) loratadine (CLARITIN) 10 mg tablet Take 10 mg by mouth once daily. (Patient not taking: Reported on 10/19/2024) No current facility-administered medications on file prior to visit. Social History SOCIAL HISTORY[1] Review of Symptoms REVIEW OF SYSTEMS GENERAL: No weight loss, malaise or fevers HEENT: Negative for frequent or significant headaches, No changes in hearing or vision, no nose bleeds or other nasal problems NECK: Negative for lumps, goiter, pain and significant neck swelling RESPIRATORY: Negative for cough, hemoptysis, wheezing, COPD, dyspnea or shortness of breath CARDIOVASCULAR: Negative for chest pain, leg swelling, hypertension, CHF or palpitations GI: No nausea, vomiting, or diarrhea : No history of dysuria, frequency or incontinence TRANSPORTATION DRIVER: Negative for abnormal vaginal bleeding, abnormal vaginal discharge MUSCULOSKELETAL: Negative for joint pain or swelling, back pain or muscle pain SKIN: Negative for lesions, rash, and itching PSYCH: Negative for sleep disturbance, mood disorder and recent psychosocial stressors HEMATOLOGY/LYMPHOLOGY: Negative for prolonged bleeding, bruising easily or swollen nodes ENDOCRINE: See HPI NEURO: No history of headaches, syncope, paralysis, seizures or tremors EXAM: BP 128/76 Pulse 63 Ht 160.5 cm (5' 3.19) Wt 81.6 kg (180 lb) LMP 05/27/2006 SpO2 99% BMI 31.69 kg/m General Appearance: Well appearing, alert, in no acute distress, well-hydrated, well nourished. and Obese. Skin: Skin color, texture, turgor normal, no suspicious rashes or lesions. Head: Normocephalic, no masses, lesions, tenderness or abnormalities. Eyes: Anicteric sclera. Pupils are equally round and reactive to light. Extraocular movements are intact. . Ears: External ears normal, canals clear. Nose/Sinuses: Nares normal, septum midline, mucosa normal, no drainage or sinus tenderness. Oropharynx: Lips, mucosa, and tongue normal, teeth and gums normal, oropharynx normal. Neck: Supple, no adenopathy; thyroid symmetric, normal size, no bruits. Lungs: Lungs clear to auscultation. No wheezing, rhonchi, rales.. Heart: RRR without murmur, gallop, or rubs. No ectopy. Abdomen: Normal abdominal exam, Abdomen soft, non-tender. Bowel sounds normal. No masses, organomegaly. Extremities: No deformities, edema, skin discoloration, clubbing or cyanosis. Good capillary refill. Asymptomatic varicose veins on left behind the knee. Spider veins noted bilaterally. Peripheral Pulses: Normal. Neurologic: Gait normal. Reflexes normal and symmetric. Sensation grossly intact.. Lymph Nodes: No cervical lymphadenopathy and No supraclavicular lymphadenopathy. Health Maintenance List Depression Screening Never done Anxiety Screening Never done Colorectal Cancer Screening due on 10/25/2023 Advance Directive Discussion due on 03/04/2024 DTaP,Tdap,Td Vaccine(2 - Td or Tdap) due on 10/19/2025 Bone Density Screening due on 10/19/2025 Influenza Vaccine(1) due on 11/02/2024 Mammogram Screening due on 07/13/2025 Annual PCP Team Chronic Disease Visit due on 10/19/2025 Diabetes Screening due on 04/22/2027 Lipid Screening due on 10/17/2028 RSV Vaccine(1 - 1-dose 75+ series) due on 2029 Hepatitis C Screening Completed Shingrix Vaccine Completed Pneumococcal Vaccine: 50+ Completed Cervical Cancer Screening Discontinued Data reviewed Latest Ref Rng 10/24/2023 12/17/2023 04/20/2024 04/22/2024 Protein, Total 6.3 - 8.0 g/dL 8.0 7.2 Albumin 3.9 - 4.9 g/dL 4.6 4.4 Calcium 8.5 - 10.2 mg/dL 10.4 (H) 9.9 Bilirubin, Total 0.2 - 1.3 mg/dL 0.4 0.3 Alkaline Phosphatase 34 - 123 U/L 62 59 AST 13 - 35 U/L 22 ALT 7 - 38 U/L 22 Glucose 74 - 99 mg/dL 109 (H) 105 (H) BUN 7 - 21 mg/dL 14 22 (H) Creatinine 0.58 - 0.96 mg/dL 0.69 0.73 Sodium 136 - 144 mmol/L 139 140 Potassium 3.7 - 5.1 mmol/L 4.3 Chloride 98 - 107 mmol/L 101 102 CO2 22 - 30 mmol/L 23 28 Anion Gap 8 - 15 mmol/L 15 10 eGFR >=60 mL/min/1.73m 94 89 Hemoglobin A1C 4.3 - 5.6 % 5.7 (H) Estimated Average Glucose mg/dL 117 Stool DNA Negative Negative TSH 0.270 - 4.200 mIU/L 1.290 2.020 Legend: (H) High 1. Annual physical exam (Z00.00) - No new medical conditions or surgeries since last visit, except for cyst removal on left cheek in August. - No recent hospitalizations, ER visits, or falls. - No new symptoms reported on review of systems. - Blood pressure, pulse, and oxygen saturation within normal limits; BMI 31. - Recommended Tdap booster; advised patient to check insurance coverage and return for nurse visit if covered. - Recommended flu and COVID vaccinations in early to mid-December. - Follow-up in 6 months. 2. Essential hypertension (I10) - Blood pressure well controlled on current medication regimen. - Continue atenolol as prescribed. 3. Mixed hyperlipidemia (E78.2) - Continue pravastatin as prescribed. - Order lipid panel. 4. Paroxysmal supraventricular tachycardia (HCC) (I47.10) - No recent episodes of chest pain, shortness of breath, or palpitations. 5. Acquired hypothyroidism (E03.9) - Occasional hot flashes; no other symptoms reported. - Order TSH. - Continue Synthroid as prescribed. 6. Prediabetes (R73.03) - Last A1c 5.7% six months ago. - Order A1c. - Continue metformin 500 mg, 2 tablets daily. - Advised patient to continue diabetic diet, focusing on lean proteins and non-starchy vegetables. 7. Obesity, Class I, BMI 30-34.9 (E66.811) - BMI 31. - Advised patient to work on healthy diet and exercise to bring weight down. 8. Asymptomatic varicose veins (I83.90) 9. Spider veins of both lower extremities (I83.93) - No swelling or hard areas on exam. - Advised patient to wear compression stockings and elevate legs when resting. - Discussed vascular surgery options if desired in the future. 10. Primary osteoarthritis of left knee (M17.12) - Severe arthritis with bone on bone changes; prior corticosteroid injections resulted in adverse reaction. - Plan for surgery being considered by orthopedics. - Will obtain records from orthopedics to review prior treatments and avoid repeat corticosteroid exposure. Sharri Jacobson MD [1] Social History Tobacco Use Smoking status: Never Smokeless tobacco: Never Vaping Use Vaping status: Never Used Substance Use Topics Alcohol use: Never Drug use: No documented in this encounter [facility] 08-03-2024 Telephone encounter Note Prescription Refill Information The patient has been identified by name and date of : Yes Caregiver verified no other encounters exist for this prescription request: Yes Caregiver confirmed with patient/requestor that no other refills are due, in the near future, with this provider at this time: Yes The last office visit in the department: 04-20-24 Does the patient have a future office visit with this provider/department: Yes Requested Prescriptions Pending Prescriptions Disp Refills levothyroxine (SYNTHROID) 112 mcg tablet 90 tablet 1 Sig: Take 1 tablet by mouth daily before breakfast. Take on empty stomach. atenolol (TENORMIN) 100 mg tablet 90 tablet 1 Sig: Take 1 tablet by mouth once daily. pravastatin (PRAVACHOL) 40 mg tablet 90 tablet 1 Sig: Take 1 tablet by mouth once daily. metFORMIN (GLUCOPHAGE) 500 mg tablet 180 tablet 1 Sig: Take 2 tablets by mouth daily with breakfast. . montelukast (SINGULAIR) 10 mg tablet 90 tablet 1 Sig: Take 1 tablet by mouth daily at bedtime. Ramandeep Del Rosario August 03, 2024 11:25 AM [facility] 08-03-2024 Miscellaneous Notes Prescription Refill Information The patient has been identified by name and date of : Yes Caregiver verified no other encounters exist for this prescription request: Yes Caregiver confirmed with patient/requestor that no other refills are due, in the near future, with this provider at this time: Yes The last office visit in the department: 04-20-24 Does the patient have a future office visit with this provider/department: Yes Requested Prescriptions Pending Prescriptions Disp Refills levothyroxine (SYNTHROID) 112 mcg tablet 90 tablet 1 Sig: Take 1 tablet by mouth daily before breakfast. Take on empty stomach. atenolol (TENORMIN) 100 mg tablet 90 tablet 1 Sig: Take 1 tablet by mouth once daily. pravastatin (PRAVACHOL) 40 mg tablet 90 tablet 1 Sig: Take 1 tablet by mouth once daily. metFORMIN (GLUCOPHAGE) 500 mg tablet 180 tablet 1 Sig: Take 2 tablets by mouth daily with breakfast. . montelukast (SINGULAIR) 10 mg tablet 90 tablet 1 Sig: Take 1 tablet by mouth daily at bedtime. Ramandeep Del Rosario August 03, 2024 11:25 AM documented in this encounter [facility] 07-14-2024 Telephone encounter Note Mammogram shows there is no mammographic evidence of malignancy in either breast. Routine screening mammogram is recommended. Annual mammogram will be due in 1 year. Yarelis Carlos APRN.CNP [facility] 07-14-2024 Miscellaneous Notes Mammogram shows there is no mammographic evidence of malignancy in either breast. Routine screening mammogram is recommended. Annual mammogram will be due in 1 year. Yarelis Carlos APRN.CNP documented in this encounter [facility] 07-13-2024 History of Present illness Narrative Radiology Service Progress Note PATIENT NAME: Elina Grace DATE OF SERVICE: July 13, 2024 TIME: 10:02 AM PATIENT IDENTITY VERIFICATION COMPLETED USING TWO (2) IDENTIFIERS: Name and Date of confirmed by patient verbally. FALL SCREENING: Has the patient had 2 falls in the last year or 1 fall with injury or currently using an Ambulatory Assistive Device (Walker, Cane, Wheelchair, Crutches, etc.)? No PATIENT GENDER DATA: Assigned female at . status: : No status: NO. PATIENT RELEVANT IMPLANT DATA REVIEWED: Not Applicable PATIENT PRESENTS WITH AN IMPLANTABLE OR ATTACHED WAREDRESSER: No RADIOLOGY DEPARTMENT: Mammography PERIPHERAL IV DATA: Not applicable SIGNED BY: Osmel Barrera July 13, 2024 10:02 AM documented in this encounter [facility] 07-13-2024 Note HNO ID: [id number] Author: JOCELYNN MANRIQUEZ Mammo Tech Service: ? Author Type: Technologist Type: Progress Notes Filed: 07/13/2024 10:02 Note Text: Radiology Service Progress Note PATIENT NAME: Elina Grace DATE OF SERVICE: July 13, 2024 TIME: 10:02 AM PATIENT IDENTITY VERIFICATION COMPLETED USING TWO (2) IDENTIFIERS: Name and Date of confirmed by patient verbally. FALL SCREENING: Has the patient had 2 falls in the last year or 1 fall with injury or currently using an Ambulatory Assistive Device (Walker, Cane, Wheelchair, Crutches, etc.)? No PATIENT GENDER DATA: Assigned female at . status: : No status: NO. PATIENT RELEVANT IMPLANT DATA REVIEWED: Not Applicable PATIENT PRESENTS WITH AN IMPLANTABLE OR ATTACHED WAREDRESSER: No RADIOLOGY DEPARTMENT: Mammography PERIPHERAL IV DATA: Not applicable SIGNED BY: Osmel Barrera July 13, 2024 10:02 AM [facility] 04-28-2024 Telephone encounter Note See other telephone encounter. [facility] 04-28-2024 Miscellaneous Notes See other telephone encounter. Patient calls and is asking about lab results. Please review and advise, Jeannette Vo RN documented in this encounter [facility] 04-27-2024 Telephone encounter Note Pt called and notified of results below, verbalized understanding. Irasema Sterling MA [facility] 04-27-2024 Miscellaneous Notes Pt called and notified of results below, verbalized understanding. Iraesma Sterling MA ----- Message from Sharri Jacobson MD sent at 04/23/2024 2:28 PM EST ----- Normal labs. documented in this encounter [facility] 04-27-2024 Telephone encounter Note ----- Message from Sharri Jacobson MD sent at 04/23/2024 2:28 PM EST ----- Normal labs. [facility] 04-22-2024 Telephone encounter Note Order for repeat CMP placed. Yarelis Carlos APRN.CNP [facility] 04-22-2024 Miscellaneous Notes Order for repeat CMP placed. Yarelis Carlos APRN.DIONY A1c down to 5.7% from 5.9%- continue medication, diet and exercise. TSH in normal range- continue current does of synthroid. Looks like her CMP had some hemolysis therefore unable to calculate liver function or he potassium level. I can place order to have repeated- she may complete at her convenience. Yarelis Carlos APRN.DIONY documented in this encounter [facility] 04-22-2024 Telephone encounter Note A1c down to 5.7% from 5.9%- continue medication, diet and exercise. TSH in normal range- continue current does of synthroid. Looks like her CMP had some hemolysis therefore unable to calculate liver function or he potassium level. I can place order to have repeated- she may complete at her convenience. Yarelis Carlos APRN.DIONY [facility] 04-22-2024 Telephone encounter Note Patient calls and is asking about lab results. Please review and advise, Jeannette Vo RN [facility] 04-20-2024 Instructions Yarelis Carlos APRN.DIONY - 04/20/2024 9:39 AM EST Flonase - use one- two sprays to each nares daily, rinse mouth after use documented in this encounter [facility] 04-20-2024 History of Present illness Narrative 04/14/2024 Patient presents with: F/U 6 months SUBJECTIVE: This is a 68 year old that is here today for Above Complaints. HTN: Patient is compliant with meds No- stopped Lisinopril in January- patient reports low BP readings at home 98/62 at times Monitors bp at home: Yes. Denies side effects: No. Chest pain: No. Dyspnea: No. Edema: No. Palpitations: Yes at times Syncope: No. Headache: Yes- yesterday Dizziness: No. Cortisone injection last week left knee HYPOTHYROIDISM: taking synthroid as prescribed without side effects. Would like her thyroid checked as she feels it is off. Has lost a little weight due to decreased appetite.Hair thinner she thinks. Has some palpitations at times. Denies cold/heat intolerance. Prediabetes:Checking blood sugar in the morning and it is in the 90 and the 1 teens.Denies visual changes, polyuria or polydipsia HYPERLIPIDEMIA: Patient is taking medications: Yes. Patient is watching diet: Yes. Patient denies myalgias: Yes. Patient denies gi upset: Yes Had flu in March and left ear has had some muffled hearing. Not using any OTC medications PAST MEDICAL HISTORY Diagnosis Date Essential hypertension Obesity (BMI 30-39.9) Other and unspecified hyperlipidemia 2003 Paroxysmal supraventricular tachycardia (HCC) 2002 Supraventricular tachycardia Postablative hypothyroidism Prediabetes Reflux 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 thyrotoxic crisis or storm ALLERGIES Lipitor [Atorvastatin Calcium] MEDICATIONS Current Outpatient Medications Medication Sig atenolol (TENORMIN) 100 mg tablet Take 1 tablet by mouth once daily. levothyroxine (SYNTHROID) 112 mcg tablet Take 1 tablet by mouth daily before breakfast. Take on empty stomach. metFORMIN (GLUCOPHAGE) 500 mg tablet Take 2 tablets by mouth daily with breakfast. . lisinopril (ZESTRIL) 5 mg tablet Take 1 tablet by mouth once daily. pravastatin (PRAVACHOL) 40 mg tablet Take 1 tablet by mouth once daily. montelukast (SINGULAIR) 10 mg tablet Take 1 tablet by mouth daily at bedtime. loratadine (CLARITIN) 10 mg tablet Take 10 mg by mouth once daily. Blood Pressure Monitor (BLOOD PRESSURE KIT) 1 Each once daily as needed. Murray-3 Fatty Acids 500 mg cap Take 1 capsule by mouth once daily. SARAH MI ORAL Take 1 tablet by mouth once daily. Potassium 99 mg tab Take by mouth once daily. Cholecalciferol, Vitamin D3, 1,000 unit Cap Take 1 capsule by mouth once daily. VITAMIN B-6 100 MG TAB Take one(1) tablet daily. CYANOCOBALAMIN 500 MCG TAB Take one(1) tablet daily. MULTIVITAMIN TAB Take one(1) tablet daily. No current facility-administered medications for this visit. Medications and allergies reviewed by this provider. SOCIAL HISTORY Social History Tobacco Use Smoking status: Never Smokeless tobacco: Never Vaping Use Vaping status: Never Used Substance Use Topics Alcohol use: No Drug use: No REVIEW OF SYSTEMS All other reviewed and negative other than HPI. OBJECTIVE: BP 138/82 Pulse 80 Resp 16 Wt 78.8 kg (173 lb 11.6 oz) LMP 05/27/2006 SpO2 95% BMI 30.59 kg/m . Vital signs reviewed by this provider. APPEARANCE Well appearing, alert, in no acute distress, well-hydrated, well nourished. EYES conjunctiva and sclera normal. Ears: R TM - clear with good landmarks, nl light reflex, L TM - clear with good landmarks, nl light reflex HEART RRR with normal S1 and S2, no murmurs, no gallops, no JVD appreciated LUNG clear to auscultation. No wheezes, rhonchi or rales SKIN Skin color, texture, turgor normal, no suspicious rashes or lesions to exposed skin Latest Ref Rng 12/17/2023 TSH 0.270 - 4.200 mIU/L 1.290 Latest Ref Rng 10/18/2023 10/24/2023 WBC 3.70 - 11.00 k/uL 4.44 RBC 3.90 - 5.20 m/uL 4.10 Hemoglobin 11.5 - 15.5 g/dL 12.8 Hematocrit 36.0 - 46.0 % 40.3 MCV 80.0 - 100.0 fL 98.3 MCH 26.0 - 34.0 pg 31.2 MCHC 30.5 - 36.0 g/dL 31.8 RDW-CV 11.5 - 15.0 % 12.4 Platelet Count 150 - 400 k/uL 219 MPV 9.0 - 12.7 fL 11.3 Neut% % 41.4 Abs Neut (ANC) 1.45 - 7.50 k/uL 1.84 Lymph% % 43.5 Abs Lymph 1.00 - 4.00 k/uL 1.93 Sumner% % 10.4 Abs Sumner <0.87 k/uL 0.46 Eosin% % 3.6 Abs Eosin <0.46 k/uL 0.16 Baso% % 1.1 Abs Baso <0.11 k/uL 0.05 Immature Gran % % 0.0 IMMATURE GRANS (ABS) <0.10 k/uL <0.03 NRBC /100 WBC 0.0 Absolute nRBC <0.01 k/uL <0.01 DTYPE Auto Protein, Total 6.3 - 8.0 g/dL 7.0 Albumin 3.9 - 4.9 g/dL 4.4 Calcium 8.5 - 10.2 mg/dL 9.5 Bilirubin, Total 0.2 - 1.3 mg/dL 0.4 Alkaline Phosphatase 34 - 123 U/L 61 AST 13 - 35 U/L 29 ALT 7 - 38 U/L 23 Glucose 74 - 99 mg/dL 99 BUN 7 - 21 mg/dL 14 Creatinine 0.58 - 0.96 mg/dL 0.76 Sodium 136 - 144 mmol/L 137 Potassium 3.7 - 5.1 mmol/L 4.8 Chloride 98 - 107 mmol/L 99 CO2 22 - 30 mmol/L 25 Anion Gap 8 - 15 mmol/L 13 eGFR >=60 mL/min/1.73m 85 Cholesterol, Total <200 mg/dL 158 Triglyceride <150 mg/dL 96 HDL Cholesterol >39 mg/dL 57 Non HDL Cholesterol <130 mg/dL 101 Fasting Time hrs 12 VLDL Cholesterol <30 mg/dL 19 TC:HDL Ratio <5.10 2.77 LDL Cholesterol <100 mg/dL 82 LDL:HDL Ratio <2.54 1.44 Hemoglobin A1C 4.3 - 5.6 % 5.9 (H) Estimated Average Glucose mg/dL 123 Stool DNA Negative Negative TSH 0.270 - 4.200 mIU/L 4.300 (H) Legend: (H) High Depression Screening Never done BP Controlled (<130/80) Never done Colorectal Cancer Screening due on 10/25/2023 Covid-19 Vaccine( season) Never done Advance Directive Discussion due on 03/04/2024 Mammogram Screening due on 07/09/2024 Influenza Vaccine(1) due on 08/31/2024 DTaP,Tdap,Td Vaccine(2 - Td or Tdap) due on 10/17/2024 Bone Density Screening due on 10/17/2024 Anxiety Screening due on 10/17/2024 Annual PCP Team Chronic Disease Visit due on 04/20/2025 Diabetes Screening due on 10/17/2026 Lipid Screening due on 10/17/2028 RSV Vaccine(1 - 1-dose 75+ series) due on 2029 Hepatitis C Screening Completed Shingrix Vaccine Completed Pneumococcal Vaccine: 50+ Completed Cervical Cancer Screening Discontinued ASSESSMENT/PLAN: 1. Essential hypertension - ICD9: 401.9, ICD10: I10 (primary diagnosis) - Controlled - will remove Lisinopril from med list since she stopped - Recommend home blood pressure monitoring, to bring results to next visit - Encouraged sodium restriction, DASH or Mediterranean diet - Recommend regular aerobic exercise - Discussed need for and benefit of weight loss. BMI 30.59 kg/(m^2) - Follow up in 6 months for hypertension visit - COMPREHENSIVE METABOLIC PANEL 2. Acquired hypothyroidism - ICD9: 244.9, ICD10: E03.9 - Instructed patient on importance of taking on an empty stomach either first thing in the morning or at bedtime. - check TSH today - continue current dose of Synthroid 0.112 mg - Follow up in 6 months - THYROID STIMULATING HORMONE 3. Encounter for screening mammogram for breast cancer - ICD9: V76.12, ICD10: Z12.31 - [facility] SCREENING [facility] 4. Prediabetes - ICD9: 790.29, ICD10: R73.03 - HEMOGLOBIN A1C 5. Eustachian tube disorder, left - ICD9: 381.9, ICD10: H69.92 - discussed using Flonase OTC - follow-up if fails to improve Yarelis Carlos APRN.DIONY Prescription instructions reviewed with patient as applicable. Patient advised if symptoms do not improve or if symptoms worsen sooner, to contact their primary care physician. Potential red flag symptoms discussed with the patient. Reviewed appropriate action plan to take if red flag symptoms occur. Patient agreeable to treatment plan. Medical Decision Making: Problems: Moderate: 2+ stable chronic illnesses Data: Unique test(s) ordered: 3+ Medical Decision Making Level: 4 - Moderate documented in this encounter [facility] 04-20-2024 Note HNO ID: [id number] Author: YARELIS CARLOS APRN.DIONY Service: ? Author Type: Nurse Practitioner Type: Progress Notes Filed: 04/20/2024 10:00 Note Text: 04/14/2024 Patient presents with: F/U 6 months SUBJECTIVE: This is a 68 year old that is here today for Above Complaints. HTN: Patient is compliant with meds No- stopped Lisinopril in January- patient reports low BP readings at home 98/62 at times Monitors bp at home: Yes. Denies side effects: No. Chest pain: No. Dyspnea: No. Edema: No. Palpitations: Yes at times Syncope: No. Headache: Yes- yesterday Dizziness: No. Cortisone injection last week left knee HYPOTHYROIDISM: taking synthroid as prescribed without side effects. Would like her thyroid checked as she feels it is off. Has lost a little weight due to decreased appetite.Hair thinner she thinks. Has some palpitations at times. Denies cold/heat intolerance. Prediabetes:Checking blood sugar in the morning and it is in the 90 and the 1 teens.Denies visual changes, polyuria or polydipsia HYPERLIPIDEMIA: Patient is taking medications: Yes. Patient is watching diet: Yes. Patient denies myalgias: Yes. Patient denies gi upset: Yes Had flu in March and left ear has had some muffled hearing. Not using any OTC medications PAST MEDICAL HISTORY Diagnosis Date Essential hypertension Obesity (BMI 30-39.9) Other and unspecified hyperlipidemia 2002 Paroxysmal supraventricular tachycardia (HCC) 2002 Supraventricular tachycardia Postablative hypothyroidism Prediabetes Reflux 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 thyrotoxic crisis or storm ALLERGIES Lipitor [Atorvastatin Calcium] MEDICATIONS Current Outpatient Medications Medication Sig atenolol (TENORMIN) 100 mg tablet Take 1 tablet by mouth once daily. levothyroxine (SYNTHROID) 112 mcg tablet Take 1 tablet by mouth daily before breakfast. Take on empty stomach. metFORMIN (GLUCOPHAGE) 500 mg tablet Take 2 tablets by mouth daily with breakfast. . lisinopril (ZESTRIL) 5 mg tablet Take 1 tablet by mouth once daily. pravastatin (PRAVACHOL) 40 mg tablet Take 1 tablet by mouth once daily. montelukast (SINGULAIR) 10 mg tablet Take 1 tablet by mouth daily at bedtime. loratadine (CLARITIN) 10 mg tablet Take 10 mg by mouth once daily. Blood Pressure Monitor (BLOOD PRESSURE KIT) 1 Each once daily as needed. Murray-3 Fatty Acids 500 mg cap Take 1 capsule by mouth once daily. SARAH MI ORAL Take 1 tablet by mouth once daily. Potassium 99 mg tab Take by mouth once daily. Cholecalciferol, Vitamin D3, 1,000 unit Cap Take 1 capsule by mouth once daily. VITAMIN B-6 100 MG TAB Take one(1) tablet daily. CYANOCOBALAMIN 500 MCG TAB Take one(1) tablet daily. MULTIVITAMIN TAB Take one(1) tablet daily. No current facility-administered medications for this visit. Medications and allergies reviewed by this provider. SOCIAL HISTORY Social History Tobacco Use Smoking status: Never Smokeless tobacco: Never Vaping Use Vaping status: Never Used Substance Use Topics Alcohol use: No Drug use: No REVIEW OF SYSTEMS All other reviewed and negative other than HPI. OBJECTIVE: BP 138/82 Pulse 80 Resp 16 Wt 78.8 kg (173 lb 11.6 oz) LMP 05/27/2006 SpO2 95% BMI 30.59 kg/m? . Vital signs reviewed by this provider. APPEARANCE Well appearing, alert, in no acute distress, well-hydrated, well nourished. EYES conjunctiva and sclera normal. Ears: R TM - clear with good landmarks, nl light reflex, L TM - clear with good landmarks, nl light reflex HEART RRR with normal S1 and S2, no murmurs, no gallops, no JVD appreciated LUNG clear to auscultation. No wheezes, rhonchi or rales SKIN Skin color, texture, turgor normal, no suspicious rashes or lesions to exposed skin Latest Ref Rng 12/17/2023 TSH 0.270 - 4.200 mIU/L 1.290 Latest Ref Rng 10/18/2023 10/24/2023 WBC 3.70 - 11.00 k/uL 4.44 RBC 3.90 - 5.20 m/uL 4.10 Hemoglobin 11.5 - 15.5 g/dL 12.8 Hematocrit 36.0 - 46.0 % 40.3 MCV 80.0 - 100.0 fL 98.3 MCH 26.0 - 34.0 pg 31.2 MCHC 30.5 - 36.0 g/dL 31.8 RDW-CV 11.5 - 15.0 % 12.4 Platelet Count 150 - 400 k/uL 219 MPV 9.0 - 12.7 fL 11.3 Neut% % 41.4 Abs Neut (ANC) 1.45 - 7.50 k/uL 1.84 Lymph% % 43.5 Abs Lymph 1.00 - 4.00 k/uL 1.93 Sumner% % 10.4 Abs Sumner <0.87 k/uL 0.46 Eosin% % 3.6 Abs Eosin <0.46 k/uL 0.16 Baso% % 1.1 Abs Baso <0.11 k/uL 0.05 Immature Gran % % 0.0 IMMATURE GRANS (ABS) <0.10 k/uL <0.03 NRBC /100 WBC 0.0 Absolute nRBC <0.01 k/uL <0.01 DTYPE Auto Protein, Total 6.3 - 8.0 g/dL 7.0 Albumin 3.9 - 4.9 g/dL 4.4 Calcium 8.5 - 10.2 mg/dL 9.5 Bilirubin, Total 0.2 - 1.3 mg/dL 0.4 Alkaline Phosphatase 34 - 123 U/L 61 AST 13 - 35 U/L 29 ALT 7 - 38 U/L 23 Glucose 74 - 99 mg/dL 99 BUN 7 - 21 mg/dL 14 Creatinine 0.58 - 0.96 mg/dL 0.76 Sodium 136 - 144 mmol/L 137 Potassium 3.7 - 5.1 mmol/L 4.8 Chloride 98 - 107 mmol/L 99 CO2 22 - 30 mmol/L 25 Anion (more content not included)... [facility] 02-14-2024 Telephone encounter Note Patient calls to report that [facility] did not receive most recent prescriptions and will need to be resent. Patient was given a 5 day supply of medication to get through until new prescriptions are sent to pharmacy. Pended previous orders as requested. Shanice Blackmon RN [facility] 02-14-2024 Miscellaneous Notes Patient calls to report that [facility] did not receive most recent prescriptions and will need to be resent. Patient was given a 5 day supply of medication to get through until new prescriptions are sent to pharmacy. Pended previous orders as requested. Shanice Blackmon RN documented in this encounter [facility] 02-11-2024 Telephone encounter Note Prescription Refill Information The patient has been identified by name and date of : Yes Caregiver verified no other encounters exist for this prescription request: Yes Caregiver confirmed with patient/requestor that no other refills are due, in the near future, with this provider at this time: Yes The last office visit in the department: 10/18/23 Does the patient have a future office visit with this provider/department: Yes Requested Prescriptions Pending Prescriptions Disp Refills atenolol (TENORMIN) 100 mg tablet 90 tablet 3 Sig: Take 1 tablet by mouth once daily. levothyroxine (SYNTHROID) 112 mcg tablet 90 tablet 3 Sig: Take 1 tablet by mouth daily before breakfast. Take on empty stomach. metFORMIN (GLUCOPHAGE) 500 mg tablet 180 tablet 3 Sig: Take 2 tablets by mouth daily with breakfast. . lisinopril (ZESTRIL) 5 mg tablet 90 tablet 3 Sig: Take 1 tablet by mouth once daily. pravastatin (PRAVACHOL) 40 mg tablet 90 tablet 3 Sig: Take 1 tablet by mouth once daily. Loren Oquendo [facility] February 11, 2024 10:56 AM [facility] 02-11-2024 Miscellaneous Notes Prescription Refill Information The patient has been identified by name and date of : Yes Caregiver verified no other encounters exist for this prescription request: Yes Caregiver confirmed with patient/requestor that no other refills are due, in the near future, with this provider at this time: Yes The last office visit in the department: 10/18/23 Does the patient have a future office visit with this provider/department: Yes Requested Prescriptions Pending Prescriptions Disp Refills atenolol (TENORMIN) 100 mg tablet 90 tablet 3 Sig: Take 1 tablet by mouth once daily. levothyroxine (SYNTHROID) 112 mcg tablet 90 tablet 3 Sig: Take 1 tablet by mouth daily before breakfast. Take on empty stomach. metFORMIN (GLUCOPHAGE) 500 mg tablet 180 tablet 3 Sig: Take 2 tablets by mouth daily with breakfast. . lisinopril (ZESTRIL) 5 mg tablet 90 tablet 3 Sig: Take 1 tablet by mouth once daily. pravastatin (PRAVACHOL) 40 mg tablet 90 tablet 3 Sig: Take 1 tablet by mouth once daily. Loren Oquendo [facility] February 11, 2024 10:56 AM documented in this encounter [facility] 12-23-2023 Telephone encounter Note CD READY FOR ENVIRONMENTAL SERVICE [place] [facility] Pt is aware [facility] 12-23-2023 Miscellaneous Notes CD READY FOR ENVIRONMENTAL SERVICE [place]IDE AT [facility] Pt is aware Patient calling she has appt on Tuesday 12/26 with Wild Thomas for her left knee pain. She is asking for knee xray that was done on 06/21/2023 to be put on disc please. She can strip picker the disc Saturday. Told her strip picker at [facility] area. Thank You documented in this encounter [facility] 12-23-2023 Telephone encounter Note Patient calling she has appt on Tuesday 12/26 with Wild Thomas for her left knee pain. She is asking for knee xray that was done on 06/21/2023 to be put on disc please. She can strip picker the disc Saturday. Told her strip picker at [facility] area. Thank You [facility] 11-05-2023 Note HNO ID: [id number] Author: MALACHI POOL OD Service: ? Author Type: DIE CAST ENGINEER Type: Progress Notes Filed: 11/05/2023 13:08 Note Text: 1. Keratoconus, stable, bilateral 2. Dry eye syndrome of bilateral lacrimal glands Dispensed contact lens- good initial vision and fit Will finalize- patient to follow-up with any issues or in 1 year for cl eval Patient to continue at [facility] for comprehensive care Malachi Pool, LISSETH November 05, 2023 1:07 PM [facility] 11-05-2023 History of Present illness Narrative 1. Keratoconus, stable, bilateral 2. Dry eye syndrome of bilateral lacrimal glands Dispensed contact lens- good initial vision and fit Will finalize- patient to follow-up with any issues or in 1 year for cl eval Patient to continue at [facility] for comprehensive care Malachi Pool OD November 05, 2023 1:07 PM documented in this encounter [facility] 10-30-2023 Telephone encounter Note Patient notified. Eliot Godoy LPN [facility] 10-30-2023 Miscellaneous Notes Patient notified. Eliot Godoy LPN Cologuard negative. Yarelis Carlos APRN.BUCKLE ATTACHER documented in this encounter [facility] 10-30-2023 Telephone encounter Note Cologuard negative. Yarelis Carlos APRN.BUCKLE ATTACHER [facility] 10-28-2023 Telephone encounter Note Patient returned call and scheduled an appointment with Dr. Pool on 11/08/23. [facility] 10-28-2023 Miscellaneous Notes Patient returned call and scheduled an appointment with Dr. Pool on 11/08/23. LVM for the patient informing her that our office has received her right specialty contact lens. I asked that the patient call our office back to get scheduled for a 30 minute contact lens dispensing appointment with Dr. Pool. Please advise PAO Zafar documented in this encounter [facility] 10-28-2023 Telephone encounter Note LVM for the patient informing her that our office has received her right specialty contact lens. I asked that the patient call our office back to get scheduled for a 30 minute contact lens dispensing appointment with Dr. Pool. Please advise PAO Zafar [facility] 10-21-2023 Telephone encounter Note Patient returned call and wanted to go over levothyroxine dose again. Went over notes below Dr Jacobson said one tablet daily. Patient had been one one half tablet on Saturdays and was little mixed up, advised to take one tablet daily and recheck TSH in 8 weeks with understanding. [facility] 10-21-2023 Miscellaneous Notes Patient returned call and wanted to go over levothyroxine dose again. Went over notes below Dr Jacobson said one tablet daily. Patient had been one one half tablet on Saturdays and was little mixed up, advised to take one tablet daily and recheck TSH in 8 weeks with understanding. Pt informed, verbalized understanding. Sammie Walden MA Normal labs aside from A1c in prediabetic range at 5.9 and high TSH. Recommend low carb diet and regular exercise. Increase synthroid to tablet daily and recheck TSH in 8 weeks. documented in this encounter [facility] 10-21-2023 History of Present illness Narrative (H18.613) Keratoconus, stable, bilateral (primary encounter diagnosis) (H04.123) Dry eye syndrome of bilateral lacrimal glands Ordered new lens Call for in office dispense Malachi Pool, LISSETH October 21, 2023 1:30 PM documented in this encounter [facility] 10-21-2023 Telephone encounter Note Pt informed, verbalized understanding. Sammie Walden MA [facility] 10-21-2023 Telephone encounter Note Normal labs aside from A1c in prediabetic range at 5.9 and high TSH. Recommend low carb diet and regular exercise. Increase synthroid to tablet daily and recheck TSH in 8 weeks. [facility] 10-18-2023 History of Present illness Narrative Chief Complaint Patient presents with: Physical HPI Elina Grace is a 68 year old female who presents here today for Above Complaints. Patient complaining today of persistent nasal congestion, post nasal drip and dry cough which has been going on since January. Was evaluated in on 10/03 and has CXR which was negative for pneumonia. Given tessalon and doxycycline without improvement. Has been taking Claritin D which has helped with her symptoms. HTN: Ms. Grace indicates that she is feeling well and denies any symptoms referable to elevated blood pressure. Specifically denies headache, chest pain, palpitations, dyspnea, and peripheral edema. Patient denies any side effects of her medication(s) and is compliant with their regimen. She does check BP's away from this office with average BP's in the 120's/70's range. Elina works out regularly 7 times per week with bike riding. She watches her diet for sodium, low fat and low cholesterol some of the time. Last 3 Encounter BP Readings: Date: BP: 10/18/2023 108/72 10/04/2023 139/86 06/21/2023 116/74 Hypothyroidism: Asymptomatic on current dose of synthroid without side effects. Due for repeat TSH. Prediabetes: Complaint with metformin without side effects. Denies DM symptoms. Not checking sugars at home. Due for A1c. Due for colon cancer screening. Requesting cologuard. Refusing DXA and vaccinations. Past medical history, appointments, medications, allergies reviewed. Previous Medical History PAST MEDICAL HISTORY No date: Essential hypertension No date: Obesity (BMI 30-39.9) 2003: Other and unspecified hyperlipidemia 2003: Paroxysmal supraventricular tachycardia (HCC) Comment: Supraventricular tachycardia No date: Postablative hypothyroidism No date: Prediabetes No date: Reflux No date: 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 thyrotoxic crisis or storm Previous Surgical History PAST SURGICAL HISTORY 03/04/1984: DELIVERY ONLY Comment: , low cervical 03/04/1987: DELIVERY ONLY Comment: , low cervical 03/04/1991: DELIVERY ONLY Comment: , low cervical 01/15/2013: COLONOSCOPY FLX DX W/COLLJ SPEC WHEN PFRMD Comment: Colonoscopy 03/30/2013: ESOPHAGOGASTRODUODENOSCOPY TRANSORAL DIAGNOSTIC Comment: EGD 03/04/1991: LIG/TRNSXJ FLP TUBE ABDL/VAG APPR UNI/BI Comment: Tubal ligation with last c section 08/2022: PAST SURGICAL HISTORY OF Comment: Ingrown toenail removal-Dr. Tolbert in [place] Family History FAMILY HISTORY Problem Relation Age of Onset Heart Mother bypass surgery x 4 with valve replacement other (renal failure) Father Diabetes Sister on insulin Patient Allergies ALLERGIES Allergen Reactions Lipitor [Atorvastat* vertigo Current Medications Current Outpatient Medications on File Prior to Visit Medication Sig loratadine (CLARITIN) 10 mg tablet Take 10 mg by mouth once daily. atenolol (TENORMIN) 100 mg tablet Take 1 tablet by mouth once daily. lisinopril (ZESTRIL) 5 mg tablet Take 1 tablet by mouth once daily. metFORMIN (GLUCOPHAGE) 500 mg tablet Take 2 tablets by mouth daily with breakfast. . pravastatin (PRAVACHOL) 40 mg tablet Take 1 tablet by mouth once daily. levothyroxine (SYNTHROID) 112 mcg tablet Take 1/2 tab on Saturday, and 1 tab other days. Take on empty stomach. Blood Pressure Monitor (BLOOD PRESSURE KIT) 1 Each once daily as needed. Murray-3 Fatty Acids 500 mg cap Take 1 capsule by mouth once daily. SARAH MI ORAL Take 1 tablet by mouth once daily. Potassium 99 mg tab Take by mouth once daily. Cholecalciferol, Vitamin D3, 1,000 unit Cap Take 1 capsule by mouth once daily. VITAMIN B-6 100 MG TAB Take one(1) tablet daily. CYANOCOBALAMIN 500 MCG TAB Take one(1) tablet daily. MULTIVITAMIN TAB Take one(1) tablet daily. No current facility-administered medications on file prior to visit. Social History Social History Tobacco Use Smoking status: Never Smokeless tobacco: Never Vaping Use Vaping Use: Never used Substance Use Topics Alcohol use: No Drug use: No Review of Symptoms REVIEW OF SYSTEMS GENERAL: No weight loss, malaise or fevers HEENT: Negative for frequent or significant headaches, No changes in hearing or vision, no nose bleeds or other nasal problems NECK: Negative for lumps, goiter, pain and significant neck swelling RESPIRATORY: See HPI. Denies SOB or wheezing. CARDIOVASCULAR: Negative for chest pain, leg swelling, hypertension, CHF or palpitations GI: No nausea, vomiting, or diarrhea : No history of dysuria, frequency or incontinence TRANSPORTATION DRIVER: Negative for abnormal vaginal bleeding, abnormal vaginal discharge MUSCULOSKELETAL: Negative for joint pain or swelling, back pain or muscle pain SKIN: Negative for lesions, rash, and itching PSYCH: Negative for sleep disturbance, mood disorder and recent psychosocial stressors HEMATOLOGY/LYMPHOLOGY: Negative for prolonged bleeding, bruising easily or swollen nodes ENDOCRINE: Negative for cold or heat intolerance, polyuria, polydipsia and goiter NEURO: No history of headaches, syncope, paralysis, seizures or tremors EXAM: BP 108/72 Pulse 60 Resp 16 Wt 84.6 kg (186 lb 8.2 oz) [facility] 05/27/2006 BMI 32.84 kg/m General Appearance: Well appearing, alert, in no acute distress, well-hydrated, well nourished.. Skin: Skin color, texture, turgor normal, no suspicious rashes or lesions. Head: Normocephalic, no masses, lesions, tenderness or abnormalities. Eyes: Anicteric sclera. Pupils are equally round and reactive to light. Extraocular movements are intact. . Ears: External ears normal. Moderate cerumen impaction bilaterally. TMs normal. Nose/Sinuses: Nares normal, septum midline, mucosa normal, no drainage or sinus tenderness. Oropharynx: Lips, mucosa, and tongue normal, teeth and gums normal, oropharynx normal. Neck: Supple, no adenopathy; thyroid symmetric, normal size, no bruits. Lungs: Lungs clear to auscultation. No wheezing, rhonchi, rales.. Heart: RRR without murmur, gallop, or rubs. No ectopy. Abdomen: Normal abdominal exam, Abdomen soft, non-tender. Bowel sounds normal. No masses, organomegaly. Extremities: No deformities, edema, skin discoloration, clubbing or cyanosis. Good capillary refill. . Peripheral Pulses: Normal. Neurologic: CN II-XII grossly intact. Lymph Nodes: No cervical lymphadenopathy and No supraclavicular lymphadenopathy. Health Maintenance List Depression Screening Never done Anxiety Screening Never done BP Controlled (<130/80) Never done Bone Density Screening Never done Covid-19 Vaccine(2022- season) Never done Colorectal Cancer Screening due on 01/15/2023 Advance Directive Discussion due on 03/04/2023 DTaP,Tdap,Td Vaccine(2 - Td or Tdap) due on 08/11/2023 RSV Vaccine(1 - 1-dose 60+ series) due on 04/19/2024 Influenza Vaccine(1) due on 11/03/2023 Mammogram Screening due on 07/09/2024 Annual PCP Team Chronic Disease Visit due on 10/17/2024 Diabetes Screening due on 04/19/2026 Lipid Screening due on 10/13/2027 Hepatitis C Screening Completed Shingrix Vaccine Completed Pneumococcal Vaccine: 65+ Completed Cervical Cancer Screening Discontinued Data reviewed Latest Ref Rng 07/20/2022 10/12/2022 04/19/2023 WBC 3.70 - 11.00 k/uL 4.44 RBC 3.90 - 5.20 m/uL 4.27 Hemoglobin 11.5 - 15.5 g/dL 13.3 Hematocrit 36.0 - 46.0 % 41.7 MCV 80.0 - 100.0 fL 97.7 MCH 26.0 - 34.0 pg 31.1 MCHC 30.5 - 36.0 g/dL 31.9 RDW-CV 11.5 - 15.0 % 12.6 Platelet Count 150 - 400 k/uL 239 MPV 9.0 - 12.7 fL 11.4 Neut% % 41.2 Abs Neut (ANC) 1.45 - 7.50 k/uL 1.83 Lymph% % 43.9 Abs Lymph 1.00 - 4.00 k/uL 1.95 Sumner% % 10.4 Abs Sumner <0.87 k/uL 0.46 Eosin% % 3.4 Abs Eosin <0.46 k/uL 0.15 Baso% % 1.1 Abs Baso <0.11 k/uL 0.05 Immature Gran % % 0.0 IMMATURE GRANS (ABS) <0.10 k/uL <0.03 NRBC /100 WBC 0.0 Absolute nRBC <0.01 k/uL <0.01 DTYPE Auto Protein, Total 6.3 - 8.0 g/dL 7.5 7.1 Albumin 3.9 - 4.9 g/dL 4.6 4.4 Calcium 8.5 - 10.2 mg/dL 10.2 9.8 Bilirubin, Total 0.2 - 1.3 mg/dL 0.5 0.5 Alkaline Phosphatase 34 - 123 U/L 66 62 AST 13 - 35 U/L 24 24 ALT 7 - 38 U/L 24 22 Glucose 74 - 99 mg/dL 110 (H) 101 (H) BUN 7 - 21 mg/dL 16 17 Creatinine 0.58 - 0.96 mg/dL 0.72 0.69 Sodium 136 - 144 mmol/L 139 141 Potassium 3.7 - 5.1 mmol/L 4.9 5.0 Chloride 97 - 105 mmol/L 102 103 CO2 22 - 30 mmol/L 28 27 Anion Gap 9 - 18 mmol/L 9 11 eGFR >=60 mL/min/1.73m 91 95 Cholesterol, Total <200 mg/dL 173 Triglyceride <150 mg/dL 90 HDL Cholesterol >39 mg/dL 65 Non HDL Cholesterol <130 mg/dL 108 Fasting Time hrs 17 VLDL Cholesterol <30 mg/dL 18 TC:HDL Ratio <5.10 2.66 LDL Cholesterol <100 mg/dL 90 LDL:HDL Ratio <2.54 1.38 Hemoglobin A1C 4.3 - 5.6 % 5.7 (H) 5.7 (H) Estimated Average Glucose mg/dL 117 117 TSH 0.270 - 4.200 mIU/L 2.870 Legend: (H) High ASSESSMENT/PLAN: 1. Annual physical exam - ICD9: V70.0, ICD10: Z00.00 (primary diagnosis) - Counseled on healthy diet and regular exercise - Discussed need and benefit for weight loss. BMI 32.84 kg/(m^2) - Follow up for annual exam in one year - COMPREHENSIVE METABOLIC PANEL - COMPLETE BLOOD COUNT AND DIFFERENTIAL - HEMOGLOBIN A1C - THYROID STIMULATING HORMONE - LIPID PANEL BASIC 2. Persistent cough for 3 weeks or longer - ICD9: 786.2, ICD10: R05.3 Suspect 2/2 allergic rhinitis as it improves with claritin D. Advised to avoid decongestants due to HTN. Will start singulair and have patient call if not improving in 2-3 weeks. 3. Nasal congestion - ICD9: 478.19, ICD10: R09.81 Suspect 2/2 allergic rhinitis as it improves with claritin D. Advised to avoid decongestants due to HTN. Will start singulair and have patient call if not improving in 2-3 weeks. 4. Bilateral impacted cerumen - ICD9: 380.4, ICD10: H61.23 Will have patient treat with OTC debrox and call if not improving in the next couple of weeks. 5. Essential hypertension - ICD9: 401.9, ICD10: I10 - Controlled - Continue current medications - Recommend home blood pressure monitoring, to bring results to next visit - Encouraged sodium restriction, DASH or Mediterranean diet - Recommend regular aerobic exercise 6. Mixed hyperlipidemia - ICD9: 272.2, ICD10: E78.2 - Controlled - Continue current medications - Counseled on healthy diet and regular exercise 7. Gastroesophageal reflux disease without esophagitis - ICD9: 530.81, ICD10: K21.9 - Discussed lifestyle modifications including losing weight, limiting caffeine, and no meals three hours before sleep 8. Prediabetes - ICD9: 790.29, ICD10: R73.03 Due for repeat A1c. Discussed low carb diet and metformin along with exercise as tolerated. 9. Paroxysmal supraventricular tachycardia (HCC) - ICD9: 427.0, ICD10: I47.10 Controlled on atenolol. 10. Acquired hypothyroidism - ICD9: 244.9, ICD10: E03.9 - Instructed patient on importance of taking on an empty stomach either first thing in the morning or at bedtime. - check TSH today - continue current dose of Synthroid 11. Screening for colon cancer - ICD9: V76.51, ICD10: Z12.11 Refusing colonoscopy. - COLOGUARD 12. Obesity, Class I, BMI 30-34.9 - ICD9: 278.00, ICD10: E66.9 Advised to work on healthy diet and exercise. Sharri Jacobson MD documented in this encounter [facility] 10-04-2023 History of Present illness Narrative Radiology Service Progress Note PATIENT NAME: Elina Grace DATE OF SERVICE: October 04, 2023 TIME: 11:46 AM PATIENT IDENTITY VERIFICATION COMPLETED USING TWO (2) IDENTIFIERS: Name and Date of confirmed by patient verbally. FALL SCREENING: Has the patient had 2 falls in the last year or 1 fall with injury or currently using an Ambulatory Assistive Device (Walker, Cane, Wheelchair, Crutches, etc.)? No PATIENT GENDER DATA: Female. status: : No status: NO. PATIENT RELEVANT IMPLANT DATA REVIEWED: Yes PATIENT PRESENTS WITH AN IMPLANTABLE OR ATTACHED WAREDRESSER: No RADIOLOGY DEPARTMENT: General X-ray: Exam(s) Completed: Chest X-Ray PERIPHERAL IV DATA: Not applicable SIGNED BY: RT Aly(R) October 04, 2023 11:46 AM documented in this encounter [facility] 10-04-2023 History of Present illness Narrative CC: Patient presents with: Cough: Moist cough, drainage, runny nose on and off HPI: Elina Grace is a 68 year old female who presents to the office with complaint of chest congestion, head congestion, and cough, nonproductive on and off since January. Symptoms are staying the same. Associated symptoms includes nasal congestion and cough. Denies sore throat, nausea, vomiting , and diarrhea. Treatments tried include nothing so far. with no relief of symptoms. Sick contacts: unknown. History of asthma, frequent episodes of bronchitis, chronic bronchitis, bronchiectasis or COPD: No Smoker: No Seasonal/environmental allergies: No The ROS is otherwise negative. The patient's pmh, medications, allergies, and past visits are reviewed. PHYSICAL EXAM: BP 139/86 Pulse 66 Temp 36.6 C (97.8 F) Resp 18 Wt 84 kg (185 lb 3 oz) LMP 05/27/2006 SpO2 97% BMI 32.61 kg/m General appearance: alert, cooperative, pleasant, in no acute distress Head: Normocephalic Eyes: EOM's intact, conjunctiva pink and moist, no icterus, sclera white, non-injected Ears: Right ear: External ear/canal- Normal, TM - clear with good landmarks. Left ear: External ear/canal- Normal, TM - clear with good landmarks Oropharynx:mild erythema, without exudates present Heart: Negative. RRR without obvious murmur, gallop, or rubs. No ectopy. 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 Tolbert in [place] ALLERGIES Lipitor [Atorvastatin Calcium] MEDICATIONS loratadine (CLARITIN) 10 mg tablet Take 10 mg by mouth once daily. atenolol (TENORMIN) 100 mg tablet Take 1 tablet by mouth once daily. lisinopril (ZESTRIL) 5 mg tablet Take 1 tablet by mouth once daily. metFORMIN (GLUCOPHAGE) 500 mg tablet Take 2 tablets by mouth daily with breakfast. . meloxicam (MOBIC) 15 mg tablet Take 1 tablet by mouth once daily. pravastatin (PRAVACHOL) 40 mg tablet Take 1 tablet by mouth once daily. levothyroxine (SYNTHROID) 112 mcg tablet Take 1/2 tab on Saturday, and 1 tab other days. Take on empty stomach. Blood Pressure Monitor (BLOOD PRESSURE KIT) 1 Each once daily as needed. Murray-3 Fatty Acids 500 mg cap Take 1 capsule by mouth once daily. SARAH MI ORAL Take 1 tablet by mouth once daily. Potassium 99 mg tab Take by mouth once daily. Cholecalciferol, Vitamin D3, 1,000 unit Cap Take 1 capsule by mouth once daily. VITAMIN B-6 100 MG TAB Take one(1) tablet daily. CYANOCOBALAMIN 500 MCG TAB Take one(1) tablet daily. MULTIVITAMIN TAB Take one(1) tablet daily. FAMILY HISTORY Problem Relation Age of Onset Heart Mother bypass surgery x 4 with valve replacement other (renal failure) Father Diabetes Sister on insulin Social History Tobacco Use Smoking status: Never Smokeless tobacco: Never Vaping Use Vaping Use: Never used Substance Use Topics Alcohol use: No Drug use: No ASSESSMENT/PLAN: 1. Acute cough - ICD9: 786.2, ICD10: R05.1 - XR CHEST 2V FRONTAL/LAT * * * * Physician Interpretation * * * * EXAMINATION: CHEST RADIOGRAPH (2 VIEW FRONTAL & LATERAL) CLINICAL HISTORY: Acute cough MQ: [id number] EXAM DATE/TIME: 10/04/2023 11:57 AM COMPARISON: No relevant prior studies available. RESULT: Lines, tubes, and devices: None. Lungs and pleura: No consolidation. No lung mass. No pleural effusion. No pneumothorax. Cardiomediastinal silhouette: Normal cardiomediastinal silhouette. Bones and soft tissues: The spine shows degenerative changes. Sclerotic focus seen along the right glenoid. IMPRESSION IMPRESSION: No acute radiographic abnormality. Cops: AARON Transcribe Date/Time: Oct 04 2023 12:16P Dictated by : MD Fiordaliza LAIRD and Rosa Zuleta Prescription instructions reviewed with patient as applicable. Potential red flag symptoms discussed with the patient. Reviewed appropriate action plan to take if red flag symptoms occur. Patient agreeable to treatment plan. Carolina Valadez APRN.BUCKLE ATTACHER documented in this encounter [facility] 10-04-2023 History of Present illness Narrative 1. Keratoconus, stable, bilateral 2. Dry eye syndrome of bilateral lacrimal glands Order new lens right eye (will attempt to order old lens from Dr. Lama) Educated pt that we may need to go back to the [place] K lens if this lens does not give adequate fit/vision Will call when lens arrives Malachi Pool, LISSETH October 04, 2023 11:32 AM documented in this encounter [facility] 08-19-2023 Telephone encounter Note Prescription Refill Information The patient has been identified by name and date of : Yes Caregiver verified no other encounters exist for this prescription request: Yes Caregiver confirmed with patient/requestor that no other refills are due, in the near future, with this provider at this time: Yes The last office visit in the department: 06-21-23 Does the patient have a future office visit with this provider/department: Yes Requested Prescriptions Pending Prescriptions Disp Refills atenolol (TENORMIN) 100 mg tablet 90 tablet 1 Sig: Take 1 tablet by mouth once daily. lisinopril (ZESTRIL) 5 mg tablet 90 tablet 1 Sig: Take 1 tablet by mouth once daily. metFORMIN (GLUCOPHAGE) 500 mg tablet 180 tablet 1 Sig: Take 2 tablets by mouth daily with breakfast. . Ramandeep Del Rosario August 19, 2023 8:28 AM [facility] 08-19-2023 Miscellaneous Notes Prescription Refill Information The patient has been identified by name and date of : Yes Caregiver verified no other encounters exist for this prescription request: Yes Caregiver confirmed with patient/requestor that no other refills are due, in the near future, with this provider at this time: Yes The last office visit in the department: 06-21-23 Does the patient have a future office visit with this provider/department: Yes Requested Prescriptions Pending Prescriptions Disp Refills atenolol (TENORMIN) 100 mg tablet 90 tablet 1 Sig: Take 1 tablet by mouth once daily. lisinopril (ZESTRIL) 5 mg tablet 90 tablet 1 Sig: Take 1 tablet by mouth once daily. metFORMIN (GLUCOPHAGE) 500 mg tablet 180 tablet 1 Sig: Take 2 tablets by mouth daily with breakfast. . Ramandeep Del Rosario August 19, 2023 8:28 AM documented in this encounter [facility] 08-09-2023 History of Present illness Narrative HISTORY OF PRESENT ILLNESS: Elina is a 68 year old female. She is here for evaluation of Left knee pain. Patient reports that the knee pain has occurred for approximately 2 months. She mainly feels it along the medial aspect of her knee. She has been taking ibuprofen for pain control and this seems to help with that. 4 out of 10 burning, aching sensation that occurs intermittently throughout the day. No other concerns today. Injury:Yes, fall 4 years ago when she was walking and slipped on the ice. Pain: Yes LOCATION: Medial left knee PAIN SCALE: 4 on a scale of 0-10 PAIN CHARACTER: Aching, burning DURATION: (How long have you had the pain?) 2 months currently, knee pain chronically for many years AGGRAVATING FACTORS: Activity, walking, bike riding ALLEVIATING FACTORS: Rest, ibuprofen Onset: gradual and progressive Quality:aching and burning Swelling: Patient notes intermittent swelling of the joint. Mechanical symptoms: None Radiation: None Activities: walking and exercise Restriction: none Progression: Constant Previous treatment: medication (Ibuprofen) PT:No physical therapy program has been initiated. MEDICATIONS Current Outpatient Medications on File Prior to Visit Medication Sig metFORMIN (GLUCOPHAGE) 500 mg tablet Take 2 tablets by mouth daily with breakfast. . lisinopril (ZESTRIL) 5 mg tablet Take 1 tablet by mouth once daily. pravastatin (PRAVACHOL) 40 mg tablet Take 1 tablet by mouth once daily. atenolol (TENORMIN) 100 mg tablet Take 1 tablet by mouth once daily. levothyroxine (SYNTHROID) 112 mcg tablet Take 1/2 tab on Saturday, and 1 tab other days. Take on empty stomach. Murray-3 Fatty Acids 500 mg cap Take 1 capsule by mouth once daily. SARAH MI ORAL Take 1 tablet by mouth once daily. Potassium 99 mg tab Take by mouth once daily. Cholecalciferol, Vitamin D3, 1,000 unit Cap Take 1 capsule by mouth once daily. VITAMIN B-6 100 MG TAB Take one(1) tablet daily. CYANOCOBALAMIN 500 MCG TAB Take one(1) tablet daily. MULTIVITAMIN TAB Take one(1) tablet daily. Blood Pressure Monitor (BLOOD PRESSURE KIT) 1 Each once daily as needed. No current facility-administered medications on file prior to visit. ALLERGIES ALLERGIES Allergen Reactions Lipitor [Atorvastat* vertigo PAST MEDICAL HISTORY PAST MEDICAL HISTORY Diagnosis Date Essential hypertension Obesity (BMI 30-39.9) Other and unspecified hyperlipidemia 2002 Paroxysmal supraventricular tachycardia (HCC) 2002 Supraventricular tachycardia Postablative hypothyroidism Prediabetes Reflux 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 thyrotoxic crisis or storm PAST SURGICAL HISTORY PAST SURGICAL HISTORY Procedure Laterality Date DELIVERY ONLY 03/04/1984 , low cervical DELIVERY ONLY 03/04/1987 , low cervical DELIVERY ONLY 03/04/1991 , low cervical COLONOSCOPY FLX DX W/COLLJ SPEC WHEN PFRMD 01/15/2013 Colonoscopy ESOPHAGOGASTRODUODENOSCOPY TRANSORAL DIAGNOSTIC 03/30/2013 EGD LIG/TRNSXJ FLP TUBE ABDL/VAG APPR UNI/BI 03/04/1991 Tubal ligation with last c section PAST SURGICAL HISTORY OF 08/2022 Ingrown toenail removal-Dr. Tolbert in [place] SOCIAL HISTORY Tobacco: Non-smoker, never smoked FAMILY HISTORY Does a similar condition to what you are experiencing run in your family? No REVIEW OF SYSTEMS: All other systems negative. PHYSICAL EXAM: PE: All other systems deferred. GENERAL: Appears healthy, well-nourished, no deformities. HABITUS: Normal Gait: Normal, the patient did not have trouble getting onto the exam table. Left: Alignment: Varus deformity, Correctable Range of motion is lacking a few degrees secondary to tight hamstrings degrees in extension and 120 degrees of flexion. Extension La degrees Pain with ROM: Yes Effusion: Mild Tender to the palpation of Medial femoral condyle, Medial joint line, and distal medial hamstring Pain with patellar compression: Yes Stability: Anterior/Posterior stable and Varus/Valgus stable Hip Exam: flexion to 100+ degrees, full extension, internal/external rotation adequate, and no pain with log roll Neurovascular Status: Sensation Intact, Moves foot and ankle up & down, and 2+ dorsalis pedis Strength: 5 Skin: Normal RADIOGRAPHS (personally reviewed): Advanced left knee osteoarthritis predominantly in the medial compartment. There appears to be either a loose body or calcification in the suprapatellar pouch MRI: None DIAGNOSIS Encounter Diagnosis ICD-10-CM 1. Acute pain of left knee M25.562 2. Loose body in knee, left knee M23.42 PLAN Patient has left knee osteoarthritis. Treatment options were discussed today. Patient has only been taking ibuprofen at on an as-needed basis with continued pain. We will get her meloxicam 15 mg to be taken daily over the next few weeks. At that point she may resume as needed. We also discussed possible cortisone injections in the future. Unable to see the x-ray results until after her visit was completed due to epic shutdown this morning. We will have her follow-up in 6 months for continued treatment of the left knee should she need it. I spent a total of 25 minutes on the date of the service which included preparing to see the patient, [id number] patient care, completing clinical documentation, obtaining and/or reviewing separately obtained history, performing a medically appropriate examination, counseling and educating the patient/family/caregiver, ordering medications, tests, or procedures, communicating with other HCPs (not separately reported), independently interpreting results (not separately reported), communicating results to the patient/family/caregiver, and care coordination (not separately reported). PROCEDURE: Procedures Blair De Anda PA-C AMB ROOMING INTAKE FLOWSHEET DATA Pain Pain Level: 4 Pain Location: Knee-Left Description: Aching, Burning Duration Amount of Time: 4 Duration Units: Years Frequency: Intermittent Intervention/Comfort measure: Medication documented in this encounter [facility] 07-10-2023 Telephone encounter Note Phoned patient and went over results, notes from Dr Jacobson with understanding. [facility] 07-10-2023 Miscellaneous Notes Phoned patient and went over results, notes from Dr Jacobson with understanding. ----- Message from Sharri Jacobson MD sent at 07/10/2023 1:19 PM EDT ----- Negative mammogram. Repeat in 1 year. documented in this encounter [facility] 07-10-2023 Telephone encounter Note ----- Message from Sharri Jacobson MD sent at 07/10/2023 1:19 PM EDT ----- Negative mammogram. Repeat in 1 year. [facility] 07-10-2023 Note Formatting of this n ote might be different from the original. July 10, 2023 PID: [id number] Elina Grace [address] [place] [address] Dear Ms. Grace, We are pleased to inform you that the results of your recent breast imaging exam on 07/10/2023 are normal. Early detection of cancer is very important. We also understand recommendations regarding breast cancer screening are controversial. Please discuss with your primary care provider which strategy is best for you and whether a mammogram is right for you. Your imaging studies and report will be kept on file at [facility] as part of your permanent medical record and are available for your continuing care. Thank you for allowing us to help in meeting your health care needs. Sincerely, Dr. Olivares Interpreting Radiologist [facility] (Normal over 40) [facility] 07-10-2023 Miscellaneous Notes July 10, 2023 PID: [id number] Elina Grace [address] [place] [address] Dear Ms. Grace, We are pleased to inform you that the results of your recent breast imaging exam on 07/10/2023 are normal. Early detection of cancer is very important. We also understand recommendations regarding breast cancer screening are controversial. Please discuss with your primary care provider which strategy is best for you and whether a mammogram is right for you. Your imaging studies and report will be kept on file at [facility] as part of your permanent medical record and are available for your continuing care. Thank you for allowing us to help in meeting your health care needs. Sincerely, Dr. Olivares Interpreting Radiologist [facility] (Normal over 40) documented in this encounter [facility] 07-10-2023 History of Present illness Narrative Radiology Service Progress Note PATIENT NAME: Elina Grace DATE OF SERVICE: July 10, 2023 TIME: 9:34 AM PATIENT IDENTITY VERIFICATION COMPLETED USING TWO (2) IDENTIFIERS: Name and Date of confirmed by patient verbally. FALL SCREENING: Has the patient had 2 falls in the last year or 1 fall with injury or currently using an Ambulatory Assistive Device (Walker, Cane, Wheelchair, Crutches, etc.)? No PATIENT GENDER DATA: Female. status: : No status: NO. PATIENT RELEVANT IMPLANT DATA REVIEWED: Not Applicable PATIENT PRESENTS WITH AN IMPLANTABLE OR ATTACHED WAREDRESSER: No RADIOLOGY DEPARTMENT: Mammography PERIPHERAL IV DATA: Not applicable SIGNED BY: Lesley Parko Rm July 10, 2023 9:34 AM documented in this encounter [facility] 06-21-2023 History of Present illness Narrative Radiology Service Progress Note PATIENT NAME: Elina Grace DATE OF SERVICE: June 21, 2023 TIME: 11:08 AM PATIENT IDENTITY VERIFICATION COMPLETED USING TWO (2) IDENTIFIERS: Name and Date of confirmed by patient verbally. FALL SCREENING: Has the patient had 2 falls in the last year or 1 fall with injury or currently using an Ambulatory Assistive Device (Walker, Cane, Wheelchair, Crutches, etc.)? No PATIENT GENDER DATA: Female. status: : No status: NO. PATIENT RELEVANT IMPLANT DATA REVIEWED: Yes PATIENT PRESENTS WITH AN IMPLANTABLE OR ATTACHED WAREDRESSER: No RADIOLOGY DEPARTMENT: General X-ray: Exam(s) Completed: Lower Extremity X-Ray(s): Knee, AP / Lat / Tunne / Merchant Left and Wt. Bearing PERIPHERAL IV DATA: Not applicable SIGNED BY: RT Aly(R) June 21, 2023 11:08 AM documented in this encounter [facility] 06-21-2023 History of Present illness Narrative 06/21/2023 Patient presents with: Leg Pain: Left leg pain SUBJECTIVE: This is a 67 year old that is here today for Above Complaints. ONSET: Saturday LOCATION: left knee- knee cap DURATION: intermittent CHARACTERISTICS: just hurts AGGRAVATING FEATURES: peddling bike and bending back ALLEVIATING FEATURES: Biofreeze. Ice helps some Five years ago fell on ice Denies present injury or past surgery, swelling or redness PAST MEDICAL HISTORY Diagnosis Date Essential hypertension Obesity (BMI 30-39.9) Other and unspecified hyperlipidemia 2002 Paroxysmal supraventricular tachycardia 2002 Supraventricular tachycardia Postablative hypothyroidism Prediabetes Reflux 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 thyrotoxic crisis or storm ALLERGIES Lipitor [Atorvastatin Calcium] MEDICATIONS Current Outpatient Medications Medication Sig metFORMIN (GLUCOPHAGE) 500 mg tablet Take 2 tablets by mouth daily with breakfast. . lisinopril (ZESTRIL) 5 mg tablet Take 1 tablet by mouth once daily. pravastatin (PRAVACHOL) 40 mg tablet Take 1 tablet by mouth once daily. atenolol (TENORMIN) 100 mg tablet Take 1 tablet by mouth once daily. levothyroxine (SYNTHROID) 112 mcg tablet Take 1/2 tab on Saturday, and 1 tab other days. Take on empty stomach. Blood Pressure Monitor (BLOOD PRESSURE KIT) 1 Each once daily as needed. Murray-3 Fatty Acids 500 mg cap Take 1 capsule by mouth once daily. SARAH MI ORAL Take 1 tablet by mouth once daily. Potassium 99 mg tab Take by mouth once daily. Cholecalciferol, Vitamin D3, 1,000 unit Cap Take 1 capsule by mouth once daily. VITAMIN B-6 100 MG TAB Take one(1) tablet daily. CYANOCOBALAMIN 500 MCG TAB Take one(1) tablet daily. MULTIVITAMIN TAB Take one(1) tablet daily. No current facility-administered medications for this visit. Medications and allergies reviewed by this provider. SOCIAL HISTORY Social History Tobacco Use Smoking status: Never Smokeless tobacco: Never Vaping Use Vaping Use: Never used Substance Use Topics Alcohol use: No Drug use: No REVIEW OF SYSTEMS All other reviewed and negative other than HPI. OBJECTIVE: BP 116/74 Pulse 61 Resp 16 Wt 83.7 kg (184 lb 9.6 oz) LMP 05/27/2006 SpO2 96% BMI 32.51 kg/m . Vital signs reviewed by this provider. APPEARANCE Well appearing, alert, in no acute distress, well-hydrated, well nourished. LEFT KNEE: No obvious deformity, erythema, or swelling. TTP Superior medial aspect of patella. No crepitus. Patella stable. Patient did experience pain with deep flexion. Negative anterior/posterior drawer test. Negative [place]gins Covid-19 Vaccine() Never done Mammogram Screening due on 11/21/2022 Colorectal Cancer Screening due on 01/15/2023 Advance Directive Discussion due on 03/04/2023 Behavioral Health Screening Never done Bone Density Screening due on 10/13/2023 RSV Vaccine(1 - 1-dose 60+ series) due on 04/19/2024 DTaP,Tdap,Td Vaccine(2 - Td or Tdap) due on 08/11/2023 Influenza Vaccine(Season Ended) due on 11/03/2023 Annual PCP Team Chronic Disease Visit due on 04/19/2024 BP Controlled (<130/80) due on 04/19/2024 Diabetes Screening due on 04/19/2026 Lipid Screening due on 10/13/2027 Hepatitis C Screening Completed Shingrix Vaccine Completed Pneumococcal Vaccine: 65+ Completed Pap Testing Discontinued ASSESSMENT/PLAN: 1. Acute pain of left knee - ICD9: 719.46, ICD10: M25.562 - consider tendonitis vs arthritis - no red flag symptoms or exam findings - red flag symptoms discussed, verbalizes understanding - continued icing and may use OTC pain relievers as directed on packaging - XR KNEE GENERAL 4V AP BOTH/PA BOTH/LAT/MERC LEFT - follow-up if symptoms fail to improve to ER with red flag symptoms Yarelis Carlos APRN.BUCKLE ATTACHER Prescription instructions reviewed with patient as applicable. Patient advised if symptoms do not improve or if symptoms worsen sooner, to contact their primary care physician. Potential red flag symptoms discussed with the patient. Reviewed appropriate action plan to take if red flag symptoms occur. Patient agreeable to treatment plan. Medical Decision Making: Problems: Moderate: New problem with uncertain prognosis Data: Unique test(s) ordered: 1 Risk: Low: Low risk from testing/treatment Medical Decision Making Level: 3 - Low documented in this encounter [facility] 06-21-2023 Miscellaneous Notes Patient call in for left leg pain when biking. Patient states that she does not have pain when walking Nurse Triage assessment completed with protocol recommending for disposition of see PCP in 4 hours. Appointment scheduled with Yarelis vanegas. Care advice reviewed with patient, patient stated understanding. Patient advised to contact office or seek evaluation in urgent care or ER if symptoms persist or gets worse. Reason for Disposition [1] Thigh or calf pain AND [2] only 1 side AND [3] present > 1 hour (Exception: Chronic unchanged pain.) Answer Assessment - Initial Assessment Questions 1. ONSET: Last Saturday06/11/2023 2. LOCATION: Left Leg; Above knee where leg is; In the middle where knee is and up. 3. PAIN: Patient rates pain 5 out of 10; Leg does not have pain with walking; Leg had pain with peddling bike 4. WORK OR EXERCISE: 5 years ago she was walking on sidewalk, she fell on ice and knee landed on ice. 5. CAUSE: Unsure 6. OTHER SYMPTOMS Denies other symptoms Protocols used: Leg [id number] documented in this encounter [facility] 04-22-2023 Miscellaneous Notes Phoned patient and reviewed results and recommendations with her. Patient voiced understanding. A1c unchanged. The rest of her blood work is I acceptable ranges. Continue current medications, diet and exercise. Yarelis Carlos APRN.DIONY documented in this encounter [facility] 04-19-2023 Instructions Sharri Jacobson MD - 04/19/2023 8:56 AM EST Please strip picker Zyrtec or Merari for dry cough. Call if not improving in 2-3 weeks. documented in this encounter [facility] 04-19-2023 History of Present illness Narrative Chief Complaint Patient presents with: Follow Up: 6 month- refill needed medications HPI Elina Grace is a 67 year old female who presents here today for Above Complaints.. Patient complaining of dry cough at night when lying down. Thinks this is 2/2 post nasal drip. Admits to sneezing, rhinorrhea during the day. Unsure if she has allergies this time of year. Denies fever/chills, SOB, wheezing, chest pain, chest congestion. Taking all medications as prescribed. Asymptomatic on current regimen. Up to date on refills. Refusing repeat colon cancer screening today. Due for mammogram. Order still valid in our system. Past medical history, appointments, medications, allergies reviewed. Previous Medical History PAST MEDICAL HISTORY Diagnosis Date Essential hypertension Obesity (BMI 30-39.9) Other and unspecified hyperlipidemia 2002 Paroxysmal supraventricular tachycardia 2003 Supraventricular tachycardia Postablative hypothyroidism Prediabetes Reflux 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 thyrotoxic crisis or storm Previous Surgical History PAST SURGICAL HISTORY Procedure Laterality Date DELIVERY ONLY 03/04/1984 , low cervical DELIVERY ONLY 03/04/1987 , low cervical DELIVERY ONLY 03/04/1991 , low cervical COLONOSCOPY FLX DX W/COLLJ SPEC WHEN PFRMD 01/15/2013 Colonoscopy ESOPHAGOGASTRODUODENOSCOPY TRANSORAL DIAGNOSTIC 03/30/2013 EGD LIG/TRNSXJ FLP TUBE ABDL/VAG APPR UNI/BI 03/04/1991 Tubal ligation with last c section PAST SURGICAL HISTORY OF 08/2022 Ingrown toenail removal-Dr. Tolbert in [place] Family History FAMILY HISTORY Problem Relation Age of Onset Heart Mother bypass surgery x 4 with valve replacement other (renal failure) Father Diabetes Sister on insulin Patient Allergies ALLERGIES Allergen Reactions Lipitor [Atorvastat* vertigo Current Medications Current Outpatient Medications on File Prior to Visit Medication Sig metFORMIN (GLUCOPHAGE) 500 mg tablet Take 2 tablets by mouth daily with breakfast. . lisinopril (ZESTRIL) 5 mg tablet Take 1 tablet by mouth once daily. pravastatin (PRAVACHOL) 40 mg tablet Take 1 tablet by mouth once daily. atenolol (TENORMIN) 100 mg tablet Take 1 tablet by mouth once daily. levothyroxine (SYNTHROID) 112 mcg tablet Take 1/2 tab on Saturday, and 1 tab other days. Take on empty stomach. Blood Pressure Monitor (BLOOD PRESSURE KIT) 1 Each once daily as needed. Murray-3 Fatty Acids 500 mg cap Take 1 capsule by mouth once daily. SARAH MI ORAL Take 1 tablet by mouth once daily. Potassium 99 mg tab Take by mouth once daily. Cholecalciferol, Vitamin D3, 1,000 unit Cap Take 1 capsule by mouth once daily. VITAMIN B-6 100 MG TAB Take one(1) tablet daily. CYANOCOBALAMIN 500 MCG TAB Take one(1) tablet daily. MULTIVITAMIN TAB Take one(1) tablet daily. No current facility-administered medications on file prior to visit. Social History Social History Tobacco Use Smoking status: Never Smokeless tobacco: Never Vaping Use Vaping Use: Never used Substance Use Topics Alcohol use: No Drug use: No Review of Symptoms REVIEW OF SYSTEMS GENERAL: No weight loss, malaise or fevers RESPIRATORY: See HPI CARDIOVASCULAR: Negative for chest pain, leg swelling, hypertension, CHF or palpitations GI: No nausea, vomiting, or diarrhea SKIN: Negative for lesions, rash, and itching ENDOCRINE: Negative for cold or heat intolerance, polyuria, polydipsia and goiter \ EXAM: BP 114/70 Pulse 62 Resp 16 Wt 83.3 kg (183 lb 9.6 oz) LMP 05/27/2006 SpO2 96% BMI 32.33 kg/m General Appearance: Well appearing, alert, in no acute distress, well-hydrated, well nourished.. Skin: Skin color, texture, turgor normal, no suspicious rashes or lesions. Neck: Supple, no adenopathy; thyroid symmetric, normal size, no bruits. Lungs: Lungs clear to auscultation. No wheezing, rhonchi, rales.. Heart: RRR without murmur, gallop, or rubs. No ectopy. Abdomen: Normal abdominal exam, Abdomen soft, non-tender. Bowel sounds normal. No masses, organomegaly. Extremities: No deformities, edema, skin discoloration, clubbing or cyanosis. Good capillary refill. . Health Maintenance List RSV Vaccine(1 - 1-dose 60+ series) Never done Influenza Vaccine(1) due on 11/02/2022 Mammogram Screening due on 11/21/2022 Shingrix Vaccine(2 of 2) due on 12/07/2022 Colorectal Cancer Screening due on 01/15/2023 Advance Directive Discussion due on 03/04/2023 Depression Assessment due on 03/04/2023 Bone Density Screening due on 10/13/2023 Covid-19 Vaccine(1) due on 10/13/2023 DTaP,Tdap,Td Vaccine(2 - Td or Tdap) due on 08/11/2023 Annual PCP Team Chronic Disease Visit due on 02/21/2024 BP Controlled (<130/80) due on 02/29/2024 Diabetes Screening due on 10/12/2025 Lipid Screening due on 10/13/2027 Hepatitis C Screening Completed Pneumococcal Vaccine: 65+ Completed Pap Testing Discontinued Data reviewed Component Latest Ref Rng & Units 07/20/2022 10/12/2022 WBC 3.70 - 11.00 k/uL 4.44 RBC 3.90 - 5.20 m/uL 4.27 Hemoglobin 11.5 - 15.5 g/dL 13.3 Hematocrit 36.0 - 46.0 % 41.7 MCV 80.0 - 100.0 fL 97.7 MCH 26.0 - 34.0 pg 31.1 MCHC 30.5 - 36.0 g/dL 31.9 RDW-CV 11.5 - 15.0 % 12.6 Platelet Count 150 - 400 k/uL 239 MPV 9.0 - 12.7 fL 11.4 Neut% % 41.2 Abs Neut (ANC) 1.45 - 7.50 k/uL 1.83 Lymph% % 43.9 Abs Lymph 1.00 - 4.00 k/uL 1.95 Sumner% % 10.4 Abs Sumner <0.87 k/uL 0.46 Eosin% % 3.4 Abs Eosin <0.46 k/uL 0.15 Baso% % 1.1 Abs Baso <0.11 k/uL 0.05 Immature Gran % % 0.0 IMMATURE GRANS (ABS) <0.10 k/uL <0.03 NRBC /100 WBC 0.0 Absolute nRBC <0.01 k/uL <0.01 DTYPE Auto Protein, Total 6.3 - 8.0 g/dL 7.5 Albumin 3.9 - 4.9 g/dL 4.6 Calcium 8.5 - 10.2 mg/dL 10.2 Bilirubin, Total 0.2 - 1.3 mg/dL 0.5 Alkaline Phosphatase 34 - 123 U/L 66 AST 13 - 35 U/L 24 ALT 7 - 38 U/L 24 Glucose 74 - 99 mg/dL 110 (H) BUN 7 - 21 mg/dL 16 Creatinine 0.58 - 0.96 mg/dL 0.72 Sodium 136 - 144 mmol/L 139 Potassium 3.7 - 5.1 mmol/L 4.9 Chloride 97 - 105 mmol/L 102 CO2 22 - 30 mmol/L 28 Anion Gap 9 - 18 mmol/L 9 eGFR >=60 mL/min/1.73m 91 Cholesterol, Total <200 mg/dL 173 Triglyceride <150 mg/dL 90 HDL Cholesterol >39 mg/dL 65 Non HDL Cholesterol <130 mg/dL 108 Fasting Time hrs 17 VLDL Cholesterol <30 mg/dL 18 TC:HDL Ratio <5.10 2.66 LDL Cholesterol <100 mg/dL 90 LDL:HDL Ratio <2.54 1.38 Hemoglobin A1C 4.3 - 5.6 % 5.7 (H) Estimated Average Glucose mg/dL 117 TSH 0.270 - 4.200 mIU/L 2.870 ASSESSMENT/PLAN: 1. Dry cough - ICD9: 786.2, ICD10: R05.8 (primary diagnosis) Normal exam today. Suspect 2/2 allergic rhinitis. Patient refusing flonase rx. Will strip picker zyrtec or merari OTC and call if not improving in 1-2 weeks. 2. Allergic rhinitis, unspecified seasonality, unspecified trigger - ICD9: 477.9, ICD10: J30.9 See above. 3. Prediabetes - ICD9: 790.29, ICD10: R73.03 Asymptomatic. Discussed healthy diet and exercise. Recheck labs. - COMP METABOLIC PANEL - HGB A1C 4. Essential hypertension - ICD9: 401.9, ICD10: I10 - Controlled - Continue current medications - Recommend home blood pressure monitoring, to bring results to next visit - Encouraged sodium restriction, DASH or Mediterranean diet - Recommend regular aerobic exercise 5. Mixed hyperlipidemia - ICD9: 272.2, ICD10: E78.2 - Controlled - Continue current medications - Counseled on healthy diet and regular exercise 6. Paroxysmal supraventricular tachycardia - ICD9: 427.0, ICD10: I47.10 Asymptomatic on current regimen. Will monitor. 7. Gastroesophageal reflux disease without esophagitis - ICD9: 530.81, ICD10: K21.9 - Discussed lifestyle modifications including losing weight, limiting caffeine, and no meals three hours before sleep 8. Acquired hypothyroidism - ICD9: 244.9, ICD10: E03.9 - Instructed patient on importance of taking on an empty stomach either first thing in the morning or at bedtime. - continue current dose of Synthroid 0.112 mg 9. Encounter for immunization - ICD9: V03.89, ICD10: Z23 - ZOSTER VACCINE, RECOMBINANT (SHINGRIX) 10. Obesity (BMI 30-39.9) - ICD9: 278.00, ICD10: E66.9 Stable - Behavioral intervention Sharri Jacobson MD documented in this encounter [facility] 01-13-2023 History of Present illness Narrative Subjective HPI Nontoxic-appearing female presents urgent care chief complaint high blood pressure abdominal pain. Duration of elevated blood pressure 1 day. Blood pressure reading of 178/100 last night. Duration of abdominal pain 2 to 3 days. Patient states feels like the abdominal pain may be from doing yard work. Patient states abdominal pain has been consistent. Has not use any OTC medications. Abdominal pain is not exacerbated by movements is persistent at rest. Increased pain with pushing over abdomen region. History of a hiatal hernia. Denies any fever body aches chills nausea vomiting cough chest pain shortness of breath change in bowel or bladder habits. Past medical history prescription medication use allergies reviewed. .Patient presents with: Blood Pressure: higher blood pressure readings x 1 day-2 deaths in family PAST MEDICAL HISTORY Diagnosis Date Essential hypertension Obesity (BMI 30-39.9) Other and unspecified hyperlipidemia 2002 Paroxysmal supraventricular tachycardia 2002 Supraventricular tachycardia Postablative hypothyroidism Prediabetes Reflux 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 thyrotoxic crisis or storm PAST SURGICAL HISTORY Procedure Laterality Date DELIVERY ONLY 03/04/1984 , low cervical DELIVERY ONLY 03/04/1987 , low cervical DELIVERY ONLY 03/04/1991 , low cervical COLONOSCOPY FLX DX W/COLLJ SPEC WHEN PFRMD 01/15/2013 Colonoscopy ESOPHAGOGASTRODUODENOSCOPY TRANSORAL DIAGNOSTIC 03/30/2013 EGD LIG/TRNSXJ FLP TUBE ABDL/VAG APPR UNI/BI 03/04/1991 Tubal ligation with last c section PAST SURGICAL HISTORY OF 08/2022 Ingrown toenail removal-Dr. Tolbert in [place] ALLERGIES Lipitor [Atorvastatin Calcium] MEDICATIONS pravastatin (PRAVACHOL) 40 mg tablet Take 1 tablet by mouth once daily. metFORMIN (GLUCOPHAGE) 500 mg tablet Take 1 tablet by mouth twice daily with meals. . (Patient taking differently: Take 500 mg by mouth daily with breakfast. .patient takes both tabs in am) atenolol (TENORMIN) 100 mg tablet Take 1 tablet by mouth once daily. levothyroxine (SYNTHROID) 112 mcg tablet Take 1/2 tab on Saturday, and 1 tab other days. Take on empty stomach. Blood Pressure Monitor (BLOOD PRESSURE KIT) 1 Each once daily as needed. Murray-3 Fatty Acids 500 mg cap Take 1 capsule by mouth once daily. SARAH MI ORAL Take 1 tablet by mouth once daily. Potassium 99 mg tab Take by mouth once daily. Cholecalciferol, Vitamin D3, 1,000 unit Cap Take 1 capsule by mouth once daily. VITAMIN B-6 100 MG TAB Take one(1) tablet daily. CYANOCOBALAMIN 500 MCG TAB Take one(1) tablet daily. MULTIVITAMIN TAB Take one(1) tablet daily. FAMILY HISTORY Problem Relation Age of Onset Heart Mother bypass surgery x 4 with valve replacement other (renal failure) Father Diabetes Sister on insulin Social History Tobacco Use Smoking status: Never Smokeless tobacco: Never Vaping Use Vaping Use: Never used Substance Use Topics Alcohol use: No Drug use: No BP 156/88 Pulse 66 Temp 36.4 C (97.5 F) Resp 16 Wt 83.5 kg (184 lb) LMP 05/27/2006 SpO2 100% BMI 32.40 kg/m Review of Systems Constitutional: Negative for chills, fever and malaise/fatigue. HENT: Negative for congestion, ear discharge, ear pain, sinus pain and sore throat. Eyes: Negative for blurred vision, pain, discharge and redness. Respiratory: Negative for cough, hemoptysis, sputum production, shortness of breath, wheezing and stridor. Cardiovascular: Negative for chest pain. Gastrointestinal: Positive for abdominal pain. Negative for diarrhea, nausea and vomiting. Musculoskeletal: Negative for myalgias. Skin: Negative for itching and rash. Neurological: Negative for dizziness and headaches. Objective Physical Exam Constitutional: General: She is not in acute distress. Appearance: She is not diaphoretic. HENT: Head: Normocephalic. Jaw: No trismus, tenderness, swelling or pain on movement. Mouth/Throat: Pharynx: Uvula midline. No pharyngeal swelling or uvula swelling. Eyes: Conjunctiva/sclera: Conjunctivae normal. Pupils: Pupils are equal, round, and reactive to light. Cardiovascular: Rate and Rhythm: Normal rate and regular rhythm. Heart sounds: Normal heart sounds. Pulmonary: Effort: Pulmonary effort is normal. No tachypnea, accessory muscle usage or respiratory distress. Breath sounds: Normal breath sounds. No stridor. No wheezing, rhonchi or rales. Abdominal: General: There is no distension. Palpations: Abdomen is soft. Tenderness: There is abdominal tenderness. There is guarding. There is no rebound. Musculoskeletal: Cervical back: Normal range of motion and neck supple. No edema, erythema, rigidity or tenderness. No pain with movement. Normal range of motion. Lymphadenopathy: Cervical: No cervical adenopathy. Skin: General: Skin is warm and dry. Neurological: Mental Status: She is alert and oriented to person, place, and time. ASSESSMENT/PLAN: 1. Epigastric abdominal pain - ICD9: 789.06, ICD10: R10.13 With palpation of right upper and epigastric region patient did have guarding significant discomfort. Recommend the patient be seen the ED for further evaluation care. Patient's and significant other verbalized understand agrees with plan of care will be seen in [place] ED. Allen Lopes APRN.BUCKLE ATTACHER documented in this encounter [facility] 10-16-2022 Miscellaneous Notes Patient returned call and went over results, notes from Dr Jacobson with understanding. Please advise her Spouses results available as well. Phoned patient and Vm left for her to return call for results. ----- Message from Sharri Jacobson MD sent at 10/15/2022 4:06 PM EDT ----- Stable labs. A1c remains in the borderline prediabetic range at 5.7. continue to work on low carb diet and regular exercise. Recheck in 6 months. No changes to regimen. documented in this encounter [facility] 10-01-2022 History of Present illness Narrative (H18.613) Keratoconus, stable, bilateral (primary encounter diagnosis) (H04.123) Dry eye syndrome of bilateral lacrimal glands Finalized contact lens Follow-up in 1 year or sooner as needed Malachi Pool, OD October 01, 2022 10:01 AM documented in this encounter [facility] 09-28-2022 Miscellaneous Notes FRANK 04/13/22 NOV 10/12/22 Please review and advise. Thank you. KIAN Velarde Patient has been identified by name and date of : Yes Requested Prescriptions Pending Prescriptions Disp Refills pravastatin (PRAVACHOL) 40 mg tablet 90 tablet 1 Sig: Take 1 tablet by mouth once daily. RX INSTRUCTIONS: Patient aware RX will be sent to pharmacy. No need to notify patient. Angie Del Rosario documented in this encounter [facility] 08-31-2022 History of Present illness Narrative (H18.613) Keratoconus, stable, bilateral (primary encounter diagnosis) (H04.123) Dry eye syndrome of bilateral lacrimal glands Order new lens- call for in office dispense Malachi Pool OD August 31, 2022 4:00 PM documented in this encounter [facility] 08-20-2022 Instructions Malachi Pool OD - 08/20/2022 9:10 AM EDT Use Preservative Free Systane Complete/Ultra or Refresh Relieva/Optive 3-4 times daily with contact lens wear Use Systane, Refresh or Blink gel or ointment nightly before bed in both eyes documented in this encounter [facility] 08-20-2022 History of Present illness Narrative 1. Keratoconus, stable, bilateral Good vision, fit and comfort 2. Dry eye syndrome of bilateral lacrimal glands Continue PF artificial tears 3-4 times daily Add gel/ointment nighttime both eyes Follow-up as needed or in 7-8 months for cl lili Pool, OD August 20, 2022 9:07 AM documented in this encounter [facility] 08-13-2022 Miscellaneous Notes FRANK 04/13/22 Appointment scheduled 10/12/22 Please advise. Thank you. KIAN Velarde Patient has been identified by name and date of : Yes Requested Prescriptions Pending Prescriptions Disp Refills metFORMIN (GLUCOPHAGE) 500 mg tablet 180 tablet 1 Sig: Take 1 tablet by mouth twice daily with meals. . atenolol (TENORMIN) 100 mg tablet 90 tablet 1 Sig: Take 1 tablet by mouth once daily. RX INSTRUCTIONS: Patient aware RX will be sent to pharmacy. No need to notify patient. Yarelis Sue documented in this encounter [facility] 04-23-2022 History of Present illness Narrative 1. Keratoconus, stable, bilateral Patient doing well with both lenses Continue follow-up with Dr. Vincent for comprehensive eye care, and me in 1 year for contact lens lili Pool, OD April 23, 2022 9:40 AM documented in this encounter [facility] 04-16-2022 Miscellaneous Notes Order to check TSH filed. Yarelis Carlos APRN.CNP Pt informed, verbalized understanding Pt would like to recheck thyroid in 3 months Sammie Walden Please call patient and let her know her A1c is the same as last check. Continue metformin as prescribed. Thyroid level is mildly elevated. We can increase the synthroid if she would like or recheck in 3 months since it is a very minor elevation. The rest of her blood work is normal. Yarelis Carlos APRN.CNP documented in this encounter [facility] 04-13-2022 History of Present illness Narrative 04/13/2022 Patient presents with: Follow Up SUBJECTIVE: This is a 66 year old that is here today for Above Complaints. Since last office visit has been in good health without ER visits or hospitalizations. HYPOTHYROIDISM: taking synthroid as prescribed without side effects. PREDIABETES:taking metformin as prescribed without side effects. Denies visual changes, polyuria, or polydipsia HTN: Patient is compliant with meds Yes Monitors bp at home: No. Denies side effects: Yes. Chest pain: No. Dyspnea: No. Edema: No. Palpitations: No. Syncope: No. Headache: No. Dizziness: No. HYPERLIPIDEMIA: Patient is taking medications: Yes. Patient is watching diet: Yes. Patient denies myalgias: Yes. Patient denies gi upset: Yes PAF: denies recent palpitations. Taking atenolol as prescribed. PAST MEDICAL HISTORY Diagnosis Date Essential hypertension Obesity (BMI 30-39.9) Other and unspecified hyperlipidemia 2002 Paroxysmal supraventricular tachycardia (HCC) 2003 Supraventricular tachycardia Postablative hypothyroidism Prediabetes Reflux 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 thyrotoxic crisis or storm ALLERGIES Lipitor [Atorvastatin Calcium] MEDICATIONS Current Outpatient Medications Medication Sig metFORMIN (GLUCOPHAGE) 500 mg tablet Take 1 tablet by mouth twice daily with meals. . atenolol (TENORMIN) 100 mg tablet Take 1 tablet by mouth once daily. pravastatin (PRAVACHOL) 40 mg tablet Take 1 tablet by mouth once daily. levothyroxine (SYNTHROID) 112 mcg tablet Take 1/2 tab on Saturday, and 1 tab other days. Take on empty stomach. Blood Pressure Monitor (BLOOD PRESSURE KIT) 1 Each once daily as needed. Murray-3 Fatty Acids 500 mg cap Take 1 capsule by mouth once daily. aspirin, enteric coated (ASPIRIN, ENTERIC COATED) 81 mg EC tablet Take 1 tablet by mouth once daily. SARAH MI ORAL Take by mouth three times daily. Potassium 99 mg tab Take by mouth once daily. Cholecalciferol, Vitamin D3, 1,000 unit Cap Take 1 capsule by mouth once daily. VITAMIN B-6 100 MG TAB Take one(1) tablet daily. CYANOCOBALAMIN 500 MCG TAB Take one(1) tablet daily. MULTIVITAMIN TAB Take one(1) tablet daily. No current facility-administered medications for this visit. Medications and allergies reviewed by this provider. SOCIAL HISTORY Social History Tobacco Use Smoking status: Never Smokeless tobacco: Never Vaping Use Vaping Use: Never used Substance Use Topics Alcohol use: No Drug use: No REVIEW OF SYSTEMS All other reviewed and negative other than HPI. OBJECTIVE: BP 132/78 Pulse 72 Resp 16 Wt 83.4 kg (183 lb 12.8 oz) LMP 05/27/2006 SpO2 96% BMI 32.36 kg/m . Vital signs reviewed by this provider. APPEARANCE Well appearing, alert, in no acute distress, well-hydrated, well nourished. EYES conjunctiva and sclera normal. HEART RRR with normal S1 and S2, no murmurs, no gallops, no JVD appreciated LUNG clear to auscultation. No wheezes, rhonchi or rales EXTREMITIES Extremities normal, No deformities, No skin discoloration, and No edema SKIN Skin color, texture, turgor normal, no suspicious rashes or lesions to exposed skin COVID-19 VACCINE(1) Never done BP CONTROLLED (<130/80) Never done SHINGRIX VACCINE(1 of 2) Never done INFLUENZA(1) due on 11/02/2021 ADVANCE DIRECTIVE DISCUSSION Never done DEPRESSION ASSESSMENT Never done BONE DENSITY due on 10/10/2022 MAMMOGRAM due on 11/21/2022 COLORECTAL CANCER SCREENING due on 01/15/2023 ANNUAL PCP TEAM CHRONIC DISEASE VISIT due on 04/13/2023 DTAP,TDAP,TD(2 - Td or Tdap) due on 08/11/2023 DIABETES SCREEN due on 09/30/2024 LIPID SCREEN due on 09/30/2026 HEPATITIS C SCREENING Completed PNEUMOCOCCAL: 65+ Completed Component Latest Ref Rng & Units 12/09/2021 Albumin 3.9 - 4.9 g/dL 4.5 Bilirubin, Total 0.2 - 1.3 mg/dL 0.5 Bilirubin, Conjug <0.2 mg/dL <0.2 Alkaline Phosphatase 34 - 123 U/L 74 AST 13 - 35 U/L 28 ALT 7 - 38 U/L 26 Protein, Total 6.3 - 8.0 g/dL 7.1 TSH 0.270 - 4.200 mIU/L 4.180 Component Latest Ref Rng & Units 09/30/2021 Total Cholesterol, Nonfasting <200 mg/dL 173 Triglycerides, Nonfasting <150 mg/dL 96 HDL Cholesterol, Nonfasting >39 mg/dL 55 LDL Cholesterol, Nonfasting <100 mg/dL 99 Non HDL Cholesterol, Nonfasting <130 mg/dL 118 VLDL Cholesterol, Nonfasting <30 mg/dL 19 Total Chol/HDL Ratio, Nonfasting <5.10 mg/dL 3.15 LDL/HDL Ratio, Nonfasting <2.54 mg/dL 1.80 COVID-19 VACCINE(1) Never done BP CONTROLLED (<130/80) Never done SHINGRIX VACCINE(1 of 2) Never done INFLUENZA(1) due on 11/02/2021 ADVANCE DIRECTIVE DISCUSSION Never done DEPRESSION ASSESSMENT Never done BONE DENSITY due on 10/10/2022 MAMMOGRAM due on 11/21/2022 COLORECTAL CANCER SCREENING due on 01/15/2023 ANNUAL PCP TEAM CHRONIC DISEASE VISIT due on 04/13/2023 DTAP,TDAP,TD(2 - Td or Tdap) due on 08/11/2023 DIABETES SCREEN due on 09/30/2024 LIPID SCREEN due on 09/30/2026 HEPATITIS C SCREENING Completed PNEUMOCOCCAL: 65+ Completed ASSESSMENT/PLAN: 1. Prediabetes - ICD9: 790.29, ICD10: R73.03 (primary diagnosis) - continue current medications - continue diet and exercise - HGB A1C - follow-up in 6 months 2. Essential hypertension - ICD9: 401.9, ICD10: I10 - good control - Continue current medication(s) - Encouraged dietary sodium restriction/DASH diet - Recommended regular aerobic exercise. - Recommend home blood pressure monitoring, to bring results in on next visit - Recheck in 6 months, sooner should new symptoms or problems arise. - Goal of BP <140/90 - Recommended no refined sugar, low refined starch, healthy oil intake (olive oil), healthy protein (fish) along the lines of the Mediterranean diet. - COMP METABOLIC PANEL 3. Acquired hypothyroidism - ICD9: 244.9, ICD10: E03.9 - Instructed patient on importance of taking on an empty stomach either first thing in the morning or at bedtime. - continue current dose of Synthroid 0.112 mg - Follow up in 6 months - TSH BLD 4. Paroxysmal supraventricular tachycardia (HCC) - ICD9: 427.0, ICD10: I47.1 - stable - continue atenolol - follow-up in 6 months, sooner if needed 5. Mixed hyperlipidemia - ICD9: 272.2, ICD10: E78.2 - good control - Continue current medication. - Encouraged following a low fat, low cholesterol diet. - Discussed the benefits of regular aerobic exercise and weight loss. - Follow up in 6 months. - Encouraged following a low carbohydrate, healthy oil intake diet. Yarelis Carlos APRN.DIONY Prescription instructions reviewed with patient as applicable. Patient advised if symptoms do not improve or if symptoms worsen sooner, to contact their primary care physician. Potential red flag symptoms discussed with the patient. Reviewed appropriate action plan to take if red flag symptoms occur. Patient agreeable to treatment plan. I spent a total of 30 minutes on the date of the service which included preparing to see the patient, [id number] patient care, completing clinical documentation, obtaining and/or reviewing separately obtained history, performing a medically appropriate examination, counseling and educating the patient/family/caregiver, and ordering medications, tests, or procedures. documented in this encounter [facility] 04-06-2022 History of Present illness Narrative 1. Keratoconus, stable, bilateral Dispensed new cl right eye only Follow-up in 2 weeks wearing new lens right ey Malachi Pool, OD April 06, 2022 9:54 AM documented in this encounter [facility] 03-16-2022 History of Present illness Narrative 1. Keratoconus, stable, bilateral Reorder new right lens only Call for in office dispense Malachi Pool, OD March 16, 2022 10:16 AM documented in this encounter [facility] 01-18-2022 History of Present illness Narrative 1. Keratoconus, stable, bilateral Re-order right lens only d/t central bubble Dispensed left lens today Call for in office dispense Malachi Pool, OD January 18, 2022 1:36 PM documented in this encounter [facility] 12-27-2021 Miscellaneous Notes Letter mailed to pt home of results. Ava Shen MA Please call patient and let her know her mammogram shows there is no mammographic evidence of malignancy. A 1 year screening mammogram is recommended. Thanks Yarelis Carlos APRN.DIONY documented in this encounter [facility] 12-11-2021 Miscellaneous Notes Letter mailed to pt home of results. Ava Shen MA ----- Message from Sharri Jacobson MD sent at 12/11/2021 8:01 AM EDT ----- Repeat thyroid testing in good range. Repeat LFTs normal. No change to regimen. documented in this encounter [facility] 11-22-2021 Miscellaneous Notes Patient notified of results, verbalizes understanding of instructions. Please assist with scheduling. Thank you! Eliot Godoy LPN Please call patient and let her know additional views of left breast. Orders placed, please assist in scheduling. Yarelis Carlos APRN.DIONY documented in this encounter [facility] 11-21-2021 Miscellaneous Notes November 21, 2021 PID: [id number] Elina Grace [address] [place] [address] Dear Ms. Grace, Your recent breast imaging exam on 11/21/2021 showed a possible finding that requires additional imaging studies for a complete evaluation. Most such findings are probably benign (not cancer). If you have a healthcare provider who ordered/prescribed your screening mammogram: Please call [phone] or [phone]: [phone] to schedule an appointment for your additional imaging (if you have not already done so). If you DO NOT have a healthcare provider (ie you did not have an order/prescription for your screening mammogram): Please call to schedule an appointment for your additional imaging (if you have not already done so). You must have an order/prescription from your physician when calling to schedule your appointment. If your order/prescription is not electronic, you must bring the hard copy with you on the day of your exam to avoid delays. Your imaging studies and reports are kept on file at [facility] as part of your permanent medical record, and are available for your continuing care. Thank you for allowing us to help in meeting your health care needs. Sincerely, Dr. Haq Interpreting Radiologist [facility] (Additional imaging) documented in this encounter [facility] 11-21-2021 History of Present illness Narrative Radiology Service Progress Note PATIENT NAME: Elina Grace DATE OF SERVICE: November 21, 2021 TIME: 9:37 AM PATIENT IDENTITY VERIFICATION COMPLETED USING TWO (2) IDENTIFIERS: Name and Date of confirmed by patient verbally. FALL SCREENING: Has the patient had 2 falls in the last year or 1 fall with injury or currently using an Ambulatory Assistive Device (Walker, Cane, Wheelchair, Crutches, etc.)? No PATIENT GENDER DATA: Female. status: : No status: NO. PATIENT RELEVANT IMPLANT DATA REVIEWED: Not Applicable RADIOLOGY DEPARTMENT: Mammography PERIPHERAL IV DATA: Not applicable SIGNED BY: RT Marley(R) November 21, 2021 9:37 AM documented in this encounter [facility] 10-10-2021 History of Present illness Narrative Chief Complaint Patient presents with: Follow Up: 6 month HPI Elina Grace is a 66 year old female who presents here today for Above Complaints. Patient has been in good health without hospitalizations or ER visits. No falls in the last 6 months. Patient states rash on her right shoulder improved after using triamcinolone cream for 2 weeks, then came back about a month ago. Thinks this could be related to her strawberry scented soap. No other contacts with similar rash. No changes to medications, detergents, soaps. TSH elevated on recent labs. Has been compliant with her synthroid as prescribed without side effects. Denies hyper/hypothyroidism symptoms on this regimen. A1c in prediabetic range at 5.7. States she eats mostly lean proteins, fruits and vegetables and exercises regularly by riding her bike. Denies polyuria, polyphagia, polydipsia, vision changes, neuropathy. PHQ-2 / Depression screen He in the past two weeks denies having felt down, depressed, hopeless or with little interest or pleasure in doing things. Past medical history, appointments, medications, allergies reviewed. Previous Medical History PAST MEDICAL HISTORY Diagnosis Date Essential hypertension Obesity (BMI 30-39.9) Other and unspecified hyperlipidemia 2002 Paroxysmal supraventricular tachycardia (HCC) 2003 Supraventricular tachycardia Postablative hypothyroidism Prediabetes Reflux 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 thyrotoxic crisis or storm Previous Surgical History PAST SURGICAL HISTORY Procedure Laterality Date DELIVERY ONLY 1984 , low cervical DELIVERY ONLY 1987 , low cervical DELIVERY ONLY 1991 , low cervical COLONOSCOPY FLX DX W/COLLJ SPEC WHEN PFRMD 01/15/13 Colonoscopy ESOPHAGOGASTRODUODENOSCOPY TRANSORAL DIAGNOSTIC 03/30/13 EGD LIG/TRNSXJ FLP TUBE ABDL/VAG APPR UNI/BI 1991 Tubal ligation with last c section Family History FAMILY HISTORY Problem Relation Age of Onset Heart Mother bypass surgery x 4 with valve replacement other (renal failure) Father Diabetes Sister on insulin Patient Allergies ALLERGIES Allergen Reactions Lipitor [Atorvastat* vertigo Current Medications Current Outpatient Medications on File Prior to Visit Medication Sig metFORMIN (GLUCOPHAGE) 500 mg tablet Take 1 tablet by mouth twice daily with meals. . pravastatin (PRAVACHOL) 40 mg tablet Take 1 tablet by mouth once daily. atenolol (TENORMIN) 100 mg tablet Take 1 tablet by mouth once daily. levothyroxine (SYNTHROID) 100 mcg tablet Take 1/2 tab on Saturday, and 1 tab other days. Take on empty stomach. Blood Pressure Monitor (BLOOD PRESSURE KIT) 1 Each once daily as needed. Murray-3 Fatty Acids (FISH OIL) 500 mg cap Take 1 capsule by mouth once daily. aspirin, enteric coated (ASPIRIN, ENTERIC COATED) 81 mg EC tablet Take 1 tablet by mouth once daily. SARAH MI ORAL Take by mouth three times daily. Potassium 99 mg tab Take by mouth once daily. Cholecalciferol, Vitamin D3, 1,000 unit Cap Take 1 capsule by mouth once daily. VITAMIN B-6 100 MG TAB Take one(1) tablet daily. CYANOCOBALAMIN 500 MCG TAB Take one(1) tablet daily. MULTIVITAMIN TAB Take one(1) tablet daily. No current facility-administered medications on file prior to visit. Social History Social History Tobacco Use Smoking status: Never Smokeless tobacco: Never Substance Use Topics Alcohol use: No Drug use: No Review of Symptoms REVIEW OF SYSTEMS GENERAL: No weight loss, malaise or fevers RESPIRATORY: Negative for cough, hemoptysis, wheezing, COPD, dyspnea or shortness of breath CARDIOVASCULAR: Negative for chest pain, leg swelling, hypertension, CHF or palpitations GI: No nausea, vomiting, or diarrhea SKIN: Negative for lesions, rash, and itching EXAM: BP 116/76 Pulse 72 Resp 16 Wt 84 kg (185 lb 3.2 oz) LMP 05/27/2006 SpO2 99% BMI 32.61 kg/m General Appearance: Well appearing, alert, in no acute distress, well-hydrated, well nourished.. Skin: confluent maculopapular rash on right shoulder, strip about 4-5 cm long without excoriations, vesicles, or pustules. Neck: Supple, no adenopathy; thyroid symmetric, normal size, no bruits. Lungs: Lungs clear to auscultation. No wheezing, rhonchi, rales.. Heart: RRR without murmur, gallop, or rubs. No ectopy. Abdomen: Normal abdominal exam, Abdomen soft, non-tender. Bowel sounds normal. No masses, organomegaly. Extremities: No deformities, edema, skin discoloration, clubbing or cyanosis. Good capillary refill. . Health Maintenance List BONE DENSITY Never done PNEUMOCOCCAL: 65+(2 - PCV) due on 09/29/2020 ADVANCE DIRECTIVE DISCUSSION Never done DEPRESSION SCREENING due on 10/10/2021 MAMMOGRAM due on 11/16/2021 SHINGRIX VACCINE(1 of 2) due on 10/10/2021 COVID-19 VACCINE(1) due on 10/10/2021 INFLUENZA(1) due on 11/02/2021 ANNUAL PCP TEAM CHRONIC DISEASE VISIT due on 08/07/2022 BP CONTROLLED (<130/80) due on 08/07/2022 COLORECTAL CANCER SCREENING due on 01/15/2023 DTAP,TDAP,TD(2 - Td or Tdap) due on 08/11/2023 DIABETES SCREEN due on 09/30/2024 LIPID SCREEN due on 09/30/2026 HEPATITIS C SCREENING Completed Data reviewed Component Latest Ref Rng & Units 09/30/2021 Protein, Total 6.3 - 8.0 g/dL 6.8 Albumin 3.9 - 4.9 g/dL 4.1 Calcium 8.5 - 10.2 mg/dL 9.8 Bilirubin, Total 0.2 - 1.3 mg/dL 0.4 Alkaline Phosphatase 34 - 123 U/L 70 AST 13 - 35 U/L 51 (H) ALT 7 - 38 U/L 33 Glucose 74 - 99 mg/dL 79 BUN 7 - 21 mg/dL 14 Creatinine 0.58 - 0.96 mg/dL 0.71 Sodium 136 - 144 mmol/L 140 Potassium Chloride 97 - 105 mmol/L 104 CO2 22 - 30 mmol/L 28 Anion Gap 9 - 18 mmol/L 8 (L) eGFR >=60 mL/min/1.73m 93 WBC 3.70 - 11.00 k/uL 3.99 RBC 3.90 - 5.20 m/uL 4.10 Hemoglobin 11.5 - 15.5 g/dL 12.8 Hematocrit 36.0 - 46.0 % 39.6 MCV 80.0 - 100.0 fL 96.6 MCH 26.0 - 34.0 pg 31.2 MCHC 30.5 - 36.0 g/dL 32.3 RDW-CV 11.5 - 15.0 % 13.0 Platelet Count 150 - 400 k/uL 202 MPV 9.0 - 12.7 fL 11.8 Absolute nRBC <0.01 k/uL <0.01 Total Cholesterol, Nonfasting <200 mg/dL 173 Triglycerides, Nonfasting <150 mg/dL 96 HDL Cholesterol, Nonfasting >39 mg/dL 55 LDL Cholesterol, Nonfasting <100 mg/dL 99 Non HDL Cholesterol, Nonfasting <130 mg/dL 118 VLDL Cholesterol, Nonfasting <30 mg/dL 19 Total Chol/HDL Ratio, Nonfasting <5.10 mg/dL 3.15 LDL/HDL Ratio, Nonfasting <2.54 mg/dL 1.80 Hemoglobin A1C 4.3 - 5.6 % 5.7 (H) Estimated Average Glucose mg/dL 117 TSH 0.270 - 4.200 mIU/L 7.420 (H) ASSESSMENT/PLAN: 1. Prediabetes - ICD9: 790.29, ICD10: R73.03 (primary diagnosis) Borderline. Continue current regimen and low carb diet/exercise. Recheck in 6 months. - LEVOTHYROXINE 112 MCG TABLET 2. Dermatitis - ICD9: 692.9, ICD10: L30.9 - Topical steriod tx with Triamcinolone as previously prescribed x 2 weeks. Switch to unscented soap such as Dove. - discussed skin care of rash - follow up if symptoms persist or worsen. 3. Essential hypertension - ICD9: 401.9, ICD10: I10 - good control - Continue current medication(s) - Encouraged dietary sodium restriction/DASH diet - Recommended regular aerobic exercise. - Reviewed risks of HTN and principles of treatment - Goal of BP <140/90 4. Mixed hyperlipidemia - ICD9: 272.2, ICD10: E78.2 - good control - Continue current medication. - Encouraged following a low fat, low cholesterol diet. - Discussed the benefits of regular aerobic exercise and weight loss. 5. Acquired hypothyroidism - ICD9: 244.9, ICD10: E03.9 - Instructed patient on importance of taking on an empty stomach either first thing in the morning or at bedtime. - check TSH in 2 months - increase dose of Synthroid 0.112 mg - LEVOTHYROXINE 112 MCG TABLET - TSH BLD 6. Obesity (BMI 30-39.9) - ICD9: 278.00, ICD10: E66.9 Stable - Behavioral intervention - LEVOTHYROXINE 112 MCG TABLET 7. Paroxysmal supraventricular tachycardia (HCC) - ICD9: 427.0, ICD10: I47.1 Asymptomatic on current regimen. 8. Elevated LFTs - ICD9: 790.6, ICD10: R79.89 Mild elevation, likely 2/2 hemolysis. Recheck in 2 months with TSH. - HEPATIC FUNCTION PNL 9. Screening mammogram for breast cancer - ICD9: V76.12, ICD10: Z12.31 - PARISH SCREENING 10. Need for pneumococcal vaccine - ICD9: V03.82, ICD10: Z23 - PNEUMOCOCCAL VACCINE (PREVNAR 20) Sharri Jacobson MD documented in this encounter [facility] 08-07-2021 History of Present illness Narrative Chief Complaint Patient presents with: Rash: right shoulder-itches Rx Refills HPI Elina Grace is a 66 year old female who presents here today for Above Complaints.. Patient complaining of itchy rash on her right shoulder which started about 2 months ago. Has been treating with keila dry and vitamin E without improvement. Denies plant contact, new medications/soaps/detergents, fever/chills, pain, vesicles, drainage. Past medical history, appointments, medications, allergies reviewed. Previous Medical History PAST MEDICAL HISTORY Diagnosis Date Essential hypertension Obesity (BMI 30-39.9) Other and unspecified hyperlipidemia 2002 Paroxysmal supraventricular tachycardia (HCC) 2002 Supraventricular tachycardia Postablative hypothyroidism Prediabetes Reflux 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 thyrotoxic crisis or storm Previous Surgical History PAST SURGICAL HISTORY Procedure Laterality Date DELIVERY ONLY 1984 , low cervical DELIVERY ONLY 1987 , low cervical DELIVERY ONLY 1991 , low cervical COLONOSCOPY FLX DX W/COLLJ SPEC WHEN PFRMD 01/15/13 Colonoscopy ESOPHAGOGASTRODUODENOSCOPY TRANSORAL DIAGNOSTIC 03/30/13 EGD LIG/TRNSXJ FLP TUBE ABDL/VAG APPR UNI/BI 1991 Tubal ligation with last c section Family History FAMILY HISTORY Problem Relation Age of Onset Heart Mother bypass surgery x 4 with valve replacement other (renal failure) Father Diabetes Sister on insulin Patient Allergies ALLERGIES Allergen Reactions Lipitor [Atorvastat* vertigo Current Medications Current Outpatient Medications on File Prior to Visit Medication Sig metFORMIN (GLUCOPHAGE) 500 mg tablet Take 1 tablet by mouth twice daily with meals. . pravastatin (PRAVACHOL) 40 mg tablet Take 1 tablet by mouth once daily. atenolol (TENORMIN) 100 mg tablet Take 1 tablet by mouth once daily. levothyroxine (SYNTHROID) 100 mcg tablet Take 1/2 tab on Saturday, and 1 tab other days. Take on empty stomach. Blood Pressure Monitor (BLOOD PRESSURE KIT) 1 Each once daily as needed. Murray-3 Fatty Acids (FISH OIL) 500 mg cap Take 1 capsule by mouth once daily. aspirin, enteric coated (ASPIRIN, ENTERIC COATED) 81 mg EC tablet Take 1 tablet by mouth once daily. SARAH MI ORAL Take by mouth three times daily. Potassium 99 mg tab Take by mouth once daily. Cholecalciferol, Vitamin D3, 1,000 unit Cap Take 1 capsule by mouth once daily. VITAMIN B-6 100 MG TAB Take one(1) tablet daily. CYANOCOBALAMIN 500 MCG TAB Take one(1) tablet daily. MULTIVITAMIN TAB Take one(1) tablet daily. No current facility-administered medications on file prior to visit. Social History Social History Tobacco Use Smoking status: Never Smoker Smokeless tobacco: Never Used Substance Use Topics Alcohol use: No Drug use: No Review of Symptoms REVIEW OF SYSTEMS See HPI EXAM: BP 128/78 Pulse 72 Resp 16 Wt 83.6 kg (184 lb 6.4 oz) LMP 05/27/2006 SpO2 95% BMI 32.47 kg/m General Appearance: Well appearing, alert, in no acute distress, well-hydrated, well nourished.. Skin: scattered maculopapular rash on right shoulder in area the size of a golf ball without vesicles, pustules, or cellulitis.. Health Maintenance List BP CONTROLLED (<130/80) Never done BONE DENSITY Never done PNEUMOCOCCAL: 65+(2 - PCV) due on 09/29/2020 ADVANCE DIRECTIVE DISCUSSION Never done SHINGRIX VACCINE(1 of 2) due on 10/10/2021 COVID-19 VACCINE(1) due on 10/10/2021 DEPRESSION SCREENING due on 10/10/2021 MAMMOGRAM due on 11/16/2021 ANNUAL PCP TEAM CHRONIC DISEASE VISIT due on 04/12/2022 COLORECTAL CANCER SCREENING due on 01/15/2023 DTAP,TDAP,TD(2 - Td or Tdap) due on 08/11/2023 DIABETES SCREEN due on 04/01/2024 LIPID SCREEN due on 10/01/2025 INFLUENZA Completed HEPATITIS C SCREENING Completed ASSESSMENT/PLAN: 1. Dermatitis - ICD9: 692.9, ICD10: L30.9 Possible eczema. - Topical steriod tx with Rx for steriod cream/ointment- see orders - discussed skin care of rash - follow up if symptoms persist or worsen. - TRIAMCINOLONE ACETONIDE 0.1 % TOPICAL CREAM Sharri Jacobson MD documented in this encounter [facility] 01-18-2010 History of Past i llness Narrative Problem Noted Date Resolved Date Graves' disease 01/18/2010 12/14/2016 Abdominal pain, right lower quadrant 06/14/2006 12/14/2016 Excessive or frequent menstruation 07/11/2005 12/14/2016 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 Impaired fasting glucose 017 documented as of this encounter (statuses as of 08/07/2021) [facility] History of Past illness Narrative* Problem Noted Date Resolved Date Graves' disease 01/18/2010 12/14/2016 Abdominal pain, right lower quadrant 06/14/2006 12/14/2016 Excessive or frequent menstruation 07/11/2005 12/14/2016 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 Impaired fasting glucose 10/13/2 017 documented as of this encounter (statuses as of 10/10/2021) [address]17-2010 History of Past illness Narrative* Problem Noted Date Resolved Date Graves' disease 01/18/2010 12/14/2016 Abdominal pain, right lower quadrant 06/14/2006 12/14/2016 Excessive or frequent menstruation 07/11/2005 12/14/2016 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 Impaired fasting glucose 017 documented as of this encounter (statuses as of 11/22/2021) [address]2010 History of Past illness Narrative* Problem Noted Date Resolved Date Graves' disease 01/18/2010 12/14/2016 Abdominal pain, right lower quadrant 06/14/2006 12/14/2016 Excessive or frequent menstruation 07/11/2005 12/14/2016 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 Impaired fasting glucose 017 documented as of this encounter (statuses as of 11/23/2021) [address]2010 History of Past illness Narrative* Problem Noted Date Resolved Date Graves' disease 01/18/2010 12/14/2016 Abdominal pain, right lower quadrant 06/14/2006 12/14/2016 Excessive or frequent menstruation 07/11/2005 12/14/2016 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 Impaired fasting glucose 017 documented as of this encounter (statuses as of 12/04/2021) [address]2010 History of Past illness Narrative* Problem Noted Date Resolved Date Graves' disease 01/18/2010 12/14/2016 Abdominal pain, right lower quadrant 06/14/2006 12/14/2016 Excessive or frequent menstruation 07/11/2005 12/14/2016 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 Impaired fasting glucose 017 documented as of this encounter (statuses as of 12/11/2021) [address]2010 History of Past illness Narrative* Problem Noted Date Resolved Date Graves' disease 01/18/2010 12/14/2016 Abdominal pain, right lower quadrant 06/14/2006 12/14/2016 Excessive or frequent menstruation 07/11/2005 12/14/2016 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 Impaired fasting glucose 017 documented as of this encounter (statuses as of 12/27/2021) [address]2010 History of Past illness Narrative* Problem Noted Date Resolved Date Graves' disease 01/18/2010 12/14/2016 Abdominal pain, right lower quadrant 06/14/2006 12/14/2016 Excessive or frequent menstruation 07/11/2005 12/14/2016 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 Impaired fasting glucose 017 documented as of this encounter (statuses as of 01/18/2022) [address]2010 History of Past illness Narrative* Problem Noted Date Resolved Date Graves' disease 01/18/2010 12/14/2016 Abdominal pain, right lower quadrant 06/14/2006 12/14/2016 Excessive or frequent menstruation 07/11/2005 12/14/2016 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 Impaired fasting glucose 017 documented as of this encounter (statuses as of 03/16/2022) [address]2010 History of Past illness Narrative* Problem Noted Date Resolved Date Graves' disease 01/18/2010 12/14/2016 Abdominal pain, right lower quadrant 06/14/2006 12/14/2016 Excessive or frequent menstruation 07/11/2005 12/14/2016 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 Impaired fasting glucose 017 documented as of this encounter (statuses as of 04/06/2022) [address]2010 History of Past illness Narrative* Problem Noted Date Resolved Date Graves' disease 01/18/2010 12/14/2016 Abdominal pain, right lower quadrant 06/14/2006 12/14/2016 Excessive or frequent menstruation 07/11/2005 12/14/2016 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 Impaired fasting glucose 017 documented as of this encounter (statuses as of 04/13/2022) [address]2010 History of Past illness Narrative* Problem Noted Date Resolved Date Graves' disease 01/18/2010 12/14/2016 Abdominal pain, right lower quadrant 06/14/2006 12/14/2016 Excessive or frequent menstruation 07/11/2005 12/14/2016 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 Impaired fasting glucose 017 documented as of this encounter (statuses as of 04/17/2022) [address]2010 History of Past illness Narrative* Problem Noted Date Resolved Date Graves' disease 01/18/2010 12/14/2016 Abdominal pain, right lower quadrant 06/14/2006 12/14/2016 Excessive or frequent menstruation 07/11/2005 12/14/2016 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 Impaired fasting glucose 017 documented as of this encounter (statuses as of 04/23/2022) [address]2010 History of Past illness Narrative* Problem Noted Date Resolved Date Graves' disease 01/18/2010 12/14/2016 Abdominal pain, right lower quadrant 06/14/2006 12/14/2016 Excessive or frequent menstruation 07/11/2005 12/14/2016 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 Impaired fasting glucose 017 documented as of this encounter (statuses as of 08/13/2022) [address]2010 History of Past illness Narrative* Problem Noted Date Resolved Date Graves' disease 01/18/2010 12/14/2016 Abdominal pain, right lower quadrant 06/14/2006 12/14/2016 Excessive or frequent menstruation 07/11/2005 12/14/2016 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 Impaired fasting glucose 017 documented as of this encounter (statuses as of 08/20/2022) [address]2010 History of Past illness Narrative* Problem Noted Date Resolved Date Graves' disease 01/18/2010 12/14/2016 Abdominal pain, right lower quadrant 06/14/2006 12/14/2016 Excessive or frequent menstruation 07/11/2005 12/14/2016 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 Impaired fasting glucose 017 documented as of this encounter (statuses as of 09/01/2022) [address]2010 History of Past illness Narrative* Problem Noted Date Diagnosed Date Resolved Date Graves' disease 01/18/2010 12/14/2016 Abdominal pain, right lower quadrant 06/14/2006 12/14/2016 Excessive or frequent menstruation 07/11/2005 12/14/2016 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 Impaired fasting glucose documented as of this encounter (statuses as of 09/28/2022) [address]2010 History of Past illness Narrative* Problem Noted Date Diagnosed Date Resolved Date Graves' disease 01/18/2010 12/14/2016 Abdominal pain, right lower quadrant 06/14/2006 12/14/2016 Excessive or frequent menstruation 07/11/2005 12/14/2016 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 Impaired fasting glucose documented as of this encounter (statuses as of 10/01/2022) [address]2010 History of Past illness Narrative* Problem Noted Date Diagnosed Date Resolved Date Graves' disease 01/18/2010 12/14/2016 Abdominal pain, right lower quadrant 06/14/2006 12/14/2016 Excessive or frequent menstruation 07/11/2005 12/14/2016 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 Impaired fasting glucose documented as of this encounter (statuses as of 10/16/2022) [address]2010 History of Past illness Narrative* Problem Noted Date Diagnosed Date Resolved Date Graves' disease 01/18/2010 12/14/2016 Abdominal pain, right lower quadrant 06/14/2006 12/14/2016 Excessive or frequent menstruation 07/11/2005 12/14/2016 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 Impaired fasting glucose documented as of this encounter (statuses as of 01/13/2023) [address]2010 History of Past illness Narrative* Problem Noted Date Diagnosed Date Resolved Date Graves' disease 01/18/2010 12/14/2016 Abdominal pain, right lower quadrant 06/14/2006 12/14/2016 Excessive or frequent menstruation 07/11/2005 12/14/2016 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 Impaired fasting glucose documented as of this encounter (statuses as of 04/19/2023) [address]2010 History of Past illness Narrative* Problem Noted Date Diagnosed Date Resolved Date Graves' disease 01/18/2010 12/14/2016 Abdominal pain, right lower quadrant 06/14/2006 12/14/2016 Excessive or frequent menstruation 07/11/2005 12/14/2016 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 Impaired fasting glucose documented as of this encounter (statuses as of 04/22/2023) [address]2010 History of Past illness Narrative* Problem Noted Date Diagnosed Date Resolved Date Graves' disease 01/18/2010 12/14/2016 Abdominal pain, right lower quadrant 06/14/2006 12/14/2016 Excessive or frequent menstruation 07/11/2005 12/14/2016 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 Impaired fasting glucose documented as of this encounter (statuses as of 06/21/2023) [address]2010 History of Past illness Narrative* Problem Noted Date Diagnosed Date Resolved Date Graves' disease 01/18/2010 12/14/2016 Abdominal pain, right lower quadrant 06/14/2006 12/14/2016 Excessive or frequent menstruation 07/11/2005 12/14/2016 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 Impaired fasting glucose documented as of this encounter (statuses as of 06/21/2023) [facility] Dermatitis- Primary Contact dermatitis and other eczema, due to unspecified cause Mixed hyperlipidemia Acquired hypothyroidism Unspecified hypothyroidism Prediabetes Other abnormal glucose Obesity (BMI 30-39.9) Obesity, unspecified Paroxysmal supraventricular tachycardia (HCC) Paroxysmal supraventricular tachycardia Essential hypertension Unspecified essential hypertension [facility] Diagnosis Prediabetes- Primary Other abnormal glucose Dermatitis Contact dermatitis and other eczema, due to unspecified cause Essential hypertension Unspecified essential hypertension Mixed hyperlipidemia Acquired hypothyroidism Unspecified hypothyroidism Obesity (BMI 30-39.9) Obesity, unspecified Paroxysmal supraventricular tachycardia (HCC) Paroxysmal supraventricular tachycardia Elevated LFTs Other abnormal blood chemistry Screening mammogram for breast cancer Need for pneumococcal vaccine Need for prophylactic vaccination against streptococcus pneumoniae (pneumococcus) documented in this encounter [facility] note* Diagnosis Screening mammogram for breast cancer documented in this encounter [facility] note* Diagnosis Abnormal mammogram- Primary Abnormal mammogram, unspecified documented in this encounter [facility] note* Diagnosis [place], stable, bilateral- Primary documented in this encounter [facility] note* Diagnosis [place], stable, bilateral- Primary documented in this encounter [facility] note* Diagnosis [place], stable, bilateral- Primary documented in this encounter [facility] note* Diagnosis Prediabetes- Primary Other abnormal glucose Essential hypertension Unspecified essential hypertension Acquired hypothyroidism Unspecified hypothyroidism Paroxysmal supraventricular tachycardia (HCC) Paroxysmal supraventricular tachycardia Mixed hyperlipidemia documented in this encounter [facility] note* Diagnosis Acquired hypothyroidism- Primary Unspecified hypothyroidism documented in this encounter [facility] note* Diagnosis [place], stable, bilateral- Primary documented in this encounter [facility] note* Diagnosis Mixed hyperlipidemia Acquired hypothyroidism Unspecified hypothyroidism Prediabetes Other abnormal glucose Obesity (BMI 30-39.9) Obesity, unspecified Paroxysmal supraventricular tachycardia (HCC) Paroxysmal supraventricular tachycardia Essential hypertension Unspecified essential hypertension documented in this encounter [facility] note* Diagnosis [place], stable, bilateral- Primary 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, unspecified documented in this encounter [facility] note* Diagnosis [place], stable, bilateral- Primary 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, unspecified documented in this encounter [facility] note* Diagnosis Mixed hyperlipidemia Acquired hypothyroidism Unspecified hypothyroidism Prediabetes Other abnormal glucose Obesity (BMI 30-39.9) Obesity, unspecified Paroxysmal supraventricular tachycardia (HCC) Paroxysmal supraventricular tachycardia documented in this encounter [facility] note* Diagnosis Keratoconus, stable, bilateral- Primary 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, unspecified documented in this encounter [facility] noteNo assessment information availableWUniversity [facility] Work Phone: Evaluation note* Diagnosis Epigastric abdominal pain- Primary Abdominal pain, epigastric documented in this encounter [facility] note* Diagnosis Dry cough- Primary Cough Allergic rhinitis, unspecified seasonality, unspecified trigger Prediabetes Other abnormal glucose Essential hypertension Unspecified essential hypertension Mixed hyperlipidemia Paroxysmal supraventricular tachycardia Gastroesophageal reflux disease without esophagitis Esophageal reflux Acquired hypothyroidism Unspecified hypothyroidism Encounter for immunization Need for other specified prophylactic vaccination against single bacterial disease Obesity (BMI 30-39.9) Obesity, unspecified [facility] Diagnosis Acute pain of left knee- Primary [facility] Diagnosis Screening mammogram, encounter for [facility] Diagnosis Primary osteoarthritis of left knee- Primary Primary localized osteoarthrosis, lower leg Acute pain of left knee Loose body in knee, left knee [facility] Diagnosis Essential hypertension Unspecified essential hypertension Paroxysmal supraventricular tachycardia (HCC) Paroxysmal supraventricular tachycardia Prediabetes Other abnormal glucose [facility] Diagnosis Acute cough- Primary Respiratory infection Other diseases of respiratory system, not elsewhere classified Acute cough [facility] Diagnosis Keratoconus, stable, bilateral- Primary 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, unspecified [facility] Diagnosis Prediabetes Other abnormal glucose Mixed hyperlipidemia Acquired hypothyroidism Unspecified hypothyroidism Obesity (BMI 30-39.9) Obesity, unspecified Paroxysmal supraventricular tachycardia (HCC) Paroxysmal supraventricular tachycardia [facility] Diagnosis Keratoconus, stable, bilateral- Primary 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, unspecified [facility] Diagnosis Annual physical exam- Primary Routine general medical examination at a health care facility Persistent cough for 3 weeks or longer Nasal congestion Other diseases of nasal cavity and sinuses Bilateral impacted cerumen Impacted cerumen Essential hypertension Unspecified essential hypertension Mixed hyperlipidemia Gastroesophageal reflux disease without esophagitis Esophageal reflux Prediabetes Other abnormal glucose Paroxysmal supraventricular tachycardia (HCC) Paroxysmal supraventricular tachycardia Acquired hypothyroidism Unspecified hypothyroidism Screening for colon cancer Special screening for malignant neoplasms, colon Obesity, Class I, BMI 30-34.9 Obesity, unspecified [facility] Diagnosis Keratoconus, stable, bilateral- Primary 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, unspecified [facility] Diagnosis Acute [facility] Diagnosis Acute pain of left knee documented in this encounter [facility] note* Diagnosis Essential hypertension Unspecified essential hypertension Paroxysmal supraventricular tachycardia (HCC) Paroxysmal supraventricular tachycardia Prediabetes Other abnormal glucose Mixed hyperlipidemia Acquired hypothyroidism Unspecified hypothyroidism Obesity (BMI 30-39.9) Obesity, unspecified documented in this encounter [facility] note* Diagnosis Essential hypertension- Primary Unspecified essential hypertension Acquired hypothyroidism Unspecified hypothyroidism Encounter for screening mammogram for breast cancer Prediabetes Other abnormal glucose Eustachian tube disorder, left documented in this encounter [facility] note* Diagnosis Essential hypertension- Primary Unspecified essential hypertension documented in this encounter [facility] note* Diagnosis Encounter for screening mammogram for breast cancer documented in this encounter [facility] note* Diagnosis Paroxysmal supraventricular tachycardia (HCC) Paroxysmal supraventricular tachycardia Prediabetes Other abnormal glucose Mixed hyperlipidemia Acquired hypothyroidism Unspecified hypothyroidism Obesity (BMI 30-39.9) Obesity, unspecified Essential hypertension Unspecified essential hypertension documented in this encounter [facility] note* Diagnosis Annual physical exam- Primary Routine general medical examination at a health care facility Essential hypertension Unspecified essential hypertension Mixed hyperlipidemia Paroxysmal supraventricular tachycardia (HCC) Paroxysmal supraventricular tachycardia Acquired hypothyroidism Unspecified hypothyroidism Prediabetes Other abnormal glucose Obesity, Class I, BMI 30-34.9 Obesity, unspecified Asymptomatic varicose veins Spider veins of both lower extremities Primary osteoarthritis of left knee Primary localized osteoarthrosis, lower leg documented in this encounter [facility] for referral (narrative)* Diagnostic Procedure Only (Routine) - Pending Review Specialty Diagnoses / Procedures Referred By Gagan ortega Referred To Contact [facility] Diagnoses Screening mammogram for breast cancer Procedures PARISH SCREENING SCREENING MAMMOGRAPHY BI 2-VIEW BREAST INC CAD Sharri Jacobson MD [address] [place] [address] [facility] [address] [place] [address] Referral ID Status Reason Start Date Expiration Date Visits Requested Visits Authorized [id number] Pending Review Auto-Generat ed Referral 11/10/2021 11/09/2022 1 1 [facility] for referral (narrative)* Diagnostic Procedure Only (Routine) - Closed Specialty Diagnoses / Procedures [facility] To [facility] Diagnoses Screening mammogram for breast cancer Procedures PARISH SCREENING SCREENING MAMMOGRAPHY BI 2-VIEW BREAST INC CAD Sharri Jacobson MD [address] [place] [address] [facility] [address] [place] [address] Referral ID Status Reason Start Date Expiration Date V isits Requested Visits Authorized [id number] Closed Auto-Generate d Referral 03/04/2021 03/03/2022 1 1 [facility] for referral (narrative)* Diagnostic Procedure Only (Routine) - Authorized Specialty Diagnoses / Procedures [facility] To [facility] Diagnoses Abnormal mammogram Procedures PARISH DIAGNOSTIC LT DIAGNOSTIC MAMMOGRAPHY COMPUTER-AIDED DETCJ UNI PodlogYarelis rodriguez APRN.BUCKLE ATTACHER [address] [place] [address] [facility] [address] [place] [address] Referral ID Status Reason Start Date Expiration Date Visits Requested Visits Authorized [id number] Authorized Auto-Generat ed Referral 2 03/03/2022 1 1 * Consult, Test, Treat (Routine) - Authorized Specialty Diagnoses / Procedures [facility] To [facility] Diagnoses Abnormal mammogram Procedures US BREAST LTD LT US BREAST UNI REAL TIME WITH IMAGE LIMITED PodlogYarelis rodriguez APRN.BUCKLE ATTACHER [address] [place] [address] [facility] [address] [place] [address] Referral ID Status Reason Start Date Expiration Date Visits Requested Visits Authorized [id number] Authorized Auto-Generat ed Referral 03/03/2022 1 1 [facility] for referral (narrative)* Diagnostic Procedure Only (Routine) - Closed Specialty Diagnoses / Procedures Referred By Contac t Referred To Contact [facility] Diagnoses Acute pain of left knee Procedures XR KNEE GENERAL 4V AP BOTH/PA BOTH/LAT/MERC LEFT RADIOLOGIC EXAM KNEE COMPLETE 4/MORE VIEWS CarloslogYarelis rodriguez APRN.CNP [address] [place] [address] [place] [address] Referral ID Status Reason Start Date Expiration Date V isits Requested Visits Authorized [id number] Closed Auto-Generate d Referral 06/21/2023 07/20/2024 1 1 [facility] for referral (narrative)* Diagnostic Procedure Only (Routine) - Closed Specialty Diagnoses / Procedures Referred By Contac t Referred To Contact [facility] Diagnoses Screening mammogram, encounter for Procedures PARISH SCREENING SCREENING MAMMOGRAPHY BI 2-VIEW BREAST INC CAD Sharri Jacobson MD [address] [place] [address] [facility] [address] [place] [address] Referral ID Status Reason Start Date Expiration Date V isits Requested Visits Authorized [id number] Closed Auto-Generate d Referral 12/12/2022 11/11/2023 1 1 [facility] for referral (narrative)* Diagnostic Procedure Only (Routine) - Closed Specialty Diagnoses / Procedures Referred By Contac t Referred To Contact [facility] Diagnoses Acute pain of left knee Procedures XR KNEE GENERAL 4V AP BOTH/PA BOTH/LAT/MERC LEFT RADIOLOGIC EXAM KNEE COMPLETE 4/MORE VIEWS CarloslogYarelis rodriguez APRN.BUCKLE ATTACHER [address] [place] [address] [place] [address] Referral ID Status Reason Start Date Expiration Date V isits Requested Visits Authorized [id number] Closed Auto-Generate d Referral 06/21/2023 07/20/2024 1 1 [facility] for visit Narrative* Diagnostic Procedure Only (Routine) - Closed Specialty Diagnoses / Procedures Referred By Contac t Referred To Contact [facility] Diagnoses Screening mammogram for breast cancer Procedures PARISH SCREENING SCREENING MAMMOGRAPHY BI 2-VIEW BREAST INC CAD Sharri Jacobson MD [address] [place] [address] [facility] [address] [place] [address] Referral ID Status Reason Start Date Expiration Date V isits Requested Visits Authorized [id number] Closed Auto-Generate d Referral 03/04/2021 03/03/2022 1 1 [facility] for visit Narrative* Diagnostic Procedure Only (Routine) - Closed Specialty Diagnoses / Procedures Referred By Contac t Referred To Contact [facility] Diagnoses Screening mammogram, encounter for Procedures PARISH SCREENING SCREENING MAMMOGRAPHY BI 2-VIEW BREAST INC CAD Sharri Jacobson MD [address] [place] [address] [facility] [address] [place] [address] Referral ID Status Reason Start Date Expiration Date V isits Requested Visits Authorized [id number] Closed Auto-Generate d Referral 12/12/2022 11/11/2023 1 1 [facility] for visit Narrative* Diagnostic Procedure Only (Routine) - Closed Specialty Diagnoses / Procedures Referred By Contac t Referred To Contact X[facility] Diagnoses Acute pain of left knee Procedures XR KNEE GENERAL 4V AP BOTH/PA BOTH/LAT/MERC LEFT RADIOLOGIC EXAM KNEE COMPLETE 4/MORE VIEWS Yarelis Carlos, KRIS.BUCKLE ATTACHER [address] [place] [address] [place] [address] Referral ID Status Reason Start Date Expiration Date V isits Requested Visits Authorized [id number] Closed Auto-Generate d Referral 06/21/2023 07/20/2024 1 1 [facility] for visit Narrative* Diagnostic Procedure Only (Routine) - Closed Specialty Diagnoses / Procedures Referred By Contac t Referred To Contact [facility] Diagnoses Encounter for screening mammogram for breast cancer Procedures PARISH SCREENING W LALY SCREENING DIGITAL BREAST TOMOSYNTHESIS BI SCREENING MAMMOGRAPHY BI 2-VIEW BREAST INC CAD Yarelis Carlos APRN.BUCKLE ATTACHER [address] [place] [address] Phone: tel: fax: [facility] [address] [place] [address] Referral ID Status Reason Start Date Expiration Date V isits Requested Visits Authorized [id number] Closed Auto-Generate d Referral 07/13/2024 03/03/2025 1 1 [facility] Chief Complaint and Reason for Visit Chief Complaint abd pain Advance Directives No Advanced Directives Records Found Advance Directive Response Recorded Date/ Time Living Will No January 13 023 9:51am Power of Building Custodian No January 13, 2023 9:51am Summary Purpose Family History No Family History Records FoundNo Family History Records Found Additional Source Comments Source Comments (unrecognize d section and content) In the event this informatio n is protected by the Federal Confidentiality of Alcohol and Drug Abuse Patient Records regulations: The Federal rules restrict any use of the information to criminally investigate or prosecute any alcohol or drug abuse patient.[facility] the event this information is protected by the Federal Confidentiality of Alcohol and Drug Abuse Patient Records regulations: The Federal rules restrict any use of the information to criminally investigate or prosecute any alcohol or drug abuse patient.[facility] the event this information is protected by the Federal Confidentiality of Alcohol and Drug Abuse Patient Records regulations: The Federal rules restrict any use of the information to criminally investigate or prosecute any alcohol or drug abuse patient.[facility] the event this information is protected by the Federal Confidentiality of Alcohol and Drug Abuse Patient Records regulations: The Federal rules restrict any use of the information to criminally investigate or prosecute any alcohol or drug abuse patient.[facility] the event this information is protected by the Federal Confidentiality of Alcohol and Drug Abuse Patient Records regulations: The Federal rules restrict any use of the information to criminally investigate or prosecute any alcohol or drug abuse patient.[facility]In the event this information is protected by the Federal Confidentiality of Alcohol and Drug Abuse Patient Records regulations: The Federal rules restrict any use of the information to criminally investigate or prosecute any alcohol or drug abuse patient.[facility] the event this information is protected by the Federal Confidentiality of Alcohol and Drug Abuse Patient Records regulations: The Federal rules restrict any use of the information to criminally investigate or prosecute any alcohol or drug abuse patient.[facility] HospitalIn the event this information is protected by the Federal Confidentiality of Alcohol and Drug Abuse Patient Records regulations: The Federal rules restrict any use of the information to criminally investigate or prosecute any alcohol or drug abuse patient.[facility] HospitalIn the event this information is protected by the Federal Confidentiality of Alcohol and Drug Abuse Patient Records regulations: The Federal rules restrict any use of the information to criminally investigate or prosecute any alcohol or drug abuse patient.[facility] HospitalIn the event this information is protected by the Federal Confidentiality of Alcohol and Drug Abuse Patient Records regulations: The Federal rules restrict any use of the information to criminally investigate or prosecute any alcohol or drug abuse patient.[facility] HospitalIn the event this information is protected by the Federal Confidentiality of Alcohol and Drug Abuse Patient Records regulations: The Federal rules restrict any use of the information to criminally investigate or prosecute any alcohol or drug abuse patient.[facility]In the event this information is protected by the Federal Confidentiality of Alcohol and Drug Abuse Patient Records regulations: The Federal rules restrict any use of the information to criminally investigate or prosecute any alcohol or drug abuse patient.[facility] HospitalIn the event this information is protected by the Federal Confidentiality of Alcohol and Drug Abuse Patient Records regulations: The Federal rules restrict any use of the information to criminally investigate or prosecute any alcohol or drug abuse patient.[facility]In the event this information is protected by the Federal Confidentiality of Alcohol and Drug Abuse Patient Records regulations: The Federal rules restrict any use of the information to criminally investigate or prosecute any alcohol or drug abuse patient.[facility] HospitalIn the event this information is protected by the Federal Confidentiality of Alcohol and Drug Abuse Patient Records regulations: The Federal rules restrict any use of the information to criminally investigate or prosecute any alcohol or drug abuse patient.[facility] HospitalIn the event this information is protected by the Federal Confidentiality of Alcohol and Drug Abuse Patient Records regulations: The Federal rules restrict any use of the information to criminally investigate or prosecute any alcohol or drug abuse patient.[facility] HospitalIn the event this information is protected by the Federal Confidentiality of Alcohol and Drug Abuse Patient Records regulations: The Federal rules restrict any use of the information to criminally investigate or prosecute any alcohol or drug abuse patient.[facility] HospitalIn the event this information is protected by the Federal Confidentiality of Alcohol and Drug Abuse Patient Records regulations: The Federal rules restrict any use of the information to criminally investigate or prosecute any alcohol or drug abuse patient.[facility] HospitalIn the event this information is protected by the Federal Confidentiality of Alcohol and Drug Abuse Patient Records regulations: The Federal rules restrict any use of the information to criminally investigate or prosecute any alcohol or drug abuse patient.[facility] HospitalIn the event this information is protected by the Federal Confidentiality of Alcohol and Drug Abuse Patient Records regulations: The Federal rules restrict any use of the information to criminally investigate or prosecute any alcohol or drug abuse patient.[facility] HospitalIn the event this information is protected by the Federal Confidentiality of Alcohol and Drug Abuse Patient Records regulations: The Federal rules restrict any use of the information to criminally investigate or prosecute any alcohol or drug abuse patient.[facility] HospitalIn the event this information is protected by the Federal Confidentiality of Alcohol and Drug Abuse Patient Records regulations: The Federal rules restrict any use of the information to criminally investigate or prosecute any alcohol or drug abuse patient.[facility] HospitalIn the event this information is protected by the Federal Confidentiality of Alcohol and Drug Abuse Patient Records regulations: The Federal rules restrict any use of the information to criminally investigate or prosecute any alcohol or drug abuse patient.[facility]In the event this information is protected by the Federal Confidentiality of Alcohol and Drug Abuse Patient Records regulations: The Federal rules restrict any use of the information to criminally investigate or prosecute any alcohol or drug abuse patient.[facility]In the event this information is protected by the Federal Confidentiality of Alcohol and Drug Abuse Patient Records regulations: The Federal rules restrict any use of the information to criminally investigate or prosecute any alcohol or drug abuse patient.[facility]In the event this information is protected by the Federal Confidentiality of Alcohol and Drug Abuse Patient Records regulations: The Federal rules restrict any use of the information to criminally investigate or prosecute any alcohol or drug abuse patient.[facility] HospitalIn the event this information is protected by the Federal Confidentiality of Alcohol and Drug Abuse Patient Records regulations: The Federal rules restrict any use of the information to criminally investigate or prosecute any alcohol or drug abuse patient.[facility] HospitalIn the event this information is protected by the Federal Confidentiality of Alcohol and Drug Abuse Patient Records regulations: The Federal rules restrict any use of the information to criminally investigate or prosecute any alcohol or drug abuse patient.[facility]In the event this information is protected by the Federal Confidentiality of Alcohol and Drug Abuse Patient Records regulations: The Federal rules restrict any use of the information to criminally investigate or prosecute any alcohol or drug abuse patient.[facility] HospitalIn the event this information is protected by the Federal Confidentiality of Alcohol and Drug Abuse Patient Records regulations: The Federal rules restrict any use of the information to criminally investigate or prosecute any alcohol or drug abuse patient.[facility]In the event this information is protected by the Federal Confidentiality of Alcohol and Drug Abuse Patient Records regulations: The Federal rules restrict any use of the information to criminally investigate or prosecute any alcohol or drug abuse patient.[facility] HospitalIn the event this information is protected by the Federal Confidentiality of Alcohol and Drug Abuse Patient Records regulations: The Federal rules restrict any use of the information to criminally investigate or prosecute any alcohol or drug abuse patient.[facility] HospitalIn the event this information is protected by the Federal Confidentiality of Alcohol and Drug Abuse Patient Records regulations: The Federal rules restrict any use of the information to criminally investigate or prosecute any alcohol or drug abuse patient.[facility] HospitalIn the event this information is protected by the Federal Confidentiality of Alcohol and Drug Abuse Patient Records regulations: The Federal rules restrict any use of the information to criminally investigate or prosecute any alcohol or drug abuse patient.[facility] HospitalIn the event this information is protected by the Federal Confidentiality of Alcohol and Drug Abuse Patient Records regulations: The Federal rules restrict any use of the information to criminally investigate or prosecute any alcohol or drug abuse patient.[facility] HospitalIn the event this information is protected by the Federal Confidentiality of Alcohol and Drug Abuse Patient Records regulations: The Federal rules restrict any use of the information to criminally investigate or prosecute any alcohol or drug abuse patient.[facility] HospitalIn the event this information is protected by the Federal Confidentiality of Alcohol and Drug Abuse Patient Records regulations: The Federal rules restrict any use of the information to criminally investigate or prosecute any alcohol or drug abuse patient.[facility] HospitalIn the event this information is protected by the Federal Confidentiality of Alcohol and Drug Abuse Patient Records regulations: The Federal rules restrict any use of the information to criminally investigate or prosecute any alcohol or drug abuse patient.[facility] HospitalIn the event this information is protected by the Federal Confidentiality of Alcohol and Drug Abuse Patient Records regulations: The Federal rules restrict any use of the information to criminally investigate or prosecute any alcohol or drug abuse patient.[facility] HospitalIn the event this information is protected by the Federal Confidentiality of Alcohol and Drug Abuse Patient Records regulations: The Federal rules restrict any use of the information to criminally investigate or prosecute any alcohol or drug abuse patient.[facility] HospitalIn the event this information is protected by the Federal Confidentiality of Alcohol and Drug Abuse Patient Records regulations: The Federal rules restrict any use of the information to criminally investigate or prosecute any alcohol or drug abuse patient.[facility] HospitalIn the event this information is protected by the Federal Confidentiality of Alcohol and Drug Abuse Patient Records regulations: The Federal rules restrict any use of the information to criminally investigate or prosecute any alcohol or drug abuse patient.[facility] HospitalIn the event this information is protected by the Federal Confidentiality of Alcohol and Drug Abuse Patient Records regulations: The Federal rules restrict any use of the information to criminally investigate or prosecute any alcohol or drug abuse patient.[facility] HospitalIn the event this information is protected by the Federal Confidentiality of Alcohol and Drug Abuse Patient Records regulations: The Federal rules restrict any use of the information to criminally investigate or prosecute any alcohol or drug abuse patient.[facility] HospitalIn the event this information is protected by the Federal Confidentiality of Alcohol and Drug Abuse Patient Records regulations: The Federal rules restrict any use of the information to criminally investigate or prosecute any alcohol or drug abuse patient.[facility] HospitalIn the event this information is protected by the Federal Confidentiality of Alcohol and Drug Abuse Patient Records regulations: The Federal rules restrict any use of the information to criminally investigate or prosecute any alcohol or drug abuse patient.[facility] HospitalIn the event this information is protected by the Federal Confidentiality of Alcohol and Drug Abuse Patient Records regulations: The Federal rules restrict any use of the information to criminally investigate or prosecute any alcohol or drug abuse patient.[facility] HospitalIn the event this information is protected by the Federal Confidentiality of Alcohol and Drug Abuse Patient Records regulations: The Federal rules restrict any use of the information to criminally investigate or prosecute any alcohol or drug abuse patient.[facility] HospitalIn the event this information is protected by the Federal Confidentiality of Alcohol and Drug Abuse Patient Records regulations: The Federal rules restrict any use of the information to criminally investigate or prosecute any alcohol or drug abuse patient.[facility] HospitalIn the event this information is protected by the [facility] Confidentiality of Alcohol and Drug Abuse Patient Records regulations: The Federal rules restrict any use of the information to criminally investigate or prosecute any alcohol or drug abuse patient.[facility] HospitalIn the event this information is protected by the Federal Confidentiality of Alcohol and Drug Abuse Patient Records regulations: The Federal rules restrict any use of the information to criminally investigate or prosecute any alcohol or drug abuse patient.[facility] Reason for Visit (unrecogniz ed section and content) Reason Comments Dry Eye Syndrome Follow Up Specialty Diagnoses / Procedures Referred By Contac t Referred To Contact Optometry / OPHTHALMOLOGY Diagnoses Follow-up exam contact lens follow up Procedures OFFICE/OUTPATIENT ESTABLISHED MOD MDM 30-39 MIN EST CL CHECK Self Malachi Pool, OD [address] [place] [address] Referral ID Status Reason Start Date Expiration Date Visits Re quested Visits Authorized [id number] Closed 08/20/2022 03/03/2023 1 1 Reason Comments Rash right shoulder-itche s Rx Refills Specialty Diagnoses / Procedures Referred By Contact Referred To Contact Family Practice / FAMILY MEDICINE Diagnoses Elevated BP without diagnosis of hypertension elevated bp Procedures NEW PATIENT VISIT LEVEL 5 SAME DAY Sharri Jacobson MD [address] [place] [address] Sharri Jacobson MD [address] [place] [address] Referral ID Status Reason Start Date Expiration Date V isits Requested Visits Authorized [id number] Authorized 08/08/2020 08/08/2021 99 99 Reason Comments Follow Up 6 month Specialty Diagnoses / Procedures Referred By Contac t Referred To Contact Family Practice / FAMILY MEDICINE Diagnoses Follow-up exam 6 month follow up Procedures OFFICE/OUTPATIENT ESTABLISHED MOD MDM 30-39 MIN 4C EST Sharir Jacobson MD [address] [place] [id number] Sharri Jacobson MD [address] [place] [address] Referral ID Status Reason Start Date Expiration Date Visits Re quested Visits Authorized [id number] Closed 09/30/2021 03/03/2022 2 2 Reason Comments Results Reason Comments Results Reason Comments Contact lens dispense Specialty Diagnoses / Procedures Referred By Contac t Referred To Contact Optometry / OPHTHALMOLOGY 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 Procedures OFFICE/OUTPATIENT ESTABLISHED MOD MDM 30-39 MIN EST CL FIT Malachi Pool, OD [address] [facility] [place] [address] Malachi Pool, OD [address] [facility] [place] [address] Referral ID Status Reason Start Date Expiration Date Visits Re quested Visits Authorized [id number] Closed 01/18/2022 03/03/2022 1 1 Reason Comments Contact Lens Follow Up [place] Specialty Diagnoses / Procedures Referred By Contac t Referred To Contact Optometry / OPHTHALMOLOGY Diagnoses Follow-up examination follow up contacts Procedures OFFICE/OUTPATIENT ESTABLISHED MOD MDM 30-39 MIN EST ADULT Malachi Pool, OD [address] [place] [address] Malachi Pool, OD [address] [place] [address] Referral ID Status Reason Start Date Expiration Date Visits Re quested Visits Authorized [id number] Closed 03/16/2022 03/03/2023 1 1 Reason Comments Contact Lens Follow Up Specialty Diagnoses / Procedures Referred By Gagan t Referred To Contact Optometry / OPHTHALMOLOGY Diagnoses Encounter for general adult medical examination without abnormal findings 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 Procedures OFFICE/OUTPATIENT ESTABLISHED MOD MDM 30-39 MIN EST ADULT Malachi Pool, OD [address] [place] [address] Malachi Pool, OD [address] [place] [address] Referral ID Status Reason Start Date Expiration Date Visits Re quested Visits Authorized [id number] Closed 04/06/2022 03/03/2023 1 1 Reason Comments Follow Up Specialty Diagnoses / Procedures Referred By Gagan t Referred To Contact Family Medicine / FAMILY MEDICINE Diagnoses Follow-up exam 6 month follow up Procedures OFFICE/OUTPATIENT ESTABLISHED MOD MDM 30-39 MIN 4C EST Self PodlogYarelis rodriguez APRN.BUCKLE ATTACHER [address] [place] [address] Referral ID Status Reason Start Date Expiration Date Visits Re quested Visits Authorized [id number] Closed 04/13/2022 03/03/2023 1 1 Reason Comments Contact Lens Follow Up Eye Burning Right Eye Slightly when she takes the contact lens out. Specialty Diagnoses / Procedures Referred By Gagan t Referred To Contact Optometry / OPHTHALMOLOGY Diagnoses CONTACT LENS FOLLOW UP Procedures EST CL CHECK Malachi Pool, OD [address] [place] [address] Malachi Pool, OD [address] [place] [address] Referral ID Status Reason Start Date Expiration Date Visits Re quested Visits Authorized [id number] Closed 04/06/2022 03/03/2023 1 1 Reason Onset Date Comments Refill Request 08/13/2022 Reason Onset Date Comments Refill Request 09/28/2022 Reason Comments Contact Lens Follow Up Specialty Diagnoses / Procedures Referred By Contac t Referred To Contact Optometry / OPHTHALMOLOGY Diagnoses Follow-up exam 2-3 wk contact lens follow-up Procedures OFFICE/OUTPATIENT ESTABLISHED MOD MDM 30-39 MIN EST CL FIT Sharri Jacobson MD [address] [place] [address] Malachi Pool, OD [address] [place] [address] Referral ID Status Reason Start Date Expiration Date Visits Re quested Visits Authorized [id number] Closed 10/01/2022 03/03/2023 1 1 Reason Comments Blood Pressure higher blood pressur e readings x 1 day-2 deaths in family Reason Comments Follow Up 6 month- refill need ed medications Specialty Diagnoses / Procedures Referred By Contact Referred To Contact Family Medicine / FAMILY MEDICINE Diagnoses 6 month follow up Procedures 4C EST Sharri Jacobson MD [address] [place] [address] Sharri Jacobson MD [address] [place] [address] Referral ID Status Reason Start Date Expiration Date V isits Requested Visits Authorized [id number] Pending Review 04/19/2023 07/18/2023 1 1 Reason Comments Left Leg Pain Reason Comments Leg Pain Left leg pain Reason Comments New Pain Specialty Diagnoses / Procedures Referred By Contac t Referred To Contact Orthopedics Diagnoses Acute pain of left knee Loose body in knee, left knee Procedures CONSULT TO ORTHOPAEDICS OFFICE/OUTPATIENT NEW HIGH MDM 60 MINUTES Podlogar, KRIS Santoyo.BUCKLE ATTACHER [address] [place] [address] Referral ID Status Reason Start Date Expiration Date V isits Requested Visits Authorized [id number] Closed PCP Requested Referral 06/26/2023 06/25/2024 1 1 Reason Onset Date Comments Refill Request 08/19/2023 Reason Comments Cough Moist cough, drainag e, runny nose on and off Reason Comments Contact lens evaluation Reason Comments Physical Specialty Diagnoses / Procedures Referred By Contac t Referred To Contact Family Medicine / FAMILY MEDICINE Diagnoses Essential hypertension annual physical Procedures OFFICE/OUTPATIENT ESTABLISHED MOD MDM 30 MIN 4C EST WELL Self Sharri Jacobson MD [address] [place] [address] Referral ID Status Reason Start Date Expiration Date Visits Re quested Visits Authorized [id number] Closed 10/18/2023 03/03/2024 1 1 Specialty Diagnoses / Procedures Referred By Contac t Referred To Contact Radiology / [facility] Diagnoses Chest XR rm 5 Procedures XR CHEST Carolina Valadez APRN.BUCKLE ATTACHER [address] [place] [address] [facility] [address] [place] [id number] Referral ID Status Reason Start Date Expiration Date V isits Requested Visits Authorized [id number] Closed Clearance Not Met -Financial Clearance Bypassed 10/04/2023 01/02/2024 1 1 Reason Comments patient request xray to be put on disc Reason Onset Date Comments Refill Request 02/11/2024 Reason Onset Date Comments Refill Request 02/14/2024 Reason Comments F/U 6 months Reason Onset Date Comments Results 04/23/2024 Reason Onset Date Comments Refill Request 08/03/2024 Reason Comments 6 Month Exam Reason Onset Date Comments Results 10/20/2024 Care Teams (unrecognized sec tion and content) Glaciologist Relationship Specialty Start Date End Date Sharri Jacobson MD [address] [place] [address] PCP - General Family Practice 12/17/16 Glaciologist Relationship Specialty Start Date End Date Sharri Jacobson MD [address] [place] [address] PCP - General Family Practice 12/17/16 Glaciologist Relationship Specialty Start Date End Date Sharri Jacobson MD [address] [facility] [place] [address] PCP - General Family Medicine 12/17/16 Glaciologist Relationship Specialty Start Date End Date Sharri Jacobson MD [address] [facility] [place] [address] PCP - General Family Medicine 12/17/16 Glaciologist Relationship Specialty Start Date End Date Sharri Jacobson MD [address] [facility] [place] [address] PCP - General Family Medicine 12/17/16 Glaciologist Relationship Specialty Start Date End Date Sharri Jacobson MD [address] [facility] [place] [address] PCP - General Family Medicine 12/17/16 Glaciologist Relationship Specialty Start Date End Date Sharri Jacobson MD [address] [facility] [place] [address] PCP - General Family Medicine 12/17/16 Glaciologist Relationship Specialty Start Date End Date Sharri Jacobson MD [address] [facility] [place] [address] PCP - General Family Medicine 12/17/16 Marcio Vincent [address] [place] [address] Referring Ophthalmology 12/30/21 Glaciologist Relationship Specialty Start Date End Date Sharri Jacobson MD [address] [facility] [place] [address] PCP - General Family Medicine 12/17/16 Marcio Vincent [address] [place] [address] Referring Ophthalmology 12/30/21 Glaciologist Relationship Specialty Start Date End Date Sharri Jacobson MD [address] [facility] [place] [address] PCP - General Family Medicine 12/17/16 Marcio Vincent [address] [place] [address] Referring Ophthalmology 12/30/21 Glaciologist Relationship Specialty Start Date End Date Sharri Jacobson MD [address] [facility] [place] [address] PCP - General Family Medicine 12/17/16 Marcio Vincent [address] [place] [address] Referring Ophthalmology 12/30/21 Glaciologist Relationship Specialty Start Date End Date Sharri Jacobson MD [address] [facility] [place] [address] PCP - General Family Medicine 12/17/16 Marcio Vincent [address] [place] [address] Referring Ophthalmology 12/30/21 Glaciologist Relationship Specialty Start Date End Date Sharri Jacobson MD [address] [facility] [place] [address] PCP - General Family Medicine 12/17/16 Marcio Vincent [address] [place] [address] Referring Ophthalmology 12/30/21 Glaciologist Relationship Specialty Start Date End Date Sharri Jacobson MD [address] [facility] [place] [address] PCP - General Family Medicine 12/17/16 Marcio Vincent [address] [place] [address] Referring Ophthalmology 12/30/21 Glaciologist Relationship Specialty Start Date End Date Sharri Jacobson MD [address] [facility] [place] [address] PCP - General Family Medicine 12/17/16 Marcio Vincent [address] [place] [address] Referring Ophthalmology 12/30/21 Team Status: Active Member Role Status Dates Dr. Freddie Corley MD Family Provider Active Dr. Artis Jacobson MD Primary Care Provider Acti ve Team Status: Inactive Member Role Status Dates Dr. Artis Jacobson MD Primary Care Provider Acti ve Dr. Ramandeep Brandon MD Emergency Provider Active Glaciologist Relationship Specialty Start Date End Date Sharri Jacobson MD [address] [facility], [place] [address] PCP - General Family Medicine 12/17/16 Marcio Vincent [address] [place] [address] Referring Ophthalmology 12/30/21 Glaciologist Relationship Specialty Start Date End Date Sharri Jacobson MD [address] [facility], [place] [address] PCP - General Family Medicine 12/17/16 Marcio Vincent [address] [place] [address] Referring Ophthalmology 12/30/21 Glaciologist Relationship Specialty Start Date End Date Sharri Jacobson MD [address] [place] [address] PCP - General Family Medicine 12/17/16 Marcio Vincent [address] [facility] [place] [address] Referring Ophthalmology 12/30/21 Glaciologist Relationship Specialty Start Date End Date Sharri Jacobson MD [address] [place], [place] [address] [phone] PCP - General Family Medicine 12/17/16 Marcio Vincent [address] [place] [address] Referring Ophthalmology 12/30/21 Glaciologist Relationship Specialty Start Date End Date Sharri Jacobson MD [address] [place] [address] PCP - General Family Medicine 12/17/16 Marcio Vincent [address] [place] [address] Referring Ophthalmology 12/30/21 Glaciologist Relationship Specialty Start Date End Date Sharri Jacobson MD [address] [place], [place] [address] [phone] PCP - General Family Medicine 12/17/16 Marcio Vincent [address] [place] [address] Referring Ophthalmology 12/30/21 Glaciologist Relationship Specialty Start Date End Date Sharri Jacobson MD [address] [place], [place] [address] [phone] PCP - General Family Medicine 12/17/16 Marcio Vincent [address] [place] [address] Referring Ophthalmology 12/30/21 Glaciologist Relationship Specialty Start Date End Date Sharri Jacobson MD [address] [facility], [place] [address] [phone] PCP - General Family Medicine 12/17/16 Marcio Vincent [address] [facility], [place] [address] Referring Ophthalmology 12/30/21 Glaciologist Relationship Specialty Start Date End Date Sharri Jacobson MD [address] [facility], [place] [address] [phone] PCP - General Family Medicine 12/17/16 Marcio Vincent [address] [facility], [place] [address]251 Referring Ophthalmology 12/30/21 Glaciologist Relationship Specialty Start Date End Date Sharri Jacobson MD [address] [facility], [place] [address] [phone] PCP - General Family Medicine 12/17/16 Marcio Vincent [address] [place] [address] Referring Ophthalmology 12/30/21 Glaciologist Relationship Specialty Start Date End Date Sharri Jacobson MD [address] [facility] [place] [address] PCP - General Family Medicine 12/17/16 Marcio Vincent [address] [place] [address] Referring Ophthalmology 12/30/21 Glaciologist Relationship Specialty Start Date End Date Sharri Jacobson MD [address] [place], [place] [address] PCP - General Family Medicine 12/17/16 Marcio Vincent [address] [place] [address] Referring Ophthalmology 12/30/21 Glaciologist Relationship Specialty Start Date End Date Sharri Jacobson MD [address] [place], [place] [address] PCP - General Family Medicine 12/17/16 Marcio Vincent [address] [place] [address] Referring Ophthalmology 12/30/21 Glaciologist Relationship Specialty Start Date End Date Sharri Jacobson MD [address] [place], [place] [address] PCP - General Family Medicine 12/17/16 Marcio Vincent [address] [place] [address] Referring Ophthalmology 12/30/21 Glaciologist Relationship Specialty Start Date End Date Sharri Jacobson MD [address] [place], [place] [address] PCP - General Family Medicine 12/17/16 Marcio Vincent [address] [place] [address] Referring Ophthalmology 12/30/21 Glaciologist Relationship Specialty Start Date End Date Sharri Jacobson MD [address] [place] [address] PCP - General Family Medicine 12/17/16 Marcio Vincent [address] [place] [address] Referring Ophthalmology 12/30/21 Podlogar, Yarelis, WINK CUTTER OPERATOR.BUCKLE ATTACHER [address] [place] [address] [facility] Medicine 02/08/24 Glaciologist Relationship Specialty Start Date End Date Sharri Jacobson MD [address] [place] [address] PCP - General Family Medicine 12/17/16 Marcio Vincent [address] [place] [address] Referring Ophthalmology 12/30/21 Podlogar, Yarelis, WINK CUTTER OPERATOR.BUCKLE ATTACHER [address] [place] [address] Toddler Caregiver Family Medicine 02/08/24 Glaciologist Relationship Specialty Start Date End Date Sharri Jacobson MD [address] [place] [address] PCP - General Family Medicine 12/17/16 Marcio Vincent [address] [place] [address] Referring Ophthalmology 12/30/21 Podlogar, Yarelis WINK CUTTER OPERATOR.BUCKLE ATTACHER [address] [facility] [place] [address] Toddler Caregiver Family Medicine 02/08/24 Glaciologist Relationship Specialty Start Date End Date Sharri Jacobson MD [address] [facility] [place] [address] PCP - General Family Medicine 12/17/16 Marcio Vincent [address] [place] [address] Referring Ophthalmology 12/30/21 PodlogarYarelis APRN.BUCKLE ATTACHER [address] [facility] [place] [address] [facility] 02/08/24 Glaciologist Relationship Specialty Start Date End Date Sharri Jacobson MD [address] [facility] [place] [address] PCP - General Family Medicine 12/17/16 Marcio Vincent [address] [place] [address] Referring Ophthalmology 12/30/21 PodlogarYarelis APRN.BUCKLE ATTACHER [address] [facility] [place] [address] Toddler Caregiver Family Medicine 02/08/24 Kathy Dong APRN.BUCKLE ATTACHER [address] [facility] [place] [address] Toddler Caregiver Family Medicine 05/15/24 05/24/24 Kathy Dong APRN.BUCKLE ATTACHER [address] [place] [address] Toddler Caregiver Family Medicine 05/25/24 Glaciologist Relationship Specialty Start Date End Date Sharri Jacobson MD [address] [facility] [place] [address] PCP - General Family Medicine 12/17/16 Marcio Vincent [address] [place] [address] Referring Ophthalmology 12/30/21 Podlogar, Yarelis, WINK CUTTER OPERATOR.BUCKLE ATTACHER [address] [facility] [place] [address] Toddler Caregiver Family Medicine 02/08/24 Kathy Dogn WINK CUTTER OPERATOR.BUCKLE ATTACHER [address] [place] [address] [facility] 05/25/24 Glaciologist Relationship Specialty Start Date End Date Sharri Jacobson MD [address] [facility] [place] [address] PCP - General Family Medicine 12/17/16 Marcio Vincent [address] [place] [address] Referring Ophthalmology 12/30/21 Podlogar, Yarelis, WINK CUTTER OPERATOR.BUCKLE ATTACHER [address] [facility] [place] [address] [facility] Family Medicine 02/08/24 Glaciologist Relationship Specialty Start Date End Date Sharri Jacobson MD [address] [facility] [place] [address] PCP - General Family Medicine 12/17/16 Marcio Vincent [address] [facility] [place], [place] [address] Referring Ophthalmology 12/30/21 PodlogYarelis rodriguez APRN.BUCKLE ATTACHER [address] [facility] [place] [address] Toddler Caregiver Family Medicine 02/08/24 Kathy Dong APRN.BUCKLE ATTACHER [address] [facility] [place] [address] Toddler Caregiver Family Medicine 05/25/24 07/19/24 Kathy Dong APRN.BUCKLE ATTACHER [address] [place] [address] Toddler Caregiver Family Medicine 08/13/24 Glaciologist Relationship Specialty Start Date End Date Sharri Jacobson MD [address] [facility] [place] [address] PCP - General Family Medicine 12/17/16 Marcio Vincent [address] [place] [address] Referring Ophthalmology 12/30/21 PodlogarYarelis APRN.BUCKLE ATTACHER [address] [facility] [place] [address] Toddler Caregiver Family Medicine 02/08/24 Kathy Dong APRN.BUCKLE ATTACHER [address] [facility] [place] [address] Toddler Caregiver Family Medicine 08/13/24 Glaciologist Relationship Specialty Start Date End Date Sharri Jacobson MD [address] [facility] [place] [address] PCP - General Family Medicine 12/17/16 Marcio Vincent [address] [place] [address] Referring Ophthalmology 12/30/21 PodlogYarelis rodriguez APRN.BUCKLE ATTACHER [address] [facility] [place] [address] [facility] 02/08/24 Kathy Dong APRN.BUCKLE ATTACHER [address] [place] [address] [facility] 08/13/24 Goals (unrecognized section and content) Goals may be documented in a n alternate section INFORMATION SOURCE (unrecogn ized section and content) DATE CREATED AUTHOR 01/19/2023 [facility] DATE CREATED AUTHOR [facility]/25[facility]24 [facility] FOR RECORDS PERTAINING TO PATIENTS WHO ARE OR HAVE BEEN ENROLLED IN A CHEMICAL DEPENDENCY/SUBSTANCEABUSE PROGRAM, SOME INFORMATION MAY BE OMITTED. This clinical summary was aggregated from multiple sources. Caution should be exercised in using it in the provision of clinical care. This summary normalizes information from multiple sources, and as a consequence, information in this document may materially change the coding, format and clinical context of patient data. In addition, data may be omitted in some cases. CLINICAL DECISIONS SHOULD BE BASED ON THE PRIMARY CLINICAL RECORDS. [employer] [facility]. provides no warranty or guarantee of the accuracy or completeness of information in this document.
--- NOTE | 2024-11-10 06:06 | CT_ITS ---
PROCEDURE: EXTREMITY LOWER WITHOUT CONTRA 11/10/2024 REASON FOR EXAM: VARUS DEFORMITY LEFT KNEE TECHNIQUE: Procedure Code: CTELWO Modality: CT Procedure: EXTREMITY LOWER WITHOUT CONTRA Coronal and Sagittal reconstruction series were provided. One or more dose reduction techniques were used (e.g., Automated exposure control, adjustment of the mA and/or kV according to patient size, use of iterative reconstruction technique. RADIATION DOSE SUMMARY: DLP: 1511 mGycm COMPARISON: None FINDINGS: Bones: Bone mineralization is preserved. There is no acute fracture or destructive process through the sacrum, left iliac wing, left hip and proximal femur. There is no fracture through the distal femur proximal or distal tibia or fibula. No fracture of the ankle present. Calcaneal spurs identified. No destructive process. Joints: Mild degenerative changes of the left hip and ankle. Moderate osteoarthritic changes of the knee with narrowing of the medial and lateral compartments. Degenerative changes of the patellofemoral compartment with osteophytes. Lateral patellar tracking. Small suprapatellar joint effusion. No dislocation. No loose body. Soft Tissues: Prominent os trigonum. No soft tissue abnormality about the left hip, left knee and left ankle. CT/Extremity Lower without Contra IMPRESSION: No acute osseous abnormality. Osteoarthritis of the left knee. Mild degenerative changes of the left hip and left ankle. Reading Location: [id number]
--- NOTE | 2024-11-10 06:07 | EKG12_ITS ---
Test Reason : PREOP Blood Pressure : */* mmHG Vent. Rate : 66 BPM Atrial Rate : 66 BPM P-R Int : 150 ms QRS Dur : 92 ms QT Int : 406 ms P-R-T Axes : 51 57 32 degrees QTcB Int : 425 ms Normal sinus rhythm Nonspecific ST abnormality Abnormal ECG Confirmed by Sung Sandy ([id number]), script editor RICK MATOS ([id number]) on 11/11/2024 7:12:54 AM Referred By: Sumeet Chin Confirmed By: Sung Sandy
== END | disposition home or self-care (01) ==
PROVIDERS: PCP Family Medicine; Referring Provider Specialist; Visit Provider Specialist
DX: Z01.818 Encounter for other preprocedural examination (principal); M21.162 Varus deformity, not elsewhere classified, left knee; I10 Essential (primary) hypertension
CPT/HCPCS: 73700; 93005

== ENCOUNTER → 2024-11-20 | Outpatient (CLI) | payer OTHER, SELFPAY ==
--- OUTSIDE RECORDS SUMMARY | 2024-11-20 08:23 | XMS RPT_ITS | CCD ---
Author Organization [facility] CliniSyal Care Team Providers Care Dietary Services Director Name Role Phone Sharri Jacobson MD Primary Care Provider Sharri Jacobson MD Primary Care Provider Marcio Vincent Unavailable Sharri Jacobson MD Primary Care Provider Marcio Vincent Unavailable Sharri Jacobson MD Primary Care Provider Podlogar INVESTMENT TRADER.Yarelis VORA Unavailable Knoble INVESTMENT TRADER.HOUSEKEEPING ATTENDANTBraden Unavailable Knoble INVESTMENT TRADER.HOUSEKEEPING ATTENDANT, Braden Unavailable Knoble INVESTMENT TRADER.Braden VORA Unavailable Knoble INVESTMENT TRADER.HOUSEKEEPING ATTENDANTBraden Unavailable Artis Jacobson Primary Care Unavailable Sumeet Chin Referring Unavailable Sumeet Chin Attending Unavailable SHARRI JACOBSON Primary Care Unavailab le PODLOGARYARELIS Referring Unavailable PODLOGARYARELIS Attending Unavailable SHARRI JACOBSON Primary Care Unavailab SHARRI Bradford Referring Unavailab le SHARRI JACOBSON Primary Care Unavailab le PODLOGARYARELIS Referring Unavailable SHARRI JACOBSON Primary Care Unavailab le PODLOGARYARELIS Referring Unavailable SHARRI JACOBSON Primary Care Unavailab le SHARRI JACOBSON Primary Care Unavailab le SHARRI JACOBSON Primary Care Unavailab le BRADEN NI Attending Unavailable SHARRI JACOBSON Referring Unavailab le SHARRI JACOBSON Primary Care Unavailab le SHARRI JACOBSON Primary Care UnavailSHARRI Nova Attending Unavailab le Allergies Allergy Classification Reported Allergen(s) Allergy Type Date of Onset Reaction(s) Facility HMG-CoA Reductase Inhibitors (statins) (1 source) atorvastatin Drug Allergy 02-02-2005 [facility] Work Phone: (20 sources) atorvastatin; Translations: [ATORVASTATIN CALCIUM] Drug Allergy 02-02-2005 [facility] Work Phone: (1 source) atorvastatin Drug Allergy 01-13-2023 [facility] Repository Medications Current Medications Medication Drug Class(es) [...] 1 tablet by michael th once daily. benzonatate 100 mg oral capsule [...] oral capsule (20 sources) Vitamin D Start: 2011 take 1 capsule by mouth once daily Cholecalciferol, Vitamin D3, 1,000 unit Cap Take 1 capsule by mouth once daily. 1 capsule 0 2011 Active Comment on above: Take 1 capsule by [facility] once daily. dicyclomine hydrochloride 20 mg oral tablet (1 source) Anticholinergic Start: 2012 take 1 tablet by mouth four times daily Dicyclomine (Bentyl) 20 MG tablet Active 20 MG PO 4 TIMES DAILY January 04, 2013 11:18am doxycycline hyclate 100 mg oral tablet (1 source) Tetracycline-class Drug Start: 2023 End: 2023 take 1 tablet by mouth twice daily doxycycline (VIBRA-TABS) 100 mg tablet Indications: Respiratory infection Take 1 tablet by mouth two times a day for 10 days. 20 tablet 0 10/04/2023 10/14/2023 Active Folic Acid (1 source) Start: 2012 Folic Acid Active 1 MG TWICE A DAY January 03, 2013 11:00pm lansoprazole (1 source) Proton Pump Inhibitor Start: 2012 Prevacid Active 40 MG DAILY January 03, 2013 11:00pm levothyroxine sodium 0.112 mg oral tablet (20 sources) l-Thyroxine Start: 2023 End: 2024 take 1 tablet by mouth once daily [...] mg oral tablet (20 sources) Biguanide Start: End: take 2 tablets by mouth once daily [...] meals. . Take 2 tablets by mo cox branson daily with breakfast. . MULTIVITAMIN TAB (20 sources) Start: 6 MULTIVITAMIN TAB Take one(1) tablet daily. 0 09/14/2005 Active Comment on above: Take one(1) tablet d aily. [place]-3 Fatty Acids 500 mg cap (20 sources) Start: 6 take 1 capsule by mouth once daily [place]-3 Fatty Acids 500 mg cap Take 1 capsule by mouth once daily. 0 09/08/2015 Active Comment on above: Take 1 capsule by mo cox branson once daily. potassium gluconate 2.5 meq oral [...] 1 tablet by michael th once daily. SARAH MI ORAL (20 sources) End: 11-16-2024 take 1 tablet by mouth once daily SARAH MI ORAL Take 1 tablet by mouth once daily. 11/16/2024 Discontinued take 1 tablet by mouth once apolonia y SARAH MI ORAL Take 1 tablet by mouth once daily. Active take 1 tablet by mouth once apolonia y SARAH MI ORAL Take 1 tablet by mouth once daily. 0 Active SARAH MI ORAL Take by mouth three times daily. 0 Active Comment on above: Take by mouth three times daily. Take 1 tablet by michael th once daily. lisinopril 5 mg oral tablet (20 sources) Angiotensin Converting Enzyme Inhibitor Start: 4 End: 5 take 1 tablet by mouth once daily lisinopril (ZESTRIL) 5 mg tablet Indications: Essential hypertension Take 1 tablet by mouth once daily. 90 tablet 1 02/15/2024 04/20/2024 Discontinued (Discontinued by Patient) Comment on above: Take 1 tablet by michael th once daily. loratadine 10 mg oral tablet (19 sources) End: 5 take 1 tablet by mouth once daily loratadine (CLARITIN) 10 mg tablet Take 10 mg by mouth once daily. 10/19/2024 Discontinued (Course of therapy completed) meloxicam 15 mg oral tablet (5 sources) Nonsteroidal Anti-inflammatory Drug Start: 4 End: 4 take 1 tablet by mouth once daily meloxicam (MOBIC) 15 mg tablet Take 1 tablet by mouth once daily. 30 tablet 1 08/09/2023 10/08/2023 montelukast 10 mg oral tablet (16 sources) Leukotriene Receptor Antagonist Start: 4 End: 5 take 1 tablet by mouth once daily at bedtime montelukast (SINGULAIR) 10 mg tablet Take 1 tablet by mouth daily at bedtime. 90 tablet 1 08/03/2024 10/19/2024 Discontinued (Course of therapy completed) [place]-3 Fatty Acids (FISH OIL) 500 mg cap (1 source) Start: 6 take 1 capsule by mouth once daily [place]-3 Fatty Acids (FISH OIL) 500 mg cap Take 1 capsule by mouth once daily. 0 09/08/2015 Active Comment on above: Take 1 capsule by mo cox branson once daily. Problems Active Problems Problem Classification [...] Essential hypertension; Translations: [Essential (primary) hypertension] Onset: 1 Chronic Gastrointestinal hemorrhage (1 source) Hematochezia; Translations: [...] left knee] Onset: 5 08-09-2023 Chronic Other acquired deformities (1 source) Varus deformity, not elsewhere classified, left knee; Translations: [Varus deformity, not elsewhere classified, left knee] Onset: 5 Episodic Other ear and sense organ disorders (1 [...] Onset: 4 Varicose veins of lower extremity (10 sources) Venous varices; Translations: [Asymptomatic varicose veins [...] Test Name Value Interpretation Reference Range Facility Basic metabolic 2000 panelon 11-16-2024 Anion gap [Moles/Vol] 13 mmol/L Normal 8-15 [facility] Comment on above: Order Comment: Speci men Type: BLOOD SPECIMEN Ordering Facility: [facility] Address: [address] [place] [address] Performed By: #### 2 4321-2 #### [facility] CLIA [id number] [address] [place] [address] [place] Calcium [Mass/Vol] 9.8 mg/dL Normal 8.5-10.2 [facility] Comment on above: Order Comment: Jossiei scooby Type: BLOOD SPECIMEN Ordering Facility: [facility] Address: [address] [place] [address] Performed By: #### 2 4321-2 #### [facility] CLIA [id number] [address] [place] [address] [place] Chloride [Moles/Vol] 102 mmol/L Normal 98-107 [facility] Comment on above: Order Comment: Speci men Type: BLOOD SPECIMEN Ordering Facility: [facility] Address: [address] [place] [address] Performed By: #### 2 4321-2 #### [facility] CLIA [id number] [address] [place] [address] [place] CO2 [Moles/Vol] 25 mmol/L Normal 22-30 [facility] Comment on above: Order Comment: Liliana almodovar Type: BLOOD SPECIMEN Ordering Facility: [facility] Address: [address] [place] [address] Performed By: #### 2 4321-2 #### [facility] CLIA [id number] [address] [place] [address] [place] Creatinine [Mass/Vol] 0.70 mg/dL Normal 0.58-0.96 [facility] Comment on above: Order Comment: Liliana almodovar Type: BLOOD SPECIMEN Ordering Facility: [facility] Address: [address] [place] [address] Performed By: #### 2 4321-2 #### [facility] CLIA [id number] [facility] [place] [address] [place] eGFRcr SerPlBld CKD-EPI 2020 93 mL/min/1.73m??? Normal >=60 [facility] Comment on above: Order Comment: Liliana almodovar Type: BLOOD SPECIMEN Ordering Facility: [facility] Address: [address] [place] [address] Result Comment: Leticia mated Glomerular Filtration Rate [...] reflect actual GFR. Performed By: #### 2 4321-2 #### [facility] CLIA [id number] [address] [place] [address] [place] Glucose [Mass/Vol] 99 mg/dL Normal 74-99 [facility] Comment on above: Order Comment: Liliana almodovar Type: BLOOD SPECIMEN Ordering Facility: [facility] Address: [address] [place] [address] Result Comment: The [place] Diabetes Association (ADA) provides guidance for cutoff [...] Standards of Medical Care in Diabetes 2016, [place] [employer]. Diabetes Care. 2016.39(Suppl 1). Performed By: #### 2 4321-2 #### [facility] CLIA [id number] [address] [place] [address] [place] Potassium [Moles/Vol] 4.3 mmol/L Normal 3.7-5.1 [facility] Comment on above: Order Comment: Speci men Type: BLOOD SPECIMEN Ordering Facility: [facility] Address: [address] [place] [address] Performed By: #### 2 4321-2 #### [facility] CLIA [id number] [address] [place] [address] [place] Sodium [Moles/Vol] 140 mmol/L Normal 136-144 [facility] Comment on above: Order Comment: Speci men Type: BLOOD SPECIMEN Ordering Facility: [facility] Address: [address] [place] [address] Performed By: #### 2 4321-2 #### [facility] CLIA [id number] [address] [place] [address] [place] Urea nitrogen [Mass/Vol] 20 mg/dL Normal 7-21 [facility] Comment on above: Order Comment: Speci men Type: BLOOD SPECIMEN Ordering Facility: [facility] Address: [address] [place] [address] Performed By: #### 2 4321-2 #### [facility] CLIA [id number] [address] [place] [address] [place] CBC W Auto Differential pane l (Bld)on 11-16-2024 Basophils (Bld) [#/Vol] 0.04 10*3/uL Normal <0.11 [facility] Comment on above: Order Comment: Speci men Type: BLOOD SPECIMEN Ordering Facility: [facility] Address: [address] [place] [address] Performed By: #### 3 016-3, 37852-3, LIPNF #### [facility] CLIA [id number] [address] [place] [address] [place] Basophils/100 WBC (Bld) 0.6 % Normal [facility] Comment on above: Order Comment: Speci men Type: BLOOD SPECIMEN Ordering Facility: [facility] Address: [address] [place] [address] Performed By: #### 3 016-3, 30615-2, LIPNF #### [facility] CLIA [id number] [address] [place] [address] [place] Differential cell count method Nom (Bld) Auto Normal [facility] Comment on above: Order Comment: Speci men Type: BLOOD SPECIMEN Ordering Facility: [facility] Address: [address] [place] [address] Performed By: #### 3 016-3, , LIPNF #### [facility] CLIA [id number] [address] [place] [address] [place] Eosinophils (Bld) [#/Vol] 0.08 10*3/uL Normal <0.46 [facility] Comment on above: Order Comment: Speci men Type: BLOOD SPECIMEN Ordering Facility: [facility] Address: [address] [place] [address] Performed By: #### 3 016-3, 08090-5, LIPNF #### [facility] CLIA [id number] [address] [place] [address] [place] Eosinophils/100 WBC (Bld) 1.2 % Normal [facility] Comment on above: Order Comment: Speci men Type: BLOOD SPECIMEN Ordering Facility: [facility] Address: [address] [place] [address] Performed By: #### 3 016-3, 68074-7, LIPNF #### [facility] CLIA [id number] [address] [place] [address] [place] Erythrocyte distribution width (RBC) [Ratio] 12.8 % Normal 11.5-15.0 [facility] Comment on above: Order Comment: Speci men Type: BLOOD SPECIMEN Ordering Facility: [facility] Address: [address] [place] [address] Performed By: #### 3 016-3, 30499-3, LIPNF #### [facility] CLIA [id number] [address] [place] [address] [place] Hematocrit (Bld) [Volume fraction] 39.5 % Normal 36.0-46.0 [facility] Comment on above: Order Comment: Speci men Type: BLOOD SPECIMEN Ordering Facility: [facility] Address: [address] [place] [address] Performed By: #### 3 016-3, 80590-6, LIPNF #### [facility] CLIA [id number] [address] [place] [address] [place] Hemoglobin (Bld) [Mass/Vol] 12.9 g/dL Normal 11.5-15.5 [facility] Comment on above: Order Comment: Speci men Type: BLOOD SPECIMEN Ordering Facility: [facility] Address: [address] [place] [address] Performed By: #### 3 016-3, 80386-9, LIPNF #### [facility] CLIA [id number] [address] [place] [address] [place] Immature granulocytes (Bld) [#/Vol] 10*3/uL Normal <0.10 [facility] Comment on above: Order Comment: Speci men Type: BLOOD SPECIMEN Ordering Facility: [facility] Address: [address] [place] [address] Performed By: #### 3 016-3, 35756-6, LIPNF #### [facility] CLIA [id number] [address] [place] [address] [place] Immature granulocytes/100 WBC (Bld) 0.3 % Normal [facility] Comment on above: Order Comment: Speci men Type: BLOOD SPECIMEN Ordering Facility: [facility] Address: [address] [place] [address] Performed By: #### 3 016-3, 13004-5, LIPNF #### [facility] CLIA [id number] [address] [place] [address] [place] Lymphocytes (Bld) [#/Vol] 2.27 10*3/uL Normal 1.00-4.00 [facility] Comment on above: Order Comment: Speci men Type: BLOOD SPECIMEN Ordering Facility: [facility] Address: [address] [place] [address] Performed By: #### 3 016-3, 95984-3, LIPNF #### [facility] CLIA [id number] [address] [place] [address] [place] Lymphocytes/100 WBC (Bld) 34.5 % Normal [facility] Comment on above: Order Comment: Speci men Type: BLOOD SPECIMEN Ordering Facility: [facility] Address: [address] [place] [address] Performed By: #### 3 016-3, 57047-4, LIPNF #### [facility] CLIA [id number] [address] [place] [address] [place] MCH (RBC) [Entitic mass] 31.2 pg Normal 26.0-34.0 [facility] Comment on above: Order Comment: Speci men Type: BLOOD SPECIMEN Ordering Facility: [facility] Address: [address] [place] [address] Performed By: #### 3 016-3, 64426-9, LIPNF #### [facility] CLIA [id number] [address] [place] [address] [place] MCHC (RBC) [Mass/Vol] 32.7 g/dL Normal 30.5-36.0 [facility] Comment on above: Order Comment: Speci men Type: BLOOD SPECIMEN Ordering Facility: [facility] Address: [address] [place] [address] Performed By: #### 3 016-3, 89845-1, LIPNF #### [facility] CLIA [id number] [address] [place] [address] [place] MCV (RBC) [Entitic vol] 95.4 fL Normal 80.0-100.0 [facility] Comment on above: Order Comment: Speci men Type: BLOOD SPECIMEN Ordering Facility: [facility] Address: [address] [place] [address] Performed By: #### 3 016-3, 58723-9, LIPNF #### [facility] CLIA [id number] [address] [place] [address] [place] Monocytes (Bld) [#/Vol] 0.63 10*3/uL Normal <0.87 [facility] Comment on above: Order Comment: Speci men Type: BLOOD SPECIMEN Ordering Facility: [facility] Address: [address] [place] [address] Performed By: #### 3 016-3, 48736-2, LIPNF #### [facility] CLIA [id number] [address] [place] [address] [place] Monocytes/100 WBC (Bld) 9.6 % Normal [facility] Comment on above: Order Comment: Speci men Type: BLOOD SPECIMEN Ordering Facility: [facility] Address: [address] [place] [address] Performed By: #### 3 016-3, 48755-0, LIPNF #### [facility] CLIA [id number] [address] [place] [address] [place] Neutrophils (Bld) [#/Vol] 3.54 10*3/uL Normal 1.45-7.50 [facility] Comment on above: Order Comment: Speci men Type: BLOOD SPECIMEN Ordering Facility: [facility] Address: [address] [place] [address] Performed By: #### 3 016-3, 94352-5, LIPNF #### [facility] CLIA [id number] [address] [place] [address] [place] Neutrophils/100 WBC (Bld) 53.8 % Normal [facility] Comment on above: Order Comment: Speci men Type: BLOOD SPECIMEN Ordering Facility: [facility] Address: [address] [place] [address] Performed By: #### 3 016-3, 20047-4, LIPNF #### [facility] CLIA [id number] [address] [place] [address] [place] Nucleated RBC (Bld) [#/Vol] 10*3/uL Normal <0.01 [facility] Comment on above: Order Comment: Speci men Type: BLOOD SPECIMEN Ordering Facility: [facility] Address: [address] [place] [address] Performed By: #### 3 016-3, 00556-3, LIPNF #### [facility] CLIA [id number] [address] [place] [address] [place] Nucleated RBC/100 WBC (Bld) [Ratio] 0.0 /100 WBC Normal [facility] Comment on above: Order Comment: Speci men Type: BLOOD SPECIMEN Ordering Facility: [facility] Address: [address] [place] [address] Performed By: #### 3 016-3, 68964-7, LIPNF #### [facility] CLIA [id number] [address] [place] [address] [place] Platelet mean volume (Bld) [Entitic vol] 11.5 fL Normal 9.0-12.7 [facility] Comment on above: Order Comment: Speci men Type: BLOOD SPECIMEN Ordering Facility: [facility] Address: [address] [place] [address] Performed By: #### 3 016-3, 26348-4, LIPNF #### [facility] CLIA [id number] [address] [place] [address] [place] Platelets (Bld) [#/Vol] 241 10*3/uL Normal 150-400 [facility] Comment on above: Order Comment: Speci men Type: BLOOD SPECIMEN Ordering Facility: [facility] Address: [address] [place] [address] Performed By: #### 3 016-3, 88183-5, LIPNF #### [facility] CLIA [id number] [address] [place] [address] [place] RBC (Bld) [#/Vol] 4.14 10*6/uL Normal 3.90-5.20 [facility] Comment on above: Order Comment: Speci men Type: BLOOD SPECIMEN Ordering Facility: [facility] Address: [address] [place] [address] Performed By: #### 3 016-3, 28044-5, LIPNF #### [facility] CLIA [id number] [address] [place] [address] [place] WBC (Bld) [#/Vol] 6.58 10*3/uL Normal 3.70-11.00 [facility] Comment on above: Order Comment: Speci men Type: BLOOD SPECIMEN Ordering Facility: [facility] Address: [address] [place] [address] Performed By: #### 3 016-3, 30781-6, LIPNF #### [facility] CLIA [id number] [address] [place] [address] [place] CNOVon 11-16-2024 CNOV Office Visit (FAMPWS ) ELINA GRACE ([id number]) 1955 F Date Time Provider Department 11/16/24 11:20 AM BRADEN NI During your visit today, we recorded the following information about you: Pulse Blood pressure Weight 69/minute 134/80 80 kg Braden Ni, KRIS.HOUSEKEEPING ATTENDANT 11/16/2024 11:00 AM Addendum Chief Complaint Patient presents with: Pre-Op Exam HPI Elina Grace is a 69 year old female who presents here today for Above Complaints. Patient presents for preop exam, total knee scheduled with [facility] 12/03. Patient has lab orders to be completed. Past medical history, appointments, medications, allergies reviewed. [...] OF 08/2022 Ingrown toenail removal-Dr. Tolbert in [place] PAST SURGICAL HISTORY OF 08/2024 cyst removal from left cheek-[facility] Family History FAMILY HISTORY Problem Relation Age [...] KIT) 1 Each once daily as needed. [place]-3 Fatty Acids 500 mg cap Take 1 [...] HISTORY[1] Review of Symptoms REVIEW OF SYSTEMS SEE HPI EXAM: BP 134/80 Pulse 69 Wt 80 kg (176 lb 5.9 oz) LMP 05/27/2006 BMI 31.05 kg/m? General Appearance: Well appearing, alert, in no acute distress, well-hydrated, well nourished. Lungs: Lungs clear to auscultation. No wheezing, rhonchi, rales.. Heart: RRR without murmur, gallop, or rubs. No ectopy. Peripheral Pulses: Normal. Health Maintenance List Depression Screening Never done Anxiety Screening Never done Colorectal Cancer Screening due on 10/25/2023 Advance Directive Discussion due on 03/04/2024 Influenza Vaccine(1) due on 11/02/2024 DTaP,Tdap,Td Vaccine(2 - Td or Tdap) due on 10/19/2025 Bone Density Screening due on 10/19/2025 Mammogram Screening due on 07/13/2025 Annual PCP Team Chronic Disease Visit due on 10/19/2025 Diabetes Screening due on 10/20/2027 RSV Vaccine(1 - 1-dose 75+ series) due on 2029 Lipid Screening due on 10/19/2029 Hepatitis C Screening Completed Shingrix Vaccine Completed Pneumococcal Vaccine: 50+ Completed Cervical Cancer Screening Discontinued ASSESSMENT/PLAN: 1. Pre-op examination - ICD9: V72.84, ICD10: Z01.818 Based on the patient's history, physical, functional status, and ACS risk score, he has an 0.4% chance of a serious adverse cardiac event. This is average risk for his age an the planned operation. The risk is below the recommended threshold for further evaluation. Therefore, I do not recommend further preoperative testing and he may proceed with the planned operation. I recommend this risk assessment be incorporated into the overall discussion on risks and benefits of this operation. -Preop EKG completed at [facility] and reviewed. Unchanged from previous in 2020. Braden Ni, INVESTMENT TRADER.HOUSEKEEPING ATTENDANT [1] So (more content not included)... Normal [facility] HbA1c (Bld)on 11-16-2024 Average glucose Estimated from glycated hemoglobin (Bld) [Mass/Vol] 114 mg/dL Normal [facility] Comment on above: Order Comment: Liliana almodovar Type: BLOOD SPECIMEN Ordering Facility: [facility] Address: [address] [place] [address] Result Comment: eAG: (Estimated average glucose) is a calculated value from HgbA1c and is guest relations representative of the average blood glucose level in the last 2-3 month period. Performed By: #### 3 016-3, 56587-8, LIPNF #### [facility] CLIA [id number] [address] [place] [address] [place] HbA1c (Bld) [Mass fraction] 5.6 % Normal 4.3-5.6 [facility] Comment on above: Order Comment: Liliana almodovar Type: BLOOD SPECIMEN Ordering Facility: [facility] Address: [address] [place] [address] Result Comment: [place] Diabetes Association guidelines indicate that patients with HgbA1c in the range 5.7-6.4% are at increased risk for development of diabetes, and intervention by lifestyle modification may be beneficial. HgbA1c greater or equal to 6.5% is considered diagnostic of diabetes. Performed By: #### 3 016-3, 79579-8, LIPNF #### [facility] CLIA [id number] [address] [place] [address] STATES OF [facility] 12 Lead EKGon 11-10-2024 12 Lead EKG [facility] Cardiovascular Services [address] [place] [address] 12 Lead EKG 11/10/24 0642 MR#: [id number] Acct: [id number] Name: ELINA GRACE Rep #: [id number] : 1955 69 From: Sung Sandy MD Attending Dr: Dr. Sumeet Chin MD Status: REG CLI Ordering Dr: Sumeet Chin MD Date: 11/10/24 Location: [facility] Sex: F C Admitted: Test Reason : PREOP Blood Pressure : */* mmHG Vent. Rate : 66 BPM Atrial Rate : 66 BPM P-R Int : 150 ms QRS Dur : 92 ms QT Int : 406 ms P-R-T Axes : 51 57 32 degrees QTcB Int : 425 ms Normal sinus rhythm Nonspecific ST abnormality Abnormal ECG Confirmed by Sung Sandy ([id number]), telegraph editor RICK MATOS ([id number]) on 11/11/2024 7:12:54 AM Referred By: Sumeet Chin Confirmed By: Sung Sandy 11/11/24 0712 Date Sung Sandy MD CC: Dr. Artis Jacobson MD; Dr. Sumeet Chin MD Signed Normal [facility] Extremity Lower without Cont raon 11-10-2024 Extremity Lower without Contra [facility] Imaging Services [address] [place], [place] [address] Extremity Lower without Contra MR#: [id number] Acct: [id number] Name: ELINA GRACE Rep #: [id number] : 1955 F 69 From: Thierno ashton MD PCP: Dr. Artis Jacobson MD Status: REG CLI Study: Extremity Lower without Contra Date of Exam: 0 11/10/24 Exam# [id number] Ordering Dr: Sumeet Chin MD PROCEDURE: EXTREMITY LOWER WITHOUT CONTRA 11/10/2024 REASON FOR EXAM: VARUS DEFORMITY LEFT KNEE TECHNIQUE: Procedure Code: CTELWO Modality: CT Procedure: EXTREMITY LOWER WITHOUT CONTRA Coronal and Sagittal reconstruction series were provided. One or more dose reduction techniques were used (e.g., Automated exposure control, adjustment of the mA and/or kV according to patient size, use of iterative reconstruction technique. RADIATION DOSE SUMMARY: DLP: 1511 mGycm COMPARISON: None FINDINGS: Bones: Bone mineralization is preserved. There is no acute fracture or destructive process through the sacrum, left iliac wing, left hip and proximal femur. There is no fracture through the distal femur proximal or distal tibia or fibula. No fracture of the ankle present. Calcaneal spurs identified. No destructive process. Joints: Mild degenerative changes of the left hip and ankle. Moderate osteoarthritic changes of the knee with narrowing of the medial and lateral compartments. Degenerative changes of the patellofemoral compartment with osteophytes. Lateral patellar tracking. Small suprapatellar joint effusion. No dislocation. No loose body. Soft Tissues: Prominent os trigonum. No soft tissue abnormality about the left hip, left knee and left ankle. CT/Extremity Lower without Contra IMPRESSION: No acute osseous abnormality. Osteoarthritis of the left knee. Mild degenerative changes of the left hip and left ankle. Reading Location: [facility] CC: Dr. Artis Jacobson MD; Dr. Sumeet Chin MD Commissioner Conservation Of Resources: Signed Normal [facility] CBC W Auto Differential pane l (Bld)on 10-19-2024 Basophils (Bld) [#/Vol] 0.04 10*3/uL [facility] Basophils/100 WBC (Bld) 0.6 % [facility] Differential cell count method Nom (Bld) Auto [facility] Eosinophils (Bld) [#/Vol] 0.16 10*3/uL [facility] Eosinophils/100 WBC (Bld) 2.6 % [facility] Erythrocyte distribution width (RBC) [Ratio] 12.7 % 11.5 - 15.0 % [facility] Hematocrit (Bld) [Volume fraction] 42.0 % 36.0 - 46.0 % [facility] Hemoglobin (Bld) [Mass/Vol] 13.8 g/dL 11.5 - 15.5 g/dL [facility] Immature granulocytes (Bld) [#/Vol] [facility] Immature granulocytes/100 WBC (Bld) 0.2 % [facility] Lymphocytes (Bld) [#/Vol] 2.30 10*3/uL [facility] Lymphocytes/100 WBC (Bld) 36.9 % [facility] MCH (RBC) [Entitic mass] 31.3 pg 26.0 - 34.0 pg [facility] MCHC (RBC) [Mass/Vol] 32.9 g/dL 30.5 - 36.0 g/dL [facility] MCV (RBC) [Entitic vol] 95.2 fL 80.0 - 100.0 fL [facility] Monocytes (Bld) [#/Vol] 0.53 10*3/uL [facility] Monocytes/100 WBC (Bld) 8.5 % [facility] Neutrophils (Bld) [#/Vol] 3.19 10*3/uL [facility] Neutrophils/100 WBC (Bld) 51.2 % [facility] Nucleated RBC (Bld) [#/Vol] [facility] Nucleated RBC/100 WBC (Bld) [Ratio] 0.0 % /100 WBC [facility] Platelet mean volume (Bld) [Entitic vol] 11.0 fL 9.0 - 12.7 fL [facility] Platelets (Bld) [#/Vol] 264 10*3/uL [facility] RBC (Bld) [#/Vol] 4.41 10*6/uL 3.90 - 5.2 0 m/uL [facility] WBC (Bld) [#/Vol] 6.23 10*3/uL [facility] Basophils (Bld) [#/Vol] 0.04 10*3/uL Normal <0.11 [facility] Comment on above: Order Comment: Speci men Type: BLOOD SPECIMEN Ordering Facility: [facility] Address: [address] [place] [address] Performed By: #### 3 016-3, , LIPNF #### [facility] CLIA [id number] [address] [place] [address] [place] Basophils/100 WBC (Bld) 0.6 % Normal [facility] Comment on above: Order Comment: Speci men Type: BLOOD SPECIMEN Ordering Facility: [facility] Address: [address] [place] [address] Performed By: #### 3 016-3, , LIPNF #### [facility] CLIA [id number] [address] [place] [address] [place] Differential cell count method Nom (Bld) Auto Normal [facility] Comment on above: Order Comment: Speci men Type: BLOOD SPECIMEN Ordering Facility: [facility] Address: [address] [place] [address] Performed By: #### 3 0163, , LIPNF #### [facility] CLIA [id number] [address] [place] [address] [place] Eosinophils (Bld) [#/Vol] 0.16 10*3/uL Normal <0.46 [facility] Comment on above: Order Comment: Speci men Type: BLOOD SPECIMEN Ordering Facility: [facility] Address: [address] [place] [address] Performed By: #### 3 016-3, , LIPNF #### [facility] CLIA [id number] [address] [place] [address] [place] Eosinophils/100 WBC (Bld) 2.6 % Normal [facility] Comment on above: Order Comment: Speci men Type: BLOOD SPECIMEN Ordering Facility: [facility] Address: [address] [place] [address] Performed By: #### 3 016-3, , LIPNF #### [facility] CLIA [id number] [address] [place] [address] [place] Erythrocyte distribution width (RBC) [Ratio] 12.7 % Normal 11.5-15.0 [facility] Comment on above: Order Comment: Speci men Type: BLOOD SPECIMEN Ordering Facility: [facility] Address: [address] [place] [address] Performed By: #### 3 016-3, , LIPNF #### [facility] CLIA [id number] [address] [place] [address] [place] Hematocrit (Bld) [Volume fraction] 42.0 % Normal 36.0-46.0 [facility] Comment on above: Order Comment: Speci men Type: BLOOD SPECIMEN Ordering Facility: [facility] Address: [address] [place] [address] Performed By: #### 3 016-3, , LIPNF #### [facility] CLIA [id number] [address] [place] [address] [place] Hemoglobin (Bld) [Mass/Vol] 13.8 g/dL Normal 11.5-15.5 [facility] Comment on above: Order Comment: Speci men Type: BLOOD SPECIMEN Ordering Facility: [facility] Address: [address] [place] [address] Performed By: #### 3 016-3, , LIPNF #### [facility] CLIA [id number] [address] [place] [address] [place] Immature granulocytes (Bld) [#/Vol] 10*3/uL Normal <0.10 [facility] Comment on above: Order Comment: Speci men Type: BLOOD SPECIMEN Ordering Facility: [facility] Address: [address] [place] [address] Performed By: #### 3 016-3, 30505-5, LIPNF #### [facility] CLIA [id number] [address] [place] [address] [place] Immature granulocytes/100 WBC (Bld) 0.2 % Normal [facility] Comment on above: Order Comment: Speci men Type: BLOOD SPECIMEN Ordering Facility: [facility] Address: [address] [place] [address] Performed By: #### 3 016-3, 71964-0, LIPNF #### [facility] CLIA [id number] [address] [place] [address] [place] Lymphocytes (Bld) [#/Vol] 2.30 10*3/uL Normal 1.00-4.00 [facility] Comment on above: Order Comment: Speci men Type: BLOOD SPECIMEN Ordering Facility: [facility] Address: [address] [place] [address] Performed By: #### 3 016-3, 19544-2, LIPNF #### [facility] CLIA [id number] [address] [place] [address] [place] Lymphocytes/100 WBC (Bld) 36.9 % Normal [facility] Comment on above: Order Comment: Speci men Type: BLOOD SPECIMEN Ordering Facility: [facility] Address: [address] [place] [address] Performed By: #### 3 016-3, 71929-1, LIPNF #### [facility] CLIA [id number] [address] [place] [address] [place] MCH (RBC) [Entitic mass] 31.3 pg Normal 26.0-34.0 [facility] Comment on above: Order Comment: Speci men Type: BLOOD SPECIMEN Ordering Facility: [facility] Address: [address] [place] [address] Performed By: #### 3 016-3, 70725-7, LIPNF #### [facility] CLIA [id number] [address] [place] [address] [place] MCHC (RBC) [Mass/Vol] 32.9 g/dL Normal 30.5-36.0 [facility] Comment on above: Order Comment: Speci men Type: BLOOD SPECIMEN Ordering Facility: [facility] Address: [address] [place] [address] Performed By: #### 3 016-3, 52414-3, LIPNF #### [facility] CLIA [id number] [address] [place] [address] [place] MCV (RBC) [Entitic vol] 95.2 fL Normal 80.0-100.0 [facility] Comment on above: Order Comment: Speci men Type: BLOOD SPECIMEN Ordering Facility: [facility] Address: [address] [place] [address] Performed By: #### 3 016-3, , LIPNF #### [facility] CLIA [id number] [address] [place] [address] [place] Monocytes (Bld) [#/Vol] 0.53 10*3/uL Normal <0.87 [facility] Comment on above: Order Comment: Speci men Type: BLOOD SPECIMEN Ordering Facility: [facility] Address: [address] [place] [address] Performed By: #### 3 016-3, , LIPNF #### [facility] CLIA [id number] [address] [place] [address] [place] Monocytes/100 WBC (Bld) 8.5 % Normal [facility] Comment on above: Order Comment: Speci men Type: BLOOD SPECIMEN Ordering Facility: [facility] Address: [address] [place] [address] Performed By: #### 3 016-3, , LIPNF #### [facility] CLIA [id number] [address] [place] [address] [place] Neutrophils (Bld) [#/Vol] 3.19 10*3/uL Normal 1.45-7.50 [facility] Comment on above: Order Comment: Speci men Type: BLOOD SPECIMEN Ordering Facility: [facility] Address: [address] [place] [address] Performed By: #### 3 016-3, 36912-5, LIPNF #### [facility] CLIA [id number] [address] [place] [address] [place] Neutrophils/100 WBC (Bld) 51.2 % Normal [facility] Comment on above: Order Comment: Speci men Type: BLOOD SPECIMEN Ordering Facility: [facility] Address: [address] [place] [address] Performed By: #### 3 016-3, 89623-5, LIPNF #### [facility] CLIA [id number] [address] [place] [address] [place] Nucleated RBC (Bld) [#/Vol] 10*3/uL Normal <0.01 [facility] Comment on above: Order Comment: Speci men Type: BLOOD SPECIMEN Ordering Facility: [facility] Address: [address] [place] [address] Performed By: #### 3 016-3, 12871-9, LIPNF #### [facility] CLIA [id number] [address] [place] [address] [place] Nucleated RBC/100 WBC (Bld) [Ratio] 0.0 /100 WBC Normal [facility] Comment on above: Order Comment: Speci men Type: BLOOD SPECIMEN Ordering Facility: [facility] Address: [address] [place] [address] Performed By: #### 3 016-3, 73333-7, LIPNF #### [facility] CLIA [id number] [address] [place] [address] [place] Platelet mean volume (Bld) [Entitic vol] 11.0 fL Normal 9.0-12.7 [facility] Comment on above: Order Comment: Speci men Type: BLOOD SPECIMEN Ordering Facility: [facility] Address: [address] [place] [address] Performed By: #### 3 016-3, 02194-0, LIPNF #### [facility] CLIA [id number] [address] [place] [address] [place] Platelets (Bld) [#/Vol] 264 10*3/uL Normal 150-400 [facility] Comment on above: Order Comment: Speci men Type: BLOOD SPECIMEN Ordering Facility: [facility] Address: [address] [place] [address] Performed By: #### 3 016-3, 02961-3, LIPNF #### [facility] CLIA [id number] [address] [place] [address] [place] RBC (Bld) [#/Vol] 4.41 10*6/uL Normal 3.90-5.20 [facility] Comment on above: Order Comment: Speci men Type: BLOOD SPECIMEN Ordering Facility: [facility] Address: [address] [place] [address] Performed By: #### 3 016-3, 22668-2, LIPNF #### [facility] CLIA [id number] [address] [place] [address] [place] WBC (Bld) [#/Vol] 6.23 10*3/uL Normal 3.70-11.00 [facility] Comment on above: Order Comment: Speci men Type: BLOOD SPECIMEN Ordering Facility: [facility] Address: [address] [place] [address] Performed By: #### 3 016-3, 82342-4, LIPNF #### [facility] CLIA [id number] [address] [place] [address] [place] CNOVon 10-19-2024 CNOV Office Visit (FAMPWS ) ELINA GRACE ([id number]) 1955 F Date Time Provider Department 10/19/24 8:40 AM SHARRI JACOBSON During your visit today, we recorded the following information about you: Pulse Blood pressure Weight Height 63/minute 128/76 81.6 kg 1.605 m Sharri Jacobson MD 10/19/2024 9:31 AM Signed Chief Complaint Patient presents with: 6 Month Exam Recording using [employer] software for draft documentation of the visit was discussed with the patient/authorized guest relations representative; all questions welcomed and answered. Patient/authorized guest relations representative agreed to proceed HPI Elina Grace is a 69 year old female who presents here today for annual physical. Has forms to be completed today. Left Knee Pain: - Severe arthritis and bone on bone changes in the left knee. - Under care of Dr. Mims at [facility]. - Received two cortisone injections with adverse [...] unspecified hyperlipidemia 2003 Paroxysmal supraventricular tachycardia (HCC) 2003 Supraventricular tachycardia [...] OF 08/2022 Ingrown toenail removal-Dr. Tolbert in [place] PAST SURGICAL HISTORY OF 08/2024 cyst removal from left cheek-[facility] Family History FAMILY HISTORY Problem Relation Age [...] KIT) 1 Each once daily as needed. [place]-3 Fatty Acids 500 mg cap Take 1 [...] nasal problem (more content not included)... Normal [facility] Comprehensive metabolic 2000 panelon 10-19-2024 Albumin [Mass/Vol] 4.6 g/dL Normal 3.9-4.9 [facility] Comment on above: Order Comment: Speci men Type: BLOOD SPECIMEN Ordering Facility: [facility] Address: [address] [place] [address] Performed By: #### 3 016-3, 31488-0, LIPNF #### [facility] CLIA [id number] [address] [place] [address] [place] ALP [Catalytic activity/Vol] 60 U/L Normal 34-123 [facility] Comment on above: Order Comment: Speci men Type: BLOOD SPECIMEN Ordering Facility: [facility] Address: [address] [place] [address] Performed By: #### 3 016-3, 31092-9, LIPNF #### [facility] CLIA [id number] [address] [place] [address] [place] ALT [Catalytic activity/Vol] 21 U/L Normal 7-38 [facility] Comment on above: Order Comment: Speci men Type: BLOOD SPECIMEN Ordering Facility: [facility] Address: [address] [place] [address] Performed By: #### 3 016-3, 51767-0, LIPNF #### [facility] CLIA [id number] [address] [place] [address] [place] Anion gap [Moles/Vol] 13 mmol/L Normal 8-15 [facility] Comment on above: Order Comment: Speci men Type: BLOOD SPECIMEN Ordering Facility: [facility] Address: [address] [place] [address] Performed By: #### 3 016-3, 73993-6, LIPNF #### [facility] CLIA [id number] [address] [place] [address] [place] AST [Catalytic activity/Vol] 24 U/L Normal 13-35 [facility] Comment on above: Order Comment: Speci men Type: BLOOD SPECIMEN Ordering Facility: [facility] Address: [address] [place] [address] Performed By: #### 3 016-3, 30689-9, LIPNF #### [facility] CLIA [id number] [address] [place] [address] [place] Bilirubin [Mass/Vol] 0.4 mg/dL Normal 0.2-1.3 [facility] Comment on above: Order Comment: Speci men Type: BLOOD SPECIMEN Ordering Facility: [facility] Address: [address] [place] [address] Performed By: #### 3 016-3, 71966-6, LIPNF #### [facility] CLIA [id number] [address] [place] [address] [place] Calcium [Mass/Vol] 10.1 mg/dL Normal 8.5-10.2 [facility] Comment on above: Order Comment: Speci men Type: BLOOD SPECIMEN Ordering Facility: [facility] Address: [address] [place] [address] Performed By: #### 3 016-3, 28164-3, LIPNF #### [facility] CLIA [id number] [address] [place] [address] [place] Chloride [Moles/Vol] 101 mmol/L Normal 98-107 [facility] Comment on above: Order Comment: Speci men Type: BLOOD SPECIMEN Ordering Facility: [facility] Address: [address] [place] [address] Performed By: #### 3 016-3, 44090-4, LIPNF #### [facility] CLIA [id number] [address] [place] [address] [place] CO2 [Moles/Vol] 26 mmol/L Normal 22-30 [facility] Comment on above: Order Comment: Speci men Type: BLOOD SPECIMEN Ordering Facility: [facility] Address: [address] [place] [address] Performed By: #### 3 016-3, 31448-5, LIPNF #### [facility] CLIA [id number] [address] [place] [address] [place] Creatinine [Mass/Vol] 0.71 mg/dL Normal 0.58-0.96 [facility] Comment on above: Order Comment: Speci men Type: BLOOD SPECIMEN Ordering Facility: [facility] Address: [address] [place] [address] Performed By: #### 3 016-3, 37519-1, LIPNF #### [facility] CLIA [id number] [address] [place] [address] [place] eGFRcr SerPlBld CKD-EPI 2020 92 mL/min/1.73m??? Normal >=60 [facility] Comment on above: Order Comment: Speci men Type: BLOOD SPECIMEN Ordering Facility: [facility] Address: [address] [place] [address] Result Comment: Leticia mated Glomerular Filtration Rate [...] actual GFR. Performed By: #### 3 016-3, 90001-8, LIPNF #### [facility] CLIA [id number] [address] [place], [place] [address] [place] Glucose [Mass/Vol] 103 mg/dL High 74-99 [facility] Comment on above: Order Comment: Liliana almodovar Type: BLOOD SPECIMEN Ordering Facility: [facility] Address: [address] [place] [address] Result Comment: The [place] [employer] (ADA) provides guidance for cutoff [...] Standards of Medical Care in Diabetes 2016, [place] [employer]. Diabetes Care. 2016.39(Suppl 1). Performed By: #### 3 016-3, 61537-6, LIPNF #### [facility] CLIA [id number] [address] [place] [address] [place] Potassium [Moles/Vol] 4.6 mmol/L Normal 3.7-5.1 [facility] Comment on above: Order Comment: Liliana almodovar Type: BLOOD SPECIMEN Ordering Facility: [facility] Address: [address] [place] [address] Performed By: #### 3 016-3, 36477-8, LIPNF #### [facility] CLIA [id number] [address] [place] [address] [place] Protein [Mass/Vol] 7.5 g/dL Normal 6.3-8.0 [facility] Comment on above: Order Comment: Liliana almodovar Type: BLOOD SPECIMEN Ordering Facility: [facility] Address: [address] [place] [address] Performed By: #### 3 016-3, 34650-1, LIPNF #### [facility] CLIA [id number] [address] [place] [address] [place] Sodium [Moles/Vol] 140 mmol/L Normal 136-144 [facility] Comment on above: Order Comment: Liliana almodovar Type: BLOOD SPECIMEN Ordering Facility: [facility] Address: [address] [place] [address] Performed By: #### 3 016-3, 15989-2, LIPNF #### [facility] CLIA [id number] [address] [place] [address] [place] Urea nitrogen [Mass/Vol] 14 mg/dL Normal 7-21 [facility] Comment on above: Order Comment: Liliana almodovar Type: BLOOD SPECIMEN Ordering Facility: [facility] Address: [address] [place] [address] Performed By: #### 3 016-3, 19795-1, LIPNF #### [facility] CLIA [id number] [address] [place] [address] [place] HbA1c (Bld)on 10-19-2024 Average glucose Estimated from glycated hemoglobin (Bld) [Mass/Vol] 123 mg/dL [facility] Comment on above: eAG: (Estimated aver age glucose) is a calculated value from HgbA1c and is guest relations representative of the average blood glucose level in the last 2-3 month period. HbA1c (Bld) [Mass fraction] 5.9 % High 4.3 - 5.6 % [facility] Comment on above: [place] [employer] sociation guidelines indicate that patients with HgbA1c in the range 5.7-6.4% are at increased risk for development of diabetes, and intervention by lifestyle modification may be beneficial. HgbA1c greater or equal to 6.5% is considered diagnostic of diabetes. Interpretation and review of laboratory results Abnormal [facility] Average glucose Estimated from glycated hemoglobin (Bld) [Mass/Vol] 123 mg/dL Normal [facility] Comment on above: Order Comment: Liliana almodovar Type: BLOOD SPECIMEN Ordering Facility: [facility] Address: [address] [place] [address] Result Comment: eAG: (Estimated average glucose) is a calculated value from HgbA1c and is guest relations representative of the average blood glucose level in the last 2-3 month period. Performed By: #### 3 016-3, 73585-9, LIPNF #### [facility] CLIA [id number] [address] [place] [address] [place] HbA1c (Bld) [Mass fraction] 5.9 % High 4.3-5.6 [facility] Comment on above: Order Comment: Liliana almodovar Type: BLOOD SPECIMEN Ordering Facility: [facility] Address: [address] [place] [address] Result Comment: Amer [place] Diabetes Association guidelines indicate that patients with HgbA1c in the range 5.7-6.4% are at increased risk for development of diabetes, and intervention by lifestyle modification may be beneficial. HgbA1c greater or equal to 6.5% is considered diagnostic of diabetes. Performed By: #### 3 016-3, 78947-6, LIPNF #### [facility] CLIA [id number] [address] [place] [address] [place] LIPID PANEL, NONFASTINGon Cholesterol [Mass/Vol] 186 mg/dL Normal <200 [facility] Comment on above: Order Comment: Liliana almodovar Type: BLOOD SPECIMEN Ordering Facility: [facility] Address: [address] [place] [address] Result Comment: <200 mg/dL, Desirable 200-239 mg/dL, Borderline high >239 mg/dL, High Performed By: #### 3 016-3, 80975-4, LIPNF #### [facility] CLIA [id number] [address] [place] [address] [place] HDL CHOLESTEROL, NF 67 mg/dL Normal >39 [facility] Comment on above: Order Comment: Liliana almodovar Type: BLOOD SPECIMEN Ordering Facility: [facility] Address: [address] [place] [address] Result Comment: 40-5 9 mg/dL, Acceptable >59 mg/dL, High: Negative risk factor for coronary heart disease <40 mg/dL, Low: Positive risk factor for coronary heart disease Performed By: #### 3 016-3, 91717-0, LIPNF #### [facility] CLIA [id number] [address] [place] [address] [place] LDL CHOLESTEROL CALCULATED, NF 101 mg/dL High <100 [facility] Comment on above: Order Comment: Liliana almodovar Type: BLOOD SPECIMEN Ordering Facility: [facility] Address: [address] [place] [address] Result Comment: <100 mg/dL, Optimal 100-129 mg/dL, Near optimal/above optimal 130-159 mg/dL, Borderline high 160-189 mg/dL, High >189 mg/dL, Very high Secondary prevention optimal LDL Cholesterol levels are recommended to be <70 mg/dL LDL cholesterol is calculated using the Castrejon-NIH equation. Performed By: #### 3 016-3, 20193-4, LIPNF #### [facility] CLIA [id number] [address] [place] [address] [place] LDL/HDL RATIO, NF 1.51 mg/dL Normal <2.54 [facility] Comment on above: Order Comment: Liliana almodovar Type: BLOOD SPECIMEN Ordering Facility: [facility] Address: [address] [place] [address] Result Comment: Koffi varghese: 1. National Cholesterol Education Program ATP III Guideline At-A-Glance Quick Desk Reference: National Heart, Lung, and Blood [place]. National Institutes of Health. 2001: NIH Publication No. 01-3305. 2. An International Atherosclerosis Society position paper: global recommendations for the management of dyslipidemia: executive summary, Atherosclerosis. 2014: 232(2):410-413. Performed By: #### 3 016-3, 30938-6, LIPNF #### [facility] CLIA [id number] [address] [place] [address] [place] NON HDL CHOL, NF 119 mg/dL Normal <130 [facility] Comment on above: Order Comment: Liliana almodovar Type: BLOOD SPECIMEN Ordering Facility: [facility] Address: [address] [place] [address] Result Comment: <130 mg/dL, Optimal 130-159 mg/dL, Near optimal/above optimal 160-189 mg/dL, Borderline high 190-219 mg/dL, High >219 mg/dL, Very high Secondary prevention optimal non HDL Cholesterol levels are recommended to be <100 mg/dL Performed By: #### 3 016-3, 43989-1, LIPNF #### [facility] CLIA [id number] [address] [place] [address] [place] T CHOL/HDL RATIO NF 2.78 mg/dL Normal <5.10 [facility] Comment on above: Order Comment: Speci men Type: BLOOD SPECIMEN Ordering Facility: [facility] Address: [address] [place] [address] Performed By: #### 3 016-3, 73268-1, LIPNF #### [facility] CLIA [id number] [address] [place] [address] [place] TRIGLYCERIDES, NF 101 mg/dL Normal <150 [facility] Comment on above: Order Comment: Speci men Type: BLOOD SPECIMEN Ordering Facility: [facility] Address: [address] [place] [address] Result Comment: <150 mg/dL, Normal 150-199 mg/dL, Borderline high 200-499 mg/dL, High >499 mg/dL, Very high Performed By: #### 3 016-3, 40080-2, LIPNF #### [facility] CLIA [id number] [address] [place] [address] [place] VLDL CHOLESTEROL, NF 16 mg/dL Normal <30 [facility] Comment on above: Order Comment: Speci men Type: BLOOD SPECIMEN Ordering Facility: [facility] Address: [address] [place] [address] Performed By: #### 3 016-3, 90503-6, LIPNF #### [facility] CLIA [id number] [address] [place] [address] [place] TSH SerPl-aCncon 10-19-2024 TSH Qn 1.540 m[IU]/L Normal 0.270-4.200 [facility] Comment on above: Order Comment: Speci men Type: BLOOD SPECIMEN Ordering Facility: [facility] Address: [address] [place] [address] Performed By: #### 3 016-3, 66320-7, LIPNF #### [facility] CLIA [id number] [address] [place] [address] [place] [address] [place] CNCOon 07-14-2024 CNCO Letter Text Normal [facility] PARISH SCREENING W TOMOon 07-13 PARISH SCREENING W LALY * * *Final Report* * * DATE OF EXAM: Jul 13 2024 10:04AM BRITTANY 0582 - PARISH SCREENING W LALY / PROCEDURE REASON: Encounter for screening mammogram for breast cancer * * * * Physician Interpretation * * * * RESULT: [place] [address] [place] [id number] #[id number] - PARISH SCREENING W LALY HISTORY: 68 [...] Angelito Kat M.D. Electronically signed on: 07/14/2024 Commissioner Conservation Of Resources: TRIP Transcribe Date/Time: Jul 13 2024 9:37A Dictated by: ANGELITO KAT MD This examination was interpreted and the report reviewed and electronically signed by: ANGELITO KAT MD on Jul 14 2024 1:44PM EST [id number] Normal [facility] Comprehensive metabolic 2000 panelon 04-23-2024 Albumin [Mass/Vol] 4.4 g/dL 3.9 - 4.9 g/dL Cl [facility] ALP [Catalytic activity/Vol] 59 U/L 34 - 123 U/L [facility] ALT [Catalytic activity/Vol] 22 U/L 7 - 38 U/L [facility] Anion gap [Moles/Vol] 10 mmol/L 8 - 15 mmol/L [facility] AST [Catalytic activity/Vol] 22 U/L 13 - 35 U/L [facility] Bilirubin [Mass/Vol] 0.3 mg/dL 0.2 - 1 .3 mg/dL [facility] Calcium [Mass/Vol] 9.9 mg/dL 8.5 - 10. 2 mg/dL [facility] Chloride [Moles/Vol] 102 mmol/L 98 - 10 7 mmol/L [facility] CO2 [Moles/Vol] 28 mmol/L 22 - 30 mmol/L [facility] Creatinine [Mass/Vol] 0.73 mg/dL 0.58 - 0.96 mg/dL [facility] GFR/1.73 sq M.predicted among non-blacks MDRD (S/P/Bld) [Vol rate/Area] 89 mL/min/{1.73_m2} - PINF [facility] Comment on above: Estimated Glomerular Filtration [...] 105 mg/dL High 74 - 99 mg/dL [facility] Comment on above: The [place] Diabete s Association (ADA) provides guidance for [...] Standards of Medical Care in Diabetes 2016, [place] Diabetes Association. Diabetes Care. 2016.39(Suppl 1). Interpretation and review of laboratory results Abnormal [facility] Potassium [Moles/Vol] 4.3 mmol/L 3.7 - 5.1 mmol/L [facility] Protein [Mass/Vol] 7.2 g/dL 6.3 - 8.0 g/dL [facility] Sodium [Moles/Vol] 140 mmol/L 136 - 144 mmol/L [facility] Urea nitrogen [Mass/Vol] 22 mg/dL High 7 - 21 mg/dL [facility] CNPNon 04-22-2024 DIONYN Telephone (JOSÉ MIGUEL) ELINA GRACE ([id number]) 1955 F Date Time Provider Department 04/22/24 PODLOGARYARELIS During your visit today, we recorded the following information about you: Jeannette Vo RN 04/22/2024 9:53 AM Signed Patient calls and is asking about lab results. Please review and advise, DAMIEN Leary Stephanie RN 04/28/2024 3:43 PM Signed See other telephone encounter. Allergies As of Date: 04/22/2024 Noted Allergy Reaction LIPITOR (ATORVASTATIN CALCIUM) 02/02/2005 Comments: vertigo Date Reviewed: 04/20/2024 Reviewed by: Racquel Godoy LPN - Fully Assessed Reason for [...] 1 Each once daily as needed. - [place]-3 Fatty Acids 500 mg cap Take 1 [...] Status:Closed by JEANNETTE VO on 04/28/24 Normal [facility] Comprehensive metabolic 2000 panelon 04-22-2024 Albumin [Mass/Vol] 4.4 g/dL Normal 3.9-4.9 [facility] Comment on above: Order Comment: Speci men Type: BLOOD SPECIMEN Ordering Facility: [facility] Address: [address] [place] [address] Performed By: #### 3 016-3, 23987-1, LIPNF #### [facility] CLIA [id number] [address] [place] [address] [place] ALP [Catalytic activity/Vol] 59 U/L Normal 34-123 [facility] Comment on above: Order Comment: Speci men Type: BLOOD SPECIMEN Ordering Facility: [facility] Address: [address] [place] [address] Performed By: #### 3 016-3, 49144-3, LIPNF #### [facility] CLIA [id number] [address] [place] [address] [place] ALT [Catalytic activity/Vol] 22 U/L Normal 7-38 [facility] Comment on above: Order Comment: Speci men Type: BLOOD SPECIMEN Ordering Facility: [facility] Address: [address] [place] [address] Performed By: #### 3 016-3, 59524-4, LIPNF #### [facility] CLIA [id number] [address] [place], [place] [address] [place] Anion gap [Moles/Vol] 10 mmol/L Normal 8-15 [facility] Comment on above: Order Comment: Speci men Type: BLOOD SPECIMEN Ordering Facility: [facility] Address: [address] [place] [address] Performed By: #### 3 016-3, 17015-1, LIPNF #### [facility] CLIA [id number] [address] [place] [address] [place] AST [Catalytic activity/Vol] 22 U/L Normal 13-35 [facility] Comment on above: Order Comment: Speci men Type: BLOOD SPECIMEN Ordering Facility: [facility] Address: [address] [place] [address] Performed By: #### 3 016-3, 95934-9, LIPNF #### [facility] CLIA [id number] [address] [place] [address] [place] Bilirubin [Mass/Vol] 0.3 mg/dL Normal 0.2-1.3 [facility] Comment on above: Order Comment: Speci men Type: BLOOD SPECIMEN Ordering Facility: [facility] Address: [address] [place] [address] Performed By: #### 3 016-3, 32372-7, LIPNF #### [facility] CLIA [id number] [address] [place] [address] [place] Calcium [Mass/Vol] 9.9 mg/dL Normal 8.5-10.2 [facility] Comment on above: Order Comment: Speci men Type: BLOOD SPECIMEN Ordering Facility: [facility] Address: [address] [place] [address] Performed By: #### 3 016-3, 46075-2, LIPNF #### [facility] CLIA [id number] [address] [place] [address] [place] Chloride [Moles/Vol] 102 mmol/L Normal 98-107 [facility] Comment on above: Order Comment: Speci men Type: BLOOD SPECIMEN Ordering Facility: [facility] Address: [address] [place] [address] Performed By: #### 3 016-3, 56007-4, LIPNF #### [facility] CLIA [id number] [address] [place] [address] [place] CO2 [Moles/Vol] 28 mmol/L Normal 22-30 [facility] Comment on above: Order Comment: Speci men Type: BLOOD SPECIMEN Ordering Facility: [facility] Address: [address] [place] [address] Performed By: #### 3 016-3, 80460-5, LIPNF #### [facility] CLIA [id number] [address] [place] [address] [place] Creatinine [Mass/Vol] 0.73 mg/dL Normal 0.58-0.96 [facility] Comment on above: Order Comment: Speci men Type: BLOOD SPECIMEN Ordering Facility: [facility] Address: [address] [place] [address] Performed By: #### 3 016-3, 20751-4, LIPNF #### [facility] CLIA [id number] [address] [place] [address] [place] [facility] Creatinine and Glomerular filtration rate.predicted panel (S/P/Bld) 89 mL/min/1.73m??? Normal >=60 [facility] Comment on above: Order Comment: Speci men Type: BLOOD SPECIMEN Ordering Facility: [facility] Address: [address] [place] [address] Result Comment: Leticia mated Glomerular Filtration Rate [...] actual GFR. Performed By: #### 3 016-3, 71388-8, LIPNF #### [facility] CLIA [id number] [address] [place] [address] [place] Glucose [Mass/Vol] 105 mg/dL High 74-99 [facility] Comment on above: Order Comment: Liliana men Type: BLOOD SPECIMEN Ordering Facility: [facility] Address: [address] [place] [address] Result Comment: The [place] Diabetes Association (ADA) provides guidance for cutoff [...] Standards of Medical Care in Diabetes 2016, [place] Diabetes Association. Diabetes Care. 2016.39(Suppl 1). Performed By: #### 3 016-3, 23572-9, LIPNF #### [facility] CLIA [id number] [address] [place] [address] [place] Potassium [Moles/Vol] 4.3 mmol/L Normal 3.7-5.1 [facility] Comment on above: Order Comment: Jossiei men Type: BLOOD SPECIMEN Ordering Facility: [facility] Address: [address] [place] [address] Performed By: #### 3 016-3, 66785-5, LIPNF #### [facility] CLIA [id number] [address] [place] [address] [place] Protein [Mass/Vol] 7.2 g/dL Normal 6.3-8.0 [facility] Comment on above: Order Comment: Jossiei men Type: BLOOD SPECIMEN Ordering Facility: [facility] Address: [address] [place] [address] Performed By: #### 3 016-3, 74950-5, LIPNF #### [facility] CLIA [id number] [address] [place] [address] [place] Sodium [Moles/Vol] 140 mmol/L Normal 136-144 [facility] Comment on above: Order Comment: Speci men Type: BLOOD SPECIMEN Ordering Facility: [facility] Address: [address] [place] [address] Performed By: #### 3 016-3, 85870-5, LIPNF #### [facility] CLIA [id number] [address] [place] [address] [place] Urea nitrogen [Mass/Vol] 22 mg/dL High 7-21 [facility] Comment on above: Order Comment: Speci men Type: BLOOD SPECIMEN Ordering Facility: [facility] Address: [address] [place] [address] Performed By: #### 3 016-3, 30007-5, LIPNF #### [facility] CLIA [id number] [address] [place] [address] [place] CNOVon 04-20-2024 CNOV Office Visit (MANOJWS ) ELINA GRACE ([id number]) 1955 F Date Time Provider Department 04/20/24 9:20 AM YARELIS CARLOS During your visit today, we recorded the following information about you: Pulse Respiration Blood pressure Weight 80/minute 16/minute 138/82 78.8 kg Yarelis Carlos APRN.HOUSEKEEPING ATTENDANT 04/20/2024 10:00 AM Signed 04/14/2024 Patient presents [...] KIT) 1 Each once daily as needed. [place]-3 Fatty Acids 500 mg cap Take 1 [...] Abs Lymph 1.00 - 4.00 k/uL 1.93 [place]% % 10.4 Abs [place] <0.87 k/uL 0.46 [place]% % 3.6 Abs [...] Phosphatase 34 (more content not included)... Normal [facility] Comprehensive metabolic 2000 panelon 04-20-2024 Albumin [Mass/Vol] 4.6 g/dL Normal 3.9-4.9 [facility] Comment on above: Order Comment: Speci men Type: BLOOD SPECIMEN Ordering Facility: [facility] Address: [address] [place] [address] Performed By: #### 3 016-3, 81972-0, LIPNF #### [facility] CLIA [id number] [address] [place] [address] [place] ALP [Catalytic activity/Vol] 62 U/L Normal 34-123 [facility] Comment on above: Order Comment: Speci men Type: BLOOD SPECIMEN Ordering Facility: [facility] Address: [address] [place] [address] Performed By: #### 3 016-3, 10896-1, LIPNF #### [facility] CLIA [id number] [address] [place] [address] [place] ALT With P-5'-P [Catalytic activity/Vol] Normal [facility] Comment on above: Order Comment: Speci men Type: BLOOD SPECIMEN Ordering Facility: [facility] Address: [address] [place] [address] Result Comment: Unab le to assay due to interference from hemolysis. Suggest reorder as clinically indicated. Performed By: #### 3 016-3, 85310-3, LIPNF #### [facility] CLIA [id number] [address] [place] [address] [place] Anion gap [Moles/Vol] 15 mmol/L Normal 8-15 [facility] Comment on above: Order Comment: Speci men Type: BLOOD SPECIMEN Ordering Facility: [facility] Address: [address] [place] [address] Performed By: #### 3 016-3, 03999-0, LIPNF #### [facility] CLIA [id number] [address] [place] [address] [place] AST With P-5'-P [Catalytic activity/Vol] Normal [facility] Comment on above: Order Comment: Speci men Type: BLOOD SPECIMEN Ordering Facility: [facility] Address: [address] [place] [address] Result Comment: Unab le to assay due to interference from hemolysis. Suggest reorder as clinically indicated. Performed By: #### 3 016-3, 84690-2, LIPNF #### [facility] CLIA [id number] [address] [place] [address] [place] Bilirubin [Mass/Vol] 0.4 mg/dL Normal 0.2-1.3 [facility] Comment on above: Order Comment: Speci men Type: BLOOD SPECIMEN Ordering Facility: [facility] Address: [address] [place] [address] Performed By: #### 3 016-3, 64714-5, LIPNF #### [facility] CLIA [id number] [address] [place] [address] [place] Calcium [Mass/Vol] 10.4 mg/dL High 8.5-10.2 [facility] Comment on above: Order Comment: Speci men Type: BLOOD SPECIMEN Ordering Facility: [facility] Address: [address] [place] [address] Performed By: #### 3 016-3, 87931-8, LIPNF #### [facility] CLIA [id number] [address] [place] [address] [place] Chloride [Moles/Vol] 101 mmol/L Normal 98-107 [facility] Comment on above: Order Comment: Speci men Type: BLOOD SPECIMEN Ordering Facility: [facility] Address: [address] [place] [address] Performed By: #### 3 016-3, 56778-4, LIPNF #### [facility] CLIA [id number] [address] [place] [address] [place] CO2 [Moles/Vol] 23 mmol/L Normal 22-30 [facility] Comment on above: Order Comment: Speci men Type: BLOOD SPECIMEN Ordering Facility: [facility] Address: [address] [place] [address] Performed By: #### 3 016-3, 56806-9, LIPNF #### [facility] CLIA [id number] [address] [place] [address] [place] Creatinine [Mass/Vol] 0.69 mg/dL Normal 0.58-0.96 [facility] Comment on above: Order Comment: Speci men Type: BLOOD SPECIMEN Ordering Facility: [facility] Address: [address] [place] [address] Performed By: #### 3 016-3, 42186-2, LIPNF #### [facility] CLIA [id number] [address] [place] [address] [place] Creatinine and Glomerular filtration rate.predicted panel (S/P/Bld) 94 mL/min/1.73m??? Normal >=60 [facility] Comment on above: Order Comment: Speci men Type: BLOOD SPECIMEN Ordering Facility: [facility] Address: [address] [place] [address] Result Comment: Leticia mated Glomerular Filtration Rate [...] actual GFR. Performed By: #### 3 016-3, 25084-7, LIPNF #### [facility] CLIA [id number] [address] [place] [address] [place] Glucose [Mass/Vol] 109 mg/dL High 74-99 [facility] Comment on above: Order Comment: Specdeng almodovar Type: BLOOD SPECIMEN Ordering Facility: [facility] Address: [address] [place] [address] Result Comment: The [place] Diabetes Association (ADA) provides guidance for cutoff [...] Standards of Medical Care in Diabetes 2016, [place] Diabetes Association. Diabetes Care. 2016.39(Suppl 1). Performed By: #### 3 016-3, 80800-3, LIPNF #### [facility] CLIA [id number] [address] [place] [address] [place] Potassium [Moles/Vol] Normal [facility] Comment on above: Order Comment: Liliana almodovar Type: BLOOD SPECIMEN Ordering Facility: [facility] Address: [address] [place] [address] Result Comment: Unab le to assay due to interference from hemolysis. Suggest reorder as clinically indicated. Performed By: #### 3 016-3, 86114-2, LIPNF #### [facility] CLIA [id number] [address] [place], [place] [address] [place] Protein [Mass/Vol] 8.0 g/dL Normal 6.3-8.0 [facility] Comment on above: Order Comment: Speci men Type: BLOOD SPECIMEN Ordering Facility: [facility] Address: [address] [place] [address] Performed By: #### 3 016-3, , LIPNF #### [facility] CLIA [id number] [address] [place], [place] [address] [place] Sodium [Moles/Vol] 139 mmol/L Normal 136-144 [facility] Comment on above: Order Comment: Speci men Type: BLOOD SPECIMEN Ordering Facility: [facility] Address: [address] [place] [address] Performed By: #### 3 016-3, , LIPNF #### [facility] CLIA [id number] [address] [place] [address] [place] Urea nitrogen [Mass/Vol] 14 mg/dL Normal 7-21 [facility] Comment on above: Order Comment: Speci men Type: BLOOD SPECIMEN Ordering Facility: [facility] Address: [address] [place] [address] Performed By: #### 3 016-3, , LIPNF #### [facility] CLIA [id number] [address] [place], [place] [address] [place] HbA1c (Bld)on 04-20-2024 Average glucose Estimated from glycated hemoglobin (Bld) [Mass/Vol] 117 mg/dL Normal [facility] Comment on above: Order Comment: Speci men Type: BLOOD SPECIMEN Ordering Facility: [facility] Address: [address] [place] [address] Result Comment: eAG: (Estimated average glucose) is a calculated value from HgbA1c and is guest relations representative of the average blood glucose level in the last 2-3 month period. Performed By: #### 3 016-3, 55630-8, LIPNF #### [facility] CLIA [id number] [address] [place] [address] [place] HbA1c (Bld) [Mass fraction] 5.7 % High 4.3-5.6 [facility] Comment on above: Order Comment: Liliana almodovar Type: BLOOD SPECIMEN Ordering Facility: [facility] Address: [address] [place] [address] Result Comment: [place] Diabetes Association guidelines indicate that patients with HgbA1c in the range 5.7-6.4% are at increased risk for development of diabetes, and intervention by lifestyle modification may be beneficial. HgbA1c greater or equal to 6.5% is considered diagnostic of diabetes. Performed By: #### 3 016-3, 04030-3, LIPNF #### [facility] CLIA [id number] [address] [place] [address] [place] TSH SerPl-aCncon 04-20-2024 TSH Qn 2.020 m[IU]/L Normal 0.270-4.200 [facility] Comment on above: Order Comment: Liliana almodovar Type: BLOOD SPECIMEN Ordering Facility: [facility] Address: [address] [place] [address] Performed By: #### 3 016-3, 58310-2, LIPNF #### [facility] CLIA [id number] [address] [place] [address] [place] CNPNon 12-23-2023 CNPN Telephone (FAMPWS) ELINA GRACE ([id number]) 1955 F Date Time Provider Department 12/23/23 BURSSHARRI ROSAS During your visit today, we recorded the following information about you: Iman RitterDELONTE 12/23/2023 1:23 PM Signed Patient calling she has appt on Tuesday 12/26 with [facility] for her left knee pain. She is asking for knee xray that was done on 06/21/2023 to be put on disc please. She can pecan picker the disc Saturday afternoon. Told her pecan picker at [facility] area. Thank You Valeria Nath, PSS 12/23/2023 1:53 PM Signed CD READY FOR SUPERVISOR CHLORINE LIQUEFACTION AT [facility] Pt is aware Allergies As of Date: 12/23/2023 Noted Allergy Reaction LIPITOR (ATORVASTATIN CALCIUM) 02/02/2005 Comments: vertigo Date Reviewed: 11/05/2023 Reviewed by: Nikki Madrid OA - Fully Assessed Reason for [...] 1 Each once daily as needed. - [place]-3 Fatty Acids 500 mg cap Take 1 [...] Status:Closed by IMAN RITTER on 12/26/23 Normal [facility] TSH SerPl-aCncon 12-17-2023 TSH Qn 1.290 m[IU]/L Normal 0.270-4.200 [facility] Comment on above: Order Comment: Speci men Type: BLOOD SPECIMEN Ordering Facility: [facility] Address: [address] [place] [address] Performed By: #### 3 016-3, 64427-6, LIPNF #### [facility] CLIA [id number] [address] [place] [address] [place] [address] [place] CBC W Auto Differential pane l (Bld)on 10-18-2023 Basophils (Bld) [#/Vol] 0.05 10*3/uL [facility] Basophils/100 WBC (Bld) 1.1 % [facility] Differential cell count method Nom (Bld) Auto [facility] Eosinophils (Bld) [#/Vol] 0.16 10*3/uL [facility] Eosinophils/100 WBC (Bld) 3.6 % [facility] Erythrocyte distribution width (RBC) [Ratio] 12.4 % 11.5 - 15.0 % [facility] Hematocrit (Bld) [Volume fraction] 40.3 % 36.0 - 46.0 % [facility] Hemoglobin (Bld) [Mass/Vol] 12.8 g/dL 11.5 - 15.5 g/dL [facility] Immature granulocytes (Bld) [#/Vol] [facility] Immature granulocytes/100 WBC (Bld) 0.0 % [facility] Lymphocytes (Bld) [#/Vol] 1.93 10*3/uL [facility] Lymphocytes/100 WBC (Bld) 43.5 % [facility] MCH (RBC) [Entitic mass] 31.2 pg 26.0 - 34.0 pg [facility] MCHC (RBC) [Mass/Vol] 31.8 g/dL 30.5 - 36.0 g/dL [facility] MCV (RBC) [Entitic vol] 98.3 fL 80.0 - 100.0 fL [facility] Monocytes (Bld) [#/Vol] 0.46 10*3/uL [facility] Monocytes/100 WBC (Bld) 10.4 % [facility] Neutrophils (Bld) [#/Vol] 1.84 10*3/uL [facility] Neutrophils/100 WBC (Bld) 41.4 % [facility] Nucleated RBC (Bld) [#/Vol] [facility] Nucleated RBC/100 WBC (Bld) [Ratio] 0.0 % /100 WBC [facility] Platelet mean volume (Bld) [Entitic vol] 11.3 fL 9.0 - 12.7 fL [facility] Platelets (Bld) [#/Vol] 219 10*3/uL [facility] RBC (Bld) [#/Vol] 4.10 10*6/uL 3.90 - 5.2 0 m/uL [facility] WBC (Bld) [#/Vol] 4.44 10*3/uL [facility] Comprehensive metabolic 2000 panelon 10-18-2023 Albumin [Mass/Vol] 4.4 g/dL 3.9 - 4.9 g/dL Cl [facility] ALP [Catalytic activity/Vol] 61 U/L 34 - 123 U/L [facility] ALT [Catalytic activity/Vol] 23 U/L 7 - 38 U/L [facility] Anion gap [Moles/Vol] 13 mmol/L 8 - 15 mmol/L [facility] AST [Catalytic activity/Vol] 29 U/L 13 - 35 U/L [facility] Bilirubin [Mass/Vol] 0.4 mg/dL 0.2 - 1 .3 mg/dL [facility] Calcium [Mass/Vol] 9.5 mg/dL 8.5 - 10. 2 mg/dL [facility] Chloride [Moles/Vol] 99 mmol/L 98 - 10 7 mmol/L [facility] CO2 [Moles/Vol] 25 mmol/L 22 - 30 mmol/L [facility] Creatinine [Mass/Vol] 0.76 mg/dL 0.58 - 0.96 mg/dL [facility] GFR/1.73 sq M.predicted among non-blacks MDRD (S/P/Bld) [Vol rate/Area] 85 mL/min/{1.73_m2} - PINF [facility] Comment on above: Estimated Glomerular Filtration [...] [Mass/Vol] 99 mg/dL 74 - 99 mg/dL [facility] Comment on above: The [place] Diabete s Association (ADA) provides guidance for [...] Standards of Medical Care in Diabetes 2016, [place] Diabetes Association. Diabetes Care. 2016.39(Suppl 1). Interpretation and review of laboratory results Normal [facility] Potassium [Moles/Vol] 4.8 mmol/L 3.7 - 5.1 mmol/L [facility] Protein [Mass/Vol] 7.0 g/dL 6.3 - 8.0 g/dL [facility] Sodium [Moles/Vol] 137 mmol/L 136 - 144 mmol/L [facility] Urea nitrogen [Mass/Vol] 14 mg/dL 7 - 21 mg/dL [facility] HbA1c (Bld)on 10-18-2023 Average glucose Estimated from glycated hemoglobin (Bld) [Mass/Vol] 123 mg/dL [facility] Comment on above: eAG: (Estimated aver age glucose) is a calculated value from HgbA1c and is guest relations representative of the average blood glucose level in the last 2-3 month period. HbA1c (Bld) [Mass fraction] 5.9 % High 4.3 - 5.6 % [facility] Comment on above: [place] Diabetes As sociation guidelines indicate that patients with HgbA1c in the range 5.7-6.4% are at increased risk for development of diabetes, and intervention by lifestyle modification may be beneficial. HgbA1c greater or equal to 6.5% is considered diagnostic of diabetes. Interpretation and review of laboratory results Abnormal [facility] Lipid 1996 panelon Cholesterol [Mass/Vol] 158 mg/dL NINF - 200 mg/dL [facility] Comment on above: <200 mg/dL, Desirabl e 200-239 mg/dL, Borderline high >239 mg/dL, High Cholesterol in HDL [Mass/Vol] 57 mg/dL 39 - PINF mg/dL [facility] Comment on above: 40-59 mg/dL, Accepta ble >59 mg/dL, High: Negative risk factor for coronary heart disease <40 mg/dL, Low: Positive risk factor for coronary heart disease Cholesterol in LDL [Mass/Vol] 82 mg/dL NINF - 100 mg/dL [facility] Comment on above: <100 mg/dL, Optimal 100-129 mg/dL, Near optimal/above optimal 130-159 mg/dL, Borderline high 160-189 mg/dL, High >189 mg/dL, Very high Secondary prevention optimal LDL Cholesterol levels are recommended to be < 70 mg/dL Cholesterol in LDL/Cholesterol in HDL [Mass ratio] 1.44 {ratio} NINF - 2.54 [facility] Comment on above: Reference: 1. National Cholesterol Education Program ATP III Guideline At-A-Glance Quick Desk Reference: National Heart, Lung, and Blood [place]. National Institutes of Health. 2001: NIH Publication No. 01-3305. 2. An International Atherosclerosis Society position paper: global recommendations for the management of dyslipidemia: executive summary, Atherosclerosis. 2014: 232(2):410-413. Cholesterol in VLDL [Mass/Vol] 19 mg/dL NINF - 30 mg/dL [facility] Cholesterol non HDL [Mass/Vol] 101 mg/dL NINF - 130 mg/dL [facility] Comment on above: <130 mg/dL, Optimal 130-159 mg/dL, Near optimal/above optimal 160-189 mg/dL, Borderline high 190-219 mg/dL, High >219 mg/dL, Very high Secondary prevention optimal non HDL Cholesterol levels are recommended to be <100 mg/dL Cholesterol.total/Cho lesterol in HDL [Mass ratio] 2.77 {ratio} NINF - 5.10 [facility] Fasting Time 12 hrs [facility] Triglyceride [Mass/Vol] 96 mg/dL NINF - 150 mg/dL [facility] Comment on above: <150 mg/dL, Normal 150-199 mg/dL, Borderline high 200-499 mg/dL, High >499 mg/dL, Very high No Panel Informationon 10-17 [facility] THYROID STIMULATING HORMONEo n 10-18-2023 TSH Qn 4.300 m[IU]/L High [facility] TSH Qnon 10-18-2023 Interpretation and review of laboratory results Abnormal [facility] XR Chest PA and Lateralon IMPRESSION: No acute radiographic abnormality. Commissioner Conservation Of Resources: PSCAnny Transcribe Date/Time: Oct 04 2023 12:16P Dictated by : TRACEY HICKS MD This examination was interpreted and the report reviewed and electronically signed by: TRACEY HICKS MD on Oct 04 2023 12:17PM [facility] DIVISION OF RADIOLOGY * * [...] the right glenoid. DIVISION OF RADIOLOGY Provider, Dee Farnsworth Caterina - 10/04/2023 * * *Final Report* * [...] glenoid. IMPRESSION IMPRESSION: No acute radiographic abnormality. Commissioner Conservation Of Resources: PSCB Transcribe Date/Time: Oct 04 2023 12:16P Dictated by : TRACEY HICKS MD This examination was interpreted and the report reviewed and electronically signed by: TRACEY HICKS MD on Oct 04 2023 12:17PM EST [facility] Radiology Study observation (narrative) [facility] XR Chest PA and LateralOrder ed By: Ccf Provider on 10-04-2023 [facility] MG Breast Screeningon 2023 IMPRESSION: NEGATIVE There is no mammographic evidence of malignancy. A 1 year screening mammogram is recommended. Tanya Olivares M.D. pt/penrad:07/10/2023 13:02:29 Commercial Artist Lettering(s): RT Jt(R)(M), [facility] letter sent: Normal over 40 Mammogram [...] Health, Family Medicine, and Medical/Surgical Oncology, the [facility] has carefully reviewed the data and [...] their providers when to stop screening mammograms. Commissioner Conservation Of Resources: Cecelia Transcribe Date/Time: Jul 10 2023 9:36A Dictated by: TANYA OLIVARES MD This examination was interpreted and the report reviewed and electronically signed by: TANYA OLIVARES MD on Jul 10 2023 1:02PM [facility] DIVISION OF RADIOLOGY * * *Final Report* * * DATE OF EXAM: Jul 10 2023 10:05AM [facility] 0581 - PARISH SCREENING / PROCEDURE REASON: Screening mammogram, encounter for * * * * Physician Interpretation * * * * RESULT: #[id number] - PARISH SCREENING BILATERAL DIGITAL SCREENING MAMMOGRAM [...] 11/21/2021 mammogram, 11/16/2020 mammogram, 11/13/2019 mammogram - [facility], and 02/20/2018 mammogram - [facility]. There are scattered areas of fibroglandular density. No significant masses, calcifications, or other findings are seen in either breast. There has been no significant interval change. DIVISION OF RADIOLOGY Provider, Dee Diggs - 07/10/2023 * * *Final Report* * * DATE OF EXAM: Jul 10 2023 10:05AM [facility] 0581 - [facility] SCREENING / PROCEDURE REASON: Screening mammogram, encounter for * * * * Physician Interpretation * * * * RESULT: #[id number] - PARISH SCREENING BILATERAL DIGITAL SCREENING MAMMOGRAM [...] 11/21/2021 mammogram, 11/16/2020 mammogram, 11/13/2019 mammogram - [facility], and 02/20/2018 mammogram - [facility]. There are scattered areas of fibroglandular density. No significant masses, calcifications, or other findings are seen in either breast. There has been no significant interval change. IMPRESSION IMPRESSION: NEGATIVE There is no mammographic evidence of malignancy. A 1 year screening mammogram is recommended. Tanya Olivares M.D. pt/penrad:07/10/2023 13:02:29 Commercial Artist Lettering(s): RT Jt(René)(M), [facility] letter sent: Normal over 40 Mammogram [...] Health, Family Medicine, and Medical/Surgical Oncology, the [facility] has carefully reviewed the data and [...] their providers when to stop screening mammograms. Commissioner Conservation Of Resources: Cecelia Transcribe Date/Time: Jul 10 2023 9:36A Dictated by: TANYA OLIVARES MD This examination was interpreted and the report reviewed and electronically signed by: TANYA OLIVARES MD on Jul 10 2023 1:02PM EST [facility] Radiology Study observation (narrative) [facility] MG Breast ScreeningOrdered B y: Ccf Provider on 07-10-2023 [facility] XR Knee - left 4 Viewson IMPRESSION: 1. No acute radiographic abnormality of the left knee with osteoarthritis and loose body Commissioner Conservation Of Resources: AARON Transcribe Date/Time: Jun 25 2023 4:58P [...] recess loose body DIVISION OF RADIOLOGY Provider, Ccjaelyn rosario [place] - 06/25/2023 * * *Final Report* * [...] left knee with osteoarthritis and loose body Commissioner Conservation Of Resources: PSCB Transcribe Date/Time: Jun 25 2023 4:58P Dictated by : GINNY HARMON MD This examination was interpreted and the report reviewed and electronically signed by: GINNY HARMON MD on Jun 25 2023 5:26PM EST [facility] XR Knee - left 4 ViewsOrdere d By: Ccf Provider on 06-25-2023 [facility] XR Knee - left 4 [facility] Radiology Study observation (narrative) [facility] PARISH SCREENINGon 11-21-2021 [facility] Vital Signs Date Time Vital Sign Value Performing Clinician Kita blount 11-16-2024 10:49-0400 Body mass index (BMI) [Ratio] 31.05 kg/m2 Braden Ni APRN.CNP Work Phone: [facility] 11-16-2024 10:49-0400 Body weight 80 kg Braden Ni APRN.CNP Work Phone: [facility] 11-16-2024 10:49-0400 Diastolic blood pressure 80 mm[Hg] Braden Ni APRN.CNP Work Phone: [facility] 11-16-2024 10:49-0400 Heart rate 69 /min Braden Ni APRN.CNP Work Phone: [facility] 11-16-2024 10:49-0400 Systolic blood pressure 134 mm[Hg] Braden Ni APRN.CNP Work Phone: [facility] 10-19-2024 08:22-0400 Body height 160.5 cm Sharri Jacobson MD Work Phone: [facility] 10-19-2024 08:22-0400 Body mass index (BMI) [Ratio] 31.69 kg/m2 Sharri Jacobson MD Work Phone: [facility] 10-19-2024 08:22-0400 Body weight 81.65 kg Sharri Jacobson MD Work Phone: [facility] 10-19-2024 08:22-0400 Diastolic blood pressure 76 mm[Hg] Sharri Jacobson MD Work Phone: [facility] 10-19-2024 08:22-0400 Heart rate 63 /min Sharri Jacobson MD Work Phone: [facility] 10-19-2024 08:22-0400 SaO2% (BldA) [Mass fraction] 99 % Sharri Jacobson MD Work Phone: [facility] 10-19-2024 08:22-0400 Systolic blood pressure 128 mm[Hg] Sharri Jacobson MD Work Phone: [facility] 04-20-2024 09:11-0500 Body mass index (BMI) [Ratio] 30.59 kg/m2 Yarelis Podlogar INVESTMENT TRADER.HOUSEKEEPING ATTENDANT Work Phone: [facility] 04-20-2024 09:11-0500 Body weight 78.8 kg Yarelis Podlogar INVESTMENT TRADER.HOUSEKEEPING ATTENDANT Work Phone: [facility] 04-20-2024 09:11-0500 Diastolic blood pressure 82 mm[Hg] Yarelis Podlogar INVESTMENT TRADER.HOUSEKEEPING ATTENDANT Work Phone: [facility] 04-20-2024 09:11-0500 Heart rate 80 /min Yarelis Podlogar INVESTMENT TRADER.HOUSEKEEPING ATTENDANT Work Phone: [facility] 04-20-2024 09:11-0500 Respiratory rate 16 /min Yarelis Podlogar INVESTMENT TRADER.HOUSEKEEPING ATTENDANT Work Phone: [facility] 02-17-2025 09:11-0500 SaO2% (BldA) [Mass fraction] 95 % Yarelis Carlos APRN.HOUSEKEEPING ATTENDANT Work Phone: [facility] 04-20-2024 09:11-0500 Systolic blood pressure 138 mm[Hg] Yarelis Carlos APRN.HOUSEKEEPING ATTENDANT Work Phone: [facility] 10-18-2023 07:45-0400 Body mass index (BMI) [Ratio] 32.84 kg/m2 Sharri Jacobson MD Work Phone: [facility] 10-18-2023 07:45-0400 Body weight 84.6 kg Sharri Jacobson MD Work Phone: [facility] 10-18-2023 07:45-0400 Diastolic blood pressure 72 mm[Hg] Sharri Jacobson MD Work Phone: [facility] 10-18-2023 07:45-0400 Heart rate 60 /min Sharri Jacobson MD Work Phone: [facility] 10-18-2023 07:45-0400 Respiratory rate 16 /min Sharri Jacobson MD Work Phone: [facility] 10-18-2023 07:45-0400 Systolic blood pressure 108 mm[Hg] Sharri Jacobson MD Work Phone: [facility] 10-04-2023 11:34-0400 Body mass index (BMI) [Ratio] 32.61 kg/m2 Carolina Valadez APRN.HOUSEKEEPING ATTENDANT Work Phone: [facility] 10-04-2023 11:34-0400 Body temperature 97.81 [degF] Carolina Valadez APRN.HOUSEKEEPING ATTENDANT Work Phone: [facility] 10-04-2023 11:34-0400 Body weight 84 kg Carolina Valadez APRN.HOUSEKEEPING ATTENDANT Work Phone: [facility] 10-04-2023 11:34-0400 Diastolic blood pressure 86 mm[Hg] Carolina Valadez APRN.HOUSEKEEPING ATTENDANT Work Phone: [facility] 10-04-2023 11:34-0400 Heart rate 66 /min Carolina Valadez INVESTMENT TRADER.HOUSEKEEPING ATTENDANT Work Phone: [facility] 10-04-2023 11:34-0400 Respiratory rate 18 /min Carolina Valadez INVESTMENT TRADER.HOUSEKEEPING ATTENDANT Work Phone: [facility] 10-04-2023 11:34-0400 SaO2% (BldA) [Mass fraction] 97 % Carolina Valadez INVESTMENT TRADER.HOUSEKEEPING ATTENDANT Work Phone: [facility] 10-04-2023 11:34-0400 Systolic blood pressure 139 mm[Hg] Carolina Valadez INVESTMENT TRADER.HOUSEKEEPING ATTENDANT Work Phone: [facility] 06-21-2023 10:49-0400 Body weight 83.73 kg Yarelis Podlogar INVESTMENT TRADER.HOUSEKEEPING ATTENDANT Work Phone: [facility] 06-21-2023 10:49-0400 Diastolic blood pressure 74 mm[Hg] Yarelis Podlogar INVESTMENT TRADER.HOUSEKEEPING ATTENDANT Work Phone: [facility] 06-21-2023 10:49-0400 Heart rate 61 /min Yarelis Podlogar INVESTMENT TRADER.HOUSEKEEPING ATTENDANT Work Phone: [facility] 06-21-2023 10:49-0400 Respiratory rate 16 /min Yarelis Podlogar INVESTMENT TRADER.HOUSEKEEPING ATTENDANT Work Phone: [facility] 06-21-2023 10:49-0400 SaO2% (BldA) [Mass fraction] 96 % Yarelis Podlogar INVESTMENT TRADER.HOUSEKEEPING ATTENDANT Work Phone: [facility] 06-21-2023 10:49-0400 Systolic blood pressure 116 mm[Hg] Yarelis Podlogar INVESTMENT TRADER.HOUSEKEEPING ATTENDANT Work Phone: [facility] 04-19-2023 08:22-0500 Body weight 83.28 kg Sharri Jacobson MD Work Phone: [facility] 04-19-2023 08:22-0500 Diastolic blood pressure 70 mm[Hg] Sharri Jacobson MD Work Phone: [facility] 04-19-2023 08:22-0500 Heart rate 62 /min Sharri Jacobson MD Work Phone: [facility] 04-19-2023 08:22-0500 Respiratory rate 16 /min Sharri Jacobson MD Work Phone: [facility] 04-19-2023 08:22-0500 SaO2% (BldA) [Mass fraction] 96 % Sharri Jacobson MD Work Phone: [facility] 04-19-2023 08:22-0500 Systolic blood pressure 114 mm[Hg] Sharri Jacobson MD Work Phone: [facility] 01-13-2023 09:41-0500 Body height 165.1 cm [facility] 01-13-2023 09:41-0500 Body mass index (BMI) [Ratio] 30.6 kg/m2 [facility] 01-13-2023 09:41-0500 Body temperature 97.4 [degF] [facility] 01-13-2023 09:41-0500 Body weight 83.46 kg [facility] 01-13-2023 09:41-0500 Diastolic blood pressure 77 mm[Hg] [facility] 01-13-2023 09:41-0500 Heart rate 69 /min [facility] 01-13-2023 09:41-0500 Respiratory rate 16 /min [facility] 01-13-2023 09:41-0500 SaO2% (BldA) [Mass fraction] 99 % [facility] 01-13-2023 09:41-0500 Systolic blood pressure 160 mm[Hg] [facility] 01-13-2023 09:23-0500 Diastolic blood pressure 88 mm[Hg] Allen Lopes APRN.HOUSEKEEPING ATTENDANT Work Phone: [facility] 01-13-2023 09:23-0500 Systolic blood pressure 156 mm[Hg] Allen Lopes APRN.HOUSEKEEPING ATTENDANT Work Phone: [facility] 01-13-2023 09:18-0500 Body temperature 97.5 [degF] Allen Lopes APRN.HOUSEKEEPING ATTENDANT Work Phone: [facility] 01-13-2023 09:18-0500 Body weight 83.46 kg Allen Pendlebury INVESTMENT TRADER.HOUSEKEEPING ATTENDANT Work Phone: [facility] 01-13-2023 09:18-0500 Heart rate 66 /min Allen Pendlebury INVESTMENT TRADER.HOUSEKEEPING ATTENDANT Work Phone: [facility] 01-13-2023 09:18-0500 Respiratory rate 16 /min Allen Pendlebury INVESTMENT TRADER.HOUSEKEEPING ATTENDANT Work Phone: [facility] 01-13-2023 09:18-0500 SaO2% (BldA) [Mass fraction] 100 % Allen Pendlebury INVESTMENT TRADER.HOUSEKEEPING ATTENDANT Work Phone: [facility] 04-13-2022 08:57-0500 Body weight 83.37 kg Yarelis Podlogar INVESTMENT TRADER.HOUSEKEEPING ATTENDANT Work Phone: [facility] 04-13-2022 08:57-0500 Diastolic blood pressure 78 mm[Hg] Yarelis Podlogar INVESTMENT TRADER.HOUSEKEEPING ATTENDANT Work Phone: [facility] 04-13-2022 08:57-0500 Heart rate 72 /min Yarelis Podlogar INVESTMENT TRADER.HOUSEKEEPING ATTENDANT Work Phone: [facility] 04-13-2022 08:57-0500 Respiratory rate 16 /min Yarelis Podlogar INVESTMENT TRADER.HOUSEKEEPING ATTENDANT Work Phone: [facility] 04-13-2022 08:57-0500 SaO2% (BldA) [Mass fraction] 96 % Yarelis Podlogar INVESTMENT TRADER.HOUSEKEEPING ATTENDANT Work Phone: [facility] 04-13-2022 08:57-0500 Systolic blood pressure 132 mm[Hg] Yarelis Podlogar INVESTMENT TRADER.HOUSEKEEPING ATTENDANT Work Phone: [facility] 10-10-2021 14:02-0400 Body weight 84.01 kg Sharri Jacobson MD Work Phone: [facility] 10-10-2021 14:02-0400 Diastolic blood pressure 76 mm[Hg] Sharri Jacobson MD Work Phone: [facility] 10-10-2021 14:02-0400 Heart rate 72 /min Sharri Jacobson MD Work Phone: [facility] 10-10-2021 14:02-0400 Respiratory rate 16 /min Sharri Jacobson MD Work Phone: [facility] 10-10-2021 14:02-0400 SaO2% (BldA) [Mass fraction] 99 % Sharri Jacobson MD Work Phone: [facility] 10-10-2021 14:02-0400 Systolic blood pressure 116 mm[Hg] Sharri Jacobson MD Work Phone: [facility] 08-07-2021 09:59-0400 Body weight 83.64 kg Sharri Jacobson MD Work Phone: [facility] 08-07-2021 09:59-0400 Diastolic blood pressure 78 mm[Hg] Sharri Jacobson MD Work Phone: [facility] 08-07-2021 09:59-0400 Heart rate 72 /min Sharri Jacobson MD Work Phone: [facility] 08-07-2021 09:59-0400 Respiratory rate 16 /min Sharri Jacobson MD Work Phone: [facility] 08-07-2021 09:59-0400 SaO2% (BldA) [Mass fraction] 95 % Sharri Jacobson MD Work Phone: [facility] 08-07-2021 09:59-0400 Systolic blood pressure 128 mm[Hg] Sharri Jacobson MD Work Phone: [facility] Encounters Encounter Date Encounter Type Care Provider Facility Start: 11-16-2024 End: 11-16-2024 Patient encounter procedure Braden Ni APRN.CNP Work Phone: [facility] Comment on above: Pre-op examination ( Primary Dx) Start: 11-16-2024 End: 11-16-2024 Preprocedural examination done Braden Ni APRN.CNP Work Phone: [facility] Work Phone: Start: 11-16-2024 End: 11-16-2024 ambulatory SHARRI JACOBSON Facility[facility] [facility] Start: 11-16-2024 Encounter for other preprocedural examination SHARRI JACOBSON [facility] Start: 11-10-2024 Encounter for other preprocedural examination Sumeet Chin [facility] Start: 11-10-2024 ambulatory Artis Jacobson Faci lity:[facility] Start: 10-20-2024 End: 10-20-2024 Follow-up encounter Sharri Jacobson MD Work Phone: [facility] Comment on above: Results Start: 10-19-2024 End: 10-19-2024 ambulatory SHARRI JACOBSON Facility:[facility] Start: 10-19-2024 End: 10-19-2024 Patient encounter procedure Sharri Jacobson MD Work Phone: [facility] Comment on above: Annual physical exam (Primary Dx); Essential hypertension; Mixed hyperlipidemia; Paroxysmal supraventricular tachycardia (HCC); Acquired hypothyroidism; Prediabetes; Obesity, Class I, BMI 30-34.9; Asymptomatic varicose veins; Spider veins of both lower extremities; Primary osteoarthritis of left knee Start: 10-19-2024 End: 10-19-2024 ambulatory SHARRI JACOBSON Facility:[facility] Start: 08-03-2024 End: 08-03-2024 Refill Sharri Jacobosn MD Work Phone: [facility] Comment on above: Refill Request Start: 07-14-2024 End: 09-13-2024 Follow-up encounter Yarelis Carlos APRN.CNP Work Phone: [facility] Start: 07-13-2024 ambulatory SHARRI JACOBSON Facility:[facility] Start: 07-13-2024 End: 07-13-2024 Subsequent hospital visit by physician Screen Mammo [facility] Comment on above: Encounter for screen ing mammogram for breast cancer [Z12.31] Start: 04-23-2024 End: 04-27-2024 Follow-up encounter Sharri Jacobson MD Work Phone: [facility] Start: 04-22-2024 End: 04-22-2024 ambulatory YARELIS PODLOGAR Facility:[facility] Start: 04-22-2024 End: 06-22-2024 Follow-up encounter Yarelis Gonzalezlogmichael INVESTMENT TRADER.HOUSEKEEPING ATTENDANT Work Phone: [facility] Start: 04-22-2024 End: 04-28-2024 Telephone encounter Yarelis Podlogar INVESTMENT TRADER.HOUSEKEEPING ATTENDANT Work Phone: [facility] Comment on above: Results Start: 04-20-2024 End: 04-20-2024 ambulatory YARELIS PODLOGAR Facility:[facility] Start: 04-20-2024 End: 04-20-2024 Patient encounter procedure Yarelis Gonzalezlogmichael INVESTMENT TRADER.HOUSEKEEPING ATTENDANT Work Phone: [facility] Comment on above: Essential hypertensi on (Primary Dx); Acquired hypothyroidism; Encounter for screening mammogram for breast cancer; Prediabetes; Eustachian tube disorder, left Start: 02-14-2024 End: 02-15-2024 Refill [facility] MD [facility]: [facility] Comment on above: Refill Request Start: 02-11-2024 End: 02-11-2024 Refill Shar[facility] Jacob[facility] MD [facility] Comment on above: Refill Request Start: 12-23-2023 End: 12-26-2023 Telephone encounter Sharri Jacobson MD Work Phone: [facility] Comment on above: patient request xray to be put on disc Start: 12-17-2023 End: 12-17-2023 ambulatory SHARRI JACOBSON Facility:[facility] Start: 11-05-2023 End: 11-05-2023 Patient encounter procedure Lizzie Pool OD Work Phone: Ophthalmology Comment on above: Keratoconus, stable, bilateral (Primary Dx); Dry eye syndrome of bilateral lacrimal glands Start: 10-30-2023 End: 10-30-2023 Telephone encounter Yarelis Carlos APRN.HOUSEKEEPING ATTENDANT Work Phone: [facility] Comment on above: Results Start: 10-28-2023 End: 10-28-2023 Telephone encounter Nikki Madrid OA Ophthalmology Start: 10-21-2023 End: 10-21-2023 Telephone encounter Sharri Jacobson MD Work Phone: [facility] Comment on above: Results Start: 10-21-2023 End: 10-21-2023 Patient encounter procedure Lizziethierry Pool OD Work Phone: Ophthalmology Comment on above: Keratoconus, stable, bilateral (Primary Dx); Dry eye syndrome of bilateral lacrimal glands Start: 10-18-2023 End: 10-18-2023 Patient encounter procedure Sharri Jacobson MD Work Phone: [facility] Comment on above: Annual physical exam (Primary Dx); Persistent cough for 3 weeks or longer; Nasal congestion; Bilateral impacted cerumen; Essential hypertension; Mixed hyperlipidemia; Gastroesophageal reflux disease without esophagitis; Prediabetes; Paroxysmal supraventricular tachycardia (HCC); Acquired hypothyroidism; Screening for colon cancer; Obesity, Class I, BMI 30-34.9 Start: 10-04-2023 End: 10-04-2023 Subsequent hospital visit by physician Xr [facility] Work Phone: Radiology Comment on above: Acute cough [R05.1] Start: 10-04-2023 End: 10-04-2023 Patient encounter procedure Carolina Valadez APRN.HOUSEKEEPING ATTENDANT Work Phone: [facility] Comment on above: Acute cough (Primary Dx); Respiratory infection Keratoconus, stable, bilateral (Primary Dx); Dry eye syndrome of bilateral lacrimal glands Start: 08-19-2023 Refill Sharri Jacobson MD Work Phone: [facility] Comment on above: Refill Request Start: 08-09-2023 End: 08-09-2023 Patient encounter procedure Blair De Anda PA-C Work Phone: Orthopaedics Comment on above: Primary osteoarthrit is of left knee (Primary Dx); Acute pain of left knee; Loose body in knee, left knee Start: 07-10-2023 Documentation procedure Mammog cherise Coordinator [facility] Department Start: 07-10-2023 Letter encounter Mammography Coordinator [facility] Start: 07-10-2023 Telephone encounter Artis Jacobson MD Work Phone: [facility] Comment on above: Results Start: 07-10-2023 End: 07-10-2023 Subsequent hospital visit by physician Screen Mammo [facility] Comment on above: Screening mammogram, encounter for [Z12.31] Start: 06-21-2023 ambulatory Sharri Jacobson MD Work Phone: [facility] Comment on above: Left Leg Pain Start: 06-21-2023 End: 06-21-2023 Subsequent hospital visit by physician Xr [facility] [place] Work Phone: Radiology Comment on above: Acute pain of left k nee [M25.562] Start: 06-21-2023 End: 06-21-2023 Patient encounter procedure Yarelis Carlos APRN.HOUSEKEEPING ATTENDANT Work Phone: [facility] Comment on above: Acute pain of left k nee (Primary Dx) Start: 04-22-2023 Telephone encounter Yarelis burris APRN.HOUSEKEEPING ATTENDANT Work Phone: [facility] Start: 04-19-2023 End: 04-19-2023 Patient encounter procedure Sharri Jacobson MD Work Phone: [facility] Comment on above: Dry cough (Primary D x); Allergic rhinitis, unspecified seasonality, unspecified trigger; Prediabetes; Essential hypertension; Mixed hyperlipidemia; Paroxysmal supraventricular tachycardia; Gastroesophageal reflux disease without esophagitis; Acquired hypothyroidism; Encounter for immunization; Obesity (BMI 30-39.9) Start: 01-13-2023 End: 01-13-2023 Emergency department patient visit [facility] Work Phone: Start: 01-13-2023 End: 01-13-2023 Patient encounter procedure Allen Lopes INVESTMENT TRADER.HOUSEKEEPING ATTENDANT Work Phone: [facility] Comment on above: Epigastric abdominal pain (Primary Dx) Start: 10-15-2022 Telephone encounter Artis Jacobson MD Work Phone: [facility] Comment on above: Results Start: 10-01-2022 End: 10-01-2022 Patient encounter procedure Lizzie Pool OD Work Phone: Ophthalmology Comment on above: Keratoconus, stable, bilateral (Primary Dx); Dry eye syndrome of bilateral lacrimal glands Start: 09-28-2022 Refill Sharri Jacobson MD Work Phone: [facility] Comment on above: Refill Request Start: 08-31-2022 End: 08-31-2022 Patient encounter procedure Lizzie Pool OD Work Phone: Ophthalmology Comment on above: Keratoconus, stable, bilateral (Primary Dx); Dry eye syndrome of bilateral lacrimal glands Start: 08-20-2022 End: 08-20-2022 Patient encounter procedure Lizzie Pool OD Work Phone: Ophthalmology Comment on above: Keratoconus, stable, bilateral (Primary Dx); Dry eye syndrome of bilateral lacrimal glands Start: 08-13-2022 Refill Sharri Jacobson MD Work Phone: [facility] Comment on above: Refill Request Start: 04-23-2022 End: 04-23-2022 Patient encounter procedure Lizzie Pool OD Work Phone: Ophthalmology Comment on above: Keratoconus, stable, bilateral (Primary Dx) Start: 04-16-2022 Telephone encounter Yarelis burris APRN.HOUSEKEEPING ATTENDANT Work Phone: [facility] Comment on above: Results Start: 04-13-2022 End: 04-13-2022 Patient encounter procedure Yareils Carlos APRN.HOUSEKEEPING ATTENDANT Work Phone: [facility] Comment on above: Prediabetes (Primary Dx); Essential hypertension; Acquired hypothyroidism; Paroxysmal supraventricular tachycardia (HCC); Mixed hyperlipidemia Start: 04-06-2022 End: 04-06-2022 Patient encounter procedure Lizzie Pool OD Work Phone: Ophthalmology Comment on above: Keratoconus, stable, bilateral (Primary Dx) Start: 03-16-2022 End: 03-16-2022 Patient encounter procedure Lizzie Pool OD Work Phone: Ophthalmology Comment on above: Keratoconus, stable, bilateral (Primary Dx) Start: 01-18-2022 End: 01-18-2022 Patient encounter procedure Lizzie Pool OD Work Phone: Ophthalmology Comment on above: Keratoconus, stable, bilateral (Primary Dx) Start: 12-27-2021 Telephone encounter Yarelis burris APRN.HOUSEKEEPING ATTENDANT Work Phone: [facility] Comment on above: Results Start: 12-11-2021 Telephone encounter Artis Jacobson MD Work Phone: [facility] [place] Comment on above: Results Start: 11-22-2021 Telephone encounter Yarelis burris APRN.HOUSEKEEPING ATTENDANT Work Phone: [facility] Comment on above: Results Start: 11-21-2021 Documentation procedure Mammog cherise Coordinator [facility] Start: 11-21-2021 Letter encounter Mammography Coordinator [facility] Department Start: 11-21-2021 End: 11-21-2021 Subsequent hospital visit by physician Screen Mammo [facility] Comment on above: Screening mammogram for breast cancer [Z12.31] Start: 10-10-2021 End: 10-10-2021 Patient encounter procedure Sharri Jacobson MD Work Phone: [facility] [place] Comment on above: Prediabetes (Primary Dx); Dermatitis; Essential hypertension; Mixed hyperlipidemia; Acquired hypothyroidism; Obesity (BMI 30-39.9); Paroxysmal supraventricular tachycardia (HCC); Elevated LFTs; Screening mammogram for breast cancer; Need for pneumococcal vaccine Start: 08-07-2021 End: 08-07-2021 Patient encounter procedure Sharri Jacobson MD Work Phone: [facility] Comment on above: Dermatitis (Primary Dx); Mixed [...] exam ches t 2 views Carolina Valadez INVESTMENT TRADER.HOUSEKEEPING ATTENDANT Work Phone: Start: 07-10-2023 Screening mammograph y bi 2-view breast inc cad Sharri Jacobson MD Work Phone: Start: 06-21-2023 Radiologic exam knee complete 4/more views Yarelis Carlos INVESTMENT TRADER.HOUSEKEEPING ATTENDANT Work Phone: Start: 10-12-2022 Lipid 1996 panel - S yohana or Plasma Allen Lopes INVESTMENT TRADER.HOUSEKEEPING ATTENDANT Work Phone: Start: 11-21-2021 End: 11-21-2021 Screening mammography bi 2-view breast inc cad Sharri Jacobson MD Work Phone: Start: 10-10-2021 Adult depression screening assessment Sharri Jacobson MD Work Phone: Start: 11-16-2020 Mammography Artis Jacobson MD Work Phone: Start: 10-10-2020 Adult depression screening assessment Sharri Jacobson MD Work Phone: Start: 01-15-2013 Colonoscopy Artis Jacobson MD Work Phone: Plan of Treatment Date Care Activity Detail Author Start: 10-19-2029 Lipid panel Lipid Screening [facility] Start: 2029 RSV Vaccine (1 - 1-d ose 75+ series) RSV Vaccine (1 - 1-dose 75+ series) [facility] Start: 10-17-2028 Lipid panel Lipid Screening [facility] Start: 11-17-2027 Diabetes Screening Diabetes Screenin g [facility] Start: 10-20-2027 Diabetes Screening Diabetes Screenin g [facility] Start: 10-13-2027 Lipid 1996 panel - Serum or Plasma Lipid Screening [facility] Start: 10-13-2027 Lipid panel Lipid Screening [facility] Start: 10-13-2027 LIPID SCREEN LIPID SCREEN [facility] Start: 04-22-2027 [facility] Start: 10-23-2026 Screening for malign ant neoplasm of colon Cologuard (FIT-DNA) [facility] Start: 10-17-2026 Diabetes Screening Diabetes Screenin g [facility] Start: 09-30-2026 LIPID SCREEN LIPID SCREEN [facility] Start: 04-19-2026 Diabetes Screening Diabetes Screenin [facility] Start: 11-16-2025 Annual PCP Team Casino Gaming Worker daina Disease Visit Annual PCP Team Chronic Disease Visit [facility] Start: 10-19-2025 Annual PCP Team Casino Gaming Worker daina Disease Visit Annual PCP Team Chronic Disease Visit [facility] Start: 10-19-2025 Screening for osteoporosis Bone Density Screening [facility] Comment on above: Postponed from 08/06 (Declined at this time) Start: 10-19-2025 Urine microalbumin profile DTaP,Tdap,Td Vaccine (2 - Td or Tdap) [facility] Comment on above: Postponed from 08/10 (Declined at this time) Start: 10-12-2025 DIABETES SCREEN DIABETES SCREEN [facility] Start: 10-12-2025 Diabetes Screening [facility] Start: 10-01-2025 LIPID SCREEN LIPID SCREEN [facility] Start: 07-13-2025 Screening for malign ant neoplasm of breast Mammogram Screening [facility] Start: 04-21-2025 End: 04-21-2025 Patient encounter procedure 04/21/2025 9:40 AM EST Office Visit [facility] [address] [place] [id number] Yarelis Carlos APRN.DIONY [address] [place] [address] 6 month follow up [facility] Comment on above: 6 month follow up Start: 04-20-2025 Annual PCP Team [employer] Worker daina Disease Visit Annual PCP Team Chronic Disease Visit [facility] Start: 04-13-2025 DIABETES SCREEN DIABETES SCREEN [facility] Start: 11-20-2024 End: 11-20-2024 Patient encounter procedure 11/20/2024 10:30 AM EDT Office Visit [facility] [address] [place] [address] Lizzie Pool, OD [address] [place] [address] contact lens eval Ophthalmology Comment on above: contact lens eval Start: 11-06-2024 End: 11-06-2024 Patient encounter procedure 11/06/2024 10:30 AM EDT Office Visit [facility] [address] [place] [address] Lizzie Pool, OD [address] [place] [address] contact lens eval Ophthalmology Comment on above: contact lens eval Start: 11-02-2024 Influenza vaccination [facility] Start: 10-19-2024 End: 01-18-2025 Comprehensive metabolic 2000 panel - Serum or Plasma [facility] Work Phone: Comment on above: Expected: 10/19/2024 , Expires: 01/18/2025 Start: 10-19-2024 End: 01-18-2025 LIPID PANEL, NONFASTING [facility] Comment on above: Expected: 10/19/2024 , Expires: 01/18/2025 Start: 10-19-2024 End: 01-18-2025 Thyrotropin [Units/volume] in Serum or Plasma [facility] Comment on above: Expected: 10/19/2024 , Expires: 01/18/2025 Start: 10-19-2024 End: 10-19-2024 Patient encounter procedure 10/19/2024 8:40 AM EDT Office Visit [facility] [place] [address] [place] [address] Sharri Jacobson MD [address] [place] [address] 6 month follow up [facility] Comment on above: 6 month follow up Start: 10-17-2024 Annual PCP Team Casino Gaming Worker daina Disease Visit Annual PCP Team Chronic Disease Visit [facility] Start: 10-17-2024 Anxiety Screening Anxiety Screening [facility] Comment on above: Postponed from 08/06 (Declined at this time) Start: 10-17-2024 BP Controlled (<130/80) BP Controlle d (<130/80) [facility] Start: 10-17-2024 Covid-19 Vaccine () Covid-19 Vaccine () [facility] Comment on above: Postponed from 11/02 (Declined at this time) Start: 10-17-2024 Screening for osteoporosis Bone Density Screening [facility] Comment on above: Postponed from 08/06 (Declined at this time) Start: 10-17-2024 Urine microalbumin profile DTaP,Tdap,Td Vaccine (2 - Td or Tdap) [facility] Comment on above: Postponed from 08/10 (Declined at this time) Start: 09-30-2024 DIABETES SCREEN DIABETES SCREEN [facility] Start: 08-31-2024 Influenza vaccination Influenza Vacc ine (#1) [facility] Comment on above: Postponed from 11/02 (Declined at this time) Start: 07-13-2024 End: 07-13-2024 Patient encounter procedure 07/13/2024 10:10 AM EDT Appointment Mammogram [address] [place] [address] Encounter for screening mammogram for breast cancer [Z12.31] Mammogram Comment on above: Encounter for screen ing mammogram for breast cancer [Z12.31] Start: 07-09-2024 Screening for malign ant neoplasm of breast Mammogram Screening [facility] Start: 06-20-2024 Annual PCP Team Casino Gaming Worker daina Disease Visit Annual PCP Team Chronic Disease Visit [facility] Start: 06-20-2024 BP Controlled (<130/80) BP Controlle d (<130/80) [facility] Start: 04-22-2024 End: 07-22-2024 Comprehensive metabolic 2000 panel - Serum or Plasma COMPREHENSIVE METABOLIC PANEL Lab Routine Essential hypertension Expected: 04/22/2024, Expires: 07/22/2024 [facility] Work Phone: Comment on above: Expected: 04/22/2024 , Expires: 07/22/2024 Start: 04-20-2024 End: 07-20-2024 Comprehensive metabolic 2000 panel - Serum or Plasma [facility] Comment on above: Expected: 04/20/2024 , Expires: 07/20/2024 Start: 04-20-2024 End: 07-20-2024 Hemoglobin A1c in Blood [facility] Comment on above: Expected: 04/20/2024 , Expires: 07/20/2024 Start: 04-20-2024 End: 07-20-2024 Thyrotropin [Units/volume] in Serum or Plasma [facility] Work Phone: Comment on above: Expected: 04/20/2024 , Expires: 07/20/2024 Start: 04-20-2024 End: 04-20-2024 Patient encounter procedure 04/20/2024 9:20 AM EST Office Visit [facility] [place] [address] [place], [place] [id number] Yarelis Carlos APRN.HOUSEKEEPING ATTENDANT [address] [place] [address] 6 month follow up [facility] Comment on above: 6 month follow up Start: 04-19-2024 Annual PCP Team Casino Gaming Worker daina Disease Visit Annual PCP Team Chronic Disease Visit [facility] Start: 04-19-2024 BP Controlled (<130/80) BP Controlle d (<130/80) [facility] Start: 04-19-2024 RSV Vaccine (1 - 1-d ose 60+ series) RSV Vaccine (1 - 1-dose 60+ series) [facility] Comment on above: Postponed from 08/06 (Declined at this time) Start: 04-03-2024 End: 04-03-2024 Patient encounter procedure 04/03/2024 9:30 AM EST Office Visit Orthopaedics [address] [place] [address] Blair De Anda PA-C [address] [address] 6 mo follow up left knee pain Orthopaedics Comment on above: 6 mo follow up left knee pain Start: 04-01-2024 DIABETES SCREEN DIABETES SCREEN [facility] Start: 03-04-2024 Advance Directive Discussion Advance Directive Discussion [facility] Start: 12-21-2023 End: 03-21-2024 Thyrotropin [Units/volume] in Serum or Plasma THYROID STIMULATING HORMONE Lab Routine Acquired hypothyroidism Expected: 12/21/2023, Expires: 03/21/2024 [facility] Work Phone: Comment on above: Expected: 12/21/2023 , Expires: 03/21/2024 Start: 11-05-2023 End: 11-05-2023 Patient encounter procedure 11/05/2023 12:30 PM EDT Office Visit [facility] [address] [place], [place] [id number] Lizzie Pool, OD [address] [place] [address] 30 minute contact lens dispensing appointment Ophthalmology Comment on above: 30 minute contact le ns dispensing appointment Start: 11-03-2023 Covid-19 Vaccine ( season) Covid-19 Vaccine ( season) [facility] Start: 11-03-2023 Covid-19 Vaccine ( season) Covid-19 Vaccine ( season) [facility] Start: 11-03-2023 Influenza vaccination [facility] Start: 10-25-2023 Screening for malign ant neoplasm of colon Colorectal Cancer Screening [facility] Start: 10-18-2023 End: 10-18-2023 Patient encounter procedure 10/18/2023 8:00 AM EDT Office Visit [facility] [address] [place], [place] [phone] Sharri Jacobson MD [address] [place], [place] [phone] annual physical [facility] [place] Comment on above: annual physical Start: 10-13-2023 ANNUAL PCP TEAM CLINICAL VETERINARIAN DAINA DISEASE VISIT ANNUAL PCP TEAM CHRONIC DISEASE VISIT [facility] Start: 10-13-2023 BONE DENSITY BONE DENSITY [facility] Comment on above: Postponed from 08/06 (Declined at this time) Start: 10-13-2023 Bone Density Screening Bone Density Screening [facility] Comment on above: Postponed from 08/06 (Declined at this time) Start: 10-13-2023 BP CONTROLLED (<130/80) BP CONTROLLE D (<130/80) [facility] Start: 10-13-2023 COVID-19 VACCINE (#1) COVID-19 VACCI NE (#1) [facility] Comment on above: Postponed from 02/05 (Declined at this time) Start: 10-13-2023 Screening for osteoporosis Bone Density Screening [facility] Comment on above: Postponed from 08/06 (Declined at this time) Start: 10-04-2023 End: 10-04-2023 Patient encounter procedure Ophthalmology Comment on above: 1 year follow up for contact lens eval Start: 09-01-2023 Influenza vaccination Influenza Vacc ine (#1) [facility] Comment on above: Postponed from 11/02 (Declined at this time) Start: 08-11-2023 Urine microalbumin profile [facility] Start: 08-09-2023 End: 08-09-2023 Patient encounter procedure 08/09/2023 10:00 AM EDT Office Visit Orthopaedics [address] [place] [address] Blair De Anda PA-C [address] [address] Acute pain of left knee [M25.562] Orthopaedics Comment on above: Acute pain of left k nee [M25.562] Start: 05-18-2023 Screening for malign ant neoplasm of colon Colorectal Cancer Screening [facility] Comment on above: Postponed from 08/06 (Declined at this time) Start: 04-19-2023 End: 07-19-2023 Comprehensive metabolic 2000 panel - Serum or Plasma [facility] Work Phone: Comment on above: Expected: 04/19/2023 , Expires: 07/19/2023 Start: 04-19-2023 End: 07-19-2023 Hemoglobin A1c in Blood [facility] Work Phone: Comment on above: Expected: 04/19/2023 , Expires: 07/19/2023 Start: 04-13-2023 ANNUAL PCP TEAM CLINICAL VETERINARIAN DAINA DISEASE VISIT ANNUAL PCP TEAM CHRONIC DISEASE VISIT [facility] Start: 03-04-2023 Advance Directive Discussion Advance Directive Discussion [facility] Start: 03-04-2023 Behavioral Health Screening Behavioral Health Screening [facility] Start: 03-04-2023 Depression Assessment Depression Ass essment [facility] Start: 01-15-2023 Colonoscopy COLONOSCOPY [facility] Start: 01-15-2023 COLORECTAL CANCER SCREENING COLORECTAL CANCER SCREENING [facility] Start: 01-15-2023 Screening for malign ant neoplasm of colon [facility] Start: 01-13-2023 [facility] Start: 12-07-2022 SHINGRIX VACCINE (2 of 2) SHINGRIX VACCINE (2 of 2) [facility] Start: 11-21-2022 Mammography [facility] Start: 11-21-2022 Screening for malign ant neoplasm of breast Mammogram Screening [facility] Start: 11-02-2022 Covid-19 Vaccine ( season) Covid-19 Vaccine () [facility] Start: 11-02-2022 Influenza vaccination C [facility] Start: 10-10-2022 Adult depression screening assessment DEPRESSION SCREENING [facility] Start: 10-10-2022 ANNUAL PCP TEAM CLINICAL VETERINARIAN DAINA DISEASE VISIT ANNUAL PCP TEAM CHRONIC DISEASE VISIT [facility] [facility] Start: 10-10-2022 BONE DENSITY BONE DENSITY [facility] Comment on above: Postponed from 08/06 (Declined at this time) Start: 10-10-2022 BP CONTROLLED (<130/80) BP CONTROLLE D (<130/80) [facility] Start: 08-07-2022 ANNUAL PCP TEAM CLINICAL VETERINARIAN DAINA DISEASE VISIT ANNUAL PCP TEAM CHRONIC DISEASE VISIT [facility] Start: 08-07-2022 BP CONTROLLED (<130/80) BP CONTROLLE D (<130/80) [facility] Start: 07-14-2022 End: 09-13-2022 Thyrotropin [Units/volume] in Serum or Plasma TSH BLD Lab Routine Acquired hypothyroidism Expected: 07/14/2022, Expires: 09/13/2022 [facility] Work Phone: Comment on above: Expected: 07/14/2022 , Expires: 09/13/2022 Start: 04-13-2022 End: 06-13-2022 Comprehensive metabolic 2000 panel - Serum or Plasma [facility] Work Phone: Comment on above: Expected: 04/13/2022 , Expires: 06/13/2022 Start: 04-13-2022 End: 06-13-2022 Hemoglobin A1c in Blood [facility] Work Phone: Comment on above: Expected: 04/13/2022 , Expires: 06/13/2022 Start: 04-13-2022 End: 06-13-2022 Thyrotropin [Units/volume] in Serum or Plasma [facility] Work Phone: Comment on above: Expected: 04/13/2022 , Expires: 06/13/2022 Start: 03-04-2022 ADVANCE DIRECTIVE DISCUSSION ADVANCE DIRECTIVE DISCUSSION [facility] Start: 03-04-2022 DEPRESSION ASSESSMENT DEPRESSION ASS ESSMENT [facility] Start: 12-10-2021 End: 02-09-2022 Hepatic function 2000 panel - Serum or Plasma HEPATIC FUNCTION PNL Lab Routine Elevated LFTs Expected: 12/10/2021, Expires: 02/09/2022 [facility] Work Phone: Comment on above: Expected: 12/10/2021 , Expires: 02/09/2022 Start: 12-10-2021 End: 02-09-2022 Thyrotropin [Units/volume] in Serum or Plasma TSH BLD Lab Routine Acquired hypothyroidism Expected: 12/10/2021, Expires: 02/09/2022 [facility] Work Phone: Comment on above: Expected: 12/10/2021 , Expires: 02/09/2022 Start: 11-16-2021 Mammography MAMMOGRAM [facility] Start: 11-10-2021 End: 11-09-2022 Screening mammography bi 2-view breast inc cad [facility] Radiology Routine Screening mammogram for breast cancer Expected: 11/10/2021, Expires: 11/09/2022 [facility] Work Phone: Comment on above: Expected: 11/10/2021 , Expires: 11/09/2022 Start: 11-02-2021 Influenza vaccination INFLUENZA (#1) [facility] Start: 10-10-2021 Adult depression screening assessment DEPRESSION SCREENING [facility] Start: 10-10-2021 COVID-19 VACCINE (#1) COVID-19 VACCI NE (#1) [facility] Comment on above: Postponed from 08/06 (Declined at this time) Postponed from 02/05 (Declined at this time) Start: 10-10-2021 SHINGRIX VACCINE (1 of 2) SHINGRIX VACCINE (1 of 2) [facility] Comment on above: Postponed from 08/06 (Declined at this time) Start: 03-04-2021 ADVANCE DIRECTIVE DISCUSSION ADVANCE DIRECTIVE DISCUSSION [facility] Start: 03-04-2021 DEPRESSION ASSESSMENT DEPRESSION ASS ESSMENT [facility] Start: 09-29-2020 PNEUMOCOCCAL: 65+ (2 - PCV) PNEUMOCOCCAL: 65+ (2 - PCV) [facility] Start: 08-07-2019 BONE DENSITY BONE DENSITY [facility] Start: 2014 RSV Vaccine (1 - 1-d ose 60+ series) RSV Vaccine (1 - 1-dose 60+ series) [facility] Start: 2004 SHINGRIX VACCINE (1 of 2) SHINGRIX VACCINE (1 of 2) [facility] Start: 08-07-1999 COLOGUARD (FIT-DNA) COLOGUARD (FIT-D NA) [facility] Start: 08-07-[address] COLONOGRAPHY [facility] Start: 08-07-1999 FECAL OCCULT BLOOD FECAL OCCULT BLOO D [facility] Start: 08-07-1999 Screening for malign ant neoplasm of colon [facility] Start: 08-07-1999 SIGMOIDOSCOPY SIGMOIDOSCOPY [facility] Start: 1972 Anxiety Screening Anxiety Screening [facility] Start: 1972 BP CONTROLLED (<130/80) BP CONTROLLE D (<130/80) [facility] Start: 1972 Depression Screening Depression Scre ening [facility] Start: 02-05-1956 COVID-19 VACCINE (#1) COVID-19 VACCI NE (#1) [facility] COLOGUARD COLOGUARD Lab Ro utine Screening for colon cancer Ordered: 10/18/2023 [facility] Work Phone: Comment on above: Ordered: 10/18/2023 End: 05-20-2025 DBT Breast - bilateral screening [facility] SCRE[facility]iology Routine Encounter for screening mammogram for breast cancer 1 Occurrences starting 04/20/2024 until 05/20/2025 [facility] Comment on above: 1 Occurrences starti ng 04/20/2024 until 05/20/2025 DBT Breast - bilater al screening [facility]CRE[facility] Radiology Routine Encounter for screening mammogram for breast cancer 07/13/2024 10:04 AM EDT [facility] Work Phone: End: 12-22-2022 Diagnostic mammography computer-aided detcj uni [facility] DIAGNOSTIC LT Radiology Routine Abnormal mammogram 1 Occurrences starting 11/22/2021 until 12/22/2022 [facility] Work Phone: Comment on above: 1 Occurrences starti ng 11/22/2021 until 12/22/2022 Patient Education ED Muscle Stra in, Abdomen [facility] Work Phone: Patient referral [facility] Work Phone: End: 12-22-2022 Us breast uni real time with image limited US BREAST LTD LT Radiology Routine Abnormal mammogram 1 Occurrences starting 11/22/2021 until 12/22/2022 [facility] Work Phone: Comment on above: 1 Occurrences starti ng 11/22/2021 until 12/22/2022 End: 07-20-2024 XR Knee - left 4 Views XR KNEE GENERAL 4V AP BOTH/PA BOTH/LAT/MERC LEFT Radiology Routine Acute pain of left knee 1 Occurrences starting 06/21/2023 until 07/20/2024 [facility] Work Phone: Comment on above: 1 Occurrences starti ng 06/21/2023 until 07/20/2024 XR Knee - left 4 Views XR KNEE G ENERAL 4V AP BOTH/PA BOTH/LAT/MERC LEFT Radiology Routine Acute pain of left knee 06/21/2023 11:21 AM EDT [facility] Work Phone: [facility] Immunizations Immunization Date Immunization Notes Care Provider Fa bernice 04-19-2023 zoster vaccine recombinant Sharri Jacobson MD Work Phone: [facility] 10-12-2022 zoster vaccine recombinant Sharri Jacobson MD Work Phone: [facility] 10-10-2021 pneumococcal Conjuga te, unspecified formulation Sharri Jacobson MD Work Phone: [facility] Work Phone: 10-10-2021 pneumococcal (PCV20) vaccine, 20 valent (PREVNAR 20) Sharri Jacobson MD Work Phone: [facility] 12-14-2020 influenza, high-dose , quadrivalent vaccine (FLUZONE HIGH DOSE QUADRIVALENT) Sharri Jacobson MD Work Phone: [facility] 12-14-2020 influenza virus vaccine, unspecified formulation Allen Lopes INVESTMENT TRADER.HOUSEKEEPING ATTENDANT Work Phone: [facility] 09-30-2019 pneumococcal polysaccharide vaccine, 23 valent Sharri Jacobson MD Work Phone: [facility] 08-10-2013 tetanus toxoid, redu sheryl diphtheria toxoid, and acellular pertussis vaccine, adsorbed Sharri Jacobson MD Work Phone: [facility] Payers Date Payer Category Payer Self-pay [id number] 2024 Unknown [id number] 2021 Private Health Insurance [employer] [id number] 2021 Unknown [employer] PPO [id number] 2021-Present [phone] [address] [place] [address] PPO [id number] 2021 Unknown [id number] 2021 Unknown [id number] Unknown [employer] AID [id number] Unknown [id number] Social History Date Type Detail Facility Start: 10-10-2021 Tobacco smoking stat [facility] Never smoked tobacco [facility] Start: 04-12-2021 End: 11-05-2023 Alcohol intake Current non-drinker of alcohol (finding) [facility] Start: 1955 Sex Assigned At Not on file [facility] Start: 07-28-2021 End: 11-21-2021 Exposure to SARS-CoV-2 (event) Not sure [facility] Start: 10-10-2021 Tobacco use and exposure Smokeless tobacco non-user [facility] Start: 07-20-2022 End: 09-13-2022 History of Social function [facility] Work Phone: Start: 07-20-2022 End: 09-13-2022 Tobacco use panel [facility] Work Phone: Start: 02-03-2012 Adult Depression Screening Assessment 0 [facility] Work Phone: Start: 01-13-2023 Tobacco smoking stat us ALIS Unknown if ever smoked [facility] Start: 1955 Sex Assigned At Female [facility] Start: 10-19-2024 Alcoholic beverage intake Lifetime non-drinker (finding) [facility] How often to you hav e a drink containing alcohol? Never [facility] Functional Status Date Assessment Result Facility 10-19-2024 Total score [AUDIT-C] 0 10/20/19 25 9:09 AM Sharri Otero MD [facility] 08-03-2014 Are you deaf, or do you have serious difficulty hearing No 08/03/2014 9:37 AM Nelli Perkins RN No [facility] 08-03-2014 Are you blind, or do you have serious difficulty seeing, even when wearing glasses No 08/03/2014 9:37 AM Nelli Perkins RN No [facility] 08-03-2014 Do you have serious difficulty walking or climbing stairs No 08/03/2014 9:37 AM Nelli Perkins RN No [facility] 08-03-2014 Do you have difficul ty dressing or bathing No 08/03/2014 9:37 AM Nelli Perkins RN No [facility] 08-03-2014 Because of a physica l, mental, or emotional condition, do you have difficulty doing errands alone such as visiting a physician's office or shopping No 08/03/2014 9:37 AM Nelli Perkins RN No [facility] Mental Status Date Assessment Result Facility 08-03-2014 Because of a physica l, mental, or emotional condition, do you have serious difficulty concentrating, remembering, or making decisions No 08/03/2014 9:37 AM EDT Nelli Logan, RN No [facility] Clinical Notes 01-18-2010 to 11-16-2024 Braden Ni APRN.HOUSEKEEPING ATTENDANT - 11/16/2024 10:47 AM EDTTelephone Encounter - Shanice Blackmon RN - 10/20/2024 3:29 PM EDTTelephone Encounter - Shanice Blackmon RN - 10/20/2024 3:29 PM EDT Note Date & Type Note Facility 11-16-2024 Note HNO ID: [id number] Author: BRADEN NI APRN.HOUSEKEEPING ATTENDANT Service: ? Author Type: Nurse Practitioner Type: Progress Notes Filed: 11/16/2024 11:00 Note Text: Chief Complaint Patient presents with: Pre-Op Exam HPI Elina Grace is a 69 year old female who presents here today for Above Complaints. Patient presents for preop exam, total knee scheduled with [facility] 12/03. Patient has lab orders to be completed. Past medical history, appointments, medications, allergies reviewed. [...] OF 08/2022 Ingrown toenail removal-Dr. Tolbert in [place] PAST SURGICAL HISTORY OF 08/2024 cyst removal from left cheek-[facility] Family History FAMILY HISTORY Problem Relation Age [...] KIT) 1 Each once daily as needed. [place]-3 Fatty Acids 500 mg cap Take 1 [...] HISTORY[1] Review of Symptoms REVIEW OF SYSTEMS SEE HPI EXAM: BP 134/80 Pulse 69 Wt 80 kg (176 lb 5.9 oz) LMP 05/27/2006 BMI 31.05 kg/m? General Appearance: Well appearing, alert, in no acute distress, well-hydrated, well nourished. Lungs: Lungs clear to auscultation. No wheezing, rhonchi, rales.. Heart: RRR without murmur, gallop, or rubs. No ectopy. Peripheral Pulses: Normal. Health Maintenance List Depression Screening Never done Anxiety Screening Never done Colorectal Cancer Screening due on 10/25/2023 Advance Directive Discussion due on 03/04/2024 Influenza Vaccine(1) due on 11/02/2024 DTaP,Tdap,Td Vaccine(2 - Td or Tdap) due on 10/19/2025 Bone Density Screening due on 10/19/2025 Mammogram Screening due on 07/13/2025 Annual PCP Team Chronic Disease Visit due on 10/19/2025 Diabetes Screening due on 10/20/2027 RSV Vaccine(1 - 1-dose 75+ series) due on 2029 Lipid Screening due on 10/19/2029 Hepatitis C Screening Completed Shingrix Vaccine Completed Pneumococcal Vaccine: 50+ Completed Cervical Cancer Screening Discontinued ASSESSMENT/PLAN: 1. Pre-op examination - ICD9: V72.84, ICD10: Z01.818 Based on the patient's history, physical, functional status, and ACS risk score, he has an 0.4% chance of a serious adverse cardiac event. This is average risk for his age an the planned operation. The risk is below the recommended threshold for further evaluation. Therefore, I do not recommend further preoperative testing and he may proceed with the planned operation. I recommend this risk assessment be incorporated into the overall discussion on risks and benefits of this operation. -Preop EKG completed at [facility] and reviewed. Unchanged from previous in 2019. Braden Ni, INVESTMENT TRADER.HOUSEKEEPING ATTENDANT [1] Social History Tobacco Use Smoking status: Never Smokeless tobacco: Never Vaping Use Vaping status: Never Used Substance Use Topics Alcohol use: Never Drug use: No [facility] 11-16-2024 History of Present illness Narrative Chief Complaint Patient presents with: Pre-Op Exam CATHY Grace is a 69 year old female who presents here today for Above Complaints. Patient presents for preop exam, total knee scheduled with [facility] 12/03. Patient has lab orders to be completed. Past medical history, appointments, medications, allergies reviewed. Previous Medical History PAST MEDICAL HISTORY Diagnosis Date Arthritis of left knee severe, Dr. Chin Asymptomatic varicose veins Essential hypertension Obesity (BMI 30-39.9) Other and unspecified hyperlipidemia 2003 Paroxysmal supraventricular tachycardia (HCC) 2003 Supraventricular tachycardia [...] OF 08/2022 Ingrown toenail removal-Dr. Tolbert in [place] PAST SURGICAL HISTORY OF 08/2024 cyst removal from left cheek-[facility] [place] Family History FAMILY HISTORY Problem Relation Age [...] KIT) 1 Each once daily as needed. [place]-3 Fatty Acids 500 mg cap Take 1 [...] HISTORY[1] Review of Symptoms REVIEW OF SYSTEMS SEE HPI EXAM: BP 134/80 Pulse 69 Wt 80 kg (176 lb 5.9 oz) LMP 05/27/2006 BMI 31.05 kg/m General Appearance: Well appearing, alert, in no acute distress, well-hydrated, well nourished. Lungs: Lungs clear to auscultation. No wheezing, rhonchi, rales.. Heart: RRR without murmur, gallop, or rubs. No ectopy. Peripheral Pulses: Normal. Health Maintenance List Depression Screening Never done Anxiety Screening Never done Colorectal Cancer Screening due on 10/25/2023 Advance Directive Discussion due on 03/04/2024 Influenza Vaccine(1) due on 11/02/2024 DTaP,Tdap,Td Vaccine(2 - Td or Tdap) due on 10/19/2025 Bone Density Screening due on 10/19/2025 Mammogram Screening due on 07/13/2025 Annual PCP Team Chronic Disease Visit due on 10/19/2025 Diabetes Screening due on 10/20/2027 RSV Vaccine(1 - 1-dose 75+ series) due on 2029 Lipid Screening due on 10/19/2029 Hepatitis C Screening Completed Shingrix Vaccine Completed Pneumococcal Vaccine: 50+ Completed Cervical Cancer Screening Discontinued ASSESSMENT/PLAN: 1. Pre-op examination - ICD9: V72.84, ICD10: Z01.818 Based on the patient's history, physical, functional status, and ACS risk score, he has an 0.4% chance of a serious adverse cardiac event. This is average risk for his age an the planned operation. The risk is below the recommended threshold for further evaluation. Therefore, I do not recommend further preoperative testing and he may proceed with the planned operation. I recommend this risk assessment be incorporated into the overall discussion on risks and benefits of this operation. -Preop EKG completed at [facility] and reviewed. Unchanged from previous in 2019. Braden Ni APRN.DIONY [1] Social History Tobacco Use Smoking status: Never Smokeless tobacco: Never Vaping Use Vaping status: Never Used Substance Use Topics Alcohol use: Never Drug use: No documented in this encounter [facility] 10-20-2024 Telephone encounter Note Patient calls and notified of results and providers instructions. Patient verbalizes understanding. Shanice Blackmon RN [facility] 10-20-2024 Miscellaneous Notes Patient calls and notified of results and providers instructions. Patient verbalizes understanding. Shanice Blackmon RN Message left for return call. See 's chart for his results as well. Stacy Siegel MA ----- Message from Sharri Jacobson MD sent at 10/20/2024 7:08 AM EDT ----- Normal labs aside from A1c in prediabetic range at 5.9. recommend low carb/cholesterol diet and regular exercise. No changes to regimen otherwise. ----- Message ----- From: Lab, Background User Sent: 10/19/2024 4:48 PM EDT To: Sharri Jacobson MD documented in this encounter [facility] 10-20-2024 Telephone encounter Note Message left for return call. See 's chart for his results as well. Stacy Siegel MA [facility] 10-20-2024 Telephone encounter Note ----- Message from Sharri Jacobson MD sent at 10/20/2024 7:08 AM EDT ----- Normal labs aside from A1c in prediabetic range at 5.9. recommend low carb/cholesterol diet and regular exercise. No changes to regimen otherwise. ----- Message ----- From: Lab, Background User Sent: 10/19/2024 4:48 PM EDT To: Sharri Jacobson MD [facility] 10-19-2024 Instructions Sharri Jacobson MD - [...] and improve circulation. documented in this encounter [facility] 10-19-2024 Note HNO ID: [id number] Author: SHARRI JACOBSON MD Service: ? Author Type: Physician Type: Progress Notes Filed: 10/19/2024 09:31 Note Text: Chief Complaint Patient presents with: 6 Month Exam Recording using [employer] software for draft documentation of the visit was discussed with the patient/authorized guest relations representative; all questions welcomed and answered. Patient/authorized guest relations representative agreed to proceed HPI Elina Grace is a 69 year old female who presents here today for annual physical. Has forms to be completed today. Left Knee Pain: - Severe arthritis and bone on bone changes in the left knee. - Under care of Dr. Mims at [facility]. - Received two cortisone injections with [...] OF 08/2022 Ingrown toenail removal-Dr. Tolbert in [place] PAST SURGICAL HISTORY OF 08/2024 cyst removal from left cheek-[facility] Family History FAMILY HISTORY Problem Relation Age [...] KIT) 1 Each once daily as needed. [place]-3 Fatty Acids 500 mg cap Take 1 [...] GI: No na (more content not included)... [facility] 10-19-2024 History of Present illness Narrative Chief Complaint Patient presents with: 6 Month Exam Recording using [employer] software for draft documentation of the visit was discussed with the patient/authorized guest relations representative; all questions welcomed and answered. Patient/authorized guest relations representative agreed to proceed HPI Elina Grace is a 69 year old female who presents here today for annual physical. Has forms to be completed today. Left Knee Pain: - Severe arthritis and bone on bone changes in the left knee. - Under care of Dr. Mims at [facility]. - Received two cortisone injections with [...] OF 08/2022 Ingrown toenail removal-Dr. Tolbert in [place] PAST SURGICAL HISTORY OF 08/2024 cyst removal from left cheek-[facility] Family History FAMILY HISTORY Problem Relation Age [...] KIT) 1 Each once daily as needed. 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 Routine screening mammogram is recommended. Annual mammogram will be due in 1 year. Yarelis Carlos APRN.CNP [facility] 07-14-2024 Miscellaneous Notes Mammogram shows there is no mammographic evidence of malignancy in either breast. Routine screening mammogram is recommended. Annual mammogram will be due in 1 year. Yarelis Carlos APRN.CNP documented in this encounter [facility] 07-13-2024 History of Present illness Narrative [...] PATIENT PRESENTS WITH AN IMPLANTABLE OR ATTACHED SOFT TILE SETTER: No RADIOLOGY DEPARTMENT: Mammography PERIPHERAL IV DATA: Not applicable SIGNED BY: Osmel Barrera July 13, 2024 10:02 AM documented in this encounter [facility] 07-13-2024 Note HNO ID: [id number] Author: JOCELYNN MANRIQUEZ Mammo Tech Service: ? [...] PATIENT PRESENTS WITH AN IMPLANTABLE OR ATTACHED SOFT TILE SETTER: No RADIOLOGY DEPARTMENT: Mammography PERIPHERAL IV DATA: Not applicable SIGNED BY: Osmel Barrera July 13, 2024 10:02 AM [facility] 04-28-2024 Telephone encounter Note See other telephone encounter. [facility] 04-28-2024 Miscellaneous Notes See other telephone encounter. Patient calls and is asking about lab results. Please review and advise, Jeannette Vo RN documented in this encounter [facility] 04-27-2024 Telephone encounter Note Pt called and notified of results below, verbalized understanding. Irasema Sterling MA [facility] 04-27-2024 Miscellaneous Notes Pt called and notified of results below, verbalized understanding. Irasema Sterling MA ----- Message from Sharri Jacobson MD sent at 04/23/2024 2:28 PM EST ----- Normal labs. documented in this encounter [facility] 04-27-2024 Telephone encounter Note ----- Message from Sharri Jacobson MD sent at 04/23/2024 2:28 PM EST ----- Normal labs. [facility] 04-22-2024 Telephone encounter Note Order for repeat CMP placed. Yarelis Carlos APRN.CNP [facility] 04-22-2024 Miscellaneous Notes Order for repeat CMP placed. Yarelis Carlos APRN.HOUSEKEEPING ATTENDANT A1c down to 5.7% from 5.9%- continue medication, diet and exercise. TSH in normal range- continue current does of synthroid. Looks like her CMP had some hemolysis therefore unable to calculate liver function or he potassium level. I can place order to have repeated- she may complete at her convenience. Yarelis Carlos APRN.DIONY documented in this encounter [facility] 04-22-2024 Telephone encounter Note A1c down to 5.7% from 5.9%- continue medication, diet and exercise. TSH in normal range- continue current does of synthroid. Looks like her CMP had some hemolysis therefore unable to calculate liver function or he potassium level. I can place order to have repeated- she may complete at her convenience. Yarelis Carlos APRN.CNP [facility] 04-22-2024 Telephone encounter Note Patient calls and is asking about lab results. Please review and advise, Jeannette Vo RN [facility] 04-20-2024 Instructions Yarelis Carlos APRN.CNP - 04/20/2024 9:39 AM EST Flonase - use one- two sprays to each nares daily, rinse mouth after use documented in this encounter [facility] 04-20-2024 History of Present illness Narrative [...] KIT) 1 Each once daily as needed. [place]-3 Fatty Acids 500 mg cap Take 1 [...] Abs Lymph 1.00 - 4.00 k/uL 1.93 [place]% % 10.4 Abs [place] <0.87 k/uL 0.46 [place]% % 3.6 Abs [...] Colorectal Cancer Screening due on 10/25/2023 Covid-19 Vaccine(2023- season) Never done Advance Directive Discussion due [...] follow-up if fails to improve Yarelis Carlos APRN.CNP Prescription instructions reviewed with patient as applicable. [...] 4 - Moderate documented in this encounter [facility] 04-20-2024 Note HNO ID: [id number] Author: YARELIS CARLOS APRN.CNP Service: ? Author Type: Nurse Practitioner Type: [...] KIT) 1 Each once daily as needed. [place]-3 Fatty Acids 500 mg cap Take 1 [...] Abs Lymph 1.00 - 4.00 k/uL 1.93 [place]% % 10.4 Abs [place] <0.87 k/uL 0.46 Eosin% % 3.6 Abs [...] mmol/L 25 Anion (more content not included)... [facility] 02-14-2024 Telephone encounter Note Patient calls to report that [facility] did not receive most recent prescriptions and will need to be resent. Patient was given a 5 day supply of medication to get through until new prescriptions are sent to pharmacy. Pended previous orders as requested. Shanice Blackmon RN [facility] 02-14-2024 Miscellaneous Notes Patient calls to report that [facility] did not receive most recent prescriptions and will need to be resent. Patient was given a 5 day supply of medication to get through until new prescriptions are sent to pharmacy. Pended previous orders as requested. Shanice Blackmon RN documented in this encounter [facility] 02-11-2024 Telephone encounter Note Prescription Refill Information [...] tablet by mouth once daily. Loren Oquendo [facility] February 11, 2024 10:56 AM [facility] 02-11-2024 Miscellaneous Notes Prescription Refill Information [...] 1 tablet by mouth once daily. Loren Del Rosario February 11, 2024 10:56 AM documented in this encounter [facility] 12-23-2023 Telephone encounter Note CD READY FOR SUPERVISOR CHLORINE LIQUEFACTION AT [facility] Pt is aware [facility] 12-23-2023 Miscellaneous Notes CD READY FOR SUPERVISOR CHLORINE LIQUEFACTION AT [facility] Pt is aware Patient calling she has appt on Tuesday 12/26 with Kris Thomas for her left knee pain. She is asking for knee xray that was done on 06/21/2023 to be put on disc please. She can pecan picker the disc Saturday afternoon. Told her pecan picker at [facility] area. Thank You documented in this encounter [facility] 12-23-2023 Telephone encounter Note Patient calling she has appt on Tuesday 12/26 with Kris Thomas for her left knee pain. She is asking for knee xray that was done on 06/21/2023 to be put on disc please. She can pecan picker the disc Saturday afternoon. Told her pecan picker at [facility] area. Thank You [facility] 11-05-2023 History of Present illness Narrative 1. Keratoconus, stable, bilateral 2. Dry eye syndrome of bilateral lacrimal glands Dispensed contact lens- good initial vision and fit Will finalize- patient to follow-up with any issues or in 1 year for cl eval Patient to continue at [facility] for comprehensive care Lizzie Pool, OD November 05, 2023 1:07 PM documented in this encounter [facility] 10-30-2023 Telephone encounter Note Patient notified. Racquel Godoy LPN [facility] 10-30-2023 Miscellaneous Notes Patient notified. Racquel Godoy LPN Cologuard negative. Yarelis Carlos APRN.HOUSEKEEPING ATTENDANT documented in this encounter [facility] 10-30-2023 Telephone encounter Note Cologuard negative. Yarelis Carlos APRN.HOUSEKEEPING ATTENDANT [facility] 10-28-2023 Telephone encounter Note Patient returned call and scheduled an appointment with Dr. Pool on 11/08/23. [facility] 10-28-2023 Miscellaneous Notes Patient returned call and scheduled an appointment with Dr. Pool on 11/08/23. LVM for the patient informing her that our office has received her right specialty contact lens. I asked that the patient call our office back to get scheduled for a 30 minute contact lens dispensing appointment with Dr. Pool. Please advise PAO Zafar documented in this encounter [facility] 10-28-2023 Telephone encounter Note LVM for the patient informing her that our office has received her right specialty contact lens. I asked that the patient call our office back to get scheduled for a 30 minute contact lens dispensing appointment with Dr. Pool. Please advise PAO Zafar [facility] 10-21-2023 Telephone encounter Note Patient returned call and wanted to go over levothyroxine dose again. Went over notes below Dr Jacobson said one tablet daily. Patient had been one one half tablet on Saturdays and was little mixed up, advised to take one tablet daily and recheck TSH in 8 weeks with understanding. [facility] 10-21-2023 Miscellaneous Notes Patient returned call [...] in 8 weeks. documented in this encounter [facility] 10-21-2023 History of Present illness Narrative (H18.613) Keratoconus, stable, bilateral (primary encounter diagnosis) (H04.123) Dry eye syndrome of bilateral lacrimal glands Ordered new lens Call for in office dispense Lizzie Pool, LISSETH October 21, 2023 1:30 PM documented in this encounter [facility] 10-21-2023 Telephone encounter Note Pt informed, verbalized understanding. Sammie Walden MA [facility] 10-21-2023 Telephone encounter Note Normal labs aside from A1c in prediabetic range at 5.9 and high TSH. Recommend low carb diet and regular exercise. Increase synthroid to tablet daily and recheck TSH in 8 weeks. [facility] 10-18-2023 History of Present illness Narrative [...] OF Comment: Ingrown toenail removal-Dr. Tolbert in [place] Family History FAMILY HISTORY Problem Relation Age [...] KIT) 1 Each once daily as needed. 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: Negative for abnormal vaginal bleeding, abnormal vaginal [...] Wt 84.6 kg (186 lb 8.2 oz) LMP 05/27/2006 BMI 32.84 kg/m General Appearance: Well [...] Abs Lymph 1.00 - 4.00 k/uL 1.95 [place]% % 10.4 Abs [place] <0.87 k/uL 0.46 Eosin% % 3.4 Abs [...] Sharri Jacobson MD documented in this encounter [facility] 10-04-2023 History of Present illness Narrative [...] PATIENT PRESENTS WITH AN IMPLANTABLE OR ATTACHED SOFT TILE SETTER: No RADIOLOGY DEPARTMENT: General X-ray: Exam(s) Completed: Chest X-Ray PERIPHERAL IV DATA: Not applicable SIGNED BY: RT Aly(R) October 04, 2023 11:46 AM documented in this encounter [facility] 10-04-2023 History of Present illness Narrative [...] OF Comment: Ingrown toenail removal-Dr. Tolbert in [place] ALLERGIES Lipitor [Atorvastatin Calcium] MEDICATIONS loratadine (CLARITIN) [...] KIT) 1 Each once daily as needed. [place]-3 Fatty Acids 500 mg cap Take 1 [...] glenoid. IMPRESSION IMPRESSION: No acute radiographic abnormality. Commissioner Conservation Of Resources: AARON Transcribe Date/Time: Oct 04 2023 12:16P Dictated by : MD Fiordaliza LAIRD and Rosa Zuleta Prescription instructions reviewed with patient as applicable. Potential red flag symptoms discussed with the patient. Reviewed appropriate action plan to take if red flag symptoms occur. Patient agreeable to treatment plan. Carolina Valadez APRN.HOUSEKEEPING ATTENDANT documented in this encounter [facility] 10-04-2023 History of Present illness Narrative 1. Keratoconus, stable, bilateral 2. Dry eye syndrome of bilateral lacrimal glands Order new lens right eye (will attempt to order old lens from Dr. Lama) Educated pt that we may need to go back to the [place] lens if this lens does not give adequate fit/vision Will call when lens arrives Lizzie Pool, LISSETH October 04, 2023 11:32 AM documented in this encounter [facility] 08-19-2023 Telephone encounter Note Prescription Refill [...] Del Rosario August 19, 2023 8:28 AM [facility] 08-19-2023 Miscellaneous Notes Prescription Refill Information [...] 2023 8:28 AM documented in this encounter [facility] 08-09-2023 History of Present illness Narrative [...] tab other days. Take on empty stomach. [place]-3 Fatty Acids 500 mg cap Take 1 [...] OF 08/2022 Ingrown toenail removal-Dr. Tolbert in [place] SOCIAL HISTORY Tobacco: Non-smoker, never smoked FAMILY [...] which included preparing to see the patient, [id number] patient care, completing clinical documentation, obtaining and/or [...] Intervention/Comfort measure: Medication documented in this encounter [facility] 07-10-2023 Telephone encounter Note Phoned patient and went over results, notes from Dr Jacobson with understanding. [facility] 07-10-2023 Miscellaneous Notes Phoned patient and went over results, notes from Dr Jacobson with understanding. ----- Message from Sharri Jacobson MD sent at 07/10/2023 1:19 PM EDT ----- Negative mammogram. Repeat in 1 year. documented in this encounter [facility] 07-10-2023 Telephone encounter Note ----- Message from Sharri Jacobson MD sent at 07/10/2023 1:19 PM EDT ----- Negative mammogram. Repeat in 1 year. [facility] 07-10-2023 Note Formatting of this n ote might be different from the original. July 10, 2023 PID: [id number] Elina Grace [address] [place] [address] Dear Ms. Grace, We are pleased to [...] report will be kept on file at [facility] as part of your permanent medical record and are available for your continuing care. Thank you for allowing us to help in meeting your health care needs. Sincerely, Dr. Olivares Interpreting Radiologist [facility] (Normal over 40) [facility] 07-10-2023 Miscellaneous Notes July 10, 2023 PID: [id number] Elina Grace [address] [place] [address] Dear Ms. Grace, We are pleased to [...] report will be kept on file at [facility] as part of your permanent medical record and are available for your continuing care. Thank you for allowing us to help in meeting your health care needs. Sincerely, Dr. Olivares Interpreting Radiologist [facility] (Normal over 40) documented in this encounter [facility] 07-10-2023 History of Present illness Narrative [...] PATIENT PRESENTS WITH AN IMPLANTABLE OR ATTACHED SOFT TILE SETTER: No RADIOLOGY DEPARTMENT: Mammography PERIPHERAL IV DATA: Not applicable SIGNED BY: [place] July 10, 2023 9:34 AM documented in this encounter [facility] 06-21-2023 History of Present illness Narrative [...] PATIENT PRESENTS WITH AN IMPLANTABLE OR ATTACHED SOFT TILE SETTER: No RADIOLOGY DEPARTMENT: General X-ray: Exam(s) Completed: Lower Extremity X-Ray(s): Knee, AP / Lat / Tunne / Merchant Left and Wt. Bearing PERIPHERAL IV DATA: Not applicable SIGNED BY: RT Aly(R) June 21, 2023 11:08 AM documented in this encounter [facility] 06-21-2023 History of Present illness Narrative [...] KIT) 1 Each once daily as needed. [place]-3 Fatty Acids 500 mg cap Take 1 [...] deep flexion. Negative anterior/posterior drawer test. Negative Mone Covid-19 Vaccine( season) Never done Mammogram Screening due on 11/21/2022 [...] ER with red flag symptoms Yarelis Carlos APRN.HOUSEKEEPING ATTENDANT Prescription instructions reviewed with patient as applicable. [...] 3 - Low documented in this encounter [facility] 06-21-2023 Miscellaneous Notes Patient call in [...] SYMPTOMS Denies other symptoms Protocols used: Leg [id number] documented in this encounter [facility] 04-22-2023 Miscellaneous Notes Phoned patient and reviewed results and recommendations with her. Patient voiced understanding. A1c unchanged. The rest of her blood work is I acceptable ranges. Continue current medications, diet and exercise. Yarelis Carlos APRN.HOUSEKEEPING ATTENDANT documented in this encounter [facility] 04-19-2023 Instructions Sharri Jacobson MD - 04/19/2023 8:56 AM EST Please pecan picker Zyrtec or Merari for dry cough. Call if not improving in 2-3 weeks. documented in this encounter [facility] 04-19-2023 History of Present illness Narrative [...] OF 08/2022 Ingrown toenail removal-Dr. Tolbert in [place] Family History FAMILY HISTORY Problem Relation Age [...] KIT) 1 Each once daily as needed. [place]-3 Fatty Acids 500 mg cap Take 1 [...] Abs Lymph 1.00 - 4.00 k/uL 1.95 [place]% % 10.4 Abs [place] <0.87 k/uL 0.46 Eosin% % 3.4 Abs [...] allergic rhinitis. Patient refusing flonase rx. Will pecan picker zyrtec or merari OTC and call [...] Sharri Jacobson MD documented in this encounter [facility] 01-13-2023 History of Present illness Narrative [...] OF 08/2022 Ingrown toenail removal-Dr. Tolbert in [place] ALLERGIES Lipitor [Atorvastatin Calcium] MEDICATIONS pravastatin (PRAVACHOL) [...] KIT) 1 Each once daily as needed. [place]-3 Fatty Acids 500 mg cap Take 1 [...] plan of care will be seen in [place] [facility]. Allen Lopes APRN.HOUSEKEEPING ATTENDANT documented in this encounter [facility] 10-16-2022 Miscellaneous Notes Patient returned call [...] changes to regimen. documented in this encounter [facility] 10-01-2022 History of Present illness Narrative (H18.613) Keratoconus, stable, bilateral (primary encounter diagnosis) (H04.123) Dry eye syndrome of bilateral lacrimal glands Finalized contact lens Follow-up in 1 year or sooner as needed Lizzie Pool OD October 01, 2022 10:01 AM documented in this encounter [facility] 09-28-2022 Miscellaneous Notes FRANK 04/13/22 NOV [...] Angie Del Rosario documented in this encounter [facility] 08-31-2022 History of Present illness Narrative (H18.613) Keratoconus, stable, bilateral (primary encounter diagnosis) (H04.123) Dry eye syndrome of bilateral lacrimal glands Order new lens- call for in office dispense Lizzie Pool, LISSETH August 31, 2022 4:00 PM documented in this encounter [facility] 08-20-2022 Instructions Lizzie oPol OD - 08/20/2022 9:10 AM EDT Use Preservative Free Systane Complete/Ultra or Refresh Relieva/Optive 3-4 times daily with contact lens wear Use Systane, Refresh or Blink gel or ointment nightly before bed in both eyes documented in this encounter [facility] 08-20-2022 History of Present illness Narrative 1. Keratoconus, stable, bilateral Good vision, fit and comfort 2. Dry eye syndrome of bilateral lacrimal glands Continue PF artificial tears 3-4 times daily Add gel/ointment nighttime both eyes Follow-up as needed or in 7-8 months for cl lili Pool, OD August 20, 2022 9:07 AM documented in this encounter [facility] 08-13-2022 Miscellaneous Notes FRANK 04/13/22 Appointment [...] patient. Yarelis Sue documented in this encounter [facility] 04-23-2022 History of Present illness Narrative 1. Keratoconus, stable, bilateral Patient doing well with both lenses Continue follow-up with Dr. Vincent for comprehensive eye care, and me in 1 year for contact lens lili Pool, OD April 23, 2022 9:40 AM documented in this encounter [facility] 04-16-2022 Miscellaneous Notes Order to check [...] Yarelis Carlos APRN.CNP documented in this encounter [facility] 04-13-2022 History of Present illness Narrative [...] unspecified hyperlipidemia 2003 Paroxysmal supraventricular tachycardia (HCC) 2003 Supraventricular tachycardia [...] KIT) 1 Each once daily as needed. [place]-3 Fatty Acids 500 mg cap Take 1 [...] which included preparing to see the patient, unie-aw-minf patient care, completing clinical documentation, obtaining and/or reviewing separately obtained history, performing a medically appropriate examination, counseling and educating the patient/family/caregiver, and ordering medications, tests, or procedures. documented in this encounter [facility] 04-06-2022 History of Present illness Narrative 1. Keratoconus, stable, bilateral Dispensed new cl right eye only Follow-up in 2 weeks wearing new lens right ey Lizzie Pool, OD April 06, 2022 9:54 AM documented in this encounter [facility] 03-16-2022 History of Present illness Narrative 1. Keratoconus, stable, bilateral Reorder new right lens only Call for in office dispense Lizzie Pool, OD March 16, 2022 10:16 AM documented in this encounter [facility] 01-18-2022 History of Present illness Narrative 1. Keratoconus, stable, bilateral Re-order right lens only d/t central bubble Dispensed left lens today Call for in office dispense Lizzie Pool, OD January 18, 2022 1:36 PM documented in this encounter [facility] 12-27-2021 Miscellaneous Notes Letter mailed to pt home of results. Ava Shen MA Please call patient and let her know her mammogram shows there is no mammographic evidence of malignancy. A 1 year screening mammogram is recommended. Thanks Yarelis Carlos APRN.DIONY documented in this encounter [facility] 12-11-2021 Miscellaneous Notes Letter mailed to pt home of results. Ava Shen MA ----- Message from Sharri Jacobson MD sent at 12/11/2021 8:01 AM EDT ----- Repeat thyroid testing in good range. Repeat LFTs normal. No change to regimen. documented in this encounter [facility] 11-22-2021 Miscellaneous Notes Patient notified of results, verbalizes understanding of instructions. Please assist with scheduling. Thank you! Racquel Godoy LPN Please call patient and let her know additional views of left breast. Orders placed, please assist in scheduling. Yarelis Carlos APRN.DIONY documented in this encounter [facility] 11-21-2021 Miscellaneous Notes November 21, 2021 PID: [id number] Elina Grace [address] [place] [address] Dear Ms. Grace, Your recent breast imaging exam on 11/21/2021 showed a possible finding that requires additional imaging studies for a complete evaluation. Most such findings are probably benign (not cancer). If you have a healthcare provider who ordered/prescribed your screening mammogram: Please call [phone] or [phone]: [phone] to schedule an appointment for your additional [...] and reports are kept on file at [facility] as part of your permanent medical record, and are available for your continuing care. Thank you for allowing us to help in meeting your health care needs. Sincerely, Dr. Haq Interpreting Radiologist [facility] (Additional imaging) documented in this encounter [facility] 11-21-2021 History of Present illness Narrative [...] 2021 9:37 AM documented in this encounter [facility] 10-10-2021 History of Present illness Narrative [...] KIT) 1 Each once daily as needed. [place]-3 Fatty Acids (FISH OIL) 500 mg cap [...] Sharri Jacobson MD documented in this encounter [facility] 08-07-2021 History of Present illness Narrative [...] KIT) 1 Each once daily as needed. 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 Impaired fasting glucose 017 documented as of this encounter (statuses as of 08/07/2021) [facility] History of Past illness Narrative* Problem Noted Date Resolved Date Graves' disease 01/18/2010 12/14/2016 Abdominal pain, right lower quadrant 06/14/2006 12/14/2016 Excessive or frequent menstruation 07/11/2005 12/14/2016 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 Impaired fasting glucose 017 documented as of this encounter (statuses as of 10/10/2021) [address]17-2010 History of Past illness Narrative* Problem Noted Date Resolved Date Graves' disease 01/18/2010 12/14/2016 Abdominal pain, right lower quadrant 06/14/2006 12/14/2016 Excessive or frequent menstruation 07/11/2005 12/14/2016 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 Impaired fasting glucose 017 documented as of this encounter (statuses as of 11/22/2021) [address]2010 History of Past illness Narrative* Problem Noted Date Resolved Date Graves' disease 01/18/2010 12/14/2016 Abdominal pain, right lower quadrant 06/14/2006 12/14/2016 Excessive or frequent menstruation 07/11/2005 12/14/2016 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 Impaired fasting glucose 017 documented as of this encounter (statuses as of 11/23/2021) [address]2010 History of Past illness Narrative* Problem Noted Date Resolved Date Graves' disease 01/18/2010 12/14/2016 Abdominal pain, right lower quadrant 06/14/2006 12/14/2016 Excessive or frequent menstruation 07/11/2005 12/14/2016 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 Impaired fasting glucose 017 documented as of this encounter (statuses as of 12/04/2021) [address]2010 History of Past illness Narrative* Problem Noted Date Resolved Date Graves' disease 01/18/2010 12/14/2016 Abdominal pain, right lower quadrant 06/14/2006 12/14/2016 Excessive or frequent menstruation 07/11/2005 12/14/2016 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 Impaired fasting glucose 017 documented as of this encounter (statuses as of 12/11/2021) [address]2010 History of Past illness Narrative* Problem Noted Date Resolved Date Graves' disease 01/18/2010 12/14/2016 Abdominal pain, right lower quadrant 06/14/2006 12/14/2016 Excessive or frequent menstruation 07/11/2005 12/14/2016 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 Impaired fasting glucose 017 documented as of this encounter (statuses as of 12/27/2021) [address]2010 History of Past illness Narrative* Problem Noted Date Resolved Date Graves' disease 01/18/2010 12/14/2016 Abdominal pain, right lower quadrant 06/14/2006 12/14/2016 Excessive or frequent menstruation 07/11/2005 12/14/2016 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 Impaired fasting glucose 017 documented as of this encounter (statuses as of 01/18/2022) [address]2010 History of Past illness Narrative* Problem Noted Date Resolved Date Graves' disease 01/18/2010 12/14/2016 Abdominal pain, right lower quadrant 06/14/2006 12/14/2016 Excessive or frequent menstruation 07/11/2005 12/14/2016 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 Impaired fasting glucose 017 documented as of this encounter (statuses as of 03/16/2022) [address]2010 History of Past illness Narrative* Problem Noted Date Resolved Date Graves' disease 01/18/2010 12/14/2016 Abdominal pain, right lower quadrant 06/14/2006 12/14/2016 Excessive or frequent menstruation 07/11/2005 12/14/2016 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 Impaired fasting glucose 017 documented as of this encounter (statuses as of 04/06/2022) [address]2010 History of Past illness Narrative* Problem Noted Date Resolved Date Graves' disease 01/18/2010 12/14/2016 Abdominal pain, right lower quadrant 06/14/2006 12/14/2016 Excessive or frequent menstruation 07/11/2005 12/14/2016 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 Impaired fasting glucose 017 documented as of this encounter (statuses as of 04/13/2022) [address] History of Past illness Narrative* Problem Noted Date Resolved Date Graves' disease 01/18/2010 12/14/2016 Abdominal pain, right lower quadrant 06/14/2006 12/14/2016 Excessive or frequent menstruation 07/11/2005 12/14/2016 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 Impaired fasting glucose 017 documented as of this encounter (statuses as of 04/17/2022) [address]2010 History of Past illness Narrative* Problem Noted Date Resolved Date Graves' disease 01/18/2010 12/14/2016 Abdominal pain, right lower quadrant 06/14/2006 12/14/2016 Excessive or frequent menstruation 07/11/2005 12/14/2016 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 Impaired fasting glucose 017 documented as of this encounter (statuses as of 04/23/2022) [address]17-2010 History of Past illness Narrative* Problem Noted Date Resolved Date Graves' disease 01/18/2010 12/14/2016 Abdominal pain, right lower quadrant 06/14/2006 12/14/2016 Excessive or frequent menstruation 07/11/2005 12/14/2016 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 Impaired fasting glucose 017 documented as of this encounter (statuses as of 08/13/2022) [place] [address]17-2010 History of Past illness Narrative* Problem Noted Date Resolved Date Graves' disease 01/18/2010 12/14/2016 Abdominal pain, right lower quadrant 06/14/2006 12/14/2016 Excessive or frequent menstruation 07/11/2005 12/14/2016 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 Impaired fasting glucose 017 documented as of this encounter (statuses as of 08/20/2022) [address]17-2010 History of Past illness Narrative* Problem Noted Date Resolved Date Graves' disease 01/18/2010 12/14/2016 Abdominal pain, right lower quadrant 06/14/2006 12/14/2016 Excessive or frequent menstruation 07/11/2005 12/14/2016 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 Impaired fasting glucose 017 documented as of this encounter (statuses as of 09/01/2022) [address]17-2010 History of Past illness Narrative* Problem Noted Date Diagnosed Date Resolved Date Graves' disease 01/18/2010 12/14/2016 Abdominal pain, right lower quadrant 06/14/2006 12/14/2016 Excessive or frequent menstruation 07/11/2005 12/14/2016 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 Impaired fasting glucose documented as of this encounter (statuses as of 09/28/2022) [address]17[address]2010 History of Past illness Narrative* Problem Noted Date Diagnosed Date Resolved Date Graves' disease 01/18/2010 12/14/2016 Abdominal pain, right lower quadrant 06/14/2006 12/14/2016 Excessive or frequent menstruation 07/11/2005 12/14/2016 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 Impaired fasting glucose documented as of this encounter (statuses as of 10/01/2022) [address]17[address]2010 History of Past illness Narrative* Problem Noted Date Diagnosed Date Resolved Date Graves' disease 01/18/2010 12/14/2016 Abdominal pain, right lower quadrant 06/14/2006 12/14/2016 Excessive or frequent menstruation 07/11/2005 12/14/2016 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 Impaired fasting glucose documented as of this encounter (statuses as of 10/16/2022) [address]17[address]2010 History of Past illness Narrative* Problem Noted Date Diagnosed Date Resolved Date Graves' disease 01/18/2010 12/14/2016 Abdominal pain, right lower quadrant 06/14/2006 12/14/2016 Excessive or frequent menstruation 07/11/2005 12/14/2016 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 Impaired fasting glucose documented as of this encounter (statuses as of 01/13/2023) [address]17-2010 History of Past illness Narrative* Problem Noted Date Diagnosed Date Resolved Date Graves' disease 01/18/2010 12/14/2016 Abdominal pain, right lower quadrant 06/14/2006 12/14/2016 Excessive or frequent menstruation 07/11/2005 12/14/2016 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 Impaired fasting glucose documented as of this encounter (statuses as of 04/19/2023) [address]17[address] History of Past illness Narrative* Problem Noted Date Diagnosed Date Resolved Date Graves' disease 01/18/2010 12/14/2016 Abdominal pain, right lower quadrant 06/14/2006 12/14/2016 Excessive or frequent menstruation 07/11/2005 12/14/2016 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 Impaired fasting glucose documented as of this encounter (statuses as of 04/22/2023) [address]2010 History of Past illness Narrative* Problem Noted Date Diagnosed Date Resolved Date Graves' disease 01/18/2010 12/14/2016 Abdominal pain, right lower quadrant 06/14/2006 12/14/2016 Excessive or frequent menstruation 07/11/2005 12/14/2016 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 Impaired fasting glucose documented as of this encounter (statuses as of 06/21/2023) [address]2010 History of Past illness Narrative* Problem Noted Date Diagnosed Date Resolved Date Graves' disease 01/18/2010 12/14/2016 Abdominal pain, right lower quadrant 06/14/2006 12/14/2016 Excessive or frequent menstruation 07/11/2005 12/14/2016 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 Impaired fasting glucose documented as of this encounter (statuses as of 06/21/2023) [facility] Diagnosis Dermatitis- Primary Contact dermatitis and other eczema, due to unspecified cause Mixed hyperlipidemia Acquired hypothyroidism Unspecified hypothyroidism Prediabetes Other abnormal glucose Obesity (BMI 30-39.9) Obesity, unspecified Paroxysmal supraventricular tachycardia (HCC) Paroxysmal supraventricular tachycardia Essential hypertension Unspecified essential hypertension [facility] Diagnosis Prediabetes- Primary Other abnormal glucose [...] streptococcus pneumoniae (pneumococcus) documented in this encounter [facility] note* Diagnosis Screening mammogram for breast cancer documented in this encounter [facility] note* Diagnosis Abnormal mammogram- Primary Abnormal mammogram, unspecified documented in this encounter [facility] note* Diagnosis Keratoconus, stable, bilateral- Primary documented in this encounter [facility] note* Diagnosis Keratoconus, stable, bilateral- Primary documented in this encounter [facility] note* Diagnosis Keratoconus, stable, bilateral- Primary documented in this encounter [facility] note* Diagnosis Prediabetes- Primary Other abnormal glucose Essential hypertension Unspecified essential hypertension Acquired hypothyroidism Unspecified hypothyroidism Paroxysmal supraventricular tachycardia (HCC) Paroxysmal supraventricular tachycardia Mixed hyperlipidemia documented in this encounter [facility] note* Diagnosis Acquired hypothyroidism- Primary Unspecified hypothyroidism documented in this encounter [facility] note* Diagnosis Keratoconus, stable, bilateral- Primary documented in this encounter [facility] note* Diagnosis Mixed hyperlipidemia Acquired hypothyroidism Unspecified hypothyroidism Prediabetes Other abnormal glucose Obesity (BMI 30-39.9) Obesity, unspecified Paroxysmal supraventricular tachycardia (HCC) Paroxysmal supraventricular tachycardia Essential hypertension Unspecified essential hypertension documented in this encounter [facility] note* Diagnosis Keratoconus, stable, bilateral- Primary 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, unspecified documented in this encounter [facility] note* Diagnosis Keratoconus, stable, bilateral- Primary 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, unspecified documented in this encounter [facility] note* Diagnosis Mixed hyperlipidemia Acquired hypothyroidism Unspecified hypothyroidism Prediabetes Other abnormal glucose Obesity (BMI 30-39.9) Obesity, unspecified Paroxysmal supraventricular tachycardia (HCC) Paroxysmal supraventricular tachycardia documented in this encounter [facility] note* Diagnosis Keratoconus, stable, bilateral- Primary 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, unspecified documented in this encounter [facility] noteNo assessment information availableWPike Community [facility] Work Phone: Evaluation note* Diagnosis Epigastric abdominal pain- Primary Abdominal pain, epigastric [facility] Diagnosis Dry cough- Primary Cough Allergic rhinitis, unspecified seasonality, unspecified trigger Prediabetes Other abnormal glucose Essential hypertension Unspecified essential hypertension Mixed hyperlipidemia Paroxysmal supraventricular tachycardia Gastroesophageal reflux disease without esophagitis Esophageal reflux Acquired hypothyroidism Unspecified hypothyroidism Encounter for immunization Need for other specified prophylactic vaccination against single bacterial disease Obesity (BMI 30-39.9) Obesity, unspecified [facility] Diagnosis Acute pain of left knee- Primary [facility] Diagnosis Screening mammogram, encounter for [facility] Diagnosis Primary osteoarthritis of left knee- Primary Primary localized osteoarthrosis, lower leg Acute pain of left knee Loose body in knee, left knee [facility]* Diagnosis Essential hypertension Unspecified essential hypertension Paroxysmal supraventricular tachycardia (HCC) Paroxysmal supraventricular tachycardia Prediabetes Other abnormal glucose [facility] Diagnosis Acute cough- Primary Respiratory infection Other diseases of respiratory system, not elsewhere classified Acute cough [facility] Diagnosis Keratoconus, stable, bilateral- Primary 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, unspecified [facility] Diagnosis Prediabetes Other abnormal glucose Mixed hyperlipidemia Acquired hypothyroidism Unspecified hypothyroidism Obesity (BMI 30-39.9) Obesity, unspecified Paroxysmal supraventricular tachycardia (HCC) Paroxysmal supraventricular tachycardia [facility]* Diagnosis Keratoconus, stable, bilateral- Primary 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, unspecified documented in this encounter [facility] note* Diagnosis Annual physical exam- Primary Routine [...] 30-34.9 Obesity, unspecified [facility] Diagnosis Keratoconus, stable, bilateral- Primary 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, unspecified documented in this encounter [facility] note* Diagnosis Acute cough documented in this encounter [facility] note* Diagnosis Acute pain of left knee documented in this encounter [facility] note* Diagnosis Essential hypertension Unspecified essential hypertension Paroxysmal supraventricular tachycardia (HCC) Paroxysmal supraventricular tachycardia Prediabetes Other abnormal glucose Mixed hyperlipidemia Acquired hypothyroidism Unspecified hypothyroidism Obesity (BMI 30-39.9) Obesity, unspecified documented in this encounter [facility] note* Diagnosis Essential hypertension- Primary Unspecified essential hypertension Acquired hypothyroidism Unspecified hypothyroidism Encounter for screening mammogram for breast cancer Prediabetes Other abnormal glucose Eustachian tube disorder, left [facility] this [facility]* Diagnosis Essential hypertension- Primary Unspecified essential hypertension documented in this encounter [facility] note* Diagnosis Encounter for screening mammogram for breast cancer documented in this encounter [facility] note* Diagnosis Paroxysmal supraventricular tachycardia (HCC) Paroxysmal supraventricular tachycardia Prediabetes Other abnormal glucose Mixed hyperlipidemia Acquired hypothyroidism Unspecified hypothyroidism Obesity (BMI 30-39.9) Obesity, unspecified Essential hypertension Unspecified essential hypertension documented in this encounter [facility] note* Diagnosis Annual physical exam- Primary Routine [...] osteoarthrosis, lower leg documented in this encounter [facility] note* Diagnosis Pre-op examination- Primary Preoperative examination, unspecified documented in this encounter [facility] for referral (narrative)* Diagnostic Procedure Only (Routine) - Pending Review Specialty Diagnoses / Procedures Referred By Gagan ortega Referred To Contact [facility] Diagnoses Screening mammogram for breast cancer Procedures PARISH SCREENING SCREENING MAMMOGRAPHY BI 2-VIEW BREAST INC Sharri Ayala MD [address] [place] [address] [facility] [address] [employer] [facility] [place] [address] Referral ID Status Reason Start Date Expiration Date Visits Requested Visits Authorized [id number] Pending Review Auto-Generat ed Referral 11/10/2021 11/09/2022 1 1 [facility] for referral (narrative)* Diagnostic Procedure Only (Routine) - Closed Specialty Diagnoses / Procedures Referred By Gagan ortega Referred To Contact [facility] Diagnoses Screening mammogram for breast cancer Procedures PARISH SCREENING SCREENING MAMMOGRAPHY BI 2-VIEW BREAST INC CAD Sharri Jacobson MD [address] [place] [address] [facility] [address] [place] [address] Referral ID Status Reason Start Date Expiration Date V isits Requested Visits Authorized [id number] Closed Auto-Generate d Referral 03/04/2021 03/03/2022 1 1 [facility] for referral (narrative)* Diagnostic Procedure Only (Routine) - Authorized Specialty Diagnoses / Procedures Referred By Gagan ortega Referred To Contact [facility] Diagnoses Abnormal mammogram Procedures PARISH DIAGNOSTIC LT DIAGNOSTIC MAMMOGRAPHY COMPUTER-AIDED DETCJ UNI PodlogarYarelis APRN.CNP [address] [place] [address] [facility] [address] [place] [address] Referral ID Status Reason Start Date Expiration Date Visits Requested Visits Authorized [id number] Authorized Auto-Generat ed Referral 2 03/03/2022 1 1 * Consult, Test, Treat (Routine) - Authorized Specialty Diagnoses / Procedures Referred By Gagan ortega Referred To Contact [facility] Diagnoses Abnormal mammogram Procedures US BREAST LTD LT US BREAST UNI REAL TIME WITH IMAGE LIMITED CarloslogYarelis rodriguez APRN.HOUSEKEEPING ATTENDANT [address] [place] [address] [facility] [address] [place] [address] Referral ID Status Reason Start Date Expiration Date Visits Requested Visits Authorized [id number] Authorized Auto-Generat ed Referral 2 03/03/2022 1 1 [facility] for referral (narrative)* Diagnostic Procedure Only (Routine) - Closed Specialty Diagnoses / Procedures Referred By Contac t Referred To Contact [facility] Diagnoses Acute pain of left knee Procedures XR KNEE GENERAL 4V AP BOTH/PA BOTH/LAT/MERC LEFT RADIOLOGIC EXAM KNEE COMPLETE 4/MORE VIEWS PodlogarYarelis APRN.HOUSEKEEPING ATTENDANT [address] [place] [address] [place] [address] Referral ID Status Reason Start Date Expiration Date V isits Requested Visits Authorized [id number] Closed Auto-Generate d Referral 06/21/2023 07/20/2024 1 1 [facility] for referral (narrative)* Diagnostic Procedure Only (Routine) - Closed Specialty Diagnoses / Procedures Referred By Contac t Referred To Contact [facility] Diagnoses Screening mammogram, encounter for Procedures PARISH SCREENING SCREENING MAMMOGRAPHY BI 2-VIEW BREAST INC CAD Sharri Jacobson MD [address] [place] [address] [facility] [address] [place] [address] Referral ID Status Reason Start Date Expiration Date V isits Requested Visits Authorized [id number] Closed Auto-Generate d Referral 12/12/2022 11/11/2023 1 1 [facility] for referral (narrative)* Diagnostic Procedure Only (Routine) - Closed Specialty Diagnoses / Procedures Referred By Contac t Referred To Contact [facility] Diagnoses Acute pain of left knee Procedures XR KNEE GENERAL 4V AP BOTH/PA BOTH/LAT/MERC LEFT RADIOLOGIC EXAM KNEE COMPLETE 4/MORE VIEWS PodlogYarelis rodriguez APRN.HOUSEKEEPING ATTENDANT [address] [place] [address] [place] [address] Referral ID Status Reason Start Date Expiration Date V isits Requested Visits Authorized [id number] Closed Auto-Generate d Referral 06/21/2023 07/20/2024 1 1 [facility] for visit Narrative* Diagnostic Procedure Only (Routine) - Closed Specialty Diagnoses / Procedures Referred By Contac t Referred To Contact [facility] Diagnoses Screening mammogram for breast cancer Procedures PARISH SCREENING SCREENING MAMMOGRAPHY BI 2-VIEW BREAST INC Sharri Ayala MD [address] [place] [address] [facility] [address] [place] [address] Referral ID Status Reason Start Date Expiration Date V isits Requested Visits Authorized [id number] Closed Auto-Generate d Referral 03/04/2021 03/03/2022 1 1 [facility] for visit Narrative* Diagnostic Procedure Only (Routine) - Closed Specialty Diagnoses / Procedures Referred By Contac t Referred To Contact [facility] Diagnoses Screening mammogram, encounter for Procedures PARISH SCREENING SCREENING MAMMOGRAPHY BI 2-VIEW BREAST INC Sharri Ayala MD [address] [place] [address] [facility] [address] [place] [address] Referral ID Status Reason Start Date Expiration Date V isits Requested Visits Authorized [id number] Closed Auto-Generate d Referral 12/12/2022 11/11/2023 1 1 [facility] for visit Narrative* Diagnostic Procedure Only (Routine) - Closed Specialty Diagnoses / Procedures Referred By Contac t Referred To Contact [facility]AG[facility] Diagnoses Acute pain of left knee Procedures XR KNEE GENERAL 4V AP BOTH/PA BOTH/LAT/MERC LEFT RADIOLOGIC EXAM KNEE COMPLETE 4/MORE VIEWS Yarelis Carlos APRN.CNP [address] [place] [address] [place] [address] Referral ID Status Reason Start Date Expiration Date V isits Requested Visits Authorized [id number] Closed Auto-Generate d Referral 06/21/2023 07/20/2024 1 1 [facility] for visit Narrative* Diagnostic Procedure Only (Routine) - Closed Specialty Diagnoses / Procedures Referred By Gagan t Referred To Contact [facility] Diagnoses Encounter for screening mammogram for breast cancer Procedures PARISH SCREENING W LALY SCREENING DIGITAL BREAST TOMOSYNTHESIS BI SCREENING MAMMOGRAPHY BI 2-VIEW BREAST INC Yarelis Rivera APRN.HOUSEKEEPING ATTENDANT [address] [place] [address] Phone: tel: fax: [facility] [address] [address] Referral ID Status Reason Start Date Expiration Date V isits Requested Visits Authorized [id number] Closed Auto-Generate d Referral 07/13/2024 03/03/2025 1 1 [facility] Chief Complaint and Reason for Visit Chief Complaint abd pain Advance Directives No Advanced Directives Records Found Advance Directive Response Recorded Date/ Time Living Will No January 13 023 9:51am Power of Printed Circuit Board Panels Developer No January 13, 2023 9:51am Summary Purpose [...] or prosecute any alcohol or drug abuse patient.[facility] Hospital[facility] the event this information is protected by the Federal Confidentiality of Alcohol and Drug Abuse Patient Records regulations: The Federal rules restrict any use of the information to criminally investigate or prosecute any alcohol or drug abuse patient.[facility] Hospital[facility] the event this information is protected by the Federal Confidentiality of Alcohol and Drug Abuse Patient Records regulations: The Federal rules restrict any use of the information to criminally investigate or prosecute any alcohol or drug abuse patient.[facility] Hospital[facility] the event this information is protected by the Federal Confidentiality of Alcohol and Drug Abuse Patient Records regulations: The Federal rules restrict any use of the information to criminally investigate or prosecute any alcohol or drug abuse patient.[facility] Hospital[facility] the event this information is protected by the Federal Confidentiality of Alcohol and Drug Abuse Patient Records regulations: The Federal rules restrict any use of the information to criminally investigate or prosecute any alcohol or drug abuse patient.[facility] Hospital[facility] the event this information is protected by the Federal Confidentiality of Alcohol and Drug Abuse Patient Records regulations: The Federal rules restrict any use of the information to criminally investigate or prosecute any alcohol or drug abuse patient.[facility] Hospital[facility] the event this information is protected by the Federal Confidentiality of Alcohol and Drug Abuse Patient Records regulations: The Federal rules restrict any use of the information to criminally investigate or prosecute any alcohol or drug abuse patient.[facility] Hospital[facility] the event this information is protected by the Federal Confidentiality of Alcohol and Drug Abuse Patient Records regulations: The Federal rules restrict any use of the information to criminally investigate or prosecute any alcohol or drug abuse patient.[facility] Hospital[facility] the event this information is protected by the Federal Confidentiality of Alcohol and Drug Abuse Patient Records regulations: The Federal rules restrict any use of the information to criminally investigate or prosecute any alcohol or drug abuse patient.[facility] Hospital[facility] the event this information is protected by the Federal Confidentiality of Alcohol and Drug Abuse Patient Records regulations: The Federal rules restrict any use of the information to criminally investigate or prosecute any alcohol or drug abuse patient.[facility] Hospital[facility] the event this information is protected by the Federal Confidentiality of Alcohol and Drug Abuse Patient Records regulations: The Federal rules restrict any use of the information to criminally investigate or prosecute any alcohol or drug abuse patient.[facility] Hospital[facility] the event this information is protected by the Federal Confidentiality of Alcohol and Drug Abuse Patient Records regulations: The Federal rules restrict any use of the information to criminally investigate or prosecute any alcohol or drug abuse patient.[facility] HospitalIn the event this information is protected by the Federal Confidentiality of Alcohol and Drug Abuse Patient Records regulations: The Federal rules restrict any use of the information to criminally investigate or prosecute any alcohol or drug abuse patient.[facility] HospitalIn the event this information is protected by the Federal Confidentiality of Alcohol and Drug Abuse Patient Records regulations: The Federal rules restrict any use of the information to criminally investigate or prosecute any alcohol or drug abuse patient.[facility] HospitalIn the event this information is protected by the Federal Confidentiality of Alcohol and Drug Abuse Patient Records regulations: The Federal rules restrict any use of the information to criminally investigate or prosecute any alcohol or drug abuse patient.[facility] HospitalIn the event this information is protected by the Federal Confidentiality of Alcohol and Drug Abuse Patient Records regulations: The Federal rules restrict any use of the information to criminally investigate or prosecute any alcohol or drug abuse patient.[facility] HospitalIn the event this information is protected by the Federal Confidentiality of Alcohol and Drug Abuse Patient Records regulations: The Federal rules restrict any use of the information to criminally investigate or prosecute any alcohol or drug abuse patient.[facility] HospitalIn the event this information is protected by the Federal Confidentiality of Alcohol and Drug Abuse Patient Records regulations: The Federal rules restrict any use of the information to criminally investigate or prosecute any alcohol or drug abuse patient.[facility] HospitalIn the event this information is protected by the Federal Confidentiality of Alcohol and Drug Abuse Patient Records regulations: The Federal rules restrict any use of the information to criminally investigate or prosecute any alcohol or drug abuse patient.[facility] HospitalIn the event this information is protected by the Federal Confidentiality of Alcohol and Drug Abuse Patient Records regulations: The Federal rules restrict any use of the information to criminally investigate or prosecute any alcohol or drug abuse patient.[facility] HospitalIn the event this information is protected by the Federal Confidentiality of Alcohol and Drug Abuse Patient Records regulations: The Federal rules restrict any use of the information to criminally investigate or prosecute any alcohol or drug abuse patient.[facility] HospitalIn the event this information is protected by the Federal Confidentiality of Alcohol and Drug Abuse Patient Records regulations: The Federal rules restrict any use of the information to criminally investigate or prosecute any alcohol or drug abuse patient.[facility] HospitalIn the event this information is protected by the Federal Confidentiality of Alcohol and Drug Abuse Patient Records regulations: The Federal rules restrict any use of the information to criminally investigate or prosecute any alcohol or drug abuse patient.[facility] HospitalIn the event this information is protected by the Federal Confidentiality of Alcohol and Drug Abuse Patient Records regulations: The Federal rules restrict any use of the information to criminally investigate or prosecute any alcohol or drug abuse patient.[facility] HospitalIn the event this information is protected by the Federal Confidentiality of Alcohol and Drug Abuse Patient Records regulations: The Federal rules restrict any use of the information to criminally investigate or prosecute any alcohol or drug abuse patient.[facility] HospitalIn the event this information is protected by the Federal Confidentiality of Alcohol and Drug Abuse Patient Records regulations: The Federal rules restrict any use of the information to criminally investigate or prosecute any alcohol or drug abuse patient.[facility] HospitalIn the event this information is protected by the Federal Confidentiality of Alcohol and Drug Abuse Patient Records regulations: The Federal rules restrict any use of the information to criminally investigate or prosecute any alcohol or drug abuse patient.[facility] HospitalIn the event this information is protected by the Federal Confidentiality of Alcohol and Drug Abuse Patient Records regulations: The Federal rules restrict any use of the information to criminally investigate or prosecute any alcohol or drug abuse patient.[facility] HospitalIn the event this information is protected by the Federal Confidentiality of Alcohol and Drug Abuse Patient Records regulations: The Federal rules restrict any use of the information to criminally investigate or prosecute any alcohol or drug abuse patient.[facility] HospitalIn the event this information is protected by the Federal Confidentiality of Alcohol and Drug Abuse Patient Records regulations: The Federal rules restrict any use of the information to criminally investigate or prosecute any alcohol or drug abuse patient.[facility] HospitalIn the event this information is protected by the Federal Confidentiality of Alcohol and Drug Abuse Patient Records regulations: The Federal rules restrict any use of the information to criminally investigate or prosecute any alcohol or drug abuse patient.[facility] HospitalIn the event this information is protected by the Federal Confidentiality of Alcohol and Drug Abuse Patient Records regulations: The Federal rules restrict any use of the information to criminally investigate or prosecute any alcohol or drug abuse patient.[facility] HospitalIn the event this information is protected by the Federal Confidentiality of Alcohol and Drug Abuse Patient Records regulations: The Federal rules restrict any use of the information to criminally investigate or prosecute any alcohol or drug abuse patient.[facility] HospitalIn the event this information is protected by the Federal Confidentiality of Alcohol and Drug Abuse Patient Records regulations: The Federal rules restrict any use of the information to criminally investigate or prosecute any alcohol or drug abuse patient.[facility] HospitalIn the event this information is protected by the Federal Confidentiality of Alcohol and Drug Abuse Patient Records regulations: The Federal rules restrict any use of the information to criminally investigate or prosecute any alcohol or drug abuse patient.[facility] HospitalIn the event this information is protected by the Federal Confidentiality of Alcohol and Drug Abuse Patient Records regulations: The Federal rules restrict any use of the information to criminally investigate or prosecute any alcohol or drug abuse patient.[facility] HospitalIn the event this information is protected by the Federal Confidentiality of Alcohol and Drug Abuse Patient Records regulations: The Federal rules restrict any use of the information to criminally investigate or prosecute any alcohol or drug abuse patient.[facility] HospitalIn the event this information is protected by the Federal Confidentiality of Alcohol and Drug Abuse Patient Records regulations: The Federal rules restrict any use of the information to criminally investigate or prosecute any alcohol or drug abuse patient.[facility] HospitalIn the event this information is protected by the Federal Confidentiality of Alcohol and Drug Abuse Patient Records regulations: The Federal rules restrict any use of the information to criminally investigate or prosecute any alcohol or drug abuse patient.[facility] HospitalIn the event this information is protected by the Federal Confidentiality of Alcohol and Drug Abuse Patient Records regulations: The Federal rules restrict any use of the information to criminally investigate or prosecute any alcohol or drug abuse patient.[facility] HospitalIn the event this information is protected by the Federal Confidentiality of Alcohol and Drug Abuse Patient Records regulations: The Federal rules restrict any use of the information to criminally investigate or prosecute any alcohol or drug abuse patient.[facility] HospitalIn the event this information is protected by the Federal Confidentiality of Alcohol and Drug Abuse Patient Records regulations: The Federal rules restrict any use of the information to criminally investigate or prosecute any alcohol or drug abuse patient.[facility] HospitalIn the event this information is protected by the Federal Confidentiality of Alcohol and Drug Abuse Patient Records regulations: The Federal rules restrict any use of the information to criminally investigate or prosecute any alcohol or drug abuse patient.[facility] HospitalIn the event this information is protected by the Federal Confidentiality of Alcohol and Drug Abuse Patient Records regulations: The Federal rules restrict any use of the information to criminally investigate or prosecute any alcohol or drug abuse patient.[facility] HospitalIn the event this information is protected by the Federal Confidentiality of Alcohol and Drug Abuse Patient Records regulations: The Federal rules restrict any use of the information to criminally investigate or prosecute any alcohol or drug abuse patient.[facility] HospitalIn the event this information is protected by the Federal Confidentiality of Alcohol and Drug Abuse Patient Records regulations: The Federal rules restrict any use of the information to criminally investigate or prosecute any alcohol or drug abuse patient.[facility] HospitalIn the event this information is protected by the Federal Confidentiality of Alcohol and Drug Abuse Patient Records regulations: The Federal rules restrict any use of the information to criminally investigate or prosecute any alcohol or drug abuse patient.[facility] HospitalIn the event this information is protected by the Federal Confidentiality of Alcohol and Drug Abuse Patient Records regulations: The Federal rules restrict any use of the information to criminally investigate or prosecute any alcohol or drug abuse patient.[facility] HospitalIn the event this information is protected by the Federal Confidentiality of Alcohol and Drug Abuse Patient Records regulations: The Federal rules restrict any use of the information to criminally investigate or prosecute any alcohol or drug abuse patient.[facility] HospitalIn the event this information is protected by the Federal Confidentiality of Alcohol and Drug Abuse Patient Records regulations: The Federal rules restrict any use of the information to criminally investigate or prosecute any alcohol or drug abuse patient.[facility] HospitalIn the event this information is protected by the Federal Confidentiality of Alcohol and Drug Abuse Patient Records regulations: The Federal rules restrict any use of the information to criminally investigate or prosecute any alcohol or drug abuse patient.[facility] HospitalIn the event this information is protected by the Federal Confidentiality of Alcohol and Drug Abuse Patient Records regulations: The Federal rules restrict any use of the information to criminally investigate or prosecute any alcohol or drug abuse patient.[facility] Reason for Visit (unrecogniz ed section and content) Reason Comments Dry Eye Syndrome Follow Up Specialty Diagnoses / Procedures Referred By Contac t Referred To Contact Optometry / OPHTHALMOLOGY Diagnoses Follow-up exam contact lens follow up Procedures OFFICE/OUTPATIENT ESTABLISHED MOD MDM 30-39 MIN EST CL CHECK Self Lizzie Pool, OD [address] [place] [address] Referral ID Status Reason Start Date Expiration Date Visits Re quested Visits Authorized [id number] Closed 08/20/2022 03/03/2023 1 1 Reason Comments Rash right shoulder-itche s Rx Refills Specialty Diagnoses / Procedures Referred By Contact Referred To Contact Family Practice / FAMILY MEDICINE Diagnoses Elevated BP without diagnosis of hypertension elevated bp Procedures NEW PATIENT VISIT LEVEL 5 SAME DAY Sharri Jacobson MD [address] [place] [id number] Sharri Jacobson MD [address] [place] [id number] Referral ID Status Reason Start Date Expiration Date V isits Requested Visits Authorized [id number] Authorized 08/08/2020 08/08/2021 99 99 Reason Comments Follow Up 6 month Specialty Diagnoses / Procedures Referred By Contac t Referred To Contact Family Practice / FAMILY MEDICINE Diagnoses Follow-up exam 6 month follow up Procedures OFFICE/OUTPATIENT ESTABLISHED MOD [facility] 30-39 MIN 4C EST Sharri Jacobson MD [address] [place] [address] Sharri Jacobson MD [address] [place] [id number] Referral ID Status Reason Start Date Expiration Date Visits Re quested Visits Authorized [id number] Closed 09/30/2021 03/03/2022 2 2 Reason Comments Results Reason Comments Results Reason Comments Contact lens dispense Specialty Diagnoses / Procedures Referred By Contac t Referred To Contact Optometry / OPHTHALMOLOGY Diagnoses pecan picker contacts Procedures OFFICE/OUTPATIENT ESTABLISHED MOD MDM 30-39 MIN EST CL FIT Lizzie Pool, OD [address] [facility] [place] [address] Lizzie Pool, OD [address] [place] [address] Referral ID Status Reason Start Date Expiration Date Visits Re quested Visits Authorized [id number] Closed 01/18/2022 03/03/2022 1 1 Reason Comments Contact Lens Follow Up [place] Specialty Diagnoses / Procedures Referred By Contac t Referred To Contact Optometry / OPHTHALMOLOGY Diagnoses Follow-up examination follow up contacts Procedures OFFICE/OUTPATIENT ESTABLISHED MOD MDM 30-39 MIN EST ADULT Lizzie Pool, OD [address] [facility] [place] [place] [address] Lizzie Pool, OD [address] [place] [address] Referral ID Status Reason Start Date Expiration Date Visits Re quested Visits Authorized [id number] Closed 03/16/2022 03/03/2023 1 1 Reason Comments Contact Lens Follow Up Specialty Diagnoses / Procedures Referred By Contac t Referred To Contact Optometry / OPHTHALMOLOGY Diagnoses Encounter for general adult medical examination without abnormal findings supervisor 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 Procedures OFFICE/OUTPATIENT ESTABLISHED MOD [facility] 30-39 MIN EST ADULT Lizzie Pool, OD [address] [place] [address] Lizzie Pool, OD [address] [place] [address] Referral ID Status Reason Start Date Expiration Date Visits Re quested Visits Authorized [id number] Closed 04/06/2022 03/03/2023 1 1 Reason Comments Follow Up Specialty Diagnoses / Procedures Referred By Contac t Referred To Contact Family Medicine / FAMILY MEDICINE Diagnoses Follow-up exam 6 month follow up Procedures OFFICE/OUTPATIENT ESTABLISHED MOD [facility] 30-39 MIN 4C EST Self PodlogarYarelis APRN.HOUSEKEEPING ATTENDANT [address] [place] [address] Referral ID Status Reason Start Date Expiration Date Visits Re quested Visits Authorized [id number] Closed 04/13/2022 03/03/2023 1 1 Reason Comments Contact Lens Follow Up Eye Burning Right Eye Slightly when she takes the contact lens out. Specialty Diagnoses / Procedures Referred By Gagan ortega Referred To Contact Optometry / OPHTHALMOLOGY Diagnoses CONTACT LENS FOLLOW UP Procedures EST CL CHECK Lizzie Pool, OD [address] [place] [address] Lizzie Pool, OD [address] [place] [address] Referral ID Status Reason Start Date Expiration Date Visits Re quested Visits Authorized [id number] Closed 04/06/2022 03/03/2023 1 1 Reason Onset Date Comments Refill Request 08/13/2022 Reason Onset Date Comments Refill Request 09/28/2022 Reason Comments Contact Lens Follow Up Specialty Diagnoses / Procedures Referred By Gagan t Referred To Contact Optometry / OPHTHALMOLOGY Diagnoses Follow-up exam 2-3 wk contact lens follow-up Procedures OFFICE/OUTPATIENT ESTABLISHED MOD MDM 30-39 MIN EST CL FIT Sharri Jacobson MD [address] [place] [id number] Lizzie Pool, OD [address] [facility] [place] [place] [address] Referral ID Status Reason Start Date Expiration Date Visits Re quested Visits Authorized [id number] Closed 10/01/2022 03/03/2023 1 1 Reason Comments Blood Pressure higher blood pressur e readings x 1 day-2 deaths in family Reason Comments Follow Up 6 month- refill need ed medications Specialty Diagnoses / Procedures Referred By Contact Referred To Contact Family Medicine / FAMILY MEDICINE Diagnoses 6 month follow up Procedures 4C EST Sharri Jacobson MD [facility] [place] [address] Sharri Jacobson MD [address] [place] [address] Referral ID Status Reason Start Date Expiration Date V isits Requested Visits Authorized [id number] Pending Review 04/19/2023 07/18/2023 1 1 Reason Comments Left Leg Pain Reason Comments Leg Pain Left leg pain Reason Comments New Pain Specialty Diagnoses / Procedures Referred By Contac t Referred To Contact Orthopedics Diagnoses Acute pain of left knee Loose body in knee, left knee Procedures CONSULT TO ORTHOPAEDICS OFFICE/OUTPATIENT NEW HIGH MDM 60 MINUTES PodlogYarelis rodriguez APRN.HOUSEKEEPING ATTENDANT [address] [place] [address] Referral ID Status Reason Start Date Expiration Date V isits Requested Visits Authorized [id number] Closed PCP Requested Referral 06/26/2023 06/25/2024 1 [...] 4C EST WELL Self Sharri Jacobson MD [address] [place] [phone] Referral ID Status Reason Start Date Expiration Date Visits Re quested Visits Authorized [id number] Closed 10/18/2023 03/03/2024 1 1 Specialty Diagnoses / Procedures Referred By Contac t Referred To Contact Radiology / [facility] Diagnoses Chest XR rm 5 Procedures XR CHEST Carolina Valadez APRN.HOUSEKEEPING ATTENDANT [address] [place] [address] Radio [facility] [address] [place] [address] Referral ID Status Reason Start Date Expiration Date V isits Requested Visits Authorized [id number] Closed Clearance Not Met -Financial Clearance Bypassed [...] Exam Reason Onset Date Comments Results 10/20/2024 Reason Comments Pre-Op Exam Care Teams (unrecognized sec tion and content) Dietary Services Director Relationship Specialty Start Date End Date Sharri Jacobson MD [address] [facility] [place] [address] PCP - General Family Practice 12/17/16 Dietary Services Director Relationship Specialty Start Date End Date Sharri Jacobson MD [address] [facility] [place] [address] PCP - General Family Practice 12/17/16 Dietary Services Director Relationship Specialty Start Date End Date Sharri Jacobson MD [address] [facility] [place] [address] PCP - General Family Medicine 12/17/16 Dietary Services Director Relationship Specialty Start Date End Date Sharri Jacobson MD [address] [facility] [place] [address] PCP - General Family Medicine 12/17/16 Dietary Services Director Relationship Specialty Start Date End Date Sharri Jacobson MD [address] [facility] [place] [address] PCP - General Family Medicine 12/17/16 Dietary Services Director Relationship Specialty Start Date End Date Sharri Jacobson MD [address] [facility] [place] [address] PCP - General Family Medicine 12/17/16 Dietary Services Director Relationship Specialty Start Date End Date Sharri Jacobson MD [address] [facility] [place] [address] PCP - General Family Medicine 12/17/16 Dietary Services Director Relationship Specialty Start Date End Date Sharri Jacobson MD [address] [facility] [place] [address] PCP - General Family Medicine 12/17/16 Marcio Vincent [address] [place] [address] Referring Ophthalmology 12/30/21 Dietary Services Director Relationship Specialty Start Date End Date Sharri Jacobson MD [address] [facility] [place] [address] PCP - General Family Medicine 12/17/16 Marcio Vincent [facility] [place] [address] Referring Ophthalmology 12/30/21 Dietary Services Director Relationship Specialty Start Date End Date Sharri Jacobson MD [address] [facility] [place] [address] PCP - General Family Medicine 12/17/16 Marcio Vincent [facility] [place] [address] Referring Ophthalmology 12/30/21 Dietary Services Director Relationship Specialty Start Date End Date Sharri Jacobson MD [address] [facility] [place] [address] PCP - General Family Medicine 12/17/16 Marcio Vincent [facility] [place] [address] Referring Ophthalmology 12/30/21 Dietary Services Director Relationship Specialty Start Date End Date Sharri Jacobson MD [address] [facility] [place] [address] PCP - General Family Medicine 12/17/16 Marcio Vincent [facility] [place] [address] Referring Ophthalmology 12/30/21 Dietary Services Director Relationship Specialty Start Date End Date Sharri Jacobson MD [address] [facility], [place] [address] PCP - General Family Medicine 12/17/16 Marcio Vincent [address] [place] [address] Referring Ophthalmology 12/30/21 Dietary Services Director Relationship Specialty Start Date End Date Sharri Jacobson MD [address] [facility], [place] [address] PCP - General Family Medicine 12/17/16 Marcio Vincent [address] [place] [address] Referring Ophthalmology 12/30/21 Dietary Services Director Relationship Specialty Start Date End Date Sharri Jacobson MD [address] [facility], [place] [address] PCP - General Family Medicine 12/17/16 Marcio Vincent [address] [place] [address] Referring Ophthalmology 12/30/21 Team Status: Active Member Role Status Dates Dr. Freddie Corley MD Family Provider Active Dr. Artis Jacobson MD Primary Care Provider Acti ve Team Status: Inactive Member Role Status Dates Dr. Artis Jacobson MD Primary Care Provider Acti ve Dr. Ramandeep Brandon MD Emergency Provider Active Dietary Services Director Relationship Specialty Start Date End Date Sharri Jacobson MD [address] [facility] [place] [address] PCP - General Family Medicine 12/17/16 Marcio Vincent [address] [place] [address] Referring Ophthalmology 12/30/21 Dietary Services Director Relationship Specialty Start Date End Date Sharri Jacobson MD [address] [place], [place] [address] PCP - General Family Medicine 12/17/16 Marcio Vincent [address] [place] [address] Referring Ophthalmology 12/30/21 Dietary Services Director Relationship Specialty Start Date End Date Sharri Jacobson MD [address] [place], [place] [address] PCP - General Family Medicine 12/17/16 Marcio Vincent [address] [place] [address] Referring Ophthalmology 12/30/21 Dietary Services Director Relationship Specialty Start Date End Date Sharri Jacobson MD [address] [place] [address] PCP - General Family Medicine 12/17/16 Marcio Vincent [address] [place] [address] Referring Ophthalmology 12/30/21 Dietary Services Director Relationship Specialty Start Date End Date Sharri Jacobson MD [address] [place], [place] [address] PCP - General Family Medicine 12/17/16 Marcio Vincent [address] [place] [address] Referring Ophthalmology 12/30/21 Dietary Services Director Relationship Specialty Start Date End Date Sharri Jacobson MD [address] [facility], [place] [address] PCP - General Family Medicine 12/17/16 Marcio Vincent [address] [place] [address] Referring Ophthalmology 12/30/21 Dietary Services Director Relationship Specialty Start Date End Date Sharri Jacobson MD [address] [facility], [place] [address] PCP - General Family Medicine 12/17/16 Marcio Vincent [address] [place] [address] Referring Ophthalmology 12/30/21 Dietary Services Director Relationship Specialty Start Date End Date Sharri Jacobson MD [address] [place] [address] PCP - General Family Medicine 12/17/16 Marcio Vincent [address] [place] [address] Referring Ophthalmology 12/30/21 Dietary Services Director Relationship Specialty Start Date End Date Sharri Jacobson MD [address] [facility] [place] [address] PCP - General Family Medicine 12/17/16 Marcio Vincent [address] [place] [address] Referring Ophthalmology 12/30/21 Dietary Services Director Relationship Specialty Start Date End Date Sharri Jacobson MD [address] [facility] [place] [address] PCP - General Family Medicine 12/17/16 Marcio Vincent [address] [place] [address] Referring Ophthalmology 12/30/21 Dietary Services Director Relationship Specialty Start Date End Date Sharri Jacobson MD [address] [facility] [place] [address] [phone] PCP - General Family Medicine 12/17/16 Marcio Vincent [address] [place] [address] Referring Ophthalmology 12/30/21 Dietary Services Director Relationship Specialty Start Date End Date Sharri Jacobson MD [address] [facility] [place] [address] PCP - General Family Medicine 12/17/16 Marcio Vincent [address] [place] [address] Referring Ophthalmology 12/30/21 Dietary Services Director Relationship Specialty Start Date End Date Sharri Jacobson MD [address] [facility] [place] [address] PCP - General Family Medicine 12/17/16 Marcio Vincent [address] [place] [address] Referring Ophthalmology 12/30/21 Dietary Services Director Relationship Specialty Start Date End Date Sharri Jacobson MD [address] [facility] [place] [address] PCP - General Family Medicine 12/17/16 Marcio Vincent [address] [facility] [place] [address] Referring Ophthalmology 12/30/21 Dietary Services Director Relationship Specialty Start Date End Date Sharri Jacobson MD [address] [place], [place] 309128 [phone] PCP - General Family Medicine 12/17/16 Marcio Vincent [address] [place], [place] [id number] Referring Ophthalmology 12/30/21 Dietary Services Director Relationship Specialty Start Date End Date Sharri Jacobson MD [address] [place], [place] 683[address] [phone] PCP - General Family Medicine 12/17/16 Marcio Vincent [address] [place], [place] [address]461 Referring Ophthalmology 12/30/21 PodlogarYarelis APRN.CNP [address] [place], [place] [id number] [employer] [facility] 02/08/24 Dietary Services Director Relationship Specialty Start Date End Date Sharri Jacobson MD [address], [place] [id number] PCP - General Family Medicine 12/17/16 Marcio Vincent [address] [place], [place] [id number] Referring Ophthalmology 12/30/21 PodlogarYarelis APRN.HOUSEKEEPING ATTENDANT [address] [place] [address] [employer] [facility] 02/08/24 Dietary Services Director Relationship Specialty Start Date End Date Sharri Jacobson MD [address] [place] [address] PCP - General Family Medicine 12/17/16 Marcio Vincent [address] [facility] [place], [place] [address] Referring Ophthalmology 12/30/21 Podlogar, [place] Santoyo.HOUSEKEEPING ATTENDANT [address] [place] [address] [employer] [facility] 02/08/24 Dietary Services Director Relationship Specialty Start Date End Date Sharri Jacobson MD [address] [place] [address] PCP - General Family Medicine 12/17/16 Marcio Vincent [address] [place] [address] Referring Ophthalmology 12/30/21 PodlogarYarelis APRN.HOUSEKEEPING ATTENDANT [address] [place] [address] [employer] [facility] 02/08/24 Dietary Services Director Relationship Specialty Start Date End Date Sharri Jacobson MD [address] [place] [address] PCP - General Family Medicine 12/17/16 Marcio Vincent [address] [facility] [place] [address] Referring Ophthalmology 12/30/21 PodlogarYraelis APRN.HOUSEKEEPING ATTENDANT [address] [place] [address] [employer] [facility] 02/08/24 Braden Ni APRN.HOUSEKEEPING ATTENDANT [address] [place], [place] [address] [phone] [employer] [facility] 05/15/24 05/24/24 Braden Ni APRN.HOUSEKEEPING ATTENDANT [address] [place] [address] [employer] [facility] 05/25/24 Dietary Services Director Relationship Specialty Start Date End Date Sharri Jacobson MD [address] [place] [address] PCP - General Family Medicine 12/17/16 Marcio Vincent [facility] [place] [address] Referring Ophthalmology 12/30/21 PodlogarYarelis APRN.HOUSEKEEPING ATTENDANT [address] [place] [address] [employer] [facility] 02/08/24 Braden Ni APRN.HOUSEKEEPING ATTENDANT [address] [place], [place] [address] [employer] [facility] 05/25/24 Dietary Services Director Relationship Specialty Start Date End Date Sharir Jacobson MD [address] [place], [place] [id number] [phone] PCP - General Family Medicine 12/17/16 Marcio Vincent [address] [place] [address] Referring Ophthalmology 12/30/21 PodlogarYarelis INVESTMENT TRADER.HOUSEKEEPING ATTENDANT [address] [facility] [place] [address] [employer] [facility] 02/08/24 Dietary Services Director Relationship Specialty Start Date End Date Sharri Jacobson MD [address] [facility] [place] [address] PCP - General Family Medicine 12/17/16 Marcio Vincent [address] [place] [address] Referring Ophthalmology 12/30/21 PodlogarYarelis, INVESTMENT TRADER.HOUSEKEEPING ATTENDANT [address] [facility] [place] [address] [employer] [facility] 02/08/24 Braden Ni, INVESTMENT TRADER.HOUSEKEEPING ATTENDANT [address] [facility] [place] [address] [employer] [facility] 05/25/24 07/19/24 Braden Ni INVESTMENT TRADER.HOUSEKEEPING ATTENDANT [address] [facility] [place] [address] [employer] [facility] 08/13/24 Dietary Services Director Relationship Specialty Start Date End Date Sharri Jacobson MD [address] [facility] [place] [address] PCP - General Family Medicine 12/17/16 Marcio Vincent [address] [place] [address] Referring Ophthalmology 12/30/21 PodlogYarelis rodriguez APRN.HOUSEKEEPING ATTENDANT [address] [place] [address] [employer] [facility] 02/08/24 Braden Ni INVESTMENT TRADER.HOUSEKEEPING ATTENDANT [address] [place] [address] [facility] 08/13/24 Dietary Services Director Relationship Specialty Start Date End Date Sharri Jacobson MD [address] [place], [place] [phone] PCP - General Family Medicine 12/17/16 Marcio Vincent [address] [place] [address] Referring Ophthalmology 12/30/21 PodlogarYarelis INVESTMENT TRADER.HOUSEKEEPING ATTENDANT [address] [place] [address] [facility] Family Medicine 02/08/24 Braden Ni, INVESTMENT TRADER.HOUSEKEEPING ATTENDANT [address] [place], [place] [phone] [facility] Family [facility] 08/13/24 Dietary Services Director Relationship Specialty Start Date End Date Sharri Jacobson MD [address] [place], [place] [address] PCP - General Family Medicine 12/17/16 Marcio Vincent [address] [place] [address] Referring Ophthalmology 12/30/21 PodlogYarelis rodriguez APRN.HOUSEKEEPING ATTENDANT [address], [place] [address] [facility] 02/08/24 Braden Ni APRN.HOUSEKEEPING ATTENDANT [address] [place] [address] [facility] 08/13/24 Goals (unrecognized section and content) Goals may be documented in a n alternate section INFORMATION SOURCE (unrecogn ized section and content) DATE CREATED AUTHOR 11/11/2024 [facility] DATE CREATED AUTHOR AUTHOR'S VALERIO JUAREZ 11/17/2024 [facility] FOR RECORDS PERTAINING TO PATIENTS WHO ARE [...] BE BASED ON THE PRIMARY CLINICAL RECORDS. [employer] provides no warranty or guarantee of the accuracy or completeness of information in this document.
[2024-11-20 09:47] LABS: Albumin, Serum 4.5 g/dL (3.4-4.8)
== END | disposition home or self-care (01) ==
LOC: LAB 08:02
PROVIDERS: PCP Family Medicine; Referring Provider Specialist; Visit Provider Specialist
DX: Z01.812 Encounter for preprocedural laboratory examination (principal)
CPT/HCPCS: 36415; 82040